=== PATIENT | male | born 1970 | race Caucasian/White ===

== ENCOUNTER 2022-06-02 13:38 | Emergency (ER) | payer OTHER, SELFPAY ==
[2022-06-02 14:16] VITALS: BP 135/86; PULSE 77; RESP 19; TEMP 36.6; O2SAT 98; BMI 29.5
--- NOTE | 2022-06-02 14:16 | ED_ITS ---
HPI - Abdominal Pain General Chief Complaint: GI Bleed Stated Complaint: abd bleeding Related Data Allergies Allergy/AdvReac Type Severity Reaction Status Date / Time No Known Allergies Allergy Verified 06/02/22 14:21 [facility] Social History Social History Advance Directives: No Advance Directives Information Provided: No Physical Exam ED Vital Signs: BMI result Body Mass Index 29.5 Course Course Course Narrative: This is an RME: Additional HPI, ROS, PE not included below will be deferred to primary provider. Patient is a 51-year-old male who presents to the emergency department for evaluation. Reports 7 days of dark red old blood in the stools, denies blood when not having a bowel movement. Blood in the stools as when ongoing for quite some time a while at least 1 year, to but recently has been occurring with increased frequency and volume. Has known hemorrhoids. Also Reporting upper abdominal pain, feels it radiating into the chest, history of recurrent pancreatitis is reported as well. Reports a history of bowel obstruction requiring surgical repair/or section? States that he has an Upper endoscopy is scheduled in June 2022. Plan: Labs, EKG, viral testing, urinalysis, CT abdomen and pelvis Medical Decision Making Lab Data 06/02/22 14:46 06/02/22 14:45 Labs: Lab Results 06/02/22 06/02/22 06/02/22 Range/Units 14:42 14:42 14:45 WBC (4.8-10.8) X10*3/uL RBC (4.60-5.80) X10*6/uL Hgb (14.0-18.0) g/dl Hct (42.0-52.0) % MCV (80.0-98.0) fL MCH (27.0-33.0) pg MCHC (31.0-36.0) g/dl RDW (11.0-16.0) % Plt Count (160-400) X10*3/uL MPV (9.4-12.4) fL Immature Gran % (Auto) (0.0-0.4) % Neut % (Auto) (45-73) % Lymph % (Auto) (20-40) % [place]lee % (Auto) (2-11) % Eos % (Auto) (0-4) % Baso % (Auto) (0-2) % Lymph # (Auto) (1.2-4.9) X10*3/uL Green[place] # (Auto) (0.1-1.2) X10*3/uL Eos # (Auto) (0.0-0.4) X10*3/uL Baso # (Auto) (0.0-0.2) X10*3/uL Abs Immat Gran (auto) (0.00-0.03) X10*3/uL Absolute Neuts (auto) (2.0-8.3) x10*3/uL Absolute Nucleated RBC (0.0-0.012) X10*3/uL Nucleated RBC % (auto) (0.0-0.2) /100WBC Sodium 142 (135-145) mmol/L Potassium 4.0 (3.3-5.1) mmol/L Chloride 105 (96-108) mmol/L Carbon Dioxide 29 (22-29) mmol/L Anion Gap 12 (12-20) BUN 17 H (9-16) mg/dL Creatinine 1.07 (0.5-1.4) mg/dL Estim Creat Clear Calc 102.8 Estimated GFR > 60 Random Glucose 92 (60-115) mg/dL Lactic Acid (0.5-2.0) mmol/L Calcium 9.0 (8.4-10.2) mg/dL Total Bilirubin 0.6 (0.0-1.0) mg/dL AST 22 (5-37) U/L ALT 24 (0-40) U/L Alkaline Phosphatase 61 (39-117) U/L Troponin I High Sens (<3.5-35.0) ng/L Total Protein 6.5 (6.5-8.0) g/dL Albumin 4.3 (3.5-5.0) g/dL Lipase 21 (8-78) U/L COVID-19 (MIGUEL) Negative (Negative) COVID-19 Clin Com See Note Influenza Type A (MELANIA) Negative (Negative) Influenza Type B (MELANIA) Negative (Negative) Influenza A & B Note See Note 06/02/22 06/02/22 06/02/22 Range/Units 14:46 14:46 14:46 WBC 7.5 (4.8-10.8) X10*3/uL RBC 4.56 L (4.60-5.80) X10*6/uL Hgb 13.4 L (14.0-18.0) g/dl Hct 41.0 L (42.0-52.0) % MCV 89.9 (80.0-98.0) fL MCH 29.4 (27.0-33.0) pg MCHC 32.7 (31.0-36.0) g/dl RDW 13.2 (11.0-16.0) % Plt Count 272 (160-400) X10*3/uL MPV 9.4 (9.4-12.4) fL Immature Gran % (Auto) 0.4 (0.0-0.4) % Neut % (Auto) 49.1 (45-73) % Lymph % (Auto) 38.1 (20-40) % [place] % (Auto) 8.0 (2-11) % Eos % (Auto) 3.5 (0-4) % Baso % (Auto) 0.9 (0-2) % Lymph # (Auto) 2.9 (1.2-4.9) X10*3/uL [place] # (Auto) 0.6 (0.1-1.2) X10*3/uL Eos # (Auto) 0.3 (0.0-0.4) X10*3/uL Baso # (Auto) 0.1 (0.0-0.2) X10*3/uL Abs Immat Gran (auto) 0.03 (0.00-0.03) X10*3/uL Absolute Neuts (auto) 3.7 (2.0-8.3) x10*3/uL Absolute Nucleated RBC 0.000 (0.0-0.012) X10*3/uL Nucleated RBC % (auto) 0.0 (0.0-0.2) /100WBC Sodium (135-145) mmol/L Potassium (3.3-5.1) mmol/L Chloride (96-108) mmol/L Carbon Dioxide (22-29) mmol/L Anion Gap (12-20) BUN (9-16) mg/dL Creatinine (0.5-1.4) mg/dL Estim Creat Clear Calc Estimated GFR Random Glucose (60-115) mg/dL Lactic Acid 0.8 (0.5-2.0) mmol/L Calcium (8.4-10.2) mg/dL Total Bilirubin (0.0-1.0) mg/dL AST (5-37) U/L ALT (0-40) U/L Alkaline Phosphatase (39-117) U/L Troponin I High Sens 4.0 (<3.5-35.0) ng/L Total Protein (6.5-8.0) g/dL Albumin (3.5-5.0) g/dL Lipase (8-78) U/L COVID-19 ([facility]IGUEL) (Negative) COVID-19 Clin Com Influenza Type A (MELANIA) (Negative) Influenza Type B (MELANIA) (Negative) Influenza A & B Note Discharge Plan Discharge Clinical Impression: Melena Patient Disposition: Elopement Referrals: Physician,None [Primary Care Provider] - 1 Week Interventions: LWBS Worksheet Last Done: 06/02/22 19:50 Discharge Date/Time: 06/02/22 19:51
--- NOTE | 2022-06-02 14:22 | ECG_ITS ---
Test Reason : cp Blood Pressure : / mmHG Vent. Rate : 054 BPM Atrial Rate : 054 BPM P-R Int : 176 ms QRS Dur : 098 ms QT Int : 430 ms P-R-T Axes : 013 048 018 degrees QTc Int : 407 ms Sinus bradycardia Otherwise normal ECG No previous ECGs available Referred By: Tracey Roger Electronically Signed By:Samuel Baumann
[2022-06-02 14:59] LABS: MANUAL DIFF FLAG NO
[2022-06-02 15:05] LABS: Basophils Absolute Auto 0.1 X10*3/uL (0.0-0.2); Basophils Percent Auto 0.9 % (0-2); Eosinophils Absolute Auto 0.3 X10*3/uL (0.0-0.4); Eosinophils Percent Auto 3.5 % (0-4); Hemoglobin 13.4 g/dl (14.0-18.0); Imm Gran Abs Auto 0.03 X10*3/uL (0.00-0.03); Imm Gran Pct Auto 0.4 % (0.0-0.4); Lymphocytes Absolute Auto 2.9 X10*3/uL (1.2-4.9); Lymphocytes Percent Auto 38.1 % (20-40); Mean Corpuscular HGB Conc 32.7 g/dl (31.0-36.0); Mean Corpuscular Hemoglobin 29.4 pg (27.0-33.0); Mean Corpuscular Volume 89.9 fL (80.0-98.0); Mean Platelet Volume 9.4 fL (9.4-12.4); Monocytes Absolute Auto 0.6 X10*3/uL (0.1-1.2); Neutrophils Absolute Auto 3.7 x10*3/uL (2.0-8.3); Neutrophils Percent Auto 49.1 % (45-73); Platelet Count 272 X10*3/uL (160-400); Red Blood Count 4.56 X10*6/uL (4.60-5.80); Red Cell Distribution Width 13.2 % (11.0-16.0); White Blood Count 7.5 X10*3/uL (4.8-10.8)
[2022-06-02 15:23] LABS: Lactic Acid 0.8 mmol/L (0.5-2.0)
[2022-06-02 15:28] LABS: Alanine Aminotransferase 24 U/L (0-40); Albumin Level 4.3 g/dL (3.5-5.0); Alkaline Phosphatase 61 U/L (39-117); Anion Gap 12 (12-20); Aspartate Amino Transferase 22 U/L (5-37); Bilirubin Total 0.6 mg/dL (0.0-1.0); Blood Urea Nitrogen 17 mg/dL (9-16); Carbon Dioxide 29 mmol/L (22-29); Chloride 105 mmol/L (96-108); Creatinine Clr Calc Pharmacy 102.8; Estimated Glomerular Filt Rate > 60; Glucose Random 92 mg/dL (60-115); Lipase 21 U/L (8-78); Sodium 142 mmol/L (135-145); Total Protein 6.5 g/dL (6.5-8.0)
[2022-06-02 15:30] LABS: COVID-19 Test Negative (Negative); IDNOW Serial# 16C4AD1C; IDNOW Serial# BCCEAD1C; Influenza A Negative (Negative); Influenza B2 Negative (Negative)
[2022-06-02 18:17] VITALS: BP 150/88; PULSE 65; RESP 18; TEMP 36.6; O2SAT 98
== END 2022-06-02 19:51 | disposition left against medical advice (07) ==
PROVIDERS: Nurse Practitioner Family; Emergency Provider Emergency Medicine
DX: K92.1 Melena (principal); R10.10 Upper abdominal pain, unspecified; Z20.822 Contact with and (suspected) exposure to COVID-19
CPT/HCPCS: 80053; 83605; 83690; 84484; 85025; 87502; 87635; 93005; 99283

== ENCOUNTER 2022-06-07 12:47 | Observation (INO) | payer OTHER, SELFPAY ==
--- NOTE | ~2022-06-07 | CT_ITS ---
EXAMINATION: CT ABDOMEN AND PELVIS WITHOUT CONTRAST CLINICAL INFORMATION: Upper abdominal pain and nausea. History of small bowel obstruction. COMPARISON: None TECHNIQUE: Multidetector volumetric imaging was performed from the superior aspect of the liver through the pubic symphysis. Sagittal and coronal reformatted images were obtained on the technologist's workstation. This CT examination was performed using dose optimization techniques as appropriate, variously including the following: *Automated exposure control *Adjustment of mA and/or kV according to patient size (this includes techniques or standardized protocols for targeted exams where dose is matched to indication/reason for exam; i.e. extremities or head) *Use of iterative reconstruction technique DLP: 750 mGy-cm FINDINGS: LUNG BASES: The visualized lung bases are unremarkable. LIVER, GALLBLADDER, AND BILIARY TREE: The liver is upper normal measuring 18.5 cm in length. The liver is higher in attenuation than the spleen pancreas and kidneys. No focal liver lesion or evidence of cirrhosis. No biliary duct dilatation. There are 2 small low-attenuation lesion liver lesions measuring 5 mm in the lateral segment the left lobe axial image 17 and anterior segment of the right lobe axial image 24 series 3. These are difficult to characterize due to small size but may represent small cysts. The gallbladder is unremarkable with no evidence of radiopaque gallstones, gallbladder wall thickening, or obvious pericholecystic inflammatory changes. PANCREAS: Unremarkable. SPLEEN: Unremarkable. ADRENAL GLANDS: Unremarkable. KIDNEYS AND URETERS: Bilateral renal cysts. No imaging follow-up. Kidneys are otherwise unremarkable. BLADDER: Unremarkable. GASTROINTESTINAL TRACT: There is slightly distended fluid-filled loops of small bowel in the left upper quadrant. There is no caliber change to suggest obstruction. Mild diverticulosis of the colon. No evidence of diverticulitis. Small and large bowel is otherwise unremarkable. The appendix is normal. ABDOMINAL WALL: No significant hernia is appreciated. LYMPH NODES: Normal. VASCULAR: Unremarkable. PELVIC VISCERA: Unremarkable. OSSEOUS STRUCTURES: Unremarkable. CT/CT abdomen pelvis wo IV con IMPRESSION: Slightly dilated fluid-filled loops of small bowel in the left upper quadrant. No evidence of obstruction. Slightly enlarged high attenuation liver. Correlation for hepatocellular disease recommended. Bilateral renal cysts. Fleischner guidelines were followed.
[2022-06-07 13:31] VITALS: BP 145/88; PULSE 66; RESP 18; TEMP 36.9; O2SAT 97; BMI 29.5
--- NOTE | 2022-06-07 13:32 | ED_ITS ---
HPI - Abdominal Pain General Chief Complaint: GI Bleed <TRI Cesar - Last Filed: 06/07/22 13:37> Stated Complaint: GI bleed <TRI Cesar - Last Filed: 06/07/22 13:37> Time Seen by Provider: 06/07/22 19:53 <TRI Cesar - Last Filed: 06/07/22 13:37> Source: patient <Erika Ortega MD - Last Filed: 06/07/22 20:35> Mode of arrival: ambulatory <Erika Ortega MD - Last Filed: 06/07/22 20:35> Limitations: no limitations <Erika Ortega MD - Last Filed: 06/07/22 20:35> History of Present Illness HPI narrative: 51-year-old male came in for evaluation of lower GI bleed patient's symptoms started about a week ago with bright red blood per rectum that is now turning to black tarry stool melena. Patient was trying to come to the hospital because the long waiting time in the hospital patient did not want to be waiting and evaluated, no headache, no dizziness. Patient had a multiple colonoscopy and schedule to have upper endoscopy on 06/18, patient had a familiar polyps with multiple polypectomy in the past. No bowel movement for the past 6 hours no passing gas patient had a history of SBO in the past. <Erika Ortega MD - Last Filed: 06/07/22 20:35> Related Data Allergies/Adverse Reactions: Allergies Allergy/AdvReac Type Severity Reaction Status Date / Time No Known Allergies Allergy Verified 06/02/22 14:21 <TRI Cesar - Last Filed: 06/07/22 13:37> Review of Systems Review of Systems All other systems are reviewed and are negative Constitutional: Reports as per HPI and Reports no additional constitutional complaints Eyes: Reports as per HPI and Reports no additional eye complaints Reports system reviewed and no additional complaints, except as documented Cardiovascular: Reports as per HPI and Reports no additional cardiovascular complaints Respiratory: Reports as per HPI and Reports no additional respiratory complaints Gastrointestinal: Reports as per HPI and Reports no additional gastrointestinal complaints Genitourinary: Reports no additional female genitourinary complaints Musculoskeletal: Reports no additional musculoskeletal complaints Skin/Breast: Reports system reviewed and no additional complaints, except as docu Psychiatric: Reports no additional psychiatric complaints Endocrine: Reports no additional endocrine complaints Hematologic/Lymphatic: Reports no additional hematologic/lymphatic complaints Allergic/Immunologic: Reports no additional allergic/immunologic complaints Reports system reviewed and no additional complaints, except as documented and Reports Abnormal speech present <Erika Ortega MD - Last Filed: 06/07/22 20:35> [facility] Social History Social History: Social History Advance Directives: No Advance Directives Information Provided: No <TRI Cesar - Last Filed: 06/07/22 13:37> Physical Exam ED Vital Signs: Vital Signs - 24 hr 06/07/22 13:31 06/07/22 20:00 Temperature 98.4 F 98.5 F Pulse Rate 66 50 Respiratory Rate 18 16 Blood Pressure 145/88 H 132/78 Pulse Oximetry 97 97 Oxygen Delivery Method Room Air Room Air BMI result Body Mass Index 29.5 <TRI Cesar - Last Filed: 06/07/22 13:37> Vital Signs - 24 hr 06/07/22 13:31 06/07/22 20:00 Temperature 98.4 F 98.5 F Pulse Rate 66 50 Respiratory Rate 18 16 Blood Pressure 145/88 H 132/78 Pulse Oximetry 97 97 Oxygen Delivery Method Room Air Room Air BMI result Body Mass Index 29.5 Vital signs have been reviewed as appeared to be correct. Blood pressure normal. Heart rate normal. Respiration rate normal. Temperature normal. Oxygen saturation normal. <Erika Ortega MD - Last Filed: 06/07/22 20:35> Appearance: Alert. Oriented X3. No acute distress. Head: Normal external exam. Normocephalic. Atraumatic. No Rankin signs noted. No raccoon eyes noted Eyes: PERRLA. EOMI. Conjunctiva and sclera normal. Eyelids normal. ENT: TM's Normal. Pharynx normal. Uvula midline. Moist mucous membranes. No trismus noted. No drooling noted. No muffled voice noted. Neck: Normal inspection. Neck supple. FROM. No adenopathy. Thyroid Normal. No meningeal signs. No neck mass noted. CVS: Normal heart rate and rhythm. Heart sound normal. No murmurs noted. Pulses normal throughout. Respiratory: No respiratory distress. Painless inspiration. Breath sounds normal. No wheezes/rales/rhonchi noted. Chest nontender. No accessory muscle usage noted or decreased air movement noted. Abdomen: Soft and nontender. Bowel sounds normal in all 4 quadrants. No distention noted. No organomegaly noted. No visible injury noted. Rectal exam: Empty rectal vault with no stool. Back: No CVA tenderness. Full range of motion noted. Skin: Skin warm and dry. Normal skin color. Normal skin turgor. No rashes/lesions/lacerations noted. Extremities: No lower extremity edema. Extremities exhibit normal range of motion. Extremities nontender. Neuro: Oriented X 3. Cranial nerve exam: II-XII are grossly intact No motor deficit. No sensory deficit. Reflexes normal. <Erika Ortega MD - Last Filed: 06/07/22 20:35> Course Course Course Narrative: RME- 51 yo male with history of SBO requiring surgery 01/2021 and pancreatitis presents to the ER for upper abdominal pain & nausea for the last 1 week along with BRBPR w/ clots on/off for 1 year. Hx known hemorrhoids. Has a GI doctor has EGD 3/. No vomiting. Feels like he may have another obstruction. Was here 06/02 for similar and eloped. Will repeat labs and get CT scan for further evaluation. <TRI Cesar - Last Filed: 06/07/22 13:37> Reevaluation(s) Reevaluation #1: 51-year-old male with GI bleeding, stable vital signs stable H&H. Will admit him for observation and serial CBC. <Erika Ortega MD - Last Filed: 06/07/22 20:35> Time: 20:33 <Erika Ortega MD - Last Filed: 06/07/22 20:35> Medical Decision Making Differential Diagnosis Differential Diagnoses: The differential diagnosis associated with the presentation includes (GI bleed, diverticular disease, hemorrhoids, small bowel obstruction, intra- abdominal infection.) <Erika Ortega MD - Last Filed: 06/07/22 20:35> Admission/Observation Consideration of admission/observation: Escalation of care including admission/observation considered <Erika Ortega MD - Last Filed: 06/07/22 20:35> Consult Healthcare Provider Management of the patient was discussed with: Hospitalist <Erika Ortega MD - Last Filed: 06/07/22 20:35> Lab Data MDM Lab Attestation statement: I reviewed the patient's lab results. <Erika Ortega MD - Last Filed: 06/07/22 20:35> Result Diagrams: 06/07/22 14:11 06/07/22 14:11 <TRI Cesar - Last Filed: 06/07/22 13:37> Labs: Lab Results 06/07/22 06/07/22 06/07/22 Range/Units 14:11 14:11 14:11 WBC 7.2 (4.8-10.8) X10*3/uL RBC 4.86 (4.60-5.80) X10*6/uL Hgb 14.6 (14.0-18.0) g/dl Hct 43.7 (42.0-52.0) % MCV 89.9 (80.0-98.0) fL MCH 30.0 (27.0-33.0) pg MCHC 33.4 (31.0-36.0) g/dl RDW 13.2 (11.0-16.0) % Plt Count 276 (160-400) X10*3/uL MPV 9.3 L (9.4-12.4) fL Immature Gran % (Auto) 0.4 (0.0-0.4) % Neut % (Auto) 52.6 (45-73) % Lymph % (Auto) 33.8 (20-40) % [place] % (Auto) 8.5 (2-11) % Eos % (Auto) 3.7 (0-4) % Baso % (Auto) 1.0 (0-2) % Lymph # (Auto) 2.4 (1.2-4.9) X10*3/uL [place] # (Auto) 0.6 (0.1-1.2) X10*3/uL Eos # (Auto) 0.3 (0.0-0.4) X10*3/uL Baso # (Auto) 0.1 (0.0-0.2) X10*3/uL Abs Immat Gran (auto) 0.03 (0.00-0.03) X10*3/uL Absolute Neuts (auto) 3.8 (2.0-8.3) x10*3/uL Absolute Nucleated RBC 0.000 (0.0-0.012) X10*3/uL Nucleated RBC % (auto) 0.0 (0.0-0.2) /100WBC PT 11.3 (10.0-13.1) SEC INR 1.0 (0.9-1.1) APTT 28.9 (26.0-36.4) SEC Sodium 140 (135-145) mmol/L Potassium 4.4 (3.3-5.1) mmol/L Chloride 104 (96-108) mmol/L Carbon Dioxide 25 (22-29) mmol/L Anion Gap 15 (12-20) BUN 16 (9-16) mg/dL Creatinine 1.00 (0.5-1.4) mg/dL Estim Creat Clear Calc 110.0 Estimated GFR > 60 Random Glucose 88 (60-115) mg/dL Calcium 9.2 (8.4-10.2) mg/dL Magnesium 2.1 (1.6-2.6) mg/dL Total Bilirubin 0.4 (0.0-1.0) mg/dL Direct Bilirubin < 0.2 (0.0-0.5) mg/dL AST 18 (5-37) U/L ALT 18 (0-40) U/L Alkaline Phosphatase 59 (39-117) U/L Total Protein 6.9 (6.5-8.0) g/dL Albumin 4.3 (3.5-5.0) g/dL Lipase (8-78) U/L 06/07/22 Range/Units 14:11 WBC (4.8-10.8) X10*3/uL RBC (4.60-5.80) X10*6/uL Hgb (14.0-18.0) g/dl Hct (42.0-52.0) % MCV (80.0-98.0) fL MCH (27.0-33.0) pg MCHC (31.0-36.0) g/dl RDW (11.0-16.0) % Plt Count (160-400) X10*3/uL MPV (9.4-12.4) fL Immature Gran % (Auto) (0.0-0.4) % Neut % (Auto) (45-73) % Lymph % (Auto) (20-40) % [place] % (Auto) (2-11) % Eos % (Auto) (0-4) % Baso % (Auto) (0-2) % Lymph # (Auto) (1.2-4.9) X10*3/uL [place] # (Auto) (0.1-1.2) X10*3/uL Eos # (Auto) (0.0-0.4) X10*3/uL Baso # (Auto) (0.0-0.2) X10*3/uL Abs Immat Gran (auto) (0.00-0.03) X10*3/uL Absolute Neuts (auto) (2.0-8.3) x10*3/uL Absolute Nucleated RBC (0.0-0.012) X10*3/uL Nucleated RBC % (auto) (0.0-0.2) /100WBC PT (10.0-13.1) SEC INR (0.9-1.1) APTT (26.0-36.4) SEC Sodium (135-145) mmol/L Potassium (3.3-5.1) mmol/L Chloride (96-108) mmol/L Carbon Dioxide (22-29) mmol/L Anion Gap (12-20) BUN (9-16) mg/dL Creatinine (0.5-1.4) mg/dL Estim Creat Clear Calc Estimated GFR Random Glucose (60-115) mg/dL Calcium (8.4-10.2) mg/dL Magnesium (1.6-2.6) mg/dL Total Bilirubin (0.0-1.0) mg/dL Direct Bilirubin (0.0-0.5) mg/dL AST (5-37) U/L ALT (0-40) U/L Alkaline Phosphatase (39-117) U/L Total Protein (6.5-8.0) g/dL Albumin (3.5-5.0) g/dL Lipase 32 (8-78) U/L <TRI Cesar - Last Filed: 06/07/22 13:37> Lab Results 06/07/22 06/07/22 06/07/22 Range/Units 14:11 14:11 14:11 WBC 7.2 (4.8-10.8) X10*3/uL RBC 4.86 (4.60-5.80) X10*6/uL Hgb 14.6 (14.0-18.0) g/dl Hct 43.7 (42.0-52.0) % MCV 89.9 (80.0-98.0) fL MCH 30.0 (27.0-33.0) pg MCHC 33.4 (31.0-36.0) g/dl RDW 13.2 (11.0-16.0) % Plt Count 276 (160-400) X10*3/uL MPV 9.3 L (9.4-12.4) fL Immature Gran % (Auto) 0.4 (0.0-0.4) % Neut % (Auto) 52.6 (45-73) % Lymph % (Auto) 33.8 (20-40) % [place] % (Auto) 8.5 (2-11) % Eos % (Auto) 3.7 (0-4) % Baso % (Auto) 1.0 (0-2) % Lymph # (Auto) 2.4 (1.2-4.9) X10*3/uL [place] # (Auto) 0.6 (0.1-1.2) X10*3/uL Eos # (Auto) 0.3 (0.0-0.4) X10*3/uL Baso # (Auto) 0.1 (0.0-0.2) X10*3/uL Abs Immat Gran (auto) 0.03 (0.00-0.03) X10*3/uL Absolute Neuts (auto) 3.8 (2.0-8.3) x10*3/uL Absolute Nucleated RBC 0.000 (0.0-0.012) X10*3/uL Nucleated RBC % (auto) 0.0 (0.0-0.2) /100WBC PT 11.3 (10.0-13.1) SEC INR 1.0 (0.9-1.1) APTT 28.9 (26.0-36.4) SEC Sodium 140 (135-145) mmol/L Potassium 4.4 (3.3-5.1) mmol/L Chloride 104 (96-108) mmol/L Carbon Dioxide 25 (22-29) mmol/L Anion Gap 15 (12-20) BUN 16 (9-16) mg/dL Creatinine 1.00 (0.5-1.4) mg/dL Estim Creat Clear Calc 110.0 Estimated GFR > 60 Random Glucose 88 (60-115) mg/dL Calcium 9.2 (8.4-10.2) mg/dL Magnesium 2.1 (1.6-2.6) mg/dL Total Bilirubin 0.4 (0.0-1.0) mg/dL Direct Bilirubin < 0.2 (0.0-0.5) mg/dL AST 18 (5-37) U/L ALT 18 (0-40) U/L Alkaline Phosphatase 59 (39-117) U/L Total Protein 6.9 (6.5-8.0) g/dL Albumin 4.3 (3.5-5.0) g/dL Lipase (8-78) U/L 06/07/22 Range/Units 14:11 WBC (4.8-10.8) X10*3/uL RBC (4.60-5.80) X10*6/uL Hgb (14.0-18.0) g/dl Hct (42.0-52.0) % MCV (80.0-98.0) fL MCH (27.0-33.0) pg MCHC (31.0-36.0) g/dl RDW (11.0-16.0) % Plt Count (160-400) X10*3/uL MPV (9.4-12.4) fL Immature Gran % (Auto) (0.0-0.4) % Neut % (Auto) (45-73) % Lymph % (Auto) (20-40) % [place] % (Auto) (2-11) % Eos % (Auto) (0-4) % Baso % (Auto) (0-2) % Lymph # (Auto) (1.2-4.9) X10*3/uL [place] # (Auto) (0.1-1.2) X10*3/uL Eos # (Auto) (0.0-0.4) X10*3/uL Baso # (Auto) (0.0-0.2) X10*3/uL Abs Immat Gran (auto) (0.00-0.03) X10*3/uL Absolute Neuts (auto) (2.0-8.3) x10*3/uL Absolute Nucleated RBC (0.0-0.012) X10*3/uL Nucleated RBC % (auto) (0.0-0.2) /100WBC PT (10.0-13.1) SEC INR (0.9-1.1) APTT (26.0-36.4) SEC Sodium (135-145) mmol/L Potassium (3.3-5.1) mmol/L Chloride (96-108) mmol/L Carbon Dioxide (22-29) mmol/L Anion Gap (12-20) BUN (9-16) mg/dL Creatinine (0.5-1.4) mg/dL Estim Creat Clear Calc Estimated GFR Random Glucose (60-115) mg/dL Calcium (8.4-10.2) mg/dL Magnesium (1.6-2.6) mg/dL Total Bilirubin (0.0-1.0) mg/dL Direct Bilirubin (0.0-0.5) mg/dL AST (5-37) U/L ALT (0-40) U/L Alkaline Phosphatase (39-117) U/L Total Protein (6.5-8.0) g/dL Albumin (3.5-5.0) g/dL Lipase 32 (8-78) U/L <Erika Ortega MD - Last Filed: 06/07/22 20:35> Independent Interpretation I performed an independent interpretation of an: CT Scan (Abdomen and pelvis: No acute intra-abdominal pathology.) <Erika Ortega MD - Last Filed: 06/07/22 20:35> Radiology Impression Discussion of test interpretation with radiology: I have reviewed the radiologist's reading. <Erika Ortega MD - Last Filed: 06/07/22 20:35> Discharge Plan Discharge Clinical Impression: Acute GI bleeding <TRI Cesar - Last Filed: 06/07/22 13:37> Patient Disposition: Admitted As Inpatient <TRI Cesar - Last Filed: 06/07/22 13:37>
--- NOTE | 2022-06-07 14:13 | MHC.EDTECH ---
Labs collected and sent
[2022-06-07 14:19] LABS: MANUAL DIFF FLAG NO
[2022-06-07 14:22] LABS: Basophils Absolute Auto 0.1 X10*3/uL (0.0-0.2); Eosinophils Absolute Auto 0.3 X10*3/uL (0.0-0.4); Eosinophils Percent Auto 3.7 % (0-4); Hematocrit 43.7 % (42.0-52.0); Hemoglobin 14.6 g/dl (14.0-18.0); Imm Gran Abs Auto 0.03 X10*3/uL (0.00-0.03); Imm Gran Pct Auto 0.4 % (0.0-0.4); Lymphocytes Absolute Auto 2.4 X10*3/uL (1.2-4.9); Lymphocytes Percent Auto 33.8 % (20-40); Mean Corpuscular HGB Conc 33.4 g/dl (31.0-36.0); Mean Corpuscular Volume 89.9 fL (80.0-98.0); Mean Platelet Volume 9.3 fL (9.4-12.4); Monocytes Absolute Auto 0.6 X10*3/uL (0.1-1.2); Monocytes Percent Auto 8.5 % (2-11); Neutrophils Absolute Auto 3.8 x10*3/uL (2.0-8.3); Neutrophils Percent Auto 52.6 % (45-73); Platelet Count 276 X10*3/uL (160-400); Red Blood Count 4.86 X10*6/uL (4.60-5.80); Red Cell Distribution Width 13.2 % (11.0-16.0); White Blood Count 7.2 X10*3/uL (4.8-10.8)
[2022-06-07 14:29] LABS: Prothrombin Time 11.3 SEC (10.0-13.1)
[2022-06-07 14:32] LABS: Partial Thromboplastin Time 28.9 SEC (26.0-36.4)
[2022-06-07 14:35] LABS: Lipase 32 U/L (8-78)
[2022-06-07 14:37] LABS: Alanine Aminotransferase 18 U/L (0-40); Albumin Level 4.3 g/dL (3.5-5.0); Alkaline Phosphatase 59 U/L (39-117); Anion Gap 15 (12-20); Aspartate Amino Transferase 18 U/L (5-37); Bilirubin Direct < 0.2 mg/dL (0.0-0.5); Bilirubin Total 0.4 mg/dL (0.0-1.0); Blood Urea Nitrogen 16 mg/dL (9-16); Calcium 9.2 mg/dL (8.4-10.2); Carbon Dioxide 25 mmol/L (22-29); Chloride 104 mmol/L (96-108); Estimated Glomerular Filt Rate > 60; Glucose Random 88 mg/dL (60-115); Magnesium 2.1 mg/dL (1.6-2.6); Potassium 4.4 mmol/L (3.3-5.1); Sodium 140 mmol/L (135-145); Total Protein 6.9 g/dL (6.5-8.0)
[2022-06-07 20:00] VITALS: BP 132/78; PULSE 50; RESP 16; TEMP 36.9; O2SAT 97
--- NOTE | 2022-06-07 20:00 | MHC.EDTECH ---
this pct just assumed care of pt at 1999 ,rounding done ,vitals sign taken ,pt resting quietly in bed .
--- NOTE | 2022-06-07 20:21 | ED.GIBLEED ---
HPI - GI Bleed General Chief complaint: GI Bleed Stated complaint: GI bleed Time Seen by Provider: 06/07/22 19:53 Source: patient Mode of arrival: ambulatory Limitations: no limitations Related Data Allergies Allergy/AdvReac Type Severity Reaction Status Date / Time No Known Allergies Allergy Verified 06/02/22 14:21 [facility] Social History Social History Advance Directives: No Advance Directives Information Provided: No Physical Exam Vital Signs: Vital Signs: Last Vital Signs Temp 98.5 F 06/07/22 20:00 Pulse 50 06/07/22 20:00 Resp 16 06/07/22 20:00 BP 132/78 06/07/22 20:00 Pulse Ox 97 06/07/22 20:00 O2 Del Method 06/07/22 20:00 BMI result Body Mass Index 29.5 Medical Decision Making Lab Data 06/07/22 14:11 06/07/22 14:11 Labs: Lab Results 06/07/22 06/07/22 06/07/22 Range/Units 14:11 14:11 14:11 WBC 7.2 (4.8-10.8) X10*3/uL RBC 4.86 (4.60-5.80) X10*6/uL Hgb 14.6 (14.0-18.0) g/dl Hct 43.7 (42.0-52.0) % MCV 89.9 (80.0-98.0) fL MCH 30.0 (27.0-33.0) pg MCHC 33.4 (31.0-36.0) g/dl RDW 13.2 (11.0-16.0) % Plt Count 276 (160-400) X10*3/uL MPV 9.3 L (9.4-12.4) fL Immature Gran % (Auto) 0.4 (0.0-0.4) % Neut % (Auto) 52.6 (45-73) % Lymph % (Auto) 33.8 (20-40) % [place] % (Auto) 8.5 (2-11) % Eos % (Auto) 3.7 (0-4) % Baso % (Auto) 1.0 (0-2) % Lymph # (Auto) 2.4 (1.2-4.9) X10*3/uL [place] # (Auto) 0.6 (0.1-1.2) X10*3/uL Eos # (Auto) 0.3 (0.0-0.4) X10*3/uL Baso # (Auto) 0.1 (0.0-0.2) X10*3/uL Abs Immat Gran (auto) 0.03 (0.00-0.03) X10*3/uL Absolute Neuts (auto) 3.8 (2.0-8.3) x10*3/uL Absolute Nucleated RBC 0.000 (0.0-0.012) X10*3/uL Nucleated RBC % (auto) 0.0 (0.0-0.2) /100WBC PT 11.3 (10.0-13.1) SEC INR 1.0 (0.9-1.1) APTT 28.9 (26.0-36.4) SEC Sodium 140 (135-145) mmol/L Potassium 4.4 (3.3-5.1) mmol/L Chloride 104 (96-108) mmol/L Carbon Dioxide 25 (22-29) mmol/L Anion Gap 15 (12-20) BUN 16 (9-16) mg/dL Creatinine 1.00 (0.5-1.4) mg/dL Estim Creat Clear Calc 110.0 Estimated GFR > 60 Random Glucose 88 (60-115) mg/dL Calcium 9.2 (8.4-10.2) mg/dL Magnesium 2.1 (1.6-2.6) mg/dL Total Bilirubin 0.4 (0.0-1.0) mg/dL Direct Bilirubin < 0.2 (0.0-0.5) mg/dL AST 18 (5-37) U/L ALT 18 (0-40) U/L Alkaline Phosphatase 59 (39-117) U/L Total Protein 6.9 (6.5-8.0) g/dL Albumin 4.3 (3.5-5.0) g/dL Lipase (8-78) U/L 06/07/22 Range/Units 14:11 WBC (4.8-10.8) X10*3/uL RBC (4.60-5.80) X10*6/uL Hgb (14.0-18.0) g/dl Hct (42.0-52.0) % MCV (80.0-98.0) fL MCH (27.0-33.0) pg MCHC (31.0-36.0) g/dl RDW (11.0-16.0) % Plt Count (160-400) X10*3/uL MPV (9.4-12.4) fL Immature Gran % (Auto) (0.0-0.4) % Neut % (Auto) (45-73) % Lymph % (Auto) (20-40) % [place] % (Auto) (2-11) % Eos % (Auto) (0-4) % Baso % (Auto) (0-2) % Lymph # (Auto) (1.2-4.9) X10*3/uL [place] # (Auto) (0.1-1.2) X10*3/uL Eos # (Auto) (0.0-0.4) X10*3/uL Baso # (Auto) (0.0-0.2) X10*3/uL Abs Immat Gran (auto) (0.00-0.03) X10*3/uL Absolute Neuts (auto) (2.0-8.3) x10*3/uL Absolute Nucleated RBC (0.0-0.012) X10*3/uL Nucleated RBC % (auto) (0.0-0.2) /100WBC PT (10.0-13.1) SEC INR (0.9-1.1) APTT (26.0-36.4) SEC Sodium (135-145) mmol/L Potassium (3.3-5.1) mmol/L Chloride (96-108) mmol/L Carbon Dioxide (22-29) mmol/L Anion Gap (12-20) BUN (9-16) mg/dL Creatinine (0.5-1.4) mg/dL Estim Creat Clear Calc Estimated GFR Random Glucose (60-115) mg/dL Calcium (8.4-10.2) mg/dL Magnesium (1.6-2.6) mg/dL Total Bilirubin (0.0-1.0) mg/dL Direct Bilirubin (0.0-0.5) mg/dL AST (5-37) U/L ALT (0-40) U/L Alkaline Phosphatase (39-117) U/L Total Protein (6.5-8.0) g/dL Albumin (3.5-5.0) g/dL Lipase 32 (8-78) U/L Discharge Plan Discharge Clinical Impression: Acute GI bleeding Patient Disposition: Admitted As Inpatient
[2022-06-07 21:35] LABS: COVID-19 Test Negative (Negative); IDNOW Serial# 6674DD1D
[2022-06-07 21:57] VITALS: BP 123/73; PULSE 51; RESP 16; TEMP 36.6; O2SAT 98
--- NOTE | 2022-06-07 22:00 | PM.IMHP ---
History of Present Illness Date of Service: 06/07/22 Chief Complaint: GI bleed 51-year-old male with no significant past medical history presents to the hospital with complaints of GI bleed. Patient reports that he has been having on and off GI bleed for the past 1 year worsened in the past 1 week where he had bright blood per rectum with every bowel movement. He reports that he has been constipated, has been using MiraLax with minimal relief. Reports that he strains when he passes his stool. He reports that he has noticed blood mixed with stool as well as fills up the toilet bowl as well as when he wipes. He does report pain with straining. Patient reports dizziness with minimal exertion, shortness of breath, no chest pain, reports diffuse abdominal pain worse at the umbilical region, 5/10, constant, nonradiating, not associated with any alleviating or exacerbating factors. Denies using any NSAIDs. No aspirin. Reports no urinary symptoms and no lower extremity edema. No headache change in vision and no numbness weakness or tingling. On arrival to the ED patient hemodynamically stable with no significant abnormal vitals Labs reviewed, hemoglobin is 14.6, with no other abnormality Stool guaiac not resulted as pt had no stool in rectal vault patient being admitted for further evaluation Review of Systems Review of Systems: Yes all other systems are reviewed and are negative [facility] Medical History (Updated 06/07/22 @ 22:04 by Olesya Maldonado MD) SBO (small bowel obstruction) Surgical History (Updated 06/07/22 @ 22:05 by Olesya Maldonado MD) No pertinent past surgical history Social History (Updated 06/07/22 @ 22:05 by Olesya Maldonado MD) Alcohol intake: current Patient Tobacco Use Status: Never used Tobacco Substance Use Type: Marijuana Advance Directives: No Advance Directives Information Provided: No Meds Allergies Allergy/AdvReac Type Severity Reaction Status Date / Time No Known Allergies Allergy Verified 06/02/22 14:21 Physical Exam Vital Signs and Narrative: Vital Signs: Last Vital Signs Temp 98.5 F 06/07/22 20:00 Pulse 50 06/07/22 20:00 Resp 16 06/07/22 20:00 BP 132/78 06/07/22 20:00 Pulse Ox 97 06/07/22 20:00 O2 Del Method 06/07/22 20:00 BMI result Body Mass Index 29.5 Const: General: cooperative and no acute distress Orientation/consciousness: patient oriented x3 Eyes: General: appearance normal, both eyes and all related structures Resp: Effort & Inspection: normal respiratory effort Auscultation: clear to auscultation bilaterally Cardio: Rate: regular rate Rhythm: regular rhythm GI: Other: abdomen is diffusely tender, no rebound or guarding Palpation (GI): Soft to palpation Auscultation: normal bowel sounds Skin: General skin exam: no rashes or lesions noted Neuro: General: patient oriented x3 Cognition (Neuro): normal cognition Extrem: General: Yes normal to inspection and Yes no pedal edema Results Labs 06/07/22 14:11 06/07/22 14:11 Labs: Laboratory Results - last 24 hr 06/07/22 06/07/22 06/07/22 14:11 14:11 14:11 MCV 89.9 MCH 30.0 MCHC 33.4 RDW 13.2 Plt Count 276 MPV 9.3 L Immature Gran % (Auto) 0.4 Neut % (Auto) 52.6 Lymph % (Auto) 33.8 Bladen % (Auto) 8.5 Eos % (Auto) 3.7 Baso % (Auto) 1.0 Lymph # (Auto) 2.4 Bladen # (Auto) 0.6 Eos # (Auto) 0.3 Baso # (Auto) 0.1 Abs Immat Gran (auto) 0.03 Absolute Neuts (auto) 3.8 Absolute Nucleated RBC 0.000 Nucleated RBC % (auto) 0.0 PT 11.3 INR 1.0 APTT 28.9 Anion Gap 15 Estim Creat Clear Calc 110.0 Estimated GFR > 60 Random Glucose 88 Calcium 9.2 Magnesium 2.1 Total Bilirubin 0.4 Direct Bilirubin < 0.2 AST 18 ALT 18 Alkaline Phosphatase 59 Total Protein 6.9 Albumin 4.3 Lipase COVID-19 ([facility]UEL) COVID-19 Clin Com 06/07/22 06/07/22 14:11 21:15 MCV MCH MCHC RDW Plt Count MPV Immature Gran % (Auto) Neut % (Auto) Lymph % (Auto) Bladen % (Auto) Eos % (Auto) Baso % (Auto) Lymph # (Auto) Bladen # (Auto) Eos # (Auto) Baso # (Auto) Abs Immat Gran (auto) Absolute Neuts (auto) Absolute Nucleated RBC Nucleated RBC % (auto) PT INR APTT Anion Gap Estim Creat Clear Calc Estimated GFR Random Glucose Calcium Magnesium Total Bilirubin Direct Bilirubin AST ALT Alkaline Phosphatase Total Protein Albumin Lipase 32 COVID-19 (MIGUEL) Negative COVID-19 Clin Com See Note Imaging Radiologist's Impressions: Impressions Abdomen/Pelvis CT 06/07/22 14:08 IMPRESSION: Slightly dilated fluid-filled loops of small bowel in the left upper quadrant. No evidence of obstruction. Slightly enlarged high attenuation liver. Correlation for hepatocellular disease recommended. Bilateral renal cysts. Fleischner guidelines were followed. Assessment and Plan (1) Acute GI bleeding: Status: Acute Plan 51-year-old male with history of small-bowel obstruction in 2020 presents to the hospital with complaints of abdominal pain, and bright red blood per rectum # acute GI bleed - likely secondary to hemorrhoidal bleed versus diverticular - hemodynamically stable, no significant drop in hemoglobin - at this time will consult GI - No NSAIDs - follow H&H - NPO after midnight for possible intervention by GI DVT prophylaxis: Early ambulation Time Spent With Patient Time: Total time managing care of this patient today ____ minutes. Quality Stroke Does the patient have a stroke diagnosis?: No VTE Prior VTE?: No VTE Risk Level:: Medical - low VTE Device Contraindication: Treatment Not Indicated VTE Drug Contraindication: Treatment Not Indicated
[2022-06-07 23:53] VITALS: BP 111/71; PULSE 51; RESP 16; TEMP 36.7; O2SAT 95
--- NOTE | 2022-06-07 23:54 | MHC.EDTECH ---
0000 rounding done ,vitals sign taken ,pt is resting ,quietly ,call richey within reach .
--- NOTE | 2022-06-08 02:00 | MHC.EDTECH ---
0200 rounding done ,pt sleeping .
[2022-06-08 04:34] LABS: MANUAL DIFF FLAG NO
[2022-06-08 04:37] LABS: Basophils Absolute Auto 0.1 X10*3/uL (0.0-0.2); Basophils Percent Auto 0.8 % (0-2); Eosinophils Absolute Auto 0.4 X10*3/uL (0.0-0.4); Hematocrit 43.8 % (42.0-52.0); Hemoglobin 14.4 g/dl (14.0-18.0); Imm Gran Abs Auto 0.04 X10*3/uL (0.00-0.03); Imm Gran Pct Auto 0.5 % (0.0-0.4); Lymphocytes Absolute Auto 2.8 X10*3/uL (1.2-4.9); Lymphocytes Percent Auto 34.7 % (20-40); Mean Corpuscular HGB Conc 32.9 g/dl (31.0-36.0); Mean Corpuscular Hemoglobin 29.4 pg (27.0-33.0); Mean Corpuscular Volume 89.4 fL (80.0-98.0); Mean Platelet Volume 9.2 fL (9.4-12.4); Monocytes Absolute Auto 0.7 X10*3/uL (0.1-1.2); Monocytes Percent Auto 8.8 % (2-11); Neutrophils Percent Auto 50.2 % (45-73); Platelet Count 272 X10*3/uL (160-400); Red Cell Distribution Width 13.3 % (11.0-16.0)
[2022-06-08 04:52] LABS: Anion Gap 11 (12-20); Blood Urea Nitrogen 16 mg/dL (9-16); Calcium 9.1 mg/dL (8.4-10.2); Carbon Dioxide 27 mmol/L (22-29); Chloride 105 mmol/L (96-108); Creatinine Clr Calc Pharmacy 112.2; Estimated Glomerular Filt Rate > 60; Glucose Random 94 mg/dL (60-115); Potassium 4.3 mmol/L (3.3-5.1); Sodium 139 mmol/L (135-145)
[2022-06-08 05:15] VITALS: BP 112/72; PULSE 60; RESP 17; TEMP 36.9; O2SAT 96
[2022-06-08 07:44] VITALS: BP 137/82; PULSE 61; RESP 18; TEMP 36.2; O2SAT 97
--- NOTE | 2022-06-08 08:47 | P.PNIM_ITS ---
Subjective Subjective Date of Service: 06/08/22 Interval History: brbpr Physical Exam Vital Signs: Vital Signs: Last Vital Signs Temp 97.2 F 06/08/22 07:44 Pulse 61 06/08/22 07:44 Resp 18 06/08/22 07:44 BP 137/82 06/08/22 07:44 Pulse Ox 97 06/08/22 07:44 O2 Del Method 06/08/22 07:44 BMI result Body Mass Index 29.5 General: AO X 3, no acute distress Resp: CTA bilateral, no accessory muscles used CVS: S1,S2,RRR GI: soft, non tender, non distended Neuro: motor grossly intact, alert Psych: appropriate affect, appropriate insight Objective Data Active Medications Acetaminophen (Acetaminophen 325 Mg Tablet) 650 mg PO Q6H PRN PRN Reason: Pain, Mild (Pain Scale 1-3) Bisacodyl (Bisacodyl 5 Mg Tablet.Dr) 10 mg PO BEDTIME WA[facility]AS Docusate Sodium (Docusate Sodium 100 Mg Capsule) 100 mg PO DAILY PRN PRN Reason: Constipation Ondansetron HCl (Ondansetron Hcl 4 Mg/2 Ml Vial) 4 mg IVPUSH Q8H PRN PRN Reason: Nausea and Vomiting Polyethylene Glycol/Electrolytes (Peg 3350/Na Sulf,Bicarb,Cl/Kcl 4,000 Ml Soln.Recon) 240 ml PO Q10M [facility] Stop: 06/08/22 20:41 Sodium Chloride (0.9 % Sodium Chloride Flush 3 Ml Syringe) 3 ml IVFLUSH QSHIFT [facility] Last Admin: 06/08/22 00:35 Dose: Not Given Documented By: ROSE MARIE Non-Admin Reason: Previously Administered Labs 06/08/22 04:23 06/08/22 04:23 Labs: Laboratory Results - last 24 hr 06/07/22 06/07/22 06/07/22 14:11 14:11 14:11 MCV 89.9 MCH 30.0 MCHC 33.4 RDW 13.2 Plt Count 276 MPV 9.3 L Immature Gran % (Auto) 0.4 Neut % (Auto) 52.6 Lymph % (Auto) 33.8 Dickey % (Auto) 8.5 Eos % (Auto) 3.7 Baso % (Auto) 1.0 Lymph # (Auto) 2.4 Dickey # (Auto) 0.6 Eos # (Auto) 0.3 Baso # (Auto) 0.1 Abs Immat Gran (auto) 0.03 Absolute Neuts (auto) 3.8 Absolute Nucleated RBC 0.000 Nucleated RBC % (auto) 0.0 PT 11.3 INR 1.0 APTT 28.9 Anion Gap 15 Estim Creat Clear Calc 110.0 Estimated GFR > 60 Random Glucose 88 Calcium 9.2 Magnesium 2.1 Total Bilirubin 0.4 Direct Bilirubin < 0.2 AST 18 ALT 18 Alkaline Phosphatase 59 Total Protein 6.9 Albumin 4.3 Lipase COVID-19 ([facility]) COVID-19 Clin Com 06/07/22 06/07/22 06/08/22 14:11 21:15 04:23 MCV 89.4 MCH 29.4 MCHC 32.9 RDW 13.3 Plt Count 272 MPV 9.2 L Immature Gran % (Auto) 0.5 H Neut % (Auto) 50.2 Lymph % (Auto) 34.7 Dickey % (Auto) 8.8 Eos % (Auto) 5.0 H Baso % (Auto) 0.8 Lymph # (Auto) 2.8 Dickey # (Auto) 0.7 Eos # (Auto) 0.4 Baso # (Auto) 0.1 Abs Immat Gran (auto) 0.04 H Absolute Neuts (auto) 4.0 Absolute Nucleated RBC 0.000 Nucleated RBC % (auto) 0.0 PT INR APTT Anion Gap Estim Creat Clear Calc Estimated GFR Random Glucose Calcium Magnesium Total Bilirubin Direct Bilirubin AST ALT Alkaline Phosphatase Total Protein Albumin Lipase 32 COVID-19 ([facility]) Negative COVID-19 Clin Com See Note 06/08/22 04:23 MCV MCH MCHC RDW Plt Count MPV Immature Gran % (Auto) Neut % (Auto) Lymph % (Auto) Dickey % (Auto) Eos % (Auto) Baso % (Auto) Lymph # (Auto) Dickey # (Auto) Eos # (Auto) Baso # (Auto) Abs Immat Gran (auto) Absolute Neuts (auto) Absolute Nucleated RBC Nucleated RBC % (auto) PT INR APTT Anion Gap 11 L Estim Creat Clear Calc 112.2 Estimated GFR > 60 Random Glucose 94 Calcium 9.1 Magnesium Total Bilirubin Direct Bilirubin AST ALT Alkaline Phosphatase Total Protein Albumin Lipase COVID-19 ([facility]) COVID-19 Clin Com Assessment and Plan (1) Acute GI bleeding: Status: Acute Plan 51M no significant pmh presented with BRBPR BRBPR no significnat anemia differential includes IBD, diverticular disease, hemorrhoids monitor cbc gi follow up plan for colonoscopy 06/09/22 dvt prophylaxis - mechanical due to gi bleed full code reason for continued hospitalization: plan for inpatient colonoscopy Time Spent With Patient Time: Total time managing care of this patient today ____ minutes. Quality Stroke Does the patient have a stroke diagnosis?: No VTE Prior VTE?: No VTE Risk Level:: Medical - low VTE Device Contraindication: Treatment Not Indicated VTE Drug Contraindication: Treatment Not Indicated
--- NOTE | 2022-06-08 09:30 | MHC.CM.PN ---
MORALES 06/08/22, EMR REVIEWED, CM MET W/PT WHO REPORTS HE LIVES W/, IS FULLY INDEPENDENT W/ALL CARE, DENIES USE OF DME/HOME SERVICES, PT IS CURRENTLY WORKING. PT REPORTS BEING FULLY VACCINATED AGAINST COVID 19, EDUCATED ON AND DECLINES TO COMPLETE A HCP AND PT REPORTS HE SEES A PCP THROUGH THE [facility] HOWEVER HAD TO GO TO [place] TO SEE A PROVIDER HE HAD RECENTLY MOVED. D/C PLAN: HOME NO SERVICES W/ FOR TRANSPORT
--- NOTE | 2022-06-08 11:41 | P.CNGI_ITS ---
History of Present Illness Data of Consult Service Date: 06/08/22 Requesting physician: Olesya Maldonado Primary Care Provider: Unknown Physician HPI Reason for consult: GI bleeding 51-year-old male with hx of bowel obstruction and pancreatitis who I am seeing for assessment for GI bleeding Patient has noted worsening episodes of black stools with fresh blood clots on and off the last year or so. He also notes nausea with 3/10 sharp AYAN [employer]MB[employer] pain with no radiation and worse with foods. He denies vomiting. He does endorse constipation for the last 3 yrs with straining at stool and 30# weight loss which he says is deliberate. Denies using any NSAIDs.? No aspirin.? Reports no urinary symptoms and no lower extremity edema. He does describe surgery for a twisted bowel several years ago, but can;t give all the details. Labs: HGB: 14.6, with no other abnormality CT with enl;arged liver and dilated loops of small bowel Review of Systems Review of Systems: Constitutional : + Weight loss, No Fever, No Chills ENT/Mouth : No sore throat, No Rhinorrhea Eyes: No Swelling, No Redness Cardiovascular : No Chest Pain, + SOB, No Edema Respiratory : No Cough, No Sputum, No Wheezing Gastrointestinal : see HPI Genitourinary : NO Dysuria, No Urinary Frequency, No Hematuria, No Urgency Musculoskeletal : No joint pain, No Myalgias, No Joint Swelling Skin : No Skin Lesions, No rash Neuro : No Weakness, No Numbness, No Dizziness, No Headache Psych : No Anxiety/Panic, No Depression Heme/Lymph: No Bruising, No Lymphadenopathy Endocrine : No Polyuria, No Polydipsia All other systems reviewed and are negative. [facility], [facility] Past Medical History Medical History (Updated 06/08/22 @ 10:42 by Belem Jimenez RN) Pancreatitis SBO (small bowel obstruction) Surgical History Surgical History (Updated 06/07/22 @ 22:05 by Olesya Maldonado MD) No pertinent past surgical history Social History Social History (Updated 06/07/22 @ 22:05 by Olesya Maldonado MD) Household Members: Spouse Housing: House Alcohol intake: current Patient Tobacco Use Status: Never used Tobacco Substance Use Type: Marijuana service: Yes Current occupational status: unemployed Meds Allergies Allergy/AdvReac Type Severity Reaction Status Date / Time No Known Allergies Allergy Verified 06/02/22 14:21 Active Medications: Current Medications Acetaminophen (Acetaminophen 325 Mg Tablet) 650 mg PO Q6H PRN PRN Reason: Pain, Mild (Pain Scale 1-3) Bisacodyl (Bisacodyl 5 Mg Tablet.Dr) 10 mg PO BEDTIME [facility] Docusate Sodium (Docusate Sodium 100 Mg Capsule) 100 mg PO DAILY PRN PRN Reason: Constipation Ondansetron HCl (Ondansetron Hcl 4 Mg/2 Ml Vial) 4 mg IVPUSH Q8H PRN PRN Reason: Nausea and Vomiting Polyethylene Glycol/Electrolytes (Peg 3350/Na Sulf,Bicarb,Cl/Kcl 4,000 Ml Soln.Recon) 4,000 ml PO ONCE ONE Stop: 06/08/22 18:01 Sodium Chloride (0.9 % Sodium Chloride Flush 3 Ml Syringe) 3 ml IVFLUSH QSHIFT [facility] Last Admin: 06/08/22 00:35 Dose: Not Given Home Medications Medication Instructions Recorded Confirmed Last Taken Type No Known Home Meds 06/08/22 06/08/22 Unknown History Physical Exam Vital Signs: Vital Signs: Last Vital Signs Temp 97.2 F 06/08/22 07:44 Pulse 61 06/08/22 07:44 Resp 18 06/08/22 07:44 BP 137/82 06/08/22 07:44 Pulse Ox 97 06/08/22 07:44 O2 Del Method 06/08/22 07:44 BMI result Body Mass Index 29.5 EXAM: GENERAL: The patient is tender in epigastrium and ayan umbilical area VITAL SIGNS:see workflow HEENT: Nonicteric sclerae, PERRLA, EOMI. Oropharynx clear. Moist mucous membranes. Conjunctivae appear well perfused. No thyroid mass. CHEST: Chest wall is nontender. HEART: Regular rate and rhythm without murmurs. LUNGS: Clear to auscultation bilaterally. ABDOMEN: Soft, positive bowel sounds,, no organomegaly.no flank tenderness SKIN: No rash, no excessive bruising, petechiae, or purpura. NEUROLOGIC: Cranial nerves II-XII intact without motor/sensory deficit. psych -nml affect Results Labs 06/08/22 04:23 06/08/22 04:23 Labs: Short CBC 06/07/22 06/08/22 Range/Units 14:11 04:23 WBC 7.2 8.0 (4.8-10.8) X10*3/uL Hgb 14.6 14.4 (14.0-18.0) g/dl Hct 43.7 43.8 (42.0-52.0) % Plt Count 276 272 (160-400) X10*3/uL BMP 06/07/22 06/08/22 14:11 04:23 Sodium 140 139 Potassium 4.4 4.3 Chloride 104 105 Carbon Dioxide 25 27 BUN 16 16 Creatinine 1.00 0.98 Calcium 9.2 9.1 Liver Function 06/07/22 Range/Units 14:11 Total Bilirubin 0.4 (0.0-1.0) mg/dL Direct Bilirubin < 0.2 (0.0-0.5) mg/dL AST 18 (5-37) U/L ALT 18 (0-40) U/L Alkaline Phosphatase 59 (39-117) U/L Albumin 4.3 (3.5-5.0) g/dL Imaging CT scan - abdomen: Attestation: I personally reviewed and interpreted this imaging study as follows: (rectosigmoid stranding, small bowel dilation, fecal loading right col on, renal cyst, hyperattenuated liver) Assessment and Plan (1) Acute GI bleeding: Status: Acute Plan 1/ Periodic worsening episodes of rectal bleeding with black stools and fresh blood with weight loss and nausea, ddX: PUD< colitis, neoplasia, gastritis, IBD tushar with prior hx of SBO PLAN: 1/ Clears today 2/ col[place]te from 7-8 pm and ten plan for EGD and colonoscopy tomorrow Time Spent With Patient Time: Total time managing care of this patient today ____ minutes. Procedures Date of Service Date of Service: 06/08/22
[2022-06-08] MEDS: 0.9 % Sodium Chloride Flush 3 ML SYRINGE IVFLUSH ×3 (12:48→19:59)
[2022-06-08 15:49] VITALS: BP 127/67; PULSE 55; RESP 17; TEMP 36.4; O2SAT 96
[2022-06-08] MEDS: PEG 3350/Na Sulf,Bicarb,Cl/KCL 4,000 ML SOLN.RECON 4000 ML PO (17:36)
--- NOTE | 2022-06-08 18:13 | PC.NURSE ---
Pt is alert and oriented x4. Assumed pt care at 1530. Pt started on [place] at 1800. Pt will be NPO after MN.
[2022-06-08 19:45] VITALS: BP 119/68; PULSE 51; RESP 18; TEMP 36.6; O2SAT 92
[2022-06-08] MEDS: bisacodyL 5 MG TABLET.DR 10 MG PO (19:58)
[2022-06-08] MEDS: ondansetron HCL 4 MG/2 ML VIAL IVPUSH (22:07)
[2022-06-09] VITALS (7 sets, daily range): BP systolic 115–146; BP diastolic 64–92; PULSE 57–89; RESP 16–18; TEMP 36.1–36.7; O2SAT 95–99
[2022-06-09 06:50] LABS: Hematocrit 45.1 % (42.0-52.0); Hemoglobin 15.1 g/dl (14.0-18.0); Mean Corpuscular HGB Conc 33.5 g/dl (31.0-36.0); Mean Corpuscular Hemoglobin 29.8 pg (27.0-33.0); Mean Corpuscular Volume 89.1 fL (80.0-98.0); Mean Platelet Volume 9.7 fL (9.4-12.4); Platelet Count 293 X10*3/uL (160-400); Red Blood Count 5.06 X10*6/uL (4.60-5.80); Red Cell Distribution Width 13.2 % (11.0-16.0)
[2022-06-09 06:56] LABS: Anion Gap 14 (12-20); Blood Urea Nitrogen 16 mg/dL (9-16); Calcium 9.1 mg/dL (8.4-10.2); Carbon Dioxide 24 mmol/L (22-29); Chloride 106 mmol/L (96-108); Creatinine Clr Calc Pharmacy 105.7; Estimated Glomerular Filt Rate > 60; Glucose Fasting 87 mg/dL (60-99); Potassium 4.4 mmol/L (3.3-5.1); Sodium 140 mmol/L (135-145)
[2022-06-09] MEDS: 0.9 % Sodium Chloride Flush 3 ML SYRINGE IVFLUSH (07:52)
--- NOTE | 2022-06-09 09:02 | P.PNIM_ITS ---
Subjective Subjective Date of Service: 06/09/22 Interval History: brbpr no further bleeding Physical Exam Vital Signs: Vital Signs: Last Vital Signs Temp 97.8 F 06/09/22 07:49 Pulse 89 06/09/22 07:49 Resp 18 06/09/22 07:49 BP 146/77 H 06/09/22 07:49 Pulse Ox 98 06/09/22 07:49 O2 Del Method 06/09/22 07:49 BMI result Body Mass Index 29.5 General: AO X 3, no acute distress Resp: CTA bilateral, no accessory muscles used CVS: S1,S2,RRR GI: soft, non tender, non distended Neuro: motor grossly intact, alert Psych: appropriate affect, appropriate insight Objective Data Active Medications Acetaminophen (Acetaminophen 325 Mg Tablet) 650 mg PO Q6H PRN PRN Reason: Pain, Mild (Pain Scale 1-3) Bisacodyl (Bisacodyl 5 Mg Tablet.Dr) 10 mg PO BEDTIME [facility] Last Admin: 06/08/22 19:58 Dose: 10 mg Documented By: WOOD Docusate Sodium (Docusate Sodium 100 Mg Capsule) 100 mg PO DAILY PRN PRN Reason: Constipation Ondansetron HCl (Ondansetron Hcl 4 Mg/2 Ml Vial) 4 mg IVPUSH Q8H PRN PRN Reason: Nausea and Vomiting Last Admin: 06/08/22 22:07 Dose: 4 mg Documented By: WOOD Sodium Chloride (0.9 % Sodium Chloride Flush 3 Ml Syringe) 3 ml IVFLUSH [facility] Last Admin: 06/09/22 07:52 Dose: 3 ml Documented By: DENA Labs 06/09/22 05:50 06/09/22 05:50 Labs: Laboratory Results - last 24 hr 06/09/22 06/09/22 05:50 05:50 MCV 89.1 MCH 29.8 MCHC 33.5 RDW 13.2 Plt Count 293 MPV 9.7 Absolute Nucleated RBC 0.000 Nucleated RBC % (auto) 0.0 Anion Gap 14 Estim Creat Clear Calc 105.7 Estimated GFR > 60 Fasting Glucose 87 Calcium 9.1 Assessment and Plan (1) Acute GI bleeding: Status: Acute Plan 51M no significant pmh presented with BRBPR BRBPR no significnat anemia differential includes IBD, diverticular disease, hemorrhoids cbc stable plan for EGD/colonoscopy today 06/09/22 dvt prophylaxis - mechanical due to gi bleed full code reason for continued hospitalization: plan for inpatient colonoscopy Time Spent With Patient Time: Total time managing care of this patient today ____ minutes. Quality Stroke Does the patient have a stroke diagnosis?: No VTE Prior VTE?: No VTE Risk Level:: Medical - low VTE Device Contraindication: Treatment Not Indicated VTE Drug Contraindication: Treatment Not Indicated
[2022-06-09] MEDS: Acetaminophen 325 MG TABLET 650 MG PO (09:52)
--- NOTE | 2022-06-09 11:04 | HO.ANESPROP2 ---
HPI - Anesthesia Eval Consult details Narrative: 51 yo male patient for EGD, Colonoscopy PMFSH Active Problems Active Problems: All Active Problems (Updated 06/08/22 @ 10:42 by Belem Jimenez RN) Acute GI bleeding (Acute) Past Medical History Medical History Pancreatitis SBO (small bowel obstruction) Functional capacity: wheelchair bound Family History Family history of problems with anesthesia: No Surgical History Surgical History (Updated 06/09/22 @ 11:52 by Jennifer Castelan MD) H/O colonoscopy Small intestine obstruction History of Problems with Anesthesia: No Social History Social History Household Members: Spouse Housing: House Alcohol intake: current Alcohol intake frequency: does not drink Patient Tobacco Use Status: Never used Tobacco Substance Use Type: Marijuana service: Yes Current occupational status: unemployed Meds Allergies Allergy/AdvReac Type Severity Reaction Status Date / Time No Known Allergies Allergy Verified 06/02/22 14:21 Active Medications: Current Medications Acetaminophen (Acetaminophen 325 Mg Tablet) 650 mg PO Q6H PRN PRN Reason: Pain, Mild (Pain Scale 1-3) Last Admin: 06/09/22 09:52 Dose: 650 mg Bisacodyl (Bisacodyl 5 Mg Tablet.Dr) 10 mg PO BEDTIME WAQAS Last Admin: 06/08/22 19:58 Dose: 10 mg Docusate Sodium (Docusate Sodium 100 Mg Capsule) 100 mg PO DAILY PRN PRN Reason: Constipation Ondansetron HCl (Ondansetron Hcl 4 Mg/2 Ml Vial) 4 mg IVPUSH Q8H PRN PRN Reason: Nausea and Vomiting Last Admin: 06/08/22 22:07 Dose: 4 mg Sodium Chloride (0.9 % Sodium Chloride Flush 3 Ml Syringe) 3 ml IVFLUSH QSHIFT WAQAS Last Admin: 06/09/22 07:52 Dose: 3 ml Home Medications Medication Instructions Recorded Confirmed Last Taken Type No Known Home Meds 06/08/22 06/08/22 Unknown History Exam Exam Date and Time: June 09, 2022 1104 Height,Weight and Vital Signs: Height 6 ft 2 in Weight 104.326 kg Last Vital Signs Temp 98 F 06/09/22 10:37 Pulse 61 06/09/22 10:37 Resp 18 06/09/22 10:37 BP 144/92 H 06/09/22 10:37 Pulse Ox 98 06/09/22 10:37 O2 Del Method 06/09/22 10:37 Pertinent Lab Results Pertinent Lab Results: Laboratory Tests 06/07/22 06/07/22 06/07/22 14:11 14:11 14:11 WBC 7.2 RBC 4.86 Hgb 14.6 Hct 43.7 MCV 89.9 MCH 30.0 MCHC 33.4 RDW 13.2 Plt Count 276 MPV 9.3 L Immature Gran % (Auto) 0.4 Neut % (Auto) 52.6 Lymph % (Auto) 33.8 [place] % (Auto) 8.5 Eos % (Auto) 3.7 Baso % (Auto) 1.0 Lymph # (Auto) 2.4 [place] # (Auto) 0.6 Eos # (Auto) 0.3 Baso # (Auto) 0.1 Abs Immat Gran (auto) 0.03 Absolute Neuts (auto) 3.8 Absolute Nucleated RBC 0.000 Nucleated RBC % (auto) 0.0 PT 11.3 INR 1.0 APTT 28.9 Sodium 140 Potassium 4.4 Chloride 104 Carbon Dioxide 25 Anion Gap 15 BUN 16 Creatinine 1.00 Estim Creat Clear Calc 110.0 Estimated GFR > 60 Random Glucose 88 Fasting Glucose Calcium 9.2 Magnesium 2.1 Total Bilirubin 0.4 Direct Bilirubin < 0.2 AST 18 ALT 18 Alkaline Phosphatase 59 Total Protein 6.9 Albumin 4.3 Lipase COVID-19 ([facility]UEL) COVID-19 Clin Com 06/07/22 06/07/22 06/08/22 14:11 21:15 04:23 WBC 8.0 RBC 4.90 Hgb 14.4 Hct 43.8 MCV 89.4 MCH 29.4 MCHC 32.9 RDW 13.3 Plt Count 272 MPV 9.2 L Immature Gran % (Auto) 0.5 H Neut % (Auto) 50.2 Lymph % (Auto) 34.7 [place] % (Auto) 8.8 Eos % (Auto) 5.0 H Baso % (Auto) 0.8 Lymph # (Auto) 2.8 [place] # (Auto) 0.7 Eos # (Auto) 0.4 Baso # (Auto) 0.1 Abs Immat Gran (auto) 0.04 H Absolute Neuts (auto) 4.0 Absolute Nucleated RBC 0.000 Nucleated RBC % (auto) 0.0 PT INR APTT Sodium Potassium Chloride Carbon Dioxide Anion Gap BUN Creatinine Estim Creat Clear Calc Estimated GFR Random Glucose Fasting Glucose Calcium Magnesium Total Bilirubin Direct Bilirubin AST ALT Alkaline Phosphatase Total Protein Albumin Lipase 32 COVID-19 (MIGUEL) Negative COVID-19 Clin Com See Note 06/08/22 06/09/22 06/09/22 04:23 05:50 05:50 WBC 8.0 RBC 5.06 Hgb 15.1 Hct 45.1 MCV 89.1 MCH 29.8 MCHC 33.5 RDW 13.2 Plt Count 293 MPV 9.7 Immature Gran % (Auto) Neut % (Auto) Lymph % (Auto) [place] % (Auto) Eos % (Auto) Baso % (Auto) Lymph # (Auto) [place] # (Auto) Eos # (Auto) Baso # (Auto) Abs Immat Gran (auto) Absolute Neuts (auto) Absolute Nucleated RBC 0.000 Nucleated RBC % (auto) 0.0 PT INR APTT Sodium 139 140 Potassium 4.3 4.4 Chloride 105 106 Carbon Dioxide 27 24 Anion Gap 11 L 14 BUN 16 16 Creatinine 0.98 1.04 Estim Creat Clear Calc 112.2 105.7 Estimated GFR > 60 > 60 Random Glucose 94 Fasting Glucose 87 Calcium 9.1 9.1 Magnesium Total Bilirubin Direct Bilirubin AST ALT Alkaline Phosphatase Total Protein Albumin Lipase COVID-19 (MIGUEL) COVID-19 Clin Com Airway Mallampati Class: II TM Dist: >3cm Neck ROM: Full Loose/Missing/Broken Teeth: No (Denies broken, loose, missing teeth) Heart: RRR Lungs: CTAB Assessment and Plan Assessment Anesthesia Assessment: Anesthesia Plan Discussed and Chart Reviewed Final Anesthetic Review Family History of Problems with Anesthesia: No History of Problems with Anesthesia: No NPO: Yes ASA Class: II Final Preanesthetic Review: No Changes in Pt Med Stat, Meds/Allgs Chart Reviewed, Consent Obtained/Reviewed and Anes Risks/Benef Reviewed Patient Risk: Low Procedure Risk: Low Assessment/Block/Sedation in SS: Assess/Block/Sedation-SS Anesthetic Plan Anesthetic Plan: MAC: Disposition: Standard PACU
--- NOTE | 2022-06-09 11:16 | P.OP_ITS ---
Operative Note Operative Note Date of Service: 06/09/22 Narrative: Operative Information Procedure Description: EGD, Colonoscopy Indication: Gi bleeding Anesthesia: MAC FLEXIBLE TRANSORAL UPPER GASTROINTESTINAL ENDOSCOPY AND COLONOSCOPY PROCEDURE NOTE UPPER ENDOSCOPY Consent: Indications for the procedure and potential complications of bleeding, perforation, reaction to medications and missed diagnosis were discussed with the patient and informed consent was obtained. Instrument: Olympus GIF H 190 J mid size upper endoscope Monitoring: Vital signs and clinical assessment, continuous EKG monitoring, Pulse oximetry, Carbon Dioxide monitoring and blood pressure monitoring were done throughout the procedure. Procedure: The patient was placed in the left lateral decubitis position and pre-procedure medications were administered and a bite block was placed. The endoscope was inserted into the mouth and advanced under direct vision to the third part of duodenum. A careful inspection was made as the upper endoscope was withdrawn including a retroflexed examination of the proximal stomach; Findings and interventions are described below. Findings: Larynx:normal Esophagus: GE junction at 40 cm, diaphragm hiatus at 40 cm, erythema at GEJ, bx taken from GEJ, distal and proximal esophagus in separate jars Stomach: PAtchy erythema and congestion. Biopsies were obtained. Grade 2 flap valve on retroflexed examination of the cardia. Duodenum: Bulbar duodenitis bx taken Intervention: Biopsies as noted above COLONOSCOPY Instrument: Olympus variable stiffness pediatric scope 190L Colonoscopy Monitoring: Vital signs and clinical assessment, continuous EKG monitoring, Pulse oximetry, Carbon Dioxide monitoring and blood pressure monitoring were done throughout the procedure. Colon withdrawal time was 20 minutes. Procedure: The patient was placed in the left lateral decubitis position and pre-procedure medications were administered. After a digital rectal examination of the ano-rectum, the video colonoscope was inserted into the rectum and advanced through the colon to the cecum/TI. The colonoscope was slowly withdrawn in a retrograde panoramic fashion and the colon mucosa was carefully examined including a retroflexed view of the rectum. Findings and interventions are described below. Procedure Difficulty: easy Findings: Terminal Ileum-normal, bx taken Random colon bx taken Cecum:normal Ascending Colon: 10-12 mm sessile polyp removed with cold snare and rerieved Transverse Colon -normal Descending Colon:normal Sigmoid Colon: normal Rectum: Retroflexion with medium inflammed internal hemorrhoids, grade II Anorectum - internal hemorrhoids seen on anterior view Colon preparation: [place] Bowel Preparation Scale Right colon; 2 Transverse colon: 2 Left colon; 1-2 (0 = Unprepared colon segment with mucosa not seen due to solid stool that cannot be cleared. 1 = Portion of mucosa of the colon segment seen, but other areas of the colon segment not well seen due to staining, residual stool and/or opaque liquid. 2 = Minor amount of residual staining, small fragments of stool and/or opaque liquid, but mucosa of colon segment seen well. 3 = Entire mucosa of colon segment seen well with no residual staining, small fragments of stool or opaque liquid) Impression and Post Procedure Diagnosis: Endoscopy Findings: gastritis duodenitis esophagitis Colonoscopy Findings: polyp internal hemorrhoids Plan: Await Pathology results Repeat Colonoscopy in 5 years due to polyp and fiar prep or earlier if cl inically indicated High fiber diet leaflet avoid straining at stool, epsom salts and sitz bath, anusol supps or cream d/c on low dose PPI can go home today with o/p f/u Above findings were reviewed with the patient and relevant handouts were provided if indicated.
--- NOTE | 2022-06-09 11:16 | MHC.SHP ---
Pre-Procedural Eval Section A Date of Service: 06/09/22 The patient is an INPATIENT: Yes The History & Physical has been completed within 30 days and I have reviewed it.: Yes Section B Chief Complaint: GI bleed Allergies: Allergies Allergy/AdvReac Type Severity Reaction Status Date / Time No Known Allergies Allergy Verified 06/02/22 14:21 Plan Diagnosis/Plan: Unchanged I have reviewed the history and physical and performed a pertinent physical examination on my patient. No changes have occurred unless specified. Time Spent With Patient Time: Total time managing care of this patient today ____ minutes.
--- NOTE | 2022-06-09 13:24 | PM.DS ---
DS: Providers Provider Date of Service: 06/09/22 Date of admission: 06/07/22 21:54 Primary care physician: Unknown Physician Consults: 06/07/22 21:54 Consult to Gastroenterology Routine Consulting Provider: Zohreh Mcclain Reason for consultation: GI bleed Has provider been notified: No DS: Diagnosis Discharge Diagnosis (1) Acute GI bleeding: Status: Acute DS: Summary Hospital Course Hospital Course: from initial hpi: 51-year-old male with no significant past medical? history presents to the hospital with complaints of GI bleed.? Patient reports that he has been having on and off GI bleed for the past 1 year worsened in the past 1 week where he had bright blood per rectum with every bowel movement.? He reports that he has been constipated, has been using MiraLax with minimal relief.? Reports that he strains when he passes his stool.? He reports that he has noticed blood mixed with stool as well as fills up the toilet bowl as well as when he wipes.? He does report pain with straining.? Patient reports dizziness with minimal exertion, shortness of breath, no chest pain,? reports diffuse abdominal pain worse at the umbilical region, 5/10, constant, nonradiating, not associated with any alleviating or exacerbating factors.? Denies using any NSAIDs.? No aspirin.? Reports no urinary symptoms and no lower extremity edema.? No headache change in vision and no numbness weakness or tingling.? On arrival to the ED patient hemodynamically stable with no significant abnormal vitals Labs reviewed, hemoglobin? is 14.6, with no other abnormality Stool guaiac not resulted as pt had no stool in rectal vault ?patient being admitted for further evaluation hospital course: Patient was admitted for bright red blood per rectum without significant anemia. He underwent EGD and colonoscopy which showed esophagitis, gastritis, duodenitis, colonoscopy showed hemorrhoids, biopsies were taken and are pending and should be followed up outpatient. Patient will be started on Anusol and PPI, he should take Sitz baths and follow-up with GI Time Spent with Patient Time attestation: Total time managing care of this patient today ____ minutes. Discharge coordination time: Greater than 30 minutes Quality: Safe Use of Opioids Does Pt have an Active Cancer Diagnosis on the Problem List?: No Quality: Stroke Does the patient have a stroke diagnosis?: No Physical Exam Vital Signs: Vital Signs: Last Vital Signs Temp 97 F 06/09/22 12:50 Pulse 57 06/09/22 12:50 Resp 16 06/09/22 12:50 BP 129/76 06/09/22 12:50 Pulse Ox 97 06/09/22 12:50 O2 Del Method 06/09/22 12:50 BMI result Body Mass Index 29.5 General: AO X 3, no acute distress Resp: CTA bilateral, no accessory muscles used CVS: S1,S2,RRR GI: soft, non tender, non distended Neuro: motor grossly intact, alert Psych: appropriate affect, appropriate insight DS: Data Data Completed and Pending Pending studies at discharge: Pending at discharge 06/09/22 12:09 Surgical [PTH] Routine Labs on day of discharge: Laboratory Results - last 24 hr 06/09/22 06/09/22 05:50 05:50 WBC 8.0 RBC 5.06 Hgb 15.1 Hct 45.1 MCV 89.1 MCH 29.8 MCHC 33.5 RDW 13.2 Plt Count 293 MPV 9.7 Absolute Nucleated RBC 0.000 Nucleated RBC % (auto) 0.0 Sodium 140 Potassium 4.4 Chloride 106 Carbon Dioxide 24 Anion Gap 14 BUN 16 Creatinine 1.04 Estim Creat Clear Calc 105.7 Estimated GFR > 60 Fasting Glucose 87 Calcium 9.1 Discharge Plan Discharge Anticipated Discharge Date/Time: 06/09/22 13:22 Patient Disposition: Home, Self-Care Discharge Diagnosis: gi bleed Referrals: Physician,Unknown J [Primary Care Provider] - 1 Week Zohreh Mcclain MD [Physician] - 1 Week Discharge Medications: New hydrocortisone [Anusol-HC] 2.5 % cream with perineal applicator 1 appl topical BEDTIME PRN (Reason: hemorrhoids) Qty: 30 0RF omeprazole 20 mg capsule,delayed release(DR/EC) 20 mg PO DAILY Qty: 30 0RF Discharge Orders: Discharge Order (Routine); Ordered 06/09/22 Ordered By: Lul Silverio Diet: Advance to usual diet Activity on Discharge: As tolerated Stand Alone Forms: Patient Portal Discharge page Care Plan Goals: work up bleed Health Concerns: gi bleed Plan of Treatment: anusol, omeprazole, sitz baths, follow up gi Assessment: see above
--- NOTE | 2022-06-09 13:31 | MHC.CM.PN ---
pt medically cleared for d/c home no services, pt to arrange transport
== END 2022-06-09 14:50 | disposition home or self-care (01) ==
LOC: HO.ED 20:21 → HO.EDOVER 22:01 → HO.S3 06-08 06:17
PROVIDERS: Internal Medicine Gastroenterology; Physician Assistant; Admitting Provider Internal Medicine; Emergency Provider Emergency Medicine; Visit Provider Internal Medicine
PROC: (CPT 45385; principal; 2022-06-09 14:20)
DX: K62.5 Hemorrhage of anus and rectum (principal); K59.00 Constipation, unspecified; K29.70 Gastritis, unspecified, without bleeding; K29.80 Duodenitis without bleeding; K20.90 Esophagitis, unspecified without bleeding; K44.9 Diaphragmatic hernia without obstruction or gangrene; K63.5 Polyp of colon; K64.1 Second degree hemorrhoids; Z20.822 Contact with and (suspected) exposure to COVID-19; R06.02 Shortness of breath; F12.90 Cannabis use, unspecified, uncomplicated; Z87.19 Personal history of other diseases of the digestive system
CPT/HCPCS: 45385; 45380; 43239; 36415; 74176; 80048; 80076; 83690; 83735; 85025; 85027; 85610; 85730; 87635; 88305; 88342; 96374; 99221; 99285; J2405

== ENCOUNTER 2023-07-27 11:22 | Inpatient (IN) | payer OTHER, SELFPAY ==
--- NOTE | ~2023-07-27 | CT_ITS ---
STUDY PERFORMED: CTA ABDOMEN AND PELVIS WITHOUT AND WITH CONTRAST HISTORY: Bright red blood per rectum with abdominal pain DESCRIPTION: Routine abdomen and pelvis CTA protocol with contrast was performed. 100 mL of Omnipaque 350 was administered. Noncontrast arterial phase and delayed phase images were obtained 3D POSTPROCESSING: Multiple 3-D angiographic images were processed from the initial data set by the medical technologist hematology at the modality workstation under concurrent physician supervision. DOSE LOWERING TECHNIQUES: This CT examination was performed using dose optimization techniques as appropriate, variously including the following: - Automated exposure control - Adjustment of mA and/or kV according to patient size (this includes techniques or standardized protocols for targeted exams where dose is matched to indication/reason for exam; i.e. extremities or head) - Use of iterative reconstruction technique DLP: 1770 mGycm. COMPARISON: None FINDINGS: VASCULAR: Arterial phase images are markedly suboptimal due to poor timing of the contrast bolus. All images are in a predominantly venous phase. ABDOMINAL AORTA: Normal in caliber and widely patent. No significant atherosclerotic plaque. RIGHT LOWER EXTREMITY: Normal caliber and widely patent. LEFT LOWER EXTREMITY: Normal caliber and widely patent. CELIOMESENTERIC ARTERIES: Celiac artery, superior mesenteric artery and inferior mesenteric artery are patent. No gross evidence of acute hemorrhage on basically venous phase images RENAL ARTERIES: Patent. NONVASCULAR: Lung Bases: The visualized lung bases are unremarkable. Liver, Gallbladder and Biliary Tree: The liver is normal in size, shape, and attenuation. No biliary ductal dilatation is present. Subcentimeter hypodensities seen within the liver which are too small reliably characterize but likely represent simple cysts. The gallbladder is unremarkable with no evidence of radiopaque gallstones, gallbladder wall thickening, or obvious pericholecystic inflammatory changes. Pancreas: Unremarkable. Spleen: Unremarkable. Adrenal Glands: Unremarkable. Kidneys and Ureters: The kidneys are normal in size, shape, and attenuation. No hydronephrosis, hydroureter, or calculi seen. No perinephric stranding. There are multiple simple cysts is seen within the bilateral kidneys. No follow-up indicated. Bladder: Unremarkable. Gastrointestinal Tract: The small and large bowel are unremarkable. The appendix is unremarkable. Abdominal Wall: No significant hernia is appreciated. Lymph Nodes: Normal. Pelvic Viscera: Unremarkable. Osseous Structures: Unremarkable. CT/CT gi bleed abd pel wo/w IVcon IMPRESSION: No significant abnormality. Limited arterial evaluation as described above. No gross evidence of acute GI hemorrhage
--- NOTE | 2023-07-27 12:14 | ED_ITS ---
HPI - General Adult General Chief complaint: Abdominal Pain Stated complaint: Internal bleeding/abd pain [facility] Time Seen by Provider: 07/27/23 15:06 Source: patient Mode of arrival: ambulatory History of Present Illness HPI narrative: 53-year-old male with history of PTSD presents with 2-3 weeks of bright red blood per rectum at the time of every defecation with associated abdominal discomfort but denies any nausea, vomiting, fever chills and states he has been having ongoing bowel issues for a number of years. Patient reports positive family history for colon CA and denies any use of chronic anticoagulation. Patient has had 2 colonoscopies, the 1st colonoscopy he had 12 polyps removed and the 2nd colonoscopy identified diverticulosis but otherwise no other acute findings. Patient receives majority of his healthcare through [facility] Related Data Previous Rx's ?Medication ?Instructions ?Recorded hydrocortisone 2.5 % topical cream 1 appl topical BEDTIME PRN 06/09/22 with perineal applicator hemorrhoids #30 grams (Anusol-HC) omeprazole 20 mg capsule,delayed 20 mg PO DAILY #30 caps 06/09/22 release amoxicillin 500 mg capsule 1,000 mg (2 x 500 mg) PO BID 2 07/04/22 weeks #56 caps levofloxacin 500 mg tablet 500 mg PO DAILY #14 tabs 07/04/22 pantoprazole 20 mg tablet,delayed 20 mg PO BID 2 weeks #28 tabs 07/04/22 release Allergies Allergy/AdvReac Type Severity Reaction Status Date / Time No Known Allergies Allergy Verified 07/27/23 12:16 Review of Systems 2 Review of Systems: Pertinent positives and negatives as stated in HPI [facility] Past Medical History Source: nursing notes reviewed Medical History Pancreatitis SBO (small bowel obstruction) Surgical History H/O colonoscopy Small intestine obstruction Social History Social History Household Members: Spouse Housing: House Alcohol intake: current Alcohol intake frequency: does not drink Patient Tobacco Use Status: Never used Tobacco Substance Use Type: Marijuana Advance Directives: No service: Yes Current occupational status: unemployed Physical Exam ED Vital Signs: Vital Signs - 24 hr 07/27/23 12:15 Temperature 97.8 F Pulse Rate 65 Respiratory Rate 18 Blood Pressure 124/89 Pulse Oximetry 98 Oxygen Delivery Method Room Air BMI result Body Mass Index 30.8 VITAL SIGNS: Reviewed. GENERAL: Well developed, well nourished, in no acute distress. HEAD: Normocephalic/atraumatic EYES: PERRLA, EOMI EARS: Ext canals without abnormality NOSE: Nares patent bilateral OROPHARYNX: no oral lesions noted, posterior pharynx clear NECK: Supple, no adenopathy LUNGS: Normal breath sounds. No adventitious sounds or accessory muscle use. SpO2<98> CARDIOVASCULAR: Regular rate and rhythm without noted murmurs ABDOMEN: Soft, non-tender, non-distended with bowel sounds. ANORECTAL: Noninflamed external hemorrhoid, mucous red discharged on finger, no melena MUSCULOSKELETAL: No tenderness, deformities, or effusions noted on gross inspection. EXTREMITIES: No cyanosis, clubbing or edema. SKIN: Inspection of the skin reveals no rashes NEUROLOGIC: Alert and oriented x 4. Strength and sensation to light touch were grossly intact x 4. Course Course Course Narrative: RME:?53 yo male here for eval of bright red blood per rectum/ clots with every bowel movement and periumbilical abdominal pain x1 week. hx of SBO and pancreatitis. denies headache, dizziness, syncope. not on AC. very pale in triage. ill appearing. labs ordered +/- CT scan in main ED. Full HPI, ROS and PE to be performed by the primary ED provider. Medical Decision Making Medical Decision Making MDM Narrative: 53-year-old male with history and clinical presentation, DDX: Diverticular bleed, lower clinical suspicion for bleeding from internal hemorrhoids, possible ischemia though felt to be less likely as patient has no risk factors but does have a history of prior bowel obstruction. I reviewed all investigations and hematologic indices are negative for leukocytosis or left shift and there is no thrombocytopenia but there is a noted normocytic anemia that is a significant drop from prior hemoglobin level of 15 to 12. Coagulation studies are within normal limits. Chemistry indices are negative for CHASITY/electrolyte or liver enzyme derangements. Guaiac is positive and lipase is noted to be mildly elevated. Signed out to Dr Maria. - CT scan: SBO/internal hemorrhoid bleeding - likely admission Differential Diagnosis Differential Diagnoses: The differential diagnosis associated with the presentation includes Please see the discussion above Admission/Observation Consideration of admission/observation: Escalation of care including admission/observation considered Please see the discussion above Lab Data MDM Lab Attestation statement: I reviewed the patient's lab results. Please see the discussion above 07/27/23 12:50 07/27/23 12:50 Labs: Lab Results 07/27/23 07/27/23 Range/Units 12:50 15:54 WBC 7.2 (4.8-10.8) X10*3/uL RBC 4.30 L (4.60-5.80) X10*6/uL Hgb 12.6 L (14.0-18.0) g/dl Hct 37.8 L (42.0-52.0) % MCV 87.9 (80.0-98.0) fL MCH 29.3 (27.0-33.0) pg MCHC 33.3 (31.0-36.0) g/dl RDW 13.7 (11.0-16.0) % Plt Count 284 (160-400) X10*3/uL MPV 9.3 L (9.4-12.4) fL Immature Gran % (Auto) 0.4 (0.0-0.4) % Neut % (Auto) 49.7 (45-73) % Lymph % (Auto) 35.2 (20-40) % [place] % (Auto) 10.2 (2-11) % Eos % (Auto) 3.8 (0-4) % Baso % (Auto) 0.7 (0-2) % Lymph # (Auto) 2.5 (1.2-4.9) X10*3/uL [place] # (Auto) 0.7 (0.1-1.2) X10*3/uL Eos # (Auto) 0.3 (0.0-0.4) X10*3/uL Baso # (Auto) 0.1 (0.0-0.2) X10*3/uL Abs Immat Gran (auto) 0.03 (0.00-0.03) X10*3/uL Absolute Neuts (auto) 3.6 (2.0-8.3) x10*3/uL Absolute Nucleated RBC 0.000 (0.0-0.012) X10*3/uL Nucleated RBC % (auto) 0.0 (0.0-0.2) /100WBC PT 11.7 (11.1-13.3) SEC INR 1.0 (0.9-1.1) APTT 24.8 L (26.0-36.8) SEC Sodium 142 (135-145) mmol/L Potassium 4.2 (3.3-5.1) mmol/L Chloride 108 (96-108) mmol/L Carbon Dioxide 27 (22-29) mmol/L Anion Gap 11 L (12-20) BUN 22 H (9-16) mg/dL Creatinine 0.92 (0.5-1.4) mg/dL Estim Creat Clear Calc 119.1 Estimated GFR > 60 Random Glucose 91 (60-115) mg/dL Calcium 8.8 (8.4-10.2) mg/dL Magnesium 2.2 (1.6-2.6) mg/dL Total Bilirubin 0.4 (0.0-1.0) mg/dL AST 19 (5-37) U/L ALT 16 (0-40) U/L Alkaline Phosphatase 55 (39-117) U/L Total Protein 7.1 (6.5-8.0) g/dL Albumin 4.3 (3.5-5.0) g/dL Lipase 108 H (8-78) U/L Stool Occult Blood POSITIVE (NEGATIVE) Blood Type O Positive Antibody Screen NEGATIVE External Record Review External record reviewed: Outpatient record, Prior outpatient labs and Prior outpatient radiology Critical Care Time Critical Care Time Critical Care Time: Yes Total Critical Care Time: 45 Attestation: I personally attest to this time spent taking care of the patient. Discharge Plan Discharge Clinical Impression: GI bleed Patient Disposition: Still a Patient Prescriptions: No Action amoxicillin 500 mg capsule 1,000 mg PO BID 14 Days Qty: 56 0RF levofloxacin 500 mg tablet 500 mg PO DAILY Qty: 14 0RF pantoprazole 20 mg tablet,delayed release (DR/EC) 20 mg PO BID 14 Days Qty: 28 0RF hydrocortisone [Anusol-HC] 2.5 % cream with perineal applicator 1 appl topical BEDTIME PRN (Reason: hemorrhoids) Qty: 30 0RF omeprazole 20 mg capsule,delayed release(DR/EC) 20 mg PO DAILY Qty: 30 0RF Print Language: Martiniquais
[2023-07-27 12:15] VITALS: BP 124/89; PULSE 65; RESP 18; TEMP 36.6; O2SAT 98; BMI 30.8
[2023-07-27 12:56] LABS: MANUAL DIFF FLAG NO
[2023-07-27 12:57] LABS: Basophils Absolute Auto 0.1 X10*3/uL (0.0-0.2); Basophils Percent Auto 0.7 % (0-2); Eosinophils Absolute Auto 0.3 X10*3/uL (0.0-0.4); Eosinophils Percent Auto 3.8 % (0-4); Hematocrit 37.8 % (42.0-52.0); Hemoglobin 12.6 g/dl (14.0-18.0); Imm Gran Abs Auto 0.03 X10*3/uL (0.00-0.03); Imm Gran Pct Auto 0.4 % (0.0-0.4); Lymphocytes Absolute Auto 2.5 X10*3/uL (1.2-4.9); Lymphocytes Percent Auto 35.2 % (20-40); Mean Corpuscular HGB Conc 33.3 g/dl (31.0-36.0); Mean Corpuscular Hemoglobin 29.3 pg (27.0-33.0); Mean Corpuscular Volume 87.9 fL (80.0-98.0); Mean Platelet Volume 9.3 fL (9.4-12.4); Monocytes Absolute Auto 0.7 X10*3/uL (0.1-1.2); Monocytes Percent Auto 10.2 % (2-11); Neutrophils Absolute Auto 3.6 x10*3/uL (2.0-8.3); Neutrophils Percent Auto 49.7 % (45-73); Platelet Count 284 X10*3/uL (160-400); Red Cell Distribution Width 13.7 % (11.0-16.0); White Blood Count 7.2 X10*3/uL (4.8-10.8)
[2023-07-27 13:08] LABS: Prothrombin Time 11.7 SEC (11.1-13.3)
[2023-07-27 13:11] LABS: Partial Thromboplastin Time 24.8 SEC (26.0-36.8)
[2023-07-27 13:12] LABS: Alanine Aminotransferase 16 U/L (0-40); Albumin Level 4.3 g/dL (3.5-5.0); Alkaline Phosphatase 55 U/L (39-117); Anion Gap 11 (12-20); Aspartate Amino Transferase 19 U/L (5-37); Bilirubin Total 0.4 mg/dL (0.0-1.0); Blood Urea Nitrogen 22 mg/dL (9-16); Calcium 8.8 mg/dL (8.4-10.2); Carbon Dioxide 27 mmol/L (22-29); Chloride 108 mmol/L (96-108); Creatinine Clr Calc Pharmacy 119.1; Estimated Glomerular Filt Rate > 60; Glucose Random 91 mg/dL (60-115); Lipase 108 U/L (8-78); Magnesium 2.2 mg/dL (1.6-2.6); Potassium 4.2 mmol/L (3.3-5.1); Sodium 142 mmol/L (135-145); Total Protein 7.1 g/dL (6.5-8.0)
[2023-07-27 16:03] LABS: OBS Int Ctl Valid YES; OBS1 POSITIVE (NEGATIVE)
--- NOTE | 2023-07-27 17:00 | PC.NURSE ---
this rn assumed care of pt from waiting room @ [id number]. pt changed into hospital gown place don environmental monitoring technician iv placed in L Ac 20g pt noted to be very anxious during iv placement though tolerated well. disposition pedning
[2023-07-27] MEDS: iohexoL 350 MG/ML 100 ML INFUS..BTL IV (17:24)
[2023-07-27 17:43] VITALS: BP 135/81; PULSE 59; RESP 15; TEMP 36.7; O2SAT 98
--- NOTE | 2023-07-27 21:11 | PM.IMHP ---
History of Present Illness Date of Service: 07/27/23 Chief Complaint: Bright red blood per rectum This is a 53-year-old male with pertinent history of previous SBO, previous hospitalization for acute GI bleed who presents to the emergency department for evaluation of blood in stool. Patient states it started about 10 days prior to presentation. He is having about 3-4 episodes of bright red blood per rectum and blood mixed with stools. Has been having loose stools that started 2-3 days prior to presentation. He only took 1 dose of Aleve in the last 10 days for headache. Has generalized abdominal discomfort and mild discomfort upon defecation. Not on blood thinners. No fever, chills, chest discomfort, palpitations, shortness of breath, nausea, vomiting, changes in urinary habits. Previous colonoscopy done on 06/10 with polyp (tubular adenoma, negative for high-grade dysplasia and carcinoma) and internal hemorrhoids. Patient is not on any prescription medications In the emergency department, stool occult blood positive. Hemoglobin noted to be 12.4. Review of Systems Constitutional: Constitutional: Reports no additional constitutional complaints Cardiovascular: Cardiovascular: Reports no additional cardiovascular complaints Respiratory: Respiratory: Reports no additional respiratory complaints Gastrointestinal: Gastrointestinal: Reports hematochezia Genitourinary: Genitourinary: Reports no additional male genitourinary complaints [facility] Medical History Pancreatitis SBO (small bowel obstruction) Pertinent family history: No family history of early CAD Surgical History H/O colonoscopy Small intestine obstruction Social History Household Members: Spouse Housing: House Alcohol intake: current Alcohol intake frequency: does not drink Patient Tobacco Use Status: Never used Tobacco Smoked in Last 30 Days: No Use of substances other than those prescribed or required for medical reasons: No Substance Use Type: Marijuana Advance Directives: No service: Yes Current occupational status: unemployed Meds Allergies Allergy/AdvReac Type Severity Reaction Status Date / Time No Known Allergies Allergy Verified 07/27/23 12:16 Physical Exam Vital Signs and Narrative: Vital Signs: Last Vital Signs Temp 98.0 F 07/27/23 17:43 Pulse 15 L 07/27/23 17:43 Resp 59 H 07/27/23 17:43 BP 135/81 07/27/23 17:43 Pulse Ox 98 07/27/23 17:43 O2 Del Method Room Air 07/27/23 17:43 BMI result Body Mass Index 30.8 Middle-aged male lying in bed in no distress Neck supple, no JVD Regular rate and rhythm, S1-S2 heard Regular breath sounds bilaterally, no wheezing or crackles appreciated Abdomen soft nontender, no guarding, no rigidity Patient is awake, alert and oriented to self, place, time and person ; no focal motor deficit Psych: Normal mood No pedal edema Results Labs 07/27/23 12:50 07/27/23 12:50 Labs: Laboratory Results - last 24 hr 07/27/23 07/27/23 12:50 15:54 MCV 87.9 MCH 29.3 MCHC 33.3 RDW 13.7 Plt Count 284 MPV 9.3 L Immature Gran % (Auto) 0.4 Neut % (Auto) 49.7 Lymph % (Auto) 35.2 Owsley % (Auto) 10.2 Eos % (Auto) 3.8 Baso % (Auto) 0.7 Lymph # (Auto) 2.5 Owsley # (Auto) 0.7 Eos # (Auto) 0.3 Baso # (Auto) 0.1 Abs Immat Gran (auto) 0.03 Absolute Neuts (auto) 3.6 Absolute Nucleated RBC 0.000 Nucleated RBC % (auto) 0.0 PT 11.7 INR 1.0 APTT 24.8 L Anion Gap 11 L Estim Creat Clear Calc 119.1 Estimated GFR > 60 Random Glucose 91 Calcium 8.8 Magnesium 2.2 Total Bilirubin 0.4 AST 19 ALT 16 Alkaline Phosphatase 55 Total Protein 7.1 Albumin 4.3 Lipase 108 H Stool Occult Blood POSITIVE Blood Type O Positive Antibody Screen NEGATIVE Imaging Radiologist's Impressions: Impressions Abdomen/Pelvis CT 07/27/23 17:43 IMPRESSION: No significant abnormality. Limited arterial evaluation as described above. No gross evidence of acute GI hemorrhage Assessment and Plan (1) Acute GI bleeding: Status: Acute Plan This is a 53-year-old male with pertinent history of previous SBO, previous hospitalization for acute GI bleed who presents to the emergency department for evaluation of blood in stool. #. Acute GI bleed: Will admit patient with cardiac monitoring. Closely monitor H&H. Consulted Gastroenterology, appreciate assistance. NPO after midnight DVT prophylaxis: Mechanical Full code Admit as inpatient and will require two night minimum hospital stay for evaluation of acute GI bleed with close hemodynamic monitoring, monitoring of H&H (as above), which is not possible in a lesser acute setting. Specialist consult pending Quality Stroke Does the patient have a stroke diagnosis?: No VTE Prior VTE?: No VTE Risk Level:: Medical - moderate - high VTE Device Contraindication: N/A - Device Ordered VTE Drug Contraindication: Treatment Not Indicated
[2023-07-27] MEDS: 0.9 % Sodium Chloride 1,000 ML 999 ML IV (21:26)
[2023-07-27 21:27] LABS: Hematocrit 37.4 % (42.0-52.0); Hemoglobin 12.4 g/dl (14.0-18.0)
[2023-07-27 21:28] VITALS: BP 150/83; PULSE 59; RESP 20; TEMP 36.7; O2SAT 98
--- NOTE | 2023-07-27 21:38 | PHA.MEDREC ---
Pharmacy Consult ? Medication Reconciliation Pharmacy has completed the medication reconciliation.
[2023-07-28 02:46] VITALS: BMI 30.8
[2023-07-28 03:09] VITALS: BP 114/77; PULSE 56; RESP 18; TEMP 36.3; O2SAT 96
[2023-07-28 07:07] LABS: Hematocrit 37.3 % (42.0-52.0); Hemoglobin 12.3 g/dl (14.0-18.0); Mean Corpuscular Hemoglobin 28.7 pg (27.0-33.0); Mean Corpuscular Volume 86.9 fL (80.0-98.0); Mean Platelet Volume 9.6 fL (9.4-12.4); Platelet Count 268 X10*3/uL (160-400); Red Blood Count 4.29 X10*6/uL (4.60-5.80); Red Cell Distribution Width 13.7 % (11.0-16.0); White Blood Count 6.3 X10*3/uL (4.8-10.8)
[2023-07-28 07:28] LABS: Anion Gap 10 (12-20); Blood Urea Nitrogen 16 mg/dL (9-16); Calcium 8.8 mg/dL (8.4-10.2); Carbon Dioxide 27 mmol/L (22-29); Chloride 108 mmol/L (96-108); Creatinine Clr Calc Pharmacy 119.2; Estimated Glomerular Filt Rate > 60; Glucose Random 86 mg/dL (60-115); Potassium 4.1 mmol/L (3.3-5.1); Sodium 141 mmol/L (135-145)
[2023-07-28 07:53] VITALS: BP 125/79; PULSE 56; RESP 20; TEMP 36.1; O2SAT 96
--- NOTE | 2023-07-28 08:47 | MHC.CM.PN ---
CM met with Patient at bedside; he declined completing a HCP but CM provided him with the form, should he change his mind. 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 Home/self care is the goal and CM has initiated and will follow for dc planning. Patient goes to [facility] for his PCP.
[2023-07-28] MEDS: Pantoprazole Sodium 40 MG/10 ML VIAL IVPUSH ×2 (09:04→16:53)
[2023-07-28] MEDS: 0.9 % Sodium Chloride Flush 3 ML SYRINGE IVFLUSH ×2 (09:06→11:46)
[2023-07-28 11:13] LABS: Hematocrit 38.5 % (42.0-52.0)
[2023-07-28 11:35] VITALS: BP 127/74; PULSE 58; RESP 20; TEMP 36.4; O2SAT 100
[2023-07-28] MEDS: ondansetron HCL 4 MG/2 ML VIAL IVPUSH (11:44)
[2023-07-28] MEDS: Sucralfate 1 GM TABLET PO ×3 (11:45→21:19)
--- NOTE | 2023-07-28 11:48 | PM.GICN ---
History of Present Illness Data of Consult Service Date: 07/28/23 Requesting physician: Nighat Collier Primary Care Provider: Unknown Physician HPI Reason for consult: GI bleeding 53 YM with hx of SBO in the past, previous hospitalization for acute GI bleed seen at [facility] ED on 07/27/23 for evaluation of blood in stool. Patient states it started about 10 days prior to presentation. He is having about 3-4 episodes of bright red blood per rectum with some clots. He also had one episode of blood dripping from the rectum without having a BM. Has been having loose stools that started 2-3 days prior to presentation. He only took 1 dose of Aleve in the last 10 days for headache. Pt reports he has cut back on food intake and has not eaten a full diet for the past few days. He notes intermittent constipation. Pt had an Exploratory Lap at [facility] for a twisted bowel and has noted abdominal pain since his surgery. He reports he lost 40 lbs after the surgery and BMs became more regular - note BMs twice a day with feeling of incomplete evacuation Stool can vary between soft to hard with intermittent diarrhea Pt complains of bloating after intake of certain foods He complained of generalized abdominal discomfort and some soreness in the rectum upon defecation. Not on blood thinners. He denied fever, chills, chest discomfort, palpitations, shortness of breath, nausea, vomiting, changes in urinary habits. Patient is not on any prescription medications Patient denies smoking or ETOH abuse. He denies any cardiac or pulmonary problems, loud snoring with sleep apnea. Patient reports he has to lay on his back to sleep since he notes abdominal pain when he lies the right or the left side. 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 In the emergency department, stool occult blood positive. Hemoglobin noted to be 12.4 07/27/[address] SCAN SHOWED: No significant abnormality. Limited arterial evaluation as described above. No gross evidence of acute GI hemorrhage 06/09/22 EGD AND COLON PERFORMED BY DR CASTILLO: Endoscopy Findings: gastritis duodenitis esophagitis Colonoscopy Findings: polyp - tubular adenoma on bx internal hemorrhoids Plan: Await Pathology results Repeat Colonoscopy in 5 years due to polyp and fiar prep or earlier if clinically indicated High fiber diet leaflet avoid straining at stool, epsom salts and sitz bath, anusol supps or cream d/c on low dose PPI can go home today with o/p f/u Review of Systems Constitutional: Constitutional: Reports no additional constitutional complaints Cardiovascular: Cardiovascular: Reports no additional cardiovascular complaints Respiratory: Respiratory: Reports no additional respiratory complaints Gastrointestinal: Gastrointestinal: Reports hematochezia Genitourinary: Genitourinary: Reports no additional male genitourinary complaints PMFSH Past Medical History Medical History Pancreatitis SBO (small bowel obstruction) Surgical History Surgical History H/O colonoscopy Small intestine obstruction Social History Social History Household Members: Spouse Housing: Apartment Do you presently have visiting nurse or other home services: No Alcohol intake: current Alcohol intake frequency: does not drink Patient Tobacco Use Status: Never used Tobacco Substance Use Type: Marijuana service: Yes Current occupational status: unemployed Meds Allergies Allergy/AdvReac Type Severity Reaction Status Date / Time No Known Allergies Allergy Verified 07/29/23 13:27 Active Medications: Current Medications Acetaminophen (Acetaminophen Supp 650 Mg Supp.Rect) 650 mg OR Q6H PRN PRN Reason: Pain, Mild (Pain Scale 1-3) Acetaminophen (Acetaminophen 325 Mg Tablet) 650 mg PO Q6H PRN PRN Reason: Pain, Mild (Pain Scale 1-3) Melatonin (Melatonin 3 Mg Tablet) 6 mg PO BEDTIME PRN PRN Reason: Insomnia Ondansetron HCl (Ondansetron Hcl 4 Mg/2 Ml Vial) 4 mg IVPUSH Q8H PRN PRN Reason: Nausea and Vomiting Last Admin: 07/28/23 11:44 Dose: 4 mg Pantoprazole Sodium (Pantoprazole Sodium 40 Mg/10 Ml Vial) 40 mg IVPUSH BID@0630,1630 [facility] Last Admin: 07/28/23 09:04 Dose: 40 mg Sodium Chloride (0.9 % Sodium Chloride Flush 3 Ml Syringe) 3 ml IVFLUSH QSHIFT [facility] Last Admin: 07/28/23 11:46 Dose: 3 ml Sucralfate (Sucralfate 1 Gm Tablet) 1 gm PO QIDACHS [facility] Last Admin: 07/28/23 11:45 Dose: 1 gm Home Medications ?Medication ?Instructions ?Recorded ?Confirmed ?Last Taken ?Type No Known Home Meds 07/27/23 07/27/23 Unknown History Physical Exam Vital Signs: Vital Signs: Last Vital Signs Temp 97.5 F 07/28/23 11:35 Pulse 58 07/28/23 11:35 Resp 20 07/28/23 11:35 BP 127/74 07/28/23 11:35 Pulse Ox 100 07/28/23 11:35 O2 Del Method Room Air 07/28/23 11:35 BMI result Body Mass Index 30.8 Const: General: no acute distress Nutritional Appearance: obese Orientation/consciousness: patient oriented x3 Limitations: no limitations HEENT: Head: Yes normal to inspection Ears: hearing grossly normal bilaterally Eyes: Sclerae: sclerae normal Pupils: Equal, round and reactive pupils present Neck: Neck: Yes normal visual inspection Chest: Chest palpation & inspection: normal inspection of the chest Resp: Effort & Inspection: normal respiratory effort Auscultation: clear to auscultation bilaterally Cardio: Palpation: normal PMI Rate: regular rate Rhythm: regular rhythm Heart sounds: S1 normal heart sound present, S2 normal heart sound present and no murmurs GI: Palpation (GI): Soft to palpation, nontender and No hepatosplenomegaly present Auscultation: normal bowel sounds Rectal Exam - Male: Yes deferred Skin: General skin exam: no rashes or lesions noted Neuro: General: patient oriented x3, gait normal and moves all extremities Cranial nerves: Yes Equal, round and reactive pupils present Psych: Appearance: grossly normal Mental Status: mental status grossly normal Results Labs 07/30/23 05:15 07/30/23 05:15 Labs: Short CBC 07/27/23 07/27/23 07/28/23 Range/Units 12:50 21:22 06:53 WBC 7.2 6.3 (4.8-10.8) X10*3/uL Hgb 12.6 L 12.4 L 12.3 L (14.0-18.0) g/dl Hct 37.8 L 37.4 L 37.3 L (42.0-52.0) % Plt Count 284 268 (160-400) X10*3/uL 07/28/23 Range/Units 10:45 WBC (4.8-10.8) X10*3/uL Hgb 13.0 L (14.0-18.0) g/dl Hct 38.5 L (42.0-52.0) % Plt Count (160-400) X10*3/uL BMP 07/27/23 07/28/23 12:50 06:53 Sodium 142 141 Potassium 4.2 4.1 Chloride 108 108 Carbon Dioxide 27 27 BUN 22 H 16 Creatinine 0.92 0.92 Calcium 8.8 8.8 Liver Function 07/27/23 Range/Units 12:50 Total Bilirubin 0.4 (0.0-1.0) mg/dL AST 19 (5-37) U/L ALT 16 (0-40) U/L Alkaline Phosphatase 55 (39-117) U/L Albumin 4.3 (3.5-5.0) g/dL Assessment and Plan (1) GI bleed: Status: Acute Plan 53 YM with hx of SBO in the past, previous hospitalization for acute GI bleed admitted to [facility] ED on 07/27/23 for LGI bleeding. Pt had an Exploratory Lap at [facility] for a twisted bowel and has noted abdominal pain since his surgery. 05/2022 Colonoscopy showed internal hemorrhoids and 1 adenomatous polyp was removed. Prep was suboptimal in the left colon. Pt continues to have intermittent rectal bleeding since hospitalization without significant decrease in H & H. LGI bleeding is likely from hemorrhoids. Other possibilities include bleeding from large polyp (missed during last colonoscopy due to sub-optimal prep), diverticular bleed or AVMs. RECOMMENDATIONS: 1. Follow CBC daily 2. Golytely prep today for colonoscopy tomorrow. For endoscopy procedure and potential complications including bleeding, perforation, reaction to anesthetics were reviewed with the patient. Procedures Date of Service Date of Service: 08/01/23
--- NOTE | 2023-07-28 14:51 | P.PNIM_ITS ---
Subjective Subjective Date of Service: 07/28/23 Interval History: Gi bleed Review of Systems has very small amount bleeding episode this morning Denies any abdominal pain or nausea vomiting. Physical Exam 2 Vital Signs: Vital Signs: Last Vital Signs Temp 97.5 F 07/28/23 11:35 Pulse 58 07/28/23 11:35 Resp 20 07/28/23 11:35 BP 127/74 07/28/23 11:35 Pulse Ox 100 07/28/23 11:35 O2 Del Method Room Air 07/28/23 11:35 BMI result Body Mass Index 30.8 Appearance: Alert.? Oriented X3.? cvs: [id number], [id number] . res: clear to auscultation ,no rhonchii or wheezing abd: no rebound or guarding ,nt, bs present. ext pulses present , no cyanosis . neuro: axo3 , nonfocal. Objective Data Active Medications Acetaminophen (Acetaminophen Supp 650 Mg Supp.Rect) 650 mg NM Q6H PRN PRN Reason: Pain, Mild (Pain Scale 1-3) Acetaminophen (Acetaminophen 325 Mg Tablet) 650 mg PO Q6H PRN PRN Reason: Pain, Mild (Pain Scale 1-3) Bisacodyl (Bisacodyl 5 Mg Tablet.Dr) 10 mg PO ONCE ONE Stop: 07/29/23 13:01 Melatonin (Melatonin 3 Mg Tablet) 6 mg PO BEDTIME PRN PRN Reason: Insomnia Ondansetron HCl (Ondansetron Hcl 4 Mg/2 Ml Vial) 4 mg IVPUSH Q8H PRN PRN Reason: Nausea and Vomiting Last Admin: 07/28/23 11:44 Dose: 4 mg Documented By: CLEMENTINE Pantoprazole Sodium (Pantoprazole Sodium 40 Mg/10 Ml Vial) 40 mg IVPUSH BID@0630,1630 [facility] Last Admin: 07/28/23 09:04 Dose: 40 mg Documented By: RIOSCEL Sodium Chloride (0.9 % Sodium Chloride Flush 3 Ml Syringe) 3 ml IVFLUSH QSHICHI [facility] Last Admin: 07/28/23 11:46 Dose: 3 ml Documented By: CLEMENTINE Sucralfate (Sucralfate 1 Gm Tablet) 1 gm PO QIDACHS [facility] Last Admin: 07/28/23 11:45 Dose: 1 gm Documented By: CLEMENTINE Labs 07/28/23 10:45 07/28/23 06:53 Labs: Laboratory Results - last 24 hr 07/27/23 07/28/23 15:54 06:53 MCV 86.9 MCH 28.7 MCHC 33.0 RDW 13.7 Plt Count 268 MPV 9.6 Absolute Nucleated RBC 0.000 Nucleated RBC % (auto) 0.0 Anion Gap 10 L Estim Creat Clear Calc 119.2 Estimated GFR > 60 Random Glucose 86 Calcium 8.8 Stool Occult Blood POSITIVE Assessment and Plan (1) GI bleed: Status: Acute (2) Acute GI bleeding: Status: Acute Assessment and Plan: 53-year-old male with pertinent history of previous SBO, previous hospitalization for acute GI bleed who presents to the emergency department for evaluation of blood in stool. Acute GI bleed: h/h stable around 13/38 continue ppi Closely monitor H&H. Gi eval -need colonoscopy in am ,npo past midnight,ivf . DVT prophylaxis: Mechanical . Full code Admit as inpatient -48-72 hrs hospital stay for evaluation of acute GI bleed with close hemodynamic monitoring, monitoring of H&H (as above), which is not possible in a lesser acute setting. Specialist consult pending Quality Stroke Does the patient have a stroke diagnosis?: No VTE Prior VTE?: No VTE Risk Level:: Medical - moderate - high VTE Device Contraindication: N/A - Device Ordered VTE Drug Contraindication: Treatment Not Indicated
[2023-07-28 15:47] VITALS: BP 96/59; PULSE 57; RESP 20; TEMP 36.8; O2SAT 97
[2023-07-28] MEDS: PEG 3350/Na Sulf,Bicarb,Cl/KCL 4,000 ML SOLN.RECON 4000 ML PO (16:48)
[2023-07-28] MEDS: bisacodyL 5 MG TABLET.DR 10 MG PO (16:53)
[2023-07-28] MEDS: Acetaminophen 325 MG TABLET 650 MG PO (18:05)
[2023-07-28 20:00] VITALS: BP 134/91; PULSE 79; RESP 20; TEMP 36.5; O2SAT 98
[2023-07-28] MEDS: Melatonin 3 MG TABLET 6 MG PO (21:19)
[2023-07-28 23:48] VITALS: BP 104/57; PULSE 55; RESP 19; TEMP 36.3; O2SAT 94
[2023-07-29] VITALS (9 sets, daily range): BP systolic 100–141; BP diastolic 47–70; PULSE 48–73; RESP 16–20; TEMP 36.1–36.9; O2SAT 92–98
[2023-07-29] MEDS: Dextrose 5 % and 0.9 % NaCl 1,000 ML 80 ML IVCONT ×2 (00:26→12:54)
[2023-07-29] MEDS: Pantoprazole Sodium 40 MG/10 ML VIAL IVPUSH ×2 (05:59→17:12)
[2023-07-29] MEDS: Acetaminophen 325 MG TABLET 650 MG PO (06:04)
[2023-07-29 07:23] LABS: Hematocrit 36.5 % (42.0-52.0); Mean Corpuscular HGB Conc 32.9 g/dl (31.0-36.0); Mean Corpuscular Hemoglobin 28.8 pg (27.0-33.0); Mean Corpuscular Volume 87.5 fL (80.0-98.0); Mean Platelet Volume 9.8 fL (9.4-12.4); Platelet Count 283 X10*3/uL (160-400); Red Blood Count 4.17 X10*6/uL (4.60-5.80); Red Cell Distribution Width 13.7 % (11.0-16.0); White Blood Count 5.6 X10*3/uL (4.8-10.8)
--- NOTE | 2023-07-29 07:36 | PC.NURSE ---
md notified that pt hadn't finished bowel prep last night and 3 episodes of bright red blood noticed when pt voided.
--- NOTE | 2023-07-29 08:58 | P.PNIM_ITS ---
Subjective Subjective Date of Service: 07/29/23 Interval History: prep went well Physical Exam 2 Vital Signs: Vital Signs: Last Vital Signs Temp 97.0 F 07/29/23 07:41 Pulse 48 L 07/29/23 07:41 Resp 20 07/29/23 07:41 BP 100/60 07/29/23 07:41 Pulse Ox 92 07/29/23 07:41 O2 Del Method Room Air 07/29/23 07:41 BMI result Body Mass Index 30.8 Appearance: Alert.? Oriented X3.? cvs: [id number], [id number] . res: clear to auscultation ,no rhonchii or wheezing abd: no rebound or guarding ,nt, bs present. ext pulses present , no cyanosis . neuro: axo3 , nonfocal. Objective Data Active Medications Acetaminophen (Acetaminophen Supp 650 Mg Supp.Rect) 650 mg [place] Q6H PRN PRN Reason: Pain, Mild (Pain Scale 1-3) Acetaminophen (Acetaminophen 325 Mg Tablet) 650 mg PO Q6H PRN PRN Reason: Pain, Mild (Pain Scale 1-3) Last Admin: 07/29/23 06:04 Dose: 650 mg Documented By: TERI Dextrose/Sodium Chloride (D5ns) 1,000 mls @ 80 mls/hr IVCONT .[id number] [facility] Last Admin: 07/29/23 00:26 Dose: 80 mls/hr Documented By: TERI Melatonin (Melatonin 3 Mg Tablet) 6 mg PO BEDTIME PRN PRN Reason: Insomnia Last Admin: 07/28/23 21:19 Dose: 6 mg Documented By: TERI Ondansetron HCl (Ondansetron Hcl 4 Mg/2 Ml Vial) 4 mg IVPUSH Q8H PRN PRN Reason: Nausea and Vomiting Last Admin: 07/28/23 11:44 Dose: 4 mg Documented By: CLEMENTINE Pantoprazole Sodium (Pantoprazole Sodium 40 Mg/10 Ml Vial) 40 mg IVPUSH BID@0630,1630 [facility] Last Admin: 07/29/23 05:59 Dose: 40 mg Documented By: TERI Sodium Chloride (0.9 % Sodium Chloride Flush 3 Ml Syringe) 3 ml IVFLUSH QSHIFT [facility] Last Admin: 07/29/23 00:00 Dose: 3 ml Documented By: TERI Sucralfate (Sucralfate 1 Gm Tablet) 1 gm PO QIDACHS [facility] Last Admin: 07/29/23 08:50 Dose: Not Given Documented By: ELIZABETH Non-Admin Reason: NPO Labs 07/29/23 06:11 07/28/23 06:53 Labs: Laboratory Results - last 24 hr 07/29/23 06:11 MCV 87.5 MCH 28.8 MCHC 32.9 RDW 13.7 Plt Count 283 MPV 9.8 Absolute Nucleated RBC 0.000 Nucleated RBC % (auto) 0.0 Assessment and Plan (1) GI bleed: Status: Acute (2) Acute GI bleeding: Status: Acute Assessment and Plan: 53M PMHf previous SBO, previous hospitalization for acute GI bleed who presented to the emergency department for evaluation of blood in stool. Acute GI bleed - likely lower gi bleed h/h stable continue empiric ppi plan for colonoscopy today DVT prophylaxis: Mechanical due to bleed Full code reason for continued hospitalization: plan for colonoscopy Quality Stroke Does the patient have a stroke diagnosis?: No VTE Prior VTE?: No VTE Risk Level:: Medical - moderate - high VTE Device Contraindication: N/A - Device Ordered VTE Drug Contraindication: Treatment Not Indicated
--- NOTE | 2023-07-29 10:18 | MHC.CM.PN ---
Per ROUNDS discussion, plan is for a colonoscopy today and possible dc later today. CM will follow.
--- NOTE | 2023-07-29 14:07 | MHC.SHP ---
Pre-Procedural Eval Section A - 24 Hr Update-Section A only Date of Service: 07/29/23 The patient is an INPATIENT: Yes Changes since office visit: Yes New Medical Problems, Yes Changes in Medication and Yes Patient answered all questions; No Cold of Flu in the past 2 weeks The patient has been examined within 24 hours of the surgical procedure. The History & Physical has been completed within 30 days and I have reviewed it.: Yes Section B - Complete if H&P > 30 days Chief Complaint: bright red blood per rectum Allergies: Allergies Allergy/AdvReac Type Severity Reaction Status Date / Time No Known Allergies Allergy Verified 07/29/23 13:27 Plan Diagnosis/Plan: Unchanged I have reviewed the history and physical and performed a pertinent physical examination on my patient. No changes have occurred unless specified. Time Spent With Patient Time: Total time managing care of this patient today ____ minutes.
--- NOTE | 2023-07-29 14:08 | W.PM.OPN ---
Operative Note Operative Note Date of Service: 07/29/23 Narrative: COLONOSCOPY TILL CECUM WITH BIOPSIES Pre-op diagnosis: Lower GI bleeding. Post-op diagnosis:? Colon polyps, Diverticulosis, large internal hemorrhoids Endoscopist:? Severo Hubbard MD Anesthesia:?MAC Consent: Indications for the procedure and potential complications of bleeding, perforation, reaction to medications and missed diagnosis were discussed with the patient and informed consent was obtained. Instrument: Olympus CF H 190 L variable stiffness adult colonoscope Monitoring: Vital signs and clinical assessment, intermittent blood pressure monitoring, continuous EKG monitoring, Pulse oximetry and Carbon Dioxide monitoring were done throughout the procedure. Please see anesthesia flowsheet. Colon withdrawl time was 25 minutes. Procedure: The patient was placed in the left lateral decubitis position and pre-procedure medications were administered. After a digital rectal examination of the ano-rectum, the video colonoscope was inserted into the rectum and advanced through the colon to the cecum. The colonoscope was slowly withdrawn in a retrograde panoramic fashion and the colon mucosa was carefully examined including a retroflexed view of the rectum. Findings and interventions are described below. Procedure Difficulty: without difficulty Findings: Terminal Ileum: Not evaluated Cecum: Normal Ascending Colon: Normal Transverse Colon: A 3-4 mm sessile polyp in the mid transverse colon - removed with a cold biopsy Descending Colon: Normal Sigmoid Colon: Moderate diverticulosis Rectum: A 3-4 mm diminutive polyp in the rectum on retroflexed exam - removed with a cold biopsy Ano-rectum: Large non-bleeding internal hemorrhoids - likely source of bleeding Colon preparation: Good after copious irrigation. [place] Bowel Preparation Scale Right colon; 2 Transverse colon: 2 Left colon; 2 (0 = Unprepared colon segment with mucosa not seen due to solid stool that cannot be cleared. 1 = Portion of mucosa of the colon segment seen, but other areas of the colon segment not well seen due to staining, residual stool and/or opaque liquid. 2 = Minor amount of residual staining, small fragments of stool and/or opaque liquid, but mucosa of colon segment seen well. 3 = Entire mucosa of colon segment seen well with no residual staining, small fragments of stool or opaque liquid) Impression and Post Procedure Diagnosis: Colonoscopy Findings: Two small polyps were removed Moderate diverticulosis seen in the sigmoid colon Large non-bleeding hemorrhoids on retroflexed exam LGI bleeding likely due to hemorrhoids Plan: Hydrocortisone cream twice daily for hemorrhoids Pt can be referred to surgery for band ligation or hemorrhoidectomy if he continues to have rectal bleeding Repeat Colonoscopy in 5 years if polyps are adenomatous and due to a hx of adenomatous colon polyps. Above findings were reviewed with the patient. ADDENDUM: Hospital Course: Patient was admitted for acute lower GI bleed likely due to hemorrhoids. His hemoglobin remained stable. He was started on Anusol, recommended to use Metamucil, and Sitz baths. Seen by General surgery recommended short-term follow-up for definitive therapy outpatient. Patient continues to have some bleeding but no significant drop in hemoglobin or hypotension so will be discharged home to follow up closely with surgery
--- NOTE | 2023-07-29 14:25 | P.CONAN_ITS ---
HPI - Anesthesia Eval Consult details Narrative[facility] Active Problems Active Problems: All Active Problems GI bleed (Acute) Acute GI bleeding (Acute) Past Medical History Medical History Pancreatitis SBO (small bowel obstruction) Family History Family history of problems with anesthesia: No Surgical History Surgical History H/O colonoscopy Small intestine obstruction History of Problems with Anesthesia: No Social History Social History Household Members: Spouse Housing: Apartment Do you presently have visiting nurse or other home services: No Alcohol intake: current Alcohol intake frequency: does not drink Patient Tobacco Use Status: Never used Tobacco Substance Use Type: Marijuana service: Yes Current occupational status: unemployed Meds Allergies Allergy/AdvReac Type Severity Reaction Status Date / Time No Known Allergies Allergy Verified 07/29/23 13:27 Active Medications: Current Medications Acetaminophen (Acetaminophen Supp 650 Mg Supp.Rect) 650 mg [place] Q6H PRN PRN Reason: Pain, Mild (Pain Scale 1-3) Acetaminophen (Acetaminophen 325 Mg Tablet) 650 mg PO Q6H PRN PRN Reason: Pain, Mild (Pain Scale 1-3) Last Admin: 07/29/23 06:04 Dose: 650 mg Dextrose/Sodium Chloride (D5ns) 1,000 mls @ 80 mls/hr IVCONT .[id number] [facility] Last Admin: 07/29/23 12:54 Dose: 80 mls/hr Melatonin (Melatonin 3 Mg Tablet) 6 mg PO BEDTIME PRN PRN Reason: Insomnia Last Admin: 07/28/23 21:19 Dose: 6 mg Ondansetron HCl (Ondansetron Hcl 4 Mg/2 Ml Vial) 4 mg IVPUSH Q8H PRN PRN Reason: Nausea and Vomiting Last Admin: 07/28/23 11:44 Dose: 4 mg Pantoprazole Sodium (Pantoprazole Sodium 40 Mg/10 Ml Vial) 40 mg IVPUSH BID@0630,1630 [facility] Last Admin: 07/29/23 05:59 Dose: 40 mg Sodium Chloride (0.9 % Sodium Chloride Flush 3 Ml Syringe) 3 ml IVFLUSH QSHIFT [facility] Last Admin: 07/29/23 10:22 Dose: Not Given Sucralfate (Sucralfate 1 Gm Tablet) 1 gm PO QIDACHS [facility] Last Admin: 07/29/23 12:52 Dose: Not Given Home Medications ?Medication ?Instructions ?Recorded ?Confirmed ?Last Taken ?Type No Known Home Meds 07/27/23 07/27/23 Unknown History Exam Height,Weight and Vital Signs: Height 6 ft 2 in Weight 109 kg Last Vital Signs Temp 98.4 F 07/29/23 13:44 Pulse 63 07/29/23 13:44 Resp 18 07/29/23 13:44 BP 141/70 H 07/29/23 13:44 Pulse Ox 98 07/29/23 13:44 O2 Del Method Room Air 07/29/23 13:44 Pertinent Lab Results Pertinent Lab Results: Laboratory Tests 07/27/23 07/27/23 07/27/23 12:50 15:54 21:22 WBC 7.2 RBC 4.30 L Hgb 12.6 L 12.4 L Hct 37.8 L 37.4 L MCV 87.9 MCH 29.3 MCHC 33.3 RDW 13.7 Plt Count 284 MPV 9.3 L Immature Gran % (Auto) 0.4 Neut % (Auto) 49.7 Lymph % (Auto) 35.2 [place] % (Auto) 10.2 Eos % (Auto) 3.8 Baso % (Auto) 0.7 Lymph # (Auto) 2.5 [place] # (Auto) 0.7 Eos # (Auto) 0.3 Baso # (Auto) 0.1 Abs Immat Gran (auto) 0.03 Absolute Neuts (auto) 3.6 Absolute Nucleated RBC 0.000 Nucleated RBC % (auto) 0.0 PT 11.7 INR 1.0 APTT 24.8 L Sodium 142 Potassium 4.2 Chloride 108 Carbon Dioxide 27 Anion Gap 11 L BUN 22 H Creatinine 0.92 Estim Creat Clear Calc 119.1 Estimated GFR > 60 Random Glucose 91 Calcium 8.8 Magnesium 2.2 Total Bilirubin 0.4 AST 19 ALT 16 Alkaline Phosphatase 55 Total Protein 7.1 Albumin 4.3 Lipase 108 H Stool Occult Blood POSITIVE Blood Type O Positive Antibody Screen NEGATIVE 07/28/23 07/28/23 07/29/23 06:53 10:45 06:11 WBC 6.3 5.6 RBC 4.29 L 4.17 L Hgb 12.3 L 13.0 L 12.0 L Hct 37.3 L 38.5 L 36.5 L MCV 86.9 87.5 MCH 28.7 28.8 MCHC 33.0 32.9 RDW 13.7 13.7 Plt Count 268 283 MPV 9.6 9.8 Immature Gran % (Auto) Neut % (Auto) Lymph % (Auto) [place] % (Auto) Eos % (Auto) Baso % (Auto) Lymph # (Auto) [place] # (Auto) Eos # (Auto) Baso # (Auto) Abs Immat Gran (auto) Absolute Neuts (auto) Absolute Nucleated RBC 0.000 0.000 Nucleated RBC % (auto) 0.0 0.0 PT INR APTT Sodium 141 Potassium 4.1 Chloride 108 Carbon Dioxide 27 Anion Gap 10 L BUN 16 Creatinine 0.92 Estim Creat Clear Calc 119.2 Estimated GFR > 60 Random Glucose 86 Calcium 8.8 Magnesium Total Bilirubin AST ALT Alkaline Phosphatase Total Protein Albumin Lipase Stool Occult Blood Blood Type Antibody Screen Airway Mallampati Class: II TM Dist: >3cm Neck ROM: Full Heart: rrr Lungs: cta Assessment and Plan Assessment Anesthesia Assessment: Anesthesia Plan Discussed and Chart Reviewed Final Anesthetic Review Family History of Problems with Anesthesia: No History of Problems with Anesthesia: No NPO: Yes ASA Class: II Final Preanesthetic Review: No Changes in Pt Med Stat, Meds/Allgs Chart Reviewed, Consent Obtained/Reviewed and Anes Risks/Benef Reviewed Patient Risk: Intermediate Procedure Risk: Low Anesthetic Plan Anesthetic Plan: MAC: Disposition: Standard PACU
[2023-07-29] MEDS: Sucralfate 1 GM TABLET PO ×2 (17:11→20:57)
[2023-07-29] MEDS: 0.9 % Sodium Chloride Flush 3 ML SYRINGE IVFLUSH ×3 (17:12→20:58)
[2023-07-29] MEDS: Melatonin 3 MG TABLET 6 MG PO (20:57)
[2023-07-29] MEDS: traMADoL HCL 50 MG TABLET 25 MG PO (20:57)
[2023-07-29] MEDS: Hydrocortisone 2.5 % Rectal Cr 30 GM TUBE 1 APPL PR (21:58)
[2023-07-30] VITALS: BP 88/56; PULSE 54; RESP 16; TEMP 36.6; O2SAT 93
[2023-07-30 04:00] VITALS: BP 121/40; PULSE 53; RESP 16; TEMP 36.6; O2SAT 94
[2023-07-30] MEDS: Acetaminophen 325 MG TABLET 650 MG PO (05:30)
[2023-07-30] MEDS: Pantoprazole Sodium 40 MG/10 ML VIAL IVPUSH (05:35)
[2023-07-30 05:54] LABS: Hematocrit 34.1 % (42.0-52.0); Hemoglobin 11.2 g/dl (14.0-18.0); Mean Corpuscular HGB Conc 32.8 g/dl (31.0-36.0); Mean Corpuscular Hemoglobin 29.4 pg (27.0-33.0); Mean Corpuscular Volume 89.5 fL (80.0-98.0); Mean Platelet Volume 9.6 fL (9.4-12.4); Platelet Count 260 X10*3/uL (160-400); Red Blood Count 3.81 X10*6/uL (4.60-5.80); Red Cell Distribution Width 13.9 % (11.0-16.0)
[2023-07-30 06:09] LABS: Anion Gap 11 (12-20); Blood Urea Nitrogen 17 mg/dL (9-16); Calcium 8.3 mg/dL (8.4-10.2); Carbon Dioxide 25 mmol/L (22-29); Chloride 108 mmol/L (96-108); Creatinine Clr Calc Pharmacy 111.9; Estimated Glomerular Filt Rate > 60; Glucose Fasting 98 mg/dL (60-99); Potassium 3.6 mmol/L (3.3-5.1); Sodium 140 mmol/L (135-145)
[2023-07-30 07:49] VITALS: BP 106/55; PULSE 52; RESP 16; TEMP 36.9; O2SAT 93
[2023-07-30] MEDS: Sucralfate 1 GM TABLET PO ×2 (08:32→11:50)
[2023-07-30] MEDS: Hydrocortisone 2.5 % Rectal Cr 30 GM TUBE 1 APPL PR (08:33)
[2023-07-30] MEDS: 0.9 % Sodium Chloride Flush 3 ML SYRINGE IVFLUSH (08:33)
[2023-07-30] MEDS: traMADoL HCL 50 MG TABLET 25 MG PO (08:36)
--- NOTE | 2023-07-30 10:06 | HO.PM.IMPN ---
Subjective Subjective Date of Service: 07/30/23 Interval History: ongoing bleeding Physical Exam Vital Signs: Vital Signs: Last Vital Signs Temp 98.4 F 07/30/23 07:49 Pulse 52 07/30/23 07:49 Resp 16 07/30/23 07:49 BP 106/55 L 07/30/23 07:49 Pulse Ox 93 07/30/23 07:49 O2 Del Method Room Air 07/30/23 07:49 O2 Flow Rate 3 07/29/23 15:06 BMI result Body Mass Index 30.8 Appearance: Alert.? Oriented X3.? cvs: rrr, [id number] . res: clear to auscultation ,no rhonchii or wheezing abd: no rebound or guarding ,nt, bs present. ext pulses present , no cyanosis . neuro: axo3 , nonfocal. Objective Data Active Medications Acetaminophen (Acetaminophen Supp 650 Mg Supp.Rect) 650 mg IN Q6H PRN PRN Reason: Pain, Mild (Pain Scale 1-3) Acetaminophen (Acetaminophen 325 Mg Tablet) 650 mg PO Q6H PRN PRN Reason: Pain, Mild (Pain Scale 1-3) Last Admin: 07/30/23 05:30 Dose: 650 mg Documented By: TRUNG Hydrocortisone (Hydrocortisone 2.5 % Rectal Cr 30 Gm Tube) 1 appl IN BID [facility] Last Admin: 07/30/23 08:33 Dose: 1 appl Documented By: SHEBA Dextrose/Sodium Chloride (D5ns) 1,000 mls @ 80 mls/hr IVCONT .[id number] [facility] Last Infusion: 07/30/23 07:24 Dose: Infused Documented By: SHEBA Melatonin (Melatonin 3 Mg Tablet) 6 mg PO BEDTIME PRN PRN Reason: Insomnia Last Admin: 07/29/23 20:57 Dose: 6 mg Documented By: TRUNG Ondansetron HCl (Ondansetron Hcl 4 Mg/2 Ml Vial) 4 mg IVPUSH Q8H PRN PRN Reason: Nausea and Vomiting Last Admin: 07/28/23 11:44 Dose: 4 mg Documented By: CLEMENTINE Pantoprazole Sodium (Pantoprazole Sodium 40 Mg/10 Ml Vial) 40 mg IVPUSH BID@0630,1630 [facility] Last Admin: 07/30/23 05:35 Dose: 40 mg Documented By: TRUNG Sodium Chloride (0.9 % Sodium Chloride Flush 3 Ml Syringe) 3 ml IVFLUSH QSHIFT [facility] Last Admin: 07/30/23 08:33 Dose: 3 ml Documented By: SHEBA Sucralfate (Sucralfate 1 Gm Tablet) 1 gm PO QIDACHS [facility] Last Admin: 07/30/23 08:32 Dose: 1 gm Documented By: SHEBA Tramadol HCl (Tramadol Hcl 50 Mg Tablet) 25 mg PO Q6H PRN PRN Reason: Pain, Moderate(Pain Scale 4-6) Last Admin: 07/30/23 08:36 Dose: 25 mg Documented By: SHEBA Labs 07/30/23 05:15 07/30/23 05:15 Labs: Laboratory Results - last 24 hr 07/30/23 05:15 MCV 89.5 MCH 29.4 MCHC 32.8 RDW 13.9 Plt Count 260 MPV 9.6 Absolute Nucleated RBC 0.000 Nucleated RBC % (auto) 0.0 Anion Gap 11 L Estim Creat Clear Calc 111.9 Estimated GFR > 60 Fasting Glucose 98 Calcium 8.3 L Assessment and Plan (1) GI bleed: Status: Acute (2) Acute GI bleeding: Status: Acute Assessment and Plan: 53M PMHf previous SBO, previous hospitalization for acute GI bleed who presented to the emergency department for evaluation of blood in stool. Acute GI bleed - due to hemorrhoids h/h stable gen surgery eval anusol DVT prophylaxis: Mechanical due to bleed Full code reason for continued hospitalization: ongoing bleeding, surgery eval Quality Stroke Does the patient have a stroke diagnosis?: No VTE Prior VTE?: No VTE Risk Level:: Medical - moderate - high VTE Device Contraindication: N/A - Device Ordered VTE Drug Contraindication: Treatment Not Indicated
[2023-07-30 11:52] VITALS: BP 105/47; PULSE 51; RESP 16; TEMP 37.1; O2SAT 96
[2023-07-30 13:47] VITALS: O2SAT 96
--- NOTE | 2023-07-30 14:49 | HO.POSTANES ---
Post Anesthesia Evaluation Post Anesthesia Evaluation Date of Service: 07/30/23 Vital Signs: Vital Signs Temp Pulse Resp BP Pulse Ox O2 Del Method 07/30/23 13:47 96 Room Air 07/30/23 11:52 98.7 F 51 16 105/47 L 96 Room Air 07/30/23 07:49 98.4 F 52 16 106/55 L 93 Room Air 07/30/23 04:00 97.8 F 53 16 121/40 L 94 Room Air Anesthesia: TIVA Mental Status: Awake Pain Control: Satisfactory Nausea/Vomiting: None Hydration: Adequate Anesthesia-Related Issues: No Anes. Related Issues
--- NOTE | 2023-07-30 14:58 | P.DS_ITS ---
DS: Providers Provider Date of Service: 07/30/23 Date of admission: 07/27/23 21:10 Primary care physician: Unknown Physician Consults: 07/27/23 21:12 Consult to Gastroenterology Routine Consulting Provider: [facility] Reason for consultation: GI bleed 07/30/23 08:54 Consult to General Surgery Routine Consulting Provider: [facility] Reason for consultation: bleeding hemmrhoids DS: Diagnosis Discharge Diagnosis (1) GI bleed: Status: Acute (2) Acute GI bleeding: Status: Acute DS: Summary Hospital Course Hospital Course: from initial hpi: 53-year-old male with pertinent history of previous SBO, previous hospitalization for acute GI bleed who presents to the emergency department for evaluation of blood in stool. Patient states it started about 10 days prior to presentation. He is having about 3-4 episodes of bright red blood per rectum and blood mixed with stools. Has been having loose stools that started 2-3 days prior to presentation. He only took 1 dose of Aleve in the last 10 days for headache. Has generalized abdominal discomfort and mild discomfort upon defecation. Not on blood thinners. No fever, chills, chest discomfort, palpitations, shortness of breath, nausea, vomiting, changes in urinary habits. Previous colonoscopy done on 06/10 with polyp (tubular adenoma, negative for high-grade dysplasia and carcinoma) and internal hemorrhoids. Patient is not on any prescription medications In the emergency department, stool occult blood positive. Hemoglobin noted to be 12.4. hospital course: Patient was admitted for acute lower GI bleed likely due to hemorrhoids. His hemoglobin remained stable. He was started on Anusol, recommended to use Metamucil, as it is baths. Seen by General surgery recommended short-term follow-up for definitive therapy outpatient. Patient continues to have some bleeding but no significant drop in hemoglobin or hypotension so will be discharged home to follow up closely with surgery. Time Attestation Discharge Coordination Time (in mins): 35 Quality: Safe Use of Opioids Does Pt have an Active Cancer Diagnosis on the Problem List?: No Quality: Stroke Does the patient have a stroke diagnosis?: No Physical Exam Vital Signs: Vital Signs: Last Vital Signs Temp 98.7 F 07/30/23 11:52 Pulse 51 07/30/23 11:52 Resp 16 07/30/23 11:52 BP 105/47 L 07/30/23 11:52 Pulse Ox 96 07/30/23 13:47 O2 Del Method Room Air 07/30/23 13:47 O2 Flow Rate 3 07/29/23 15:06 BMI result Body Mass Index 30.8 Appearance: Alert.? Oriented X3.? cvs: rrr, [id number] . res: clear to auscultation ,no rhonchii or wheezing abd: no rebound or guarding ,nt, bs present. ext pulses present , no cyanosis . neuro: axo3 , nonfocal. DS: Data Data Completed and Pending Pending studies at discharge: Pending at discharge 07/29/23 14:31 Surgical [PTH] Routine Labs on day of discharge: Laboratory Results - last 24 hr 07/30/23 05:15 WBC 7.0 RBC 3.81 L Hgb 11.2 L Hct 34.1 L MCV 89.5 MCH 29.4 MCHC 32.8 RDW 13.9 Plt Count 260 MPV 9.6 Absolute Nucleated RBC 0.000 Nucleated RBC % (auto) 0.0 Sodium 140 Potassium 3.6 Chloride 108 Carbon Dioxide 25 Anion Gap 11 L BUN 17 H Creatinine 0.98 Estim Creat Clear Calc 111.9 Estimated GFR > 60 Fasting Glucose 98 Calcium 8.3 L Discharge Plan Discharge Anticipated Discharge Date/Time: 07/30/23 14:56 Patient Disposition: Home, Self-Care Discharge Diagnosis: hemorrhoids Referrals: Mumtaz Marroquin MD [Physician] - 1 Week Physician,Unknown J [Primary Care Provider] - 1 Week Discharge Medications: No Action No Known Home Meds Discharge Orders: Discharge Order (Routine); Ordered 07/30/23 Ordered By: Lul Silverio Diet: Advance to usual diet Activity on Discharge: As tolerated Stand Alone Forms: Patient Portal Discharge page Print Language: [place] Care Plan Goals: manage hemorrhoids Health Concerns: hemorrhoids Plan of Treatment: follow up with surgery Assessment: see above
--- NOTE | 2023-07-30 15:14 | MHC.CM.PN ---
Pt is medically cleared for D/C home self-care, pts to transport him home.
--- NOTE | 2023-07-30 15:21 | PM.CNGS ---
History of Present Illness Consult details Consult date: 07/30/23 Narrative: Patient presents with anorectal symptoms and lower GI bleed. He underwent colonoscopy which was only noteworthy for symptomatic internal and external hemorrhoids. Patient has a history of last year to 2 years of chronic constipation and he has noticed some bloody staining with bowel movements. GI workup is as noted above. Chart was reviewed and patient evaluated [facility] Past Medical History Medical History Pancreatitis SBO (small bowel obstruction) Surgical History Surgical History H/O colonoscopy Small intestine obstruction Social History Social History Household Members: Spouse Housing: Apartment Do you presently have visiting nurse or other home services: No Alcohol intake: current Alcohol intake frequency: does not drink Patient Tobacco Use Status: Never used Tobacco Substance Use Type: Marijuana service: Yes Current occupational status: unemployed Meds Allergies Allergy/AdvReac Type Severity Reaction Status Date / Time No Known Allergies Allergy Verified 07/29/23 13:27 Active Medications: Current Medications Acetaminophen (Acetaminophen Supp 650 Mg Supp.Rect) 650 mg [place] Q6H PRN PRN Reason: Pain, Mild (Pain Scale 1-3) Acetaminophen (Acetaminophen 325 Mg Tablet) 650 mg PO Q6H PRN PRN Reason: Pain, Mild (Pain Scale 1-3) Last Admin: 07/30/23 05:30 Dose: 650 mg Hydrocortisone (Hydrocortisone 2.5 % Rectal Cr 30 Gm Tube) 1 appl HI BID REPLACED BY [facility] Last Admin: 07/30/23 08:33 Dose: 1 appl Melatonin (Melatonin 3 Mg Tablet) 6 mg PO BEDTIME PRN PRN Reason: Insomnia Last Admin: 07/29/23 20:57 Dose: 6 mg Omeprazole (Omeprazole 40 Mg Capsule.Dr) 40 mg PO DAILY@0630 REPLACED BY [facility] Ondansetron HCl (Ondansetron Hcl 4 Mg/2 Ml Vial) 4 mg IVPUSH Q8H PRN PRN Reason: Nausea and Vomiting Last Admin: 07/28/23 11:44 Dose: 4 mg Sodium Chloride (0.9 % Sodium Chloride Flush 3 Ml Syringe) 3 ml IVFLUSH QSHIFT REPLACED BY [facility] Last Admin: 07/30/23 08:33 Dose: 3 ml Sucralfate (Sucralfate 1 Gm Tablet) 1 gm PO QIDACHS REPLACED BY [facility] Last Admin: 07/30/23 11:50 Dose: 1 gm Tramadol HCl (Tramadol Hcl 50 Mg Tablet) 25 mg PO Q6H PRN PRN Reason: Pain, Moderate(Pain Scale 4-6) Last Admin: 07/30/23 08:36 Dose: 25 mg Home Medications ?Medication ?Instructions ?Recorded ?Confirmed ?Last Taken ?Type No Known Home Meds 07/27/23 07/27/23 Unknown History Physical Exam Vital Signs: Vital Signs: Last Vital Signs Temp 98.7 F 07/30/23 11:52 Pulse 51 07/30/23 11:52 Resp 16 07/30/23 11:52 BP 105/47 L 07/30/23 11:52 Pulse Ox 96 07/30/23 13:47 O2 Del Method Room Air 07/30/23 13:47 O2 Flow Rate 3 07/29/23 15:06 BMI result Body Mass Index 30.8 GI: Other: Abdomen is soft, benign. Rectal exam was deferred secondary to patient's discomfort. Results Labs 07/30/23 05:15 07/30/23 05:15 Labs: Abnormal lab results 07/30/23 Range/Units 05:15 RBC 3.81 L (4.60-5.80) X10*6/uL Hgb 11.2 L (14.0-18.0) g/dl Hct 34.1 L (42.0-52.0) % Anion Gap 11 L (12-20) BUN 17 H (9-16) mg/dL Calcium 8.3 L (8.4-10.2) mg/dL Short CBC 07/30/23 Range/Units 05:15 WBC 7.0 (4.8-10.8) X10*3/uL Hgb 11.2 L (14.0-18.0) g/dl Hct 34.1 L (42.0-52.0) % Plt Count 260 (160-400) X10*3/uL BMP 07/30/23 05:15 Sodium 140 Potassium 3.6 Chloride 108 Carbon Dioxide 25 BUN 17 H Creatinine 0.98 Calcium 8.3 L All other labs normal. Assessment and Plan (1) Hemorrhoids: Status: Acute Plan Current plan is for patient to call the office early next week for follow-up regarding elective hemorrhoidectomy. All questions answered. Discharge instructions will have my name and office number Procedures Date of Service Date of Service: 07/30/23
[2023-07-30 15:30] VITALS: BP 101/56; PULSE 74; RESP 16; TEMP 36.6; O2SAT 97
== END 2023-07-30 16:53 | disposition home or self-care (01) | DRG 393 ==
LOC: HO.ED 21:07 → HO.EDOVER 21:19 → HO.IMC 07-28 00:22
PROVIDERS: Internal Medicine; Internal Medicine Gastroenterology; Physician Assistant Medical; Student in an Organized Health Care Education/Training Program; Admitting Provider Student in an Organized Health Care Education/Training Program; Emergency Provider Internal Medicine; Referring Provider Student in an Organized Health Care Education/Training Program; Visit Provider Internal Medicine
PROC: 0DJD8ZZ Inspection of Lower Intestinal Tract, Via Natural or Artificial Opening Endoscopic (ICD-10-PCS; CPT 45378; principal; 2023-07-29 14:30)
DX: K64.8 Other hemorrhoids (principal); K57.31 Diverticulosis of large intestine without perforation or abscess with bleeding; F43.10 Post-traumatic stress disorder, unspecified; Z80.0 Family history of malignant neoplasm of digestive organs; K63.5 Polyp of colon; K62.1 Rectal polyp
CPT/HCPCS: 36415; 74178; 80048; 80053; 82272; 83690; 83735; 85014; 85018; 85025; 85027; 85610; 85730; 86850; 86900; 86901; 88305; 99285; C9113; J2250; J2405; J2704; Q9967

== ENCOUNTER → 2023-07-27 21:10 | Outpatient (BNV) | payer OTHER, SELFPAY | PROVIDERS: Admitting Provider Student in an Organized Health Care Education/Training Program; Emergency Provider Internal Medicine; Visit Provider Internal Medicine Gastroenterology | DX: K92.2 Gastrointestinal hemorrhage, unspecified (principal); D12.3 Benign neoplasm of transverse colon; D12.8 Benign neoplasm of rectum; K57.30 Diverticulosis of large intestine without perforation or abscess without bleeding | CPT/HCPCS: 45380; 99222 ==

== ENCOUNTER → 2023-07-27 21:10 | Outpatient (BNV) | payer OTHER, SELFPAY | PROVIDERS: Admitting Provider Student in an Organized Health Care Education/Training Program; Emergency Provider Internal Medicine; Visit Provider Student in an Organized Health Care Education/Training Program | DX: K92.2 Gastrointestinal hemorrhage, unspecified (principal) | CPT/HCPCS: 99222; 99232; 99239 ==

== ENCOUNTER → 2023-07-27 21:10 | Outpatient (BNV) | payer OTHER, SELFPAY | PROVIDERS: Admitting Provider Student in an Organized Health Care Education/Training Program; Emergency Provider Internal Medicine; Visit Provider Surgery | DX: K64.9 Unspecified hemorrhoids (principal) | CPT/HCPCS: 99222 ==

== ENCOUNTER → 2023-08-08 14:10 | Outpatient (BNVA) | payer OTHER, SELFPAY | PROVIDERS: PCP Internal Medicine; Visit Provider Surgery | DX: K64.9 Unspecified hemorrhoids (principal); K60.2 Anal fissure, unspecified | CPT/HCPCS: 99212 ==

== ENCOUNTER 2023-08-08 14:11 | Outpatient (AMB) | payer OTHER, SELFPAY ==
--- NOTE | 2023-08-08 14:28 | MHC.OFFVIS ---
Vital Signs 08/08/23 14:34 Weight 237 lb BP 135/73 Blood Pressure Location Rt brachial Position Sitting Pulse 67 Intake Visit Reasons: Hemorrhoids Intake Note: [facility]. Patient c/o: pain and discomfort, constipation with diarrhea. Rx psyllium husk, probiotic on Tuesday caused vomiting. Colonoscopy: 07-29-2023~ Dr. Hubbard. 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 He had some bright red blood per rectum. He underwent recent colonoscopy which demonstrated no gross endoluminal pathology. He has had chronic constipation and hard stool for many years time. Patient has had 2 colonoscopies which demonstrated diverticular disease and internal hemorrhoids. Chart was reviewed and patient evaluated [facility] Medical History Pancreatitis SBO (small bowel obstruction) Surgical History H/O colonoscopy Small intestine obstruction Social History Household Members: Spouse Housing: Apartment Do you presently have visiting nurse or other home services: No Alcohol intake: current Alcohol intake frequency: does not drink Patient Tobacco Use Status: Never used Tobacco Substance Use Type: Marijuana service: Yes Current occupational status: unemployed Physical Exam Vital Signs: Last Vital Signs Pulse 67 08/08/23 14:34 BP 135/73 08/08/23 14:34 GI Other: Abdomen is soft, benign. Rectal exam demonstrated some internal hemorrhoids. There Was also posterior anal fissure. Assessment & Plan Assessment & Plan (1) Hemorrhoids: Code(s): K64.9 - Unspecified hemorrhoids Category: Surgical (2) Anal fissure: Code(s): K60.2 - Anal fissure, unspecified Category: Surgical Plan At the present time, patient has been instructed regarding anal fissure care including drinking lot of water/staying hydrated, roughage, bulking agents for example Metamucil, Citrucel, Senokot, Sitz baths, avoid prolonged sitting on a toilet, and avoiding constipation as much as possible. Should the patient have persistent pain/bleeding or has recurrence of his hemorrhoidal symptoms, he has been instructed to call the office. All questions answered. Patient otherwise follow-up p.r.n..
[2023-08-08 14:34] VITALS: BP 135/73; PULSE 67
== END 2023-08-08 14:53 | disposition home or self-care (01) ==
PROVIDERS: PCP Internal Medicine; Visit Provider Surgery
DX: K64.9 Unspecified hemorrhoids (principal); K60.2 Anal fissure, unspecified
CPT/HCPCS: 99213

== ENCOUNTER 2024-04-23 10:28 | Emergency (ER) | payer OTHER, SELFPAY ==
[2024-04-23 10:34] VITALS: BP 136/73; PULSE 74; RESP 20; TEMP 36.4; O2SAT 100; BMI 29.5
[2024-04-23 10:55] LABS: MANUAL DIFF FLAG NO
[2024-04-23 10:57] LABS: Basophils Absolute Auto 0.1 X10*3/uL (0.0-0.2); Eosinophils Absolute Auto 0.2 X10*3/uL (0.0-0.4); Eosinophils Percent Auto 2.8 % (0-4); Hematocrit 32.3 % (42.0-52.0); Hemoglobin 10.3 g/dl (14.0-18.0); Imm Gran Abs Auto 0.02 X10*3/uL (0.00-0.03); Imm Gran Pct Auto 0.3 % (0.0-0.4); Lymphocytes Absolute Auto 2.1 X10*3/uL (1.2-4.9); Lymphocytes Percent Auto 34.8 % (20-40); Mean Corpuscular HGB Conc 31.9 g/dl (31.0-36.0); Mean Corpuscular Hemoglobin 25.4 pg (27.0-33.0); Mean Corpuscular Volume 79.6 fL (80.0-98.0); Mean Platelet Volume 8.7 fL (9.4-12.4); Monocytes Absolute Auto 0.6 X10*3/uL (0.1-1.2); Monocytes Percent Auto 9.8 % (2-11); Neutrophils Absolute Auto 3.1 x10*3/uL (2.0-8.3); Neutrophils Percent Auto 51.3 % (45-73); Platelet Count 338 X10*3/uL (160-400); Red Blood Count 4.06 X10*6/uL (4.60-5.80); Red Cell Distribution Width 14.3 % (11.0-16.0)
[2024-04-23 11:18] LABS: Alanine Aminotransferase 16 U/L (0-40); Albumin Level 4.3 g/dL (3.5-5.0); Alkaline Phosphatase 49 U/L (39-117); Anion Gap 11 (12-20); Aspartate Amino Transferase 21 U/L (5-37); Bilirubin Total 0.3 mg/dL (0.0-1.0); Blood Urea Nitrogen 15 mg/dL (9-16); Calcium 8.7 mg/dL (8.4-10.2); Carbon Dioxide 25 mmol/L (22-29); Chloride 110 mmol/L (96-108); Creatinine Clr Calc Pharmacy 96.8; Estimated Glomerular Filt Rate > 60; Glucose Random 85 mg/dL (60-115); Sodium 142 mmol/L (135-145); Total Protein 7.2 g/dL (6.5-8.0)
--- OUTSIDE RECORDS SUMMARY | 2024-04-23 11:32 | XMS_ITS ---
Author Name [facility] Address [address] [place] [address] Care Team Providers Care Transmission Superintendent Name Role Phone CAMILLE GOTTI Primary Care Provider MAYO Byrd Primary Care Provider Unavailyo gandara Insurance Providers: All historical and current Section Date Range: From patient's date of to the date document was created. This section includes the names of all active insurance providers for the patient. Insurance Provider Type of Coverage Plan Name Start of Policy Coverage End of Policy Coverage Group Number Member ID Insurance Provider's Telephone Number Policy Chaparro's Name Patient's Relationship to Policy Chaparro [facility] MEDICAID TITLE 19 Apr 18, 2020 MEDICAI D [id number] [address] LU PATIENT Selected Encounter This section includes the information on record at OR for the Encounter. Date/Time Encounter Type Encounter Description Reason Pro vider Source Jul 29, 2023 08:59 AM Outpatient Encounter [facility] CONS[facility] I[facility] Encounter Template Text not used by [facility] Plan of Treatment: Future Appointments (+ 6 months) and Future Tests (+/- 45 days) The Plan of Treatment section includes future care activities for the patient from all [facility] treatmentfacilities. This section includes future appointments and future orders which are active, pending or scheduled. Future Appointments This section includes appointments that were scheduled to occur 6 months from the date of the Encounter, up to a maximum of 20 appointments. The data comes from all [place] treatment facilities. Appointment Date/Time Appointment Type Appointme nt Facility Name Aug 08, 2023 02:00 PM AMBULATORY - MEDICINE [facility] Jan 18, 2024 09:00 AM AMBULATORY - MEDICINE [facility] Social History: Smoking Status (Most current) and Tobacco Use (All prior to encounter date) This section includes the most current, and the historical, smoking and tobacco- related health factors from the [place] facility where the Encounter took place. Current Smoking Status This section includes the most current smoking, or tobacco-related health factor, from the [place] facility where the Encounter took place. Date/Time Current Smoking Status Comment Facil ity Jul 14, 2021 11:45 AM VA-TOBACCO FORMER USER [facility] Tobacco Use History This section includes a history of the smoking, or tobacco-related health factors, that were collected on or before the date of the Encounter. The data comes from the [place] facility where the Encounter took place. Date/Time Smoking Status/Tobacco Use Comment F acility Jul 14, 2021 11:45 AM OR-TOBACCO QUIT 15 YRS OR MORE [facility] Encounter Notes: All associated encounter notes This section contains the clinical notes associated to the Encounter. Date/Time Encounter Note(s) Provider Source Jul 29, 2023 08:59 AM NONVA NOTE: LOCAL TITLE: [facility] PRESENTING CARE COORD PLAN STANDARD TITLE: NONVA NOTE DATE OF NOTE: JUL 29, 2023@08:59 ENTRY DATE: JUL 29, 2023@08:59:16 AUTHOR: RUSS WELDON COSIGNER: URGENCY: STATUS: COMPLETED Emergency Notification Intake Date Presenting to the Facility: Jul Method of Contact: Notified from ECR worklist Notification ID: [id number] [facility] Referral #: [id number] [facility] Name: Hospital: [facility] Address: City: [place] State: [place] Zip Code: Phone : Community Facility Point of Contact: Name: Mariaa Phone: Chief complaint: INTERNAL BLEEDING, ABD PAIN Primary Diagnosis: GASTROINTESTINAL HEMORRHAGE Disposition Admitted Route of Admission: ER Date of Admission: Jul Admitting Diagnosis: GASTROINTESTINAL HEMORRHAGE Community Care Provider: Confirm Level of Care: /es/ RUSS LUNA Signed: 07/29/2023 09:00 Receipt Acknowledged By: 07/29/2023 15:21 /es/ CAMILLE GOTTI MD PHYSICIAN 07/29/2023 09:19 /es/ JEAN HEBERT, MSN, RN, CNL PRIMARY CARE TEAM NURSE 07/29/2023 09:20 /es/ Elif Jama RN Primary Care Staff Nurse 07/29/2023 11:12 /es/ FERNIE GUAMAN Registered Nurse Distribution Technician RUSS WELDON MINONG
--- OUTSIDE RECORDS SUMMARY | 2024-04-23 11:32 | XMS_ITS | Continuity of Care Document ---
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 It does not include entries that were removed or entered in error. 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 [facility] Anxiety Active Condition [facility] Ex-tobacco user Active Condition [facility] Hyperlipidemia ([facility] [id number]) Active Condition [facility] Internal bleeding hemorrhoids Active Condition [facility] Obesity ([facility] [id number]) Active Condition [facility] Pancreatitis Active Condition Jul 14, 2021 Entered By: SAMANTHA OROURKE Comment: Remote historyJul 14, 2021 Entered By: SAMANTHA OROURKE Comment: Elev rowdy, lip 07/14 - tx to ERNov 2021 Entered By: ZAHIRA ROMERO Comment: seen by [facility] 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 [facility] 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 Melena [facility] Diagnosis: ICD-10-CM K62.5 Hemorrhage of anus and rectum [facility] Diagnosis: ICD-10-CM Z71.9 Counseling, unspecified Active Diagnosis [facility] Diagnosis: ICD-10-CM K92.2 Gastrointestinal hemorrhage, unspecified Active Diagnosis [facility] Diagnosis: ICD-10-CM R10.9 Unspecified abdominal pain Active Diagnosis [facility] Medications Combined list of outpatient medications from Department of Defense and Veterans Affairs facilities.Medications provided include 1) outpatient medications from the last 15 months, and 2) patient-reported medications. Medication Details Route Status Patient Instructions Prescription Expires Prescription Number Last Dispense Date Ordering Provider Order Date Order Qty Source FLUOXETINE HCL 20MG CAP TAKE ONE CAPSULE BY MOUTH ONCE DAILY FOR MAJOR DEPRESSI VE DISORDER ORAL DISCONT INUED (EDIT) 01/19/2024 [id number] 4 EZE ARVIZU 2023 90 [facility] FLUOXETINE HCL 20MG CAP TAKE ONE CAPSULE BY MOUTH ONCE DAILY FOR DEPRESSI ON AND ANXIETY ORAL 04/09/2024 [id number] 4 EZE ARVIZU 2023 90 [facility] FLUOXETINE HCL 20MG CAP TAKE ONE CAPSULE BY MOUTH ONCE DAILY FOR DEPRESSI ON AND ANXIETY ORAL 05/29/2023 [id number] 3 EZE ARVIZU 2022 90 [facility] Immunizations Combined list of available immunizations from the Department of Defense and Veterans Affairs facilities. Immunization Series Date Given Administered By Site Reaction Lot Number CVX Code Drug Lithography Contact Worker Status Comments Source INFLUENZA, INJECTABLE, QUADRIVALENT, PRESERVATIVE FREE 2021 150 complet ed [facility] COVID-19 (PFIZER), MRNA, LNP-S, PF, 30 MCG/0.3 ML DOSE 2 2021 208 complet ed [facility] COVID-19 (PFIZER), MRNA, LNP-S, PF, 30 MCG/0.3 ML DOSE 1 2021 208 complet ed [facility] ZOSTER RECOMBINANT 1 2021 187 complet ed [place] INFLUENZA, INJECTABLE, QUADRIVALENT, PRESERVATIVE FREE 2020 150 complet ed [place] INFLUENZA, UNSPECIFIED FORMULATION 2020 88 complet ed [facility] TD (ADULT), 5 LF TETANUS TOXOID, PRESERVATIVE FREE, ADSORBED 2020 113 complet ed [place] TD(ADULT) UNSPECIFIED FORMULATION 2020 139 complet ed [facility] COVID-19 (PFIZER), MRNA, LNP-S, PF, 30 MCG/0.3 ML DOSE 2 2020 208 complet ed PFR; [id number]; 1 [place] COVID-19 (PFIZER), MRNA, LNP-S, PF, 30 MCG/0.3 ML DOSE 1 2020 208 complet ed PFR; [id number]; 1 [place] INFLUENZA, INJECTABLE, QUADRIVALENT 2018 158 complet ed Site: Left Deltoid [place] Results Combined list of recent chemistry, hematology and other laboratory results from Department of Defense and Veterans Affairs, ranging from 15 months to all on record, depending upon the facility. Order Name Results Value Reference Range Date Interpretation Specimen Comments Source CBC W/ AUTO DIFF LEUKOCYTES [#/VOLUME] IN BLOOD BY AUTOMATED COUNT 7.5 10*3/uL 4.5 - 11.0 11/17 Specimen Type: BLOOD No comment entered. Ordering Provider: FELTON BOWER Report Released Date/Time: Nov 17, 2022 08:01 PM Reporting Lab: [address] [address] Performing Lab: [address] [address] [facility] CBC W/ AUTO DIFF ERYTHROCYT ES [#/VOLUME] IN BLOOD BY AUTOMATED COUNT 4.26 10*6/uL 4.23 - 5.66 11/17 Specimen Type: BLOOD No comment entered. Ordering Provider: FELTON BOWER Report Released Date/Time: Nov 17, 2022 08:01 PM Reporting Lab: [address] [address] Performing Lab: [address] [address] [facility] CBC W/ AUTO DIFF HEMOGLOBIN [MASS/VOLU ME] IN ARTERIAL BLOOD 12.9 g/dL 12.8 - 17.0 08/02 /2023 Specimen Type: BLOOD No comment entered. Ordering Provider: FELTON BOWER Report Released Date/Time: Nov 17, 2022 08:01 PM Reporting Lab: [address] [address] Performing Lab: [address] [address] [facility] CBC W/ AUTO DIFF HEMATOCRIT [VOLUME FRACTION] OF BLOOD BY AUTOMATED COUNT 38.9 39.2 - 50.4 11/17 L Specimen Type: BLOOD No comment entered. Ordering Provider: FELTON BOWER Report Released Date/Time: Nov 17, 2022 08:01 PM Reporting Lab: [address] [address] Performing Lab: [address] [address] [facility] CBC W/ AUTO DIFF MCV [ENTITIC VOLUME] BY AUTOMATED COUNT 91 fL 82 - 99 11/17 Specimen Type: BLOOD No comment entered. Ordering Provider: FELTON BOWERTOP Report Released Date/Time: Nov 17, 2022 08:01 PM Reporting Lab: [address] [address] Performing Lab: [address] [address] [facility] CBC W/ AUTO DIFF MCH [ENTITIC MASS] BY AUTOMATED COUNT 30.3 pg 26.2 - 32.6 11/17 Specimen Type: BLOOD No comment entered. Ordering Provider: FELTON BOWERTOP Report Released Date/Time: Nov 17, 2022 08:01 PM Reporting Lab: [address] [address] Performing Lab: [address] [place] [address] [facility] CBC W/ AUTO DIFF MCHC [MASS/VOLU ME] BY AUTOMATED COUNT 33.2 g/dL 30.8 - 35.1 11/17 Specimen Type: BLOOD No comment entered. Ordering Provider: FELTON BOWER ISTOP Report Released Date/Time: Nov 17, 2022 08:01 PM Reporting Lab: [address] [address] Performing Lab: [address] [address] [facility] CBC W/ AUTO DIFF PLATELETS [#/VOLUME] IN BLOOD BY AUTOMATED COUNT 254 10*3/uL 140 - 360 11/17 Specimen Type: BLOOD No comment entered. Ordering Provider: FELTON BOWER Report Released Date/Time: Nov 17, 2022 08:01 PM Reporting Lab: [address] [address] Performing Lab: [address] [address] [facility] CBC W/ AUTO DIFF PLATELET MEAN VOLUME [ENTITIC VOLUME] IN BLOOD BY AUTOMATED COUNT 9.0 fL 9.2 - 12.4 11/17 L Specimen Type: BLOOD No comment entered. Ordering Provider: FELTON BOWER Report Released Date/Time: Nov 17, 2022 08:01 PM Reporting Lab: [address] [address] Performing Lab: [address] [address] [facility] CBC W/ AUTO DIFF ERYTHROCYT E DISTRIBUTI ON WIDTH [RATIO] BY AUTOMATED COUNT 13 12 - 16 11/17 Specimen Type: BLOOD No comment entered. Ordering Provider: FELTON BOWER Report Released Date/Time: Nov 17, 2022 08:01 PM Reporting Lab: [address] [address] Performing Lab: [address] [address] [facility] CBC W/ AUTO DIFF LYMPHOCYTE S/100 LEUKOCYTES IN BLOOD BY AUTOMATED COUNT 35.2 14.0 - 42.3 11/17 Specimen Type: BLOOD No comment entered. Ordering Provider: FELTON BOWER Report Released Date/Time: Nov 17, 2022 08:01 PM Reporting Lab: [address] [address] Performing Lab: [address] [address] [facility] CBC W/ AUTO DIFF NEUTROPHIL S/100 LEUKOCYTES IN BLOOD BY AUTOMATED COUNT 52.2 43.7 - 75.8 11/17 Specimen Type: BLOOD No comment entered. Ordering Provider: FELTON BOWER Report Released Date/Time: Nov 17, 2022 08:01 PM Reporting Lab: [facility] [address] [facility] [address] Performing Lab: [facility] [address] [facility] [address] [facility] CBC W/ AUTO DIFF MONOCYTES/ 100 LEUKOCYTES IN BLOOD BY AUTOMATED COUNT 8.3 5.1 - 13.7 11/17 Specimen Type: BLOOD No comment entered. Ordering Provider: FELTON BOWER Report Released Date/Time: Nov 17, 2022 08:01 PM Reporting Lab: [address] [address] Performing Lab: [address] [address] [facility] CBC W/ AUTO DIFF EOSINOPHIL S/100 LEUKOCYTES IN BLOOD BY AUTOMATED COUNT 3.2 0.4 - 6.8 11/17 Specimen Type: BLOOD No comment entered. Ordering Provider: FELTON BOWER Report Released Date/Time: Nov 17, 2022 08:01 PM Reporting Lab: [address] [address] Performing Lab: [address] [address] [facility] CBC W/ AUTO DIFF BASOPHILS/ 100 LEUKOCYTES IN BLOOD BY AUTOMATED COUNT 0.7 0.1 - 2.0 11/17 Specimen Type: BLOOD No comment entered. Ordering Provider: FELTON BOWER Report Released Date/Time: Nov 17, 2022 08:01 PM Reporting Lab: [address] [place] [address] Performing Lab: [address] [place] [address] [facility] CBC W/ AUTO DIFF LYMPHOCYTE S [#/VOLUME] IN BLOOD BY AUTOMATED COUNT 2.6 10*3/uL 1.0 - 3.2 11/17 Specimen Type: BLOOD No comment entered. Ordering Provider: FELTON BOWER Report Released Date/Time: Nov 17, 2022 08:01 PM Reporting Lab: [address] [address] Performing Lab: [address] [place] [address] [facility] CBC W/ AUTO DIFF NEUTROPHIL S [#/VOLUME] IN BLOOD BY AUTOMATED COUNT 3.9 10*3/uL 2.2 - 7.6 11/17 Specimen Type: BLOOD No comment entered. Ordering Provider: FELTON BOWER Report Released Date/Time: Nov 17, 2022 08:01 PM Reporting Lab: [address] [address] Performing Lab: [address] [address] [facility] CBC W/ AUTO DIFF IMMATURE GRANULOCYT ES/100 LEUKOCYTES IN BLOOD BY AUTOMATED COUNT 0.4 0.0 - 0.7 11/17 Specimen Type: BLOOD No comment entered. Ordering Provider: FELTON BOWER Report Released Date/Time: Nov 17, 2022 08:01 PM Reporting Lab: [address] [address] Performing Lab: [address] [address] [facility] CBC W/ AUTO DIFF NUCLEATED ERYTHROCYT ES/100 LEUKOCYTES [RATIO] IN BLOOD BY AUTOMATED COUNT 0.0 /100{WBC s} 0.0 - 0.0 11/17 Specimen Type: BLOOD No comment entered. Ordering Provider: FELTON BOWER Report Released Date/Time: Nov 17, 2022 08:01 PM Reporting Lab: [address] [address] Performing Lab: [address] [address] [facility] URINALYS IS,ROUTI NE/ADMIS PATITO COLOR OF URINE Light-Ye llow 11/17 Specimen Type: URINE No comment entered. Ordering Provider: JUAN HERNANDEZ Report Released Date/Time: Nov 17, 2022 01:25 PM Reporting Lab: [address] [address] Performing Lab: [address] [address] [facility] URINALYS IS,ROUTI NE/ADMIS PATITO SPECIFIC GRAVITY OF URINE 1.017 1.001 - 1.035 11/17 Specimen Type: URINE No comment entered. Ordering Provider: JUAN HERNANDEZ CRUZ R Report Released Date/Time: Nov 17, 2022 01:25 PM Reporting Lab: [place] [address] Performing Lab: [address] URINALYS IS,ROUTI NE/ADMIS PATITO UROBILINOG EN [UNITS/VOL UME] IN URINE NORMALmg /dL 11/17 Specimen Type: URINE No comment entered. Ordering Provider: JUAN HERNANDEZ TEMECULA R Report Released Date/Time: Nov 17, 2022 01:25 PM Reporting Lab: [place] [address] Performing Lab: [address] URINALYS IS,ROUTI NE/ADMIS PATITO BILIRUBIN. TOTAL [PRESENCE] IN URINE BY TEST STRIP NEGATIVE 11/17 Specimen Type: URINE No comment entered. Ordering Provider: JUAN HERNANDEZ TEMECULA R Report Released Date/Time: Nov 17, 2022 01:25 PM Reporting Lab: [place] [address] Performing Lab: [address] URINALYS IS,ROUTI NE/ADMIS PATITO KETONES [PRESENCE] IN URINE NEGATIVE 11/17 Specimen Type: URINE No comment entered. Ordering Provider: JUAN HERNANDEZ TEMECULA R Report Released Date/Time: Nov 17, 2022 01:25 PM Reporting Lab: [place] [address] Performing Lab: [address] URINALYS IS,ROUTI NE/ADMIS PATITO GLUCOSE [PRESENCE] IN URINE BY TEST STRIP NEGATIVE 11/17 Specimen Type: URINE No comment entered. Ordering Provider: JUAN HERNANDEZ TEMECULA R Report Released Date/Time: Nov 17, 2022 01:25 PM Reporting Lab: [place] [address] Performing Lab: [address] URINALYS IS,ROUTI NE/ADMIS PATITO PROTEIN [MASS/VOLU ME] IN URINE BY TEST STRIP NEGATIVE 11/17 Specimen Type: URINE No comment entered. Ordering Provider: JUAN HERNANDEZ CRUZ R Report Released Date/Time: Nov 17, 2022 01:25 PM Reporting Lab: [address] Performing Lab: [address] URINALYS IS,ROUTI NE/ADMIS PATITO PH OF BODY FLUID 7.0 [pH] 5.0 - 8.0 11/17 Specimen Type: URINE No comment entered. Ordering Provider: JUAN HERNANDEZ CRUZ R Report Released Date/Time: Nov 17, 2022 01:25 PM Reporting Lab: [address] Performing Lab: [address] URINALYS IS,ROUTI NE/ADMIS PATITO APPEARANCE OF URINE Clear 11/17 Specimen Type: URINE No comment entered. Ordering Provider: JUAN HERNANDEZ TEMECULA R Report Released Date/Time: Nov 17, 2022 01:25 PM Reporting Lab: [place] [address] Performing Lab: [address] URINALYS IS,ROUTI NE/ADMIS PATITO HEMOGLOBIN [PRESENCE] IN URINE BY TEST STRIP NEGATIVE 11/17 Specimen Type: URINE No comment entered. Ordering Provider: JUAN HERNANDEZ TEMECULA R Report Released Date/Time: Nov 17, 2022 01:25 PM Reporting Lab: [place] [address] Performing Lab: [address] URINALYS IS,ROUTI NE/ADMIS PATITO NITRITE [PRESENCE] IN URINE BY TEST STRIP NEGATIVE 11/17 Specimen Type: URINE No comment entered. Ordering Provider: JUAN HERNANDEZ CRUZ R Report Released Date/Time: Nov 17, 2022 01:25 PM Reporting Lab: [place] [address] Performing Lab: [address] URINALYS IS,ROUTI NE/ADMIS PATITO LEUKOCYTE ESTERASE [PRESENCE] IN URINE BY TEST STRIP NEGATIVE 11/17 Specimen Type: URINE No comment entered. Ordering Provider: JUAN HERNANDEZ CRUZ R Report Released Date/Time: Nov 17, 2022 01:25 PM Reporting Lab: [address] [address] Performing Lab: [place] [address] [place] [address] ALBUMIN ALBUMIN [MASS/VOLU ME] IN SERUM OR PLASMA 4.2 g/dL 3.5 - 5.0 11/17 Specimen Type: SERUM No comment entered. Ordering Provider: JUAN HERNANDEZ CRUZ R Report Released Date/Time: Nov 17, 2022 01:25 PM Reporting Lab: [address] [address] Performing Lab: [address] [phone] [place] [address] CALCIUM CALCIUM [MASS/VOLU ME] IN SERUM OR PLASMA 9.1 mg/dL 8.5 - 10.5 11/17 Specimen Type: SERUM No comment entered. Ordering Provider: JUAN HERNANDEZ TEMECULA R Report Released Date/Time: Nov 17, 2022 01:25 PM Reporting Lab: [address] [address] Performing Lab: [address] [phone] [place] [address] LIVER PROFILE ALBUMIN [MASS/VOLU ME] IN SERUM OR PLASMA 4.2 g/dL 3.5 - 5.0 11/17 Specimen Type: SERUM No comment entered. Ordering Provider: JUAN HERNANDEZ TEMECULA R Report Released Date/Time: Nov 17, 2022 01:25 PM Reporting Lab: [address] [address] Performing Lab: [address] [phone] [place] [address] LIVER PROFILE BILIRUBIN. TOTAL [MASS/VOLU ME] IN SERUM OR PLASMA 0.6 mg/dL 0.2 - 1.2 11/17 Specimen Type: SERUM No comment entered. Ordering Provider: JUAN HERNANDEZ CRUZ R Report Released Date/Time: Nov 17, 2022 01:25 PM Reporting Lab: [address] [address] Performing Lab: [address] [phone] [place] [address] LIVER PROFILE BILIRUBIN. DIRECT [MASS/VOLU ME] IN SERUM OR PLASMA 0.2 mg/dL 0.0 - 0.5 11/17 Specimen Type: SERUM No comment entered. Ordering Provider: JUAN HERNANDEZ TEMECULA R Report Released Date/Time: Nov 17, 2022 01:25 PM Reporting Lab: [address] [address] Performing Lab: [address] [phone] [place] [address] LIVER PROFILE ALKALINE PHOSPHATAS E [ENZYMATIC ACTIVITY/V OLUME] IN SERUM OR PLASMA 52 U/L 40 - 150 11/17 Specimen Type: SERUM No comment entered. Ordering Provider: JUAN HERNANDEZ TEMECULA R Report Released Date/Time: Nov 17, 2022 01:25 PM Reporting Lab: [address] [address] Performing Lab: [address] [address] [facility] LIVER PROFILE ALANINE AMINOTRANS FERASE [ENZYMATIC ACTIVITY/V OLUME] IN SERUM OR PLASMA 17 U/L 7 - 52 11/17 Specimen Type: SERUM No comment entered. Ordering Provider: JUAN HERNANDEZ TEMECULA R Report Released Date/Time: Nov 17, 2022 01:25 PM Reporting Lab: [address] [address] Performing Lab: [address] [address] [facility] LIVER PROFILE ASPARTATE AMINOTRANS FERASE [ENZYMATIC ACTIVITY/V OLUME] IN SERUM OR PLASMA 21 U/L 5 - 40 11/17 Specimen Type: SERUM No comment entered. Ordering Provider: JUAN HERNANDEZ TEMECULA R Report Released Date/Time: Nov 17, 2022 01:25 PM Reporting Lab: [address] [address] Performing Lab: [address] [address] [facility] CHEM 7 CREATININE [MASS/VOLU ME] IN SERUM OR PLASMA 0.94 mg/dL 0.5 - 1.5 11/17 Specimen Type: SERUM No comment entered. Ordering Provider: JUAN HERNANDEZ TEMECULA R Report Released Date/Time: Nov 17, 2022 01:25 PM Reporting Lab: [address] [address] Performing Lab: [address] [address] [facility] CHEM 7 UREA NITROGEN [MASS/VOLU ME] IN SERUM OR PLASMA 12 mg/dL 7 - 25 11/17 Specimen Type: SERUM No comment entered. Ordering Provider: JUAN HERNANDEZ TEMECULA R Report Released Date/Time: Nov 17, 2022 01:25 PM Reporting Lab: [address] [address] Performing Lab: [place] [phone] [employer] CHEM 7 GLUCOSE [MASS/VOLU ME] IN SERUM OR PLASMA 65 mg/dL 65 - 100 11/17 Specimen Type: SERUM No comment entered. Ordering Provider: JUAN HERNANDEZ TEMECULA R Report Released Date/Time: Nov 17, 2022 01:25 PM Reporting Lab: [address] [address] Performing Lab: [address] [address] [employer] CHEM 7 SODIUM [MOLES/VOL UME] IN SERUM OR PLASMA 140 mmol/L 135 - 145 11/17 Specimen Type: SERUM No comment entered. Ordering Provider: JUAN HERNANDEZ TEMECULA R Report Released Date/Time: Nov 17, 2022 01:25 PM Reporting Lab: [address] [address] Performing Lab: [address] [address] [employer] CHEM 7 POTASSIUM [MOLES/VOL UME] IN SERUM OR PLASMA 4.0 mmol/L 3.5 - 5.0 11/17 Specimen Type: SERUM No comment entered. Ordering Provider: JUAN HERNANDEZ TEMECULA R Report Released Date/Time: Nov 17, 2022 01:25 PM Reporting Lab: [address] [address] Performing Lab: [address] [address] [employer] CHEM 7 CHLORIDE [MOLES/VOL UME] IN SERUM OR PLASMA 105 mmol/L 100 - 110 11/17 Specimen Type: SERUM No comment entered. Ordering Provider: JUAN HERNANDEZ TEMECULA R Report Released Date/Time: Nov 17, 2022 01:25 PM Reporting Lab: [address] [address] Performing Lab: [address] [address] [employer] CHEM 7 CARBON DIOXIDE, TOTAL [MOLES/VOL UME] IN SERUM OR PLASMA 26 meq/L 20 - 30 11/17 Specimen Type: SERUM No comment entered. Ordering Provider: JUAN HERNANDEZ CRUZ R Report Released Date/Time: Nov 17, 2022 01:25 PM Reporting Lab: [address] [address] Performing Lab: [address] [address] [facility] CHEM 7 ANION GAP IN SERUM OR PLASMA 9 meq/L 6 - 16 11/17 Specimen Type: SERUM No comment entered. Ordering Provider: JUAN HERNANDEZ TEMECULA R Report Released Date/Time: Nov 17, 2022 01:25 PM Reporting Lab: [address] [address] Performing Lab: [address] [address] [facility] CHEM 7 GLOMERULAR FILTRATION RATE/1.73 SQ M.PREDICTE D [VOLUME RATE/AREA] IN SERUM, PLASMA OR BLOOD BY CREATININE -BASED FORMULA (CKD-EPI 2020) >90mL/mi n 60 11/17 Specimen Type: SERUM No comment entered. Ordering Provider: JUAN HERNANDEZ TEMECULA R Report Released Date/Time: Nov 17, 2022 01:25 PM Reporting Lab: [address] [address] Performing Lab: [address] [address] [facility] AMYLASE AMYLASE [ENZYMATIC ACTIVITY/V OLUME] IN SERUM OR PLASMA 118 U/L 25 - 125 11/17 Specimen Type: SERUM No comment entered. Ordering Provider: JUAN HERNANDEZ TEMECULA R Report Released Date/Time: Nov 17, 2022 01:25 PM Reporting Lab: [address] [address] Performing Lab: [address] [address] [facility] CBC W/ AUTO DIFF LEUKOCYTES [#/VOLUME] IN BLOOD BY AUTOMATED COUNT 6.9 10*3/uL 4.5 - 11.0 11/17 Specimen Type: BLOOD No comment entered. Ordering Provider: JUAN HERNANDEZ TEMECULA R Report Released Date/Time: Nov 17, 2022 01:25 PM Reporting Lab: [address] [address] Performing Lab: [address] [address] [facility] CBC W/ AUTO DIFF ERYTHROCYT ES [#/VOLUME] IN BLOOD BY AUTOMATED COUNT 4.83 10*6/uL 4.23 - 5.66 11/17 Specimen Type: BLOOD No comment entered. Ordering Provider: JUAN HERNANDEZ TEMECULA R Report Released Date/Time: Nov 17, 2022 01:25 PM Reporting Lab: [address] [address] Performing Lab: [address] [phone] [place] [address] CBC W/ AUTO DIFF HEMOGLOBIN [MASS/VOLU ME] IN ARTERIAL BLOOD 14.3 g/dL 12.8 - 17.0 11/17 Specimen Type: BLOOD No comment entered. Ordering Provider: JUAN HERNANDEZ TEMECULA R Report Released Date/Time: Nov 17, 2022 01:25 PM Reporting Lab: [address] [address] Performing Lab: [address] [phone] [place] [address] CBC W/ AUTO DIFF HEMATOCRIT [VOLUME FRACTION] OF BLOOD BY AUTOMATED COUNT 43.2 39.2 - 50.4 11/17 Specimen Type: BLOOD No comment entered. Ordering Provider: JUAN HERNANDEZ TEMECULA R Report Released Date/Time: Nov 17, 2022 01:25 PM Reporting Lab: [address] [address] Performing Lab: [address] [phone] [place] [address] CBC W/ AUTO DIFF MCV [ENTITIC VOLUME] BY AUTOMATED COUNT 89 fL 82 - 99 11/17 Specimen Type: BLOOD No comment entered. Ordering Provider: JUAN HERNANDEZ TEMECULA R Report Released Date/Time: Nov 17, 2022 01:25 PM Reporting Lab: [address] [address] Performing Lab: [address] [phone] [place] [address] CBC W/ AUTO DIFF MCH [ENTITIC MASS] BY AUTOMATED COUNT 29.6 pg 26.2 - 32.6 11/17 Specimen Type: BLOOD No comment entered. Ordering Provider: JUNA HERNANDEZ TEMECULA R Report Released Date/Time: Nov 17, 2022 01:25 PM Reporting Lab: [address] [address] Performing Lab: [address] [address] [facility] CBC W/ AUTO DIFF MCHC [MASS/VOLU ME] BY AUTOMATED COUNT 33.1 g/dL 30.8 - 35.1 11/17 Specimen Type: BLOOD No comment entered. Ordering Provider: JUAN HERNANDEZ TEMECULA R Report Released Date/Time: Nov 17, 2022 01:25 PM Reporting Lab: [address] [address] Performing Lab: [address] [phone] [place] [address] CBC W/ AUTO DIFF PLATELETS [#/VOLUME] IN BLOOD BY AUTOMATED COUNT 310 10*3/uL 140 - 360 11/17 Specimen Type: BLOOD No comment entered. Ordering Provider: JUAN HERNANDEZ TEMECULA R Report Released Date/Time: Nov 17, 2022 01:25 PM Reporting Lab: [address] [phone] Performing Lab: [phone] [place] [address] CBC W/ AUTO DIFF PLATELET MEAN VOLUME [ENTITIC VOLUME] IN BLOOD BY AUTOMATED COUNT 9.1 fL 9.2 - 12.4 11/17 L Specimen Type: BLOOD No comment entered. Ordering Provider: JUAN HERNANDEZ TEMECULA R Report Released Date/Time: Nov 17, 2022 01:25 PM Reporting Lab: [address] [id number] Performing Lab: [phone] [place] [address] CBC W/ AUTO DIFF ERYTHROCYT E DISTRIBUTI ON WIDTH [RATIO] BY AUTOMATED COUNT 13 12 - 16 11/17 Specimen Type: BLOOD No comment entered. Ordering Provider: JUAN HERNANDEZ TEMECULA R Report Released Date/Time: Nov 17, 2022 01:25 PM Reporting Lab: [address] [phone] Performing Lab: [phone] [place] [address] CBC W/ AUTO DIFF LYMPHOCYTE S/100 LEUKOCYTES IN BLOOD BY AUTOMATED COUNT 40.0 14.0 - 42.3 11/17 Specimen Type: BLOOD No comment entered. Ordering Provider: JUAN HERNANDEZ TEMECULA R Report Released Date/Time: Nov 17, 2022 01:25 PM Reporting Lab: [address] [address] Performing Lab: [address] [address] VI[facility] CBC W/ AUTO DIFF NEUTROPHIL S/100 LEUKOCYTES IN BLOOD BY AUTOMATED COUNT 45.7 43.7 - 75.8 11/17 Specimen Type: BLOOD No comment entered. Ordering Provider: JUAN HERNANDEZ TEMECULA R Report Released Date/Time: Nov 17, 2022 01:25 PM Reporting Lab: [address] [address] Performing Lab: [id number] [place] [address] CBC W/ AUTO DIFF MONOCYTES/ 100 LEUKOCYTES IN BLOOD BY AUTOMATED COUNT 9.8 5.1 - 13.7 11/17 Specimen Type: BLOOD No comment entered. Ordering Provider: JUAN HERNANDEZ TEMECULA R Report Released Date/Time: Nov 17, 2022 01:25 PM Reporting Lab: [address] [address] Performing Lab: [address] [phone] [place] [address] CBC W/ AUTO DIFF EOSINOPHIL S/100 LEUKOCYTES IN BLOOD BY AUTOMATED COUNT 3.4 0.4 - 6.8 11/17 Specimen Type: BLOOD No comment entered. Ordering Provider: JUAN HERNANDEZ TEMECULA R Report Released Date/Time: Nov 17, 2022 01:25 PM Reporting Lab: [address] [address] Performing Lab: [address] [phone] [place] [address] CBC W/ AUTO DIFF BASOPHILS/ 100 LEUKOCYTES IN BLOOD BY AUTOMATED COUNT 0.7 0.1 - 2.0 11/17 Specimen Type: BLOOD No comment entered. Ordering Provider: JUAN HERNANDEZ TEMECULA R Report Released Date/Time: Nov 17, 2022 01:25 PM Reporting Lab: [address] [address] Performing Lab: [address] [phone] [place] [address] CBC W/ AUTO DIFF LYMPHOCYTE S [#/VOLUME] IN BLOOD BY AUTOMATED COUNT 2.7 10*3/uL 1.0 - 3.2 11/17 Specimen Type: BLOOD No comment entered. Ordering Provider: JUAN HERNANDEZ TEMECULA R Report Released Date/Time: Nov 17, 2022 01:25 PM Reporting Lab: [address] [address] Performing Lab: [address] [address] [facility] CBC W/ AUTO DIFF NEUTROPHIL S [#/VOLUME] IN BLOOD BY AUTOMATED COUNT 3.1 10*3/uL 2.2 - 7.6 11/17 Specimen Type: BLOOD No comment entered. Ordering Provider: JUAN HERNANDEZ TEMECULA R Report Released Date/Time: Nov 17, 2022 01:25 PM Reporting Lab: [address] [address] Performing Lab: [address] CBC W/ AUTO DIFF IMMATURE GRANULOCYT ES/100 LEUKOCYTES IN BLOOD BY AUTOMATED COUNT 0.4 0.0 - 0.7 11/17 Specimen Type: BLOOD No comment entered. Ordering Provider: JUAN HERNANDEZ TEMECULA R Report Released Date/Time: Nov 17, 2022 01:25 PM Reporting Lab: [place] [address] Performing Lab: [address] CBC W/ AUTO DIFF NUCLEATED ERYTHROCYT ES/100 LEUKOCYTES [RATIO] IN BLOOD BY AUTOMATED COUNT 0.0 /100{WBC s} 0.0 - 0.0 11/17 Specimen Type: BLOOD No comment entered. Ordering Provider: JUAN HERNANDEZ TEMECULA R Report Released Date/Time: Nov 17, 2022 01:25 PM Reporting Lab: [place] [address] Performing Lab: [address] LIPASE LIPASE [ENZYMATIC ACTIVITY/V OLUME] IN SERUM OR PLASMA 23 U/L 8 - 70 11/17 Specimen Type: SERUM No comment entered. Ordering Provider: JUAN HERNANDEZ TEMECULA R Report Released Date/Time: Nov 17, 2022 01:25 PM Reporting Lab: [address] [address] Performing Lab: [address] TROPONIN I TROPONIN I.CARDIAC [MASS/VOLU ME] IN SERUM OR PLASMA <0.010ng /mL 0.000 - 0.300 11/17 Specimen Type: PLASMA No comment entered. Ordering Provider: JUAN HERNANDEZ TEMECULA R Report Released Date/Time: Nov 17, 2022 01:25 PM Reporting Lab: [address] [address] Performing Lab: [address] [address] [facility] Encounters Combined list of: 1) Encounters from Department of Veterans Affairs facilities going back up to thelast 18 months. 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 Location Location Details Encounter Type Encounter Number Reason For Visit Attending Provider ADM Date DC Date Status Disposition Source [facility] Outpatient Encounter [id number] 10/28 [facility] En[facility] [id number] 10/28 [facility] Encounter [id number] 11/03 [facility] Outpatient Encounter [id number] 11/17 [facility] OFFICE O/P EST MOD 30-39 MIN [id number] Diagnos is: ICD-10- CM R10.9 Unspeci fied abdomin al pain
Gavin HERNANDEZ 11/17 [facility] EMERGENCY DEPT VISIT [facility] [id number] Diagnos is: ICD-10- CM K92.2 Gastroi ntestin al hemorrh age, 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
GENNIKARUNA,LUIS FERNANDO RISTOPHER 11/17 [facility] Outpatient Encounter [id number] 11/18 [facility] Outpatient Encounter [id number] GRISELDA RIOS 11/18 [facility] Outpatient Encounter [id number] 11/19 [facility] Outpatient Encounter [id number] 11/19 [facility] HC PRO PHONE CALL 11-20 MIN [id number] Diagnos is: ICD-10- CM 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
DRAGANSNOW FARLEY S 11/23 [facility] Outpatient Encounter [id number] 11/30 [facility] Outpatient Encounter [id number] 11/30 [facility] COLONOSCOP Y AND BIOPSY [id number] Diagnos is: ICD-10- CM K62.5 Hemorrh age of anus and rectum< br/> NJEI,BASIL E 11/30 [facility] Outpatient Encounter [id number] 11/30 [facility] Outpatient Encounter [id number] Diagnos is: ICD-10- CM K62.5 Hemorrh age of anus and rectum< br/> NJEI,BASIL E 11/30 [facility] Outpatient Encounter [id number] Efraín LABOY AURABLaurie 12/03 [facility] Outpatient Encounter [id number] Diagnos is: ICD-10- CM K92.1 Melena< br/> MINITERLUIS FERNANDO RISTOPHER 12/22 [facility] [place] Outpatient Encounter [id number] 12/25 [facility] Outpatient Encounter [id number] Sammy NA 01/27 [facility] En[facility] [id number] 02/14 [facility] En[facility] [id number] 02/28 [facility] En[facility] [id number] 07/26 [facility] En[facility] [id number] 07/26 [facility] En[facility] [id number] 07/28 [facility] En[facility] [id number] 08/07 [facility] En[facility] [id number] 08/07 [facility] En[facility] [id number] 08/30 [facility] En[facility] [id number] 08/30 [facility] En[facility] [id number] 09/26 [facility] En[facility] [id number] 09/27 [facility] En[facility] [id number] 10/09 [facility] Encounter [id number] 10/20 [facility] En[facility] [id number] 12/20 [facility] Encounter [id number] 01/09 [facility] Encounter [id number] 01/17 [facility] Encounter [id number] 02/05 [facility] En[facility] [id number] 02/05 [facility] Encounter [id number] 04/23 [facility] Social History Combined list of available smoking, tobacco, and other social history from Department of Defense and Veterans Affairs facilities. Social History Type Response Date Comment [facility] e Tobacco smoking status [facility] VA-TOBACCO FORMER USER 07/14/2021 [facility] History of tobacco use VA-TOBACCO QUIT 15 YRS OR MORE 07/14/2021 [facility] History of tobacco use VA-TOBACCO NEVER USED 07/11/2020 [facility] History of tobacco use VA-TOBACCO QUIT 5 TO < 15 YRS 05/23/2019 [facility] History of tobacco use VA-TOBACCO FORMER USER 04/19/2018 [facility] History of tobacco use QUIT TOBACCO USE > 7 YEARS AGO 02/02/2016 Quit 1991. FRANSISCO
--- OUTSIDE RECORDS SUMMARY | 2024-04-23 11:32 | XMS_ITS ---
Author Name [facility] [place] Address [address] [place] [address] Care Team Providers Care Licensed Certified Orthotist Name Role Phone CAMILLE GOTTI Primary Care [...] Chaparro's Name Patient's Relationship to Policy Chaparro [facility] MEDICAID TITLE 19 Apr 18, 2020 MEDICAI D [id number] EVA LU PATIENT Selected Encounter This section includes the information on record at [place] for the Encounter. Date/Time Encounter Type Encounter Description Reason Pro vider Source Aug 08, 2023 12:00 PM Outpatient Encounter COMMUNITY CARE CONSULT IHE Encounter [...] 20 appointments. The data comes from all [place] treatment facilities. Appointment Date/Time Appointment Type Appointme nt Facility Name Jan 18, 2024 09:00 AM AMBULATORY - MEDICINE [facility] Social History: Smoking Status (Most current) and Tobacco Use (All prior to encounter date) This section includes the most current, and the historical, smoking and tobacco- related health factors from the [place] facility where the Encounter took place. Current Smoking Status This section includes the most current smoking, or tobacco-related health factor, from the [place] facility where the Encounter took place. Date/Time Current Smoking Status Comment Facil ity Jul 14, 2021 11:45 AM [place]-TOBACCO FORMER USER [facility] Tobacco Use History This section includes a history of the smoking, or tobacco-related health factors, that were collected on or before the date of the Encounter. The data comes from the [place] facility where the Encounter took place. Date/Time Smoking Status/Tobacco Use Comment F acility Jul 14, 2021 11:45 AM [place]-TOBACCO QUIT 15 YRS OR MORE [facility] Encounter Notes: All associated encounter notes This section contains the clinical notes associated to the Encounter. Date/Time Encounter Note(s) Provider Source Aug 08, 2023 12:00 PM NONVA CONSULT: LOCAL TITLE: COMMUNITY CARE-CONSULT RESULT NOTE STANDARD TITLE: NONVA CONSULT DATE OF NOTE: AUG 08, 2023@12:00 ENTRY DATE: AUG 12, 2023@09:45:16 AUTHOR: LIVIA BENDER EXP COSIGNER: URGENCY: STATUS: COMPLETED VistA Imaging - Scanned Document SCANNED DOCUMENT SIGNATURE NOT REQUIRED Electronically Filed: 08/12/2023 by: LIVIA BENDER VICE PRESIDENT COMPLIANCE LIVIA BENDER [facility]
--- OUTSIDE RECORDS SUMMARY | 2024-04-23 11:32 | XMS_ITS | Encounter Summary ---
Author Name [facility] [place] [place] [facility] [place] Address [address] [place] [address] Care Team Providers Care Milling Machine Set Up Operator Name Role Phone CAMILLE GOTTI Primary Care [...] Chaparro's Name Patient's Relationship to Policy Chaparro [facility] MEDICAID TITLE 19 Apr 18, 2020 MEDICAI D [id number] EVA LU PATIENT Selected Encounter This section includes the information on record at [place] for the Encounter. Date/Time Encounter Type Encounter Description Reason Pro vider Source August 31, 2023 12:00 AM Outpatient Encounter EVENT (HISTORICAL) IHE Encounter Template Text not used by [...] 20 appointments. The data comes from all [place] treatment facilities. Appointment Date/Time Appointment Type Appointme nt Facility Name Jan 18, 2024 09:00 AM AMBULATORY - MEDICINE [facility] Social History: Smoking Status (Most current) and Tobacco Use (All prior to encounter date) This section includes the most current, and the historical, smoking and tobacco- related health factors from the [place] facility where the Encounter took place. Current Smoking Status This section includes the most current smoking, or tobacco-related health factor, from the [place] facility where the Encounter took place. Date/Time Current Smoking Status Comment Facil ity Jul 14, 2021 11:45 AM [place]-TOBACCO FORMER USER [facility] Tobacco Use History This section includes a history of the smoking, or tobacco-related health factors, that were collected on or before the date of the Encounter. The data comes from the [place] facility where the Encounter took place. Date/Time Smoking Status/Tobacco Use Comment F acility Jul 14, 2021 11:45 AM [place]-TOBACCO QUIT 15 YRS OR MORE [facility]
--- OUTSIDE RECORDS SUMMARY | 2024-04-23 11:32 | XMS_ITS | Encounter Summary ---
Author Name [facility] [place] Address [address] [place] [address] Care Team Providers Care Director Of Scout Work Name Role Phone CAMILLE GOTTI Primary Care [...] Chaparro's Name Patient's Relationship to Policy Chaparro [facility] MEDICAID TITLE 19 Apr 18, 2020 MEDICAI D [id number] EVA LU PATIENT Selected Encounter This section includes the information on record at [place] for the Encounter. Date/Time Encounter Type Encounter Description Reason Pro vider Source Dec 21, 2023 09:02 AM Outpatient Encounter PRIMARY CARE/MEDICINE IHE Encounter Template Text not used by [...] 20 appointments. The data comes from all [place] treatment facilities. Appointment Date/Time Appointment Type Appointme nt Facility Name Jan 18, 2024 09:00 AM AMBULATORY - MEDICINE [facility] Social History: Smoking Status (Most current) and Tobacco Use (All prior to encounter date) This section includes the most current, and the historical, smoking and tobacco- related health factors from the [place] facility where the Encounter took place. Current Smoking Status This section includes the most current smoking, or tobacco-related health factor, from the [place] facility where the Encounter took place. Date/Time Current Smoking Status Comment Facil ity Jul 14, 2021 11:45 AM [place]-TOBACCO FORMER USER [facility] Tobacco Use History This section includes a history of the smoking, or tobacco-related health factors, that were collected on or before the date of the Encounter. The data comes from the [place] facility where the Encounter took place. Date/Time Smoking Status/Tobacco Use Comment F acility Jul 14, 2021 11:45 AM [place]-TOBACCO QUIT 15 YRS OR MORE [facility] Encounter Notes: All associated encounter notes This section contains the clinical notes associated to the Encounter. Date/Time Encounter Note(s) Provider Source Dec 21, 2023 09:02 AM PRIMARY CARE TELEP SUSY ENCOUNTER NOTE: LOCAL TITLE: TELEPHONE NOTE/PRIMARY CARE STANDARD TITLE: PRIMARY CARE TELEPHONE ENCOUNTER NOTE DATE OF NOTE: DEC 21, 2023@09:02 ENTRY DATE: DEC 21, 2023@09:02:52 AUTHOR: JODY HARRINGTON EXP COSIGNER: URGENCY: STATUS: COMPLETED MSA lm to call back to verify 12/25 PCP cxp appt through audio care. /saida/ JODY HARRINGTON Advanced Morale Officer Signed: 12/21/2023 09:07 JODY HARRINGTON [facility]
--- OUTSIDE RECORDS SUMMARY | 2024-04-23 11:32 | XMS_ITS | Encounter Summary ---
Author Name [facility] [place] Address [address] [place] [address] Care Team Providers Care Chemical Lab Supervisor Name Role Phone CAMILLE GOTTI Primary Care [...] Chaparro's Name Patient's Relationship to Policy Chaparro [facility] MEDICAID TITLE 19 Apr 18, 2020 MEDICAI D [id number] EVA LU PATIENT Selected Encounter This section includes the information on record at [place] for the Encounter. Date/Time Encounter Type Encounter Description Reason Pro vider Source Jan 18, 2024 09:00 AM Outpatient Encounter PRIMARY CARE/MEDICINE IHE Encounter Template Text not used by [facility] Social History: Smoking Status (Most current) and Tobacco Use (All prior to encounter date) This section includes the most current, and the historical, smoking and tobacco- related health factors from the [place] facility where the Encounter took place. Current Smoking Status This section includes the most current smoking, or tobacco-related health factor, from the [place] facility where the Encounter took place. Date/Time Current Smoking Status Comment Andrew ity Jul 14, 2021 11:45 AM [place]-TOBACCO FORMER USER [facility] Tobacco Use History This section includes a history of the smoking, or tobacco-related health factors, that were collected on or before the date of the Encounter. The data comes from the [place] facility where the Encounter took place. Date/Time Smoking Status/Tobacco Use Comment F acility Jul 14, 2021 11:45 AM [place]-TOBACCO QUIT 15 YRS OR MORE [facility] Encounter Notes: All associated encounter notes This section contains the clinical notes associated to the Encounter. Date/Time Encounter Note(s) Provider Source Jan 18, 2024 09:33 AM CLERICAL NOTE: LOCAL TITLE: APPOINTMENT NO SHOW STANDARD TITLE: CLERICAL NOTE DATE OF NOTE: JAN 18, 2024@09:33 ENTRY DATE: JAN 18, 2024@09:34:03 AUTHOR: JODY HARRINGTON EXP COSIGNER: URGENCY: STATUS: COMPLETED Patient Name: EVA CHAVEZ Patient SSN: [id number] Date and time of Appointment No show : 01/18/24 09:00 PATIENT PHONE - PHONE NUMBER [CELLULAR] - Patient's medical record was reviewed. Follow-up actions were determined and initiated: Please check/complete as applies: [ ]Telephoned Directly [ ]Re-scheduled for next available appt [X]Sent a N0-show letter ( must call for appointment) [ ]Other (Emergent/Overbook, etc.): Additional Comments: Future Clinic Visits No data available /saida/ JODY HARRINGTON Advanced Procedural Nurse Signed: 01/18/2024 09:34 JODY HARRINGTON [facility]
--- OUTSIDE RECORDS SUMMARY | 2024-04-23 11:32 | XMS_ITS | Encounter Summary ---
Author Name [facility] [place] Organization [place] Address [address] [place] [address] Care Team Providers Care Research Anthropologist Name Role Phone CAMILLE GOTTI Primary Care [...] Chaparro's Name Patient's Relationship to Policy Chaparro [facility] MEDICAID TITLE 19 Apr 18, 2020 MEDICAI D [id number] EVA LU PATIENT Selected Encounter This section includes the information on record at [place] for the Encounter. Date/Time Encounter Type Encounter Description Reason Pro vider Source Jul 27, 2023 10:08 AM Outpatient Encounter TELEPHONE TRIAGE IHE Encounter Template Text not used by [...] 20 appointments. The data comes from all [place] treatment facilities. Appointment Date/Time Appointment Type Appointme nt Facility Name Aug 08, 2023 02:00 PM AMBULATORY - MEDICINE [facility] Jan 18, 2024 09:00 AM AMBULATORY - MEDICINE [facility] Social History: Smoking Status (Most current) and Tobacco Use (All prior to encounter date) This section includes the most current, and the historical, smoking and tobacco- related health factors from the [place] facility where the Encounter took place. Current Smoking Status This section includes the most current smoking, or tobacco-related health factor, from the [place] facility where the Encounter took place. Date/Time Current Smoking Status Comment Facil ity Jul 14, 2021 11:45 AM [place]-TOBACCO FORMER USER [facility] Tobacco Use History This section includes a history of the smoking, or tobacco-related health factors, that were collected on or before the date of the Encounter. The data comes from the [place] facility where the Encounter took place. Date/Time Smoking Status/Tobacco Use Comment F acility Jul 14, 2021 11:45 AM [place]-TOBACCO QUIT 15 YRS OR MORE [facility] Encounter Notes: All associated encounter notes This section contains the clinical notes associated to the Encounter. Date/Time Encounter Note(s) Provider Source Jul 27, 2023 10:08 AM RN PROGRESS NOTE: LOCAL TITLE: CCC: CLINICAL TRIAGE STANDARD TITLE: RN PROGRESS NOTE DATE OF NOTE: JUL 27, 2023@10:08:58 ENTRY DATE: JUL 27, 2023@10:08:58 AUTHOR: KEN POWERS COSIGNER: URGENCY: STATUS: COMPLETED Patient Demographics Patient Name: EVA HINKLE Patient Primary Address: [address] [place] [id number] Patient Primary Phone: [phone] Patient : 1970 Patient Age: 53 Caller/Recipient Relation to Patient: Self Emergency Contact: FARHAD TANG Triage Summary Conducted triage/discussed symptoms Pain Score: 5 (Moderate to Severe Pain) Utilized the Triage Tool: Yes Chief Complaint: Rectal Bleeding System WHEN: Now Nurse's Recommendation / WHEN: Now System WHERE: Emergency department Nurse's Recommendation / WHERE: ED Other Patient Disposition Patient/Caregiver agrees to plan of care: Yes Nursing Plan and Disposition Referred patient to higher level of care Instructed to go to Emergency Room (ER) Advised of Financial Disclaimer: Patient advised that recommendation for care provided during the call does not constitute an approval or authorization for payment by the PA or its staff. Patient advised to report a community ED visit to the community healthcare system Office of Community Care at within 72 hours. Other course(s) of action Generated msg to PACT/Provider Provided guidance for worsening symptoms: *Caller/Patient* advised to call facilities [place] Clinical Contact Center or seek immediate medical attention for new or worsening symptoms Nurse Summary Nurse Summary: Rectal bleeding for more than 1 week, worsening Nausea, no appetite, has not eaten solid food in 4 days Pain in right buttocks radiating down right leg Tingling in left upper abdomen, hx pancreatitis Moderate periumbilical pain ''The last time this happened they told me they might have diverticulitis.'' Tx CC: [facility] now Patient agrees to local ED as he is not near a [place] facility VA financial disclaimer provided Clinical Contact Center Codes Clinic/Location: V1 [facility]WM PHONE ART RN TXCC Triage Complete Triage Date: 07/27/2023 9:01 AM Triage Note: Phone Triage Tue, 27 Jul 2023 13:59:39 +0000 [facility] Demographics 53 y/o Male Results CC: Rectal Bleeding Software suggested: Now Software suggested follow-up location: Emergency department Values and Measures Duration of CC: 1 Weeks Positive Responses HPI: abdominal pain, moderate to severe HPI: hematochezia, more blood than stool HPI: hematochezia, within past 2 days HPI: melena VS: BP not taken VS: pulse not taken Negative Responses Denies: HPI: abdominal pain, severe Denies: HPI: anal injury Denies: HPI: chest pain, onset after onset the bleeding Denies: HPI: maroon stool Denies: HPI: syncope Denies: HPI: vomiting Denies: MEDS: Coumadin, heparin, low molecular weight heparin, or other potent anticoagulant Denies: PMH: Crohn's disease Denies: PMH: ulcerative colitis /saida/ KEN BUTLER CCC, RN Signed: 07/27/2023 10:09 Receipt Acknowledged By: 07/27/2023 11:18 /es/ JEAN HEBERT, MSN, RN, CNL PRIMARY CARE TEAM NURSE 07/27/2023 10:11 /es/ Elif Jama, instructional consultant Staff Nurse KEN POWERS [facility]
--- OUTSIDE RECORDS SUMMARY | 2024-04-23 11:32 | XMS_ITS ---
Author Name [facility] [place] [facility] [place] Address [address] [place] [address] Care Team Providers Care Information Technology Administrator Name Role Phone CAMILLE GOTTI Primary Care Provider MAYO Byrd Primary Care Provider Chavo gandara Insurance Providers: All historical and current [...] Chaparro's Name Patient's Relationship to Policy Chaparro [facility] MEDICAID TITLE 19 Apr 18, 2020 MEDICAI D [id number] EVA LU PATIENT Selected Encounter This section includes the information on record at [place] for the Encounter. Date/Time Encounter Type Encounter Description Reason Pro vider Source Sep 27, 2023 12:50 PM Outpatient Encounter ADMIN PAT ACTIVTIES (KAVITHANONCT) IHE Encounter Template Text not used by [place] Plan of Treatment: Future Appointments (+ 6 [...] 20 appointments. The data comes from all [place] treatment facilities. Appointment Date/Time Appointment Type Appointme nt Facility Name Jan 18, 2024 09:00 AM AMBULATORY - MEDICINE [facility] Social History: Smoking Status (Most current) and Tobacco Use (All prior to encounter date) This section includes the most current, and the historical, smoking and tobacco- related health factors from the [place] facility where the Encounter took place. Current Smoking Status This section includes the most current smoking, or tobacco-related health factor, from the [place] facility where the Encounter took place. Date/Time Current Smoking Status Comment Facil ity Jul 14, 2021 11:45 AM VA-TOBACCO FORMER USER [facility] Tobacco Use History This section includes a history of the smoking, or tobacco-related health factors, that were collected on or before the date of the Encounter. The data comes from the [place] facility where the Encounter took place. Date/Time Smoking Status/Tobacco Use Comment F acility Jul 14, 2021 11:45 AM [place]-TOBACCO QUIT 15 YRS OR MORE [facility] Encounter Notes: All associated encounter notes This section contains the clinical notes associated to the Encounter. Date/Time Encounter Note(s) Provider Source Sep 27, 2023 01:20 PM ADDENDUM: LOCAL TITLE: Addendum STANDARD TITLE: ADDENDUM DATE OF NOTE: SEP 27, 2023@13:20:01 ENTRY DATE: SEP 27, 2023@13:20:02 AUTHOR: ELIF BENJAMIN EXP COSIGNER: URGENCY: STATUS: COMPLETED This Vet was previsouly seen by PACT 8 on 03/09/2022. He has not seen Primary Care since then and last NS appt with [facility] for f/u on 06/04/22. Added MSA to offer appt to offer appt to Corey /saida/ Elif Benjamin RN Primary Care Staff Nurse Signed: 09/27/2023 13:22 Receipt Acknowledged By: 09/27/2023 14:37 /saida/ JODY HARRINGTON Advanced Set Up And Charger --- Original Document --- 09/27/23 CCC: SCHEDULING ADMINISTRATION: Patient Demographics Patient Name: EVA HINKLE Patient Primary Phone: [phone] Patient Primary Address: [address] [place] [address] Patient : 1970 Patient Age: 53 Caller/Recipient Relation to Patient: Self Administrative Administrative Note Reason: Other Administrative Note Comments: Patient requesting a discharge f.u with pcp, states he was seen at the hospital about a month ago for GI issues, and would like for his pcp to order blood work, patient denied symptoms at this time; please contact and assist. /saida/ GEN NO Signed: 09/27/2023 12:50 Receipt Acknowledged By: * AWAITING SIGNATURE * JEAN HEBERT 09/27/2023 13:23 /saida/ Elif Benjamin, gunnery/ordnance officer Staff Nurse 09/27/2023 ADDENDUM STATUS: COMPLETED MSA lm to call for appt. /saida/ JODY HARRINGTON Advanced Set Up And Charger Signed: 09/27/2023 14:37 ELIF BENJAMIN CNTRL [facility] Sep 27, 2023 12:50 PM ADMINISTRATIVE NOT E: LOCAL TITLE: CCC: SCHEDULING ADMINISTRATION STANDARD TITLE: ADMINISTRATIVE NOTE DATE OF NOTE: SEP 27, 2023@12:50:20 ENTRY DATE: SEP 27, 2023@12:50:21 AUTHOR: GEN NO EXP COSIGNER: URGENCY: STATUS: COMPLETED CCC: SCHEDULING ADMINISTRATION Has ADDENDA Patient Demographics Patient Name: EVA HINKLE Patient Primary Phone: [phone] Patient Primary Address: [address] [place] [address] Patient : 1970 Patient Age: 53 Caller/Recipient Relation to Patient: Self Administrative Administrative Note Reason: Other Administrative Note Comments: Patient requesting a discharge f.u with pcp, states he was seen at the hospital about a month ago for GI issues, and would like for his pcp to order blood work, patient denied symptoms at this time; please contact and assist. /saida/ GEN NO Signed: 09/27/2023 12:50 Receipt Acknowledged By: 09/27/2023 14:47 /saida/ JEAN HEBERT, MSN, RN, CNL PRIMARY CARE TEAM NURSE 09/27/2023 13:23 /saida/ Elif Benjamin RN Primary Care Staff Nurse 09/27/2023 ADDENDUM STATUS: COMPLETED This Vet was previsouly seen by [facility] 8 on 03/09/2022. He has not seen Primary Care since then and last NS appt with [facility] 8 for f/u on 06/04/22. Added MSA to offer appt to offer appt to Vet /saida/ Elif Benjamin RN Primary Care Staff Nurse Signed: 09/27/2023 13:22 Receipt Acknowledged By: 09/27/2023 14:37 /saida/ JODY HARRINGTON Advanced Set Up And Charger 09/27/2023 ADDENDUM STATUS: COMPLETED DANYELL lm to call for appt. /saida/ JODY HARRINGTON Advanced Set Up And Charger Signed: 09/27/2023 14:37 GEN NO CNTRL [facility]
--- OUTSIDE RECORDS SUMMARY | 2024-04-23 11:32 | XMS_ITS | Encounter Summary ---
Author Name [facility] [place] [facility] [place] Organization [facility] [place] Address [address] [place] [address] Care Team Providers Care Yarn Spooler Name Role Phone CAMILLE GOTTI Primary Care [...] Chaparro's Name Patient's Relationship to Policy Chaparro [facility] MEDICAID TITLE 19 Apr 18, 2020 MEDICAI D [id number] EVA LU PATIENT Selected Encounter This section includes the information on record at [place] for the Encounter. Date/Time Encounter Type Encounter Description Reason Pro vider Source August 31, 2023 07:41 AM Outpatient Encounter TELEPHONE PRIMARY CARE IHE Encounter Template Text not used by [place] Plan of Treatment: Future Appointments (+ 6 [...] 20 appointments. The data comes from all [place] treatment facilities. Appointment Date/Time Appointment Type Appointme nt Facility Name Jan 18, 2024 09:00 AM AMBULATORY - MEDICINE [facility] Social History: Smoking Status (Most current) and Tobacco Use (All prior to encounter date) This section includes the most current, and the historical, smoking and tobacco- related health factors from the [place] facility where the Encounter took place. Current Smoking Status This section includes the most current smoking, or tobacco-related health factor, from the [place] facility where the Encounter took place. Date/Time Current Smoking Status Comment Facil ity Jul 14, 2021 11:45 AM [place]-TOBACCO FORMER USER [facility] Tobacco Use History This section includes a history of the smoking, or tobacco-related health factors, that were collected on or before the date of the Encounter. The data comes from the [place] facility where the Encounter took place. Date/Time Smoking Status/Tobacco Use Comment F acility Jul 14, 2021 11:45 AM [place]-TOBACCO QUIT 15 YRS OR MORE [facility] Encounter Notes: All associated encounter notes This section contains the clinical notes associated to the Encounter. Date/Time Encounter Note(s) Provider Source August 31, 2023 07:41 AM PREVENTIVE MEDICIN E NURSING NOTE: LOCAL TITLE: CLINICAL REMINDERS/NURSING STANDARD TITLE: PREVENTIVE MEDICINE NURSING NOTE DATE OF NOTE: AUGUST 31, 2023@07:41 ENTRY DATE: AUGUST 31, 2023@07:41:54 AUTHOR: BRANDI YIP EXP COSIGNER: URGENCY: STATUS: COMPLETED Colonoscopy GAP Reminder: Recommendations are needed in the clinical reminder system following the patient's most recent colorectal cancer screening/surveillance test (Colonoscopy, Sigmoidoscopy or CT Colonography) Prior/outside colonoscopy results: [place] 11/30/22 at [facility], repeat 5yrs. In [facility]. Date: November 30, 2022 Colonoscopy reminder set 4 years from AUGUST 31, 2023. /saida/ Brandi Yip MSN RN CNL Primary Care RN Signed: 08/31/2023 07:43 BRANDI YIP [facility]
--- OUTSIDE RECORDS SUMMARY | 2024-04-23 11:32 | XMS_ITS ---
Author Name [facility] [facility] [place] [facility] [place] Address [address] [place] [address] Care Team Providers Care Car Head Liner Installer Name Role Phone CAMILLE GOTTI Primary Care [...] Chaparro's Name Patient's Relationship to Policy Chaparro [facility] MEDICAID TITLE 19 Apr 18, 2020 MEDICAI D [id number] EVA LU PATIENT Selected Encounter This section includes the information on record at [place] for the Encounter. Date/Time Encounter Type Encounter Description Reason Pro vider Source Jan 10, 2024 02:27 PM Outpatient Encounter ADMIN PAT ACTIVTIES (KAVITHANONCT) IHE Encounter Template Text not used by [place] Plan of Treatment: Future Appointments (+ 6 [...] 18, 2024 09:00 AM AMBULATORY - MEDICINE [facility] Social History: Smoking Status [...] 14, 2021 11:45 AM VA-TOBACCO FORMER USER [facility] Tobacco Use History This section includes a history of the smoking, or tobacco-related health factors, that were collected on or before the date of the Encounter. The data comes from the [place] facility where the Encounter took place. Date/Time Smoking Status/Tobacco Use Comment F acility Jul 14, 2021 11:45 AM [place]-TOBACCO QUIT 15 YRS OR MORE [facility] Encounter Notes: All associated encounter notes This section contains the clinical notes associated to the Encounter. Date/Time Encounter Note(s) Provider Source Jan 10, 2024 02:27 PM PHARMACY NOTE: LOCAL TITLE: PHARMACY CUSTOMER CARE MEDICATION RENEWAL STANDARD TITLE: PHARMACY NOTE DATE OF NOTE: JAN 10, 2024@14:27 ENTRY DATE: JAN 10, 2024@14:27:11 AUTHOR: JOVITA SUGGS COSIGNER: URGENCY: STATUS: COMPLETED Date: Dec Division: [place] Pt referred by Pharmacy Call Center for medication renewal: Non-controlled/maintenan ce medication Medications requested: [id number] FLUOXETINE HCL 20MG CAP has 1 day of medication remaining, please alert outpatient pharmacy when order is placed so it can be expedited Defer to primary care provider To be mailed. Please review and renew if appropriate. *This note was generated by [facility] Customer Care. If you have any questions or need assistance, do not contact this author. Please refer all questions to your local, on-site pharmacy departments. /saida/ Jovita Suggs CPhT Degree Clerk, MS/Pharmacy Customer Care Signed: 01/10/2024 14:27 Receipt Acknowledged By: 01/10/2024 14:32 /saida/ CAMILLE GOTTI MD PHYSICIAN 01/10/2024 14:43 /saida/ EJAN HEBERT, MSN, RN, CNL PRIMARY CARE TEAM NURSE JOVITA SUGGS [facility]
--- OUTSIDE RECORDS SUMMARY | 2024-04-23 11:32 | XMS_ITS | Encounter Summary ---
Author Name [facility] [place] [facility] [place] Organization [place] Address [address] [place] [address] Care Team Providers Care Engineering Test Specialist Name Role Phone CAMILLE GOTTI Primary Care [...] Patient's Relationship to Policy Chaparro [facility] MEDICAID TITLE 19 Apr 18, 2020 MEDICAI D [id number] EVA LU PATIENT Selected Encounter This section includes the information on record at [place] for the Encounter. Date/Time Encounter Type Encounter Description Reason Pro vider Source Oct 10, 2023 12:28 PM Outpatient Encounter ADMIN PAT ACTIVTIES (KAVITHANONCT) IHE Encounter Template Text not used by [place] Plan of Treatment: Future Appointments (+ 6 [...] 20 appointments. The data comes from all [place] treatment facilities. Appointment Date/Time Appointment Type Appointme nt Facility Name Jan 18, 2024 09:00 AM AMBULATORY - MEDICINE [facility] Social History: Smoking Status (Most current) and Tobacco Use (All prior to encounter date) This section includes the most current, and the historical, smoking and tobacco- related health factors from the [place] facility where the Encounter took place. Current Smoking Status This section includes the most current smoking, or tobacco-related health factor, from the [place] facility where the Encounter took place. Date/Time Current Smoking Status Comment Facil ity Jul 14, 2021 11:45 AM VA-TOBACCO FORMER USER [facility] Tobacco Use History This section includes a history of the smoking, or tobacco-related health factors, that were collected on or before the date of the Encounter. The data comes from the [place] facility where the Encounter took place. Date/Time Smoking Status/Tobacco Use Comment F acility Jul 14, 2021 11:45 AM [place]-TOBACCO QUIT 15 YRS OR MORE [facility] Encounter Notes: All associated encounter notes This section contains the clinical notes associated to the Encounter. Date/Time Encounter Note(s) Provider Source Oct 12, 2023 08:21 AM ADDENDUM: LOCAL TITLE: Addendum STANDARD TITLE: ADDENDUM DATE OF NOTE: OCT 12, 2023@08:21:41 ENTRY DATE: OCT 12, 2023@08:21:42 AUTHOR: JEAN HEBERT EXP COSIGNER: URGENCY: STATUS: COMPLETED doesn't have an appointment with until 12/26/23. Please offer [place] an appointment today with at 11:30 /saida/ JEAN HEBERT, MSN, RN, CNL PRIMARY CARE TEAM NURSE Signed: 10/12/2023 08:25 Receipt Acknowledged By: 10/12/2023 08:31 /saida/ JODY HARRINGTON Advanced Credit Assessment Analyst ====== --- Original Document --- 10/10/23 CCC: SCHEDULING ADMINISTRATION: PT CALLED IN WOULD LIKE MEDICATION LISTED REFILLED. THE PT WAS VERY ANXIOUS STATES HE IS STILL HAVING GI ISSUES BUT DECLINED CC TRI RN. THE PT IS ASKING FOR A CALL STATES HE IS STILL BLEEDING FROM HIS RECTOM WHEN HE EATS. I LET THE PT KNOW IF HE DECLINES CC TRI RN IT COULD BE 3 DAYS FROM PRIMARY CARE TO FOLLOW UP, PT SAID THATS FINE. FLUOXETINE HCL CAP,ORAL 20MG TAKE 1 CAPSULE BY MOUTH ONCE DAILY for depression and anxiety Quantity: 90 Refills: 0 /es/ LLOI GOULD Signed: 10/10/2023 12:32 Receipt Acknowledged By: * AWAITING SIGNATURE * JEAN HEBERT 10/12/2023 08:29 /saida/ YG CUBA REGISTERED NURSE for [facility] 10/12/2023 ADDENDUM STATUS: COMPLETED MSA lm to call back for appt. /es/ JODY HARRINGTON Advanced Credit Assessment Analyst Signed: 10/12/2023 08:31 JEAN HEBERT [place] [facility]TRL [facility] Oct 10, 2023 12:28 PM ADMINISTRATIVE NOTE: LOCAL TITLE: CCC: SCHEDULING ADMINISTRATION STANDARD TITLE: ADMINISTRATIVE NOTE DATE OF NOTE: OCT 10, 2023@12:28 ENTRY DATE: OCT 10, 2023@12:28:38 AUTHOR: LOLI GOULD EXP COSIGNER: URGENCY: STATUS: COMPLETED CCC: SCHEDULING ADMINISTRATION Has ADDENDA PT CALLED IN WOULD LIKE MEDICATION LISTED REFILLED. THE PT WAS VERY ANXIOUS STATES HE IS STILL HAVING GI ISSUES BUT DECLINED CC TRI RN. THE PT IS ASKING FOR A CALL STATES HE IS STILL BLEEDING FROM HIS RECTOM WHEN HE EATS. I LET THE PT KNOW IF HE DECLINES CC TRI RN IT COULD BE 3 DAYS FROM PRIMARY CARE TO FOLLOW UP, PT SAID THATS FINE. FLUOXETINE HCL CAP,ORAL 20MG TAKE 1 CAPSULE BY MOUTH ONCE DAILY for depression and anxiety Quantity: 90 Refills: 0 /es/ LOIL GOULD Signed: 10/10/2023 12:32 Receipt Acknowledged By: 10/12/2023 08:50 /es/ JEAN HEBERT, MSN, RN, CNL PRIMARY CARE TEAM NURSE 10/12/2023 08:29 /es/ YG CUBA REGISTERED NURSE for [facility] 10/12/2023 ADDENDUM STATUS: COMPLETED [place] doesn't have an appointment with until 12/26/23. Please offer an appointment today with at 11:30 /es/ JEAN HEBERT, MSN, RN, CNL PRIMARY CARE TEAM NURSE Signed: 10/12/2023 08:25 Receipt Acknowledged By: 10/12/2023 08:31 /es/ JODY HARRINGTON Advanced Credit Assessment Analyst 10/12/2023 ADDENDUM STATUS: COMPLETED MSA lm to call back for appt. /saida/ JODY HARRINGTON Advanced Credit Assessment Analyst Signed: 10/12/2023 08:31 LOLI GOULD [facility]
--- OUTSIDE RECORDS SUMMARY | 2024-04-23 11:32 | XMS_ITS ---
Author Name [facility] [place] Address [address] [place] [address] Care Team Providers Care Inclusion Manager Name Role Phone CAMILLE GOTTI Primary Care [...] Chaparro's Name Patient's Relationship to Policy Chaparro [facility] MEDICAID TITLE 19 Apr 18, 2020 MEDICAI D [id number] EVA LU PATIENT Selected Encounter This section includes the information on record at [place] for the Encounter. Date/Time Encounter Type Encounter Description Reason Pro vider Source Sep 28, 2023 11:22 AM Outpatient Encounter ADMIN PAT ACTIVTIES (KAVITHANONCT) IHE Encounter Template Text not used by [place] Plan of Treatment: Future Appointments (+ 6 [...] 20 appointments. The data comes from all [place] treatment facilities. Appointment Date/Time Appointment Type Appointme nt Facility Name Jan 18, 2024 09:00 AM AMBULATORY - MEDICINE [facility] Social History: Smoking Status (Most current) and Tobacco Use (All prior to encounter date) This section includes the most current, and the historical, smoking and tobacco- related health factors from the [place] facility where the Encounter took place. Current Smoking Status This section includes the most current smoking, or tobacco-related health factor, from the [place] facility where the Encounter took place. Date/Time Current Smoking Status Comment Facil ity Jul 14, 2021 11:45 AM VA-TOBACCO FORMER USER [facility] Tobacco Use History This section includes a history of the smoking, or tobacco-related health factors, that were collected on or before the date of the Encounter. The data comes from the [place] facility where the Encounter took place. Date/Time Smoking Status/Tobacco Use Comment F acility Jul 14, 2021 11:45 AM [place]-TOBACCO QUIT 15 YRS OR MORE [facility] Encounter Notes: All associated encounter notes This section contains the clinical notes associated to the Encounter. Date/Time Encounter Note(s) Provider Source Sep 28, 2023 11:48 AM ADDENDUM: LOCAL TITLE: Addendum STANDARD TITLE: ADDENDUM DATE OF NOTE: SEP 28, 2023@11:48:32 ENTRY DATE: SEP 28, 2023@11:48:32 AUTHOR: JODY HARRINGTON EXP COSIGNER: URGENCY: STATUS: COMPLETED Appt scheduled for 12/25. Call center offered 10/09 at 11:30 which is a same day access slot that should not be offered unless 24-48 hours prior. [facility] desk clerks supervisor please address. /saida/ JODY HARRINGTON Advanced Professional Athlete Signed: 09/28/2023 11:49 Receipt Acknowledged By: 09/28/2023 16:06 /saida/ BRAEDEN RUIZ W[employer]OURCES BUSINESS SEGMENT LEADER AMSA --- Original Document --- 09/28/23 CCC: SCHEDULING ADMINISTRATION: Patient Demographics Patient Name: EVA HINKLE Patient Primary Phone: [phone] Patient Primary [address]: [address] [place] [address] Patient : 1970 Patient Age: 53 Caller/Recipient Relation to Patient: Self Administrative Administrative Note Comments: [place] needs to book prim care appt, blurb writer created order, just can not book. Was looking at 10/10/23 at 11:30 please call [phone] /marcelle CARTER Signed: 09/28/2023 11:22 Receipt Acknowledged By: 09/28/2023 11:50 /marcelle HARRINGTON Advanced Professional Athlete 09/28/2023 13:45 /saida/ Elif Jama RN Primary Care Staff Nurse JODY HARRINGTON IN CNT [facility] Sep 28, 2023 11:22 AM ADMINISTRATIVE NOT E: LOCAL TITLE: CCC: SCHEDULING ADMINISTRATION STANDARD TITLE: ADMINISTRATIVE NOTE DATE OF NOTE: SEP 28, 2023@11:22:40 ENTRY DATE: SEP 28, 2023@11:22:41 AUTHOR: YG CARTER EXP COSIGNER: URGENCY: STATUS: COMPLETED CCC: SCHEDULING ADMINISTRATION Has ADDENDA Patient Demographics Patient Name: EVA HINKLE Patient Primary Phone: [phone] Patient Primary [address]: [address] [place] [address] Patient : 1970 Patient Age: 53 Caller/Recipient Relation to Patient: Self Administrative Administrative Note Comments: needs to book prim care appt, blurb writer created order, just can not book. Was looking at 10/10/23 at 11:30 please call [phone] /marcelle CARTER Signed: 09/28/2023 11:22 Receipt Acknowledged By: 09/28/2023 11:50 /marcelle HARRINGTON Advanced Professional Athlete 09/28/2023 13:45 /es/ Elif Pich, brim pouncer Staff Nurse 09/28/2023 ADDENDUM STATUS: COMPLETED Appt scheduled for 12/25. Call center offered 10/09 at 11:30 which is a same day access slot that should not be offered unless 24-48 hours prior. [facility] desk clerks supervisor please address. /saida/ JODY HARRINGTON Advanced Professional Athlete Signed: 09/28/2023 11:49 Receipt Acknowledged By: * AWAITING SIGNATURE * BRAEDEN RUIZ MELISSA D IN [facility]L [facility]
--- OUTSIDE RECORDS SUMMARY | 2024-04-23 11:32 | XMS_ITS ---
Author Name [facility] [place] Organization [place] Address [address] [place] [address] Care Team Providers Care Electrical Appliance Mechanic Name Role Phone CAMILLE GOTTI Primary Care [...] Chaparro's Name Patient's Relationship to Policy Chaparro [facility] MEDICAID TITLE 19 Apr 18, 2020 MEDICAI D [id number] EVA LU PATIENT Selected Encounter This section includes the information on record at [place] for the Encounter. Date/Time Encounter Type Encounter Description Reason Pro vider Source Oct 21, 2023 10:13 AM Outpatient Encounter ADMIN PAT ACTIVTIES (KAVITHANONCT) IHE Encounter Template Text not used by [place] Plan of Treatment: Future Appointments (+ 6 [...] 20 appointments. The data comes from all [place] treatment facilities. Appointment Date/Time Appointment Type Appointme nt Facility Name Jan 18, 2024 09:00 AM AMBULATORY - MEDICINE [facility] Social History: Smoking Status (Most current) and Tobacco Use (All prior to encounter date) This section includes the most current, and the historical, smoking and tobacco- related health factors from the [place] facility where the Encounter took place. Current Smoking Status This section includes the most current smoking, or tobacco-related health factor, from the [place] facility where the Encounter took place. Date/Time Current Smoking Status Comment Facil ity Jul 14, 2021 11:45 AM VA-TOBACCO FORMER USER [facility] Tobacco Use History This section includes a history of the smoking, or tobacco-related health factors, that were collected on or before the date of the Encounter. The data comes from the [place] facility where the Encounter took place. Date/Time Smoking Status/Tobacco Use Comment F acility Jul 14, 2021 11:45 AM [place]-TOBACCO QUIT 15 YRS OR MORE [facility] Encounter Notes: All associated encounter notes This section contains the clinical notes associated to the Encounter. Date/Time Encounter Note(s) Provider Source Oct 21, 2023 10:13 AM ADMINISTRATIVE NOTE: LOCAL TITLE: CCC: SCHEDULING ADMINISTRATION STANDARD TITLE: ADMINISTRATIVE NOTE DATE OF NOTE: OCT 21, 2023@10:13:16 ENTRY DATE: OCT 21, 2023@10:13:16 AUTHOR: LARRY COY COSIGNER: URGENCY: STATUS: COMPLETED Patient Demographics Patient Name: EVA HINKLE Patient Primary Phone: [phone] Patient Primary [address]: [address] [place] [id number] Patient : 1970 Patient Age: 53 Caller/Recipient Relation to Patient: Self Administrative Administrative Note Reason: Other Administrative Note Comments: Vet called for his FLUOXETINE HCL CAP,ORAL 20MG TAKE 1 CAPSULE BY MOUTH ONCE DAILY Quantity: 90 Refills: 0for depression and anxiety vet states that his says that the vet has been snippy and this will even the vet out, to be refilled please mail out please reach out to the vet /es/ LARRY COY Signed: 10/21/2023 10:13 Receipt Acknowledged By: 10/21/2023 13:45 /es/ CAMILLE GOTTI MD PHYSICIAN 10/24/2023 08:01 /saida/ JEAN HEBERT, MSN, RN, CNL PRIMARY CARE TEAM NURSE LARRY COY [facility]
--- OUTSIDE RECORDS SUMMARY | 2024-04-23 11:32 | XMS_ITS ---
Author Name [facility] [place] [facility] [place] Organization [facility] [place] Address [address] [place] [address] Care Team Providers Care Wood Boat Builder Supervisor Name Role Phone CAMILLE GOTTI Primary [...] TITLE 19 Apr 18, 2020 MEDICAI D [id number] EVA LU PATIENT Selected Encounter This section includes the information on record at [place] for the Encounter. Date/Time Encounter Type Encounter Description Reason Pro vider Source Aug 08, 2023 11:05 AM Outpatient Encounter ADMIN PAT ACTIVTIES (KAVITHANONCT) [...] 18, 2024 09:00 AM AMBULATORY - MEDICINE [facility] Social History: Smoking Status (Most current) and [...] 14, 2021 11:45 AM VA-TOBACCO FORMER USER [facility] Tobacco Use History This section includes a history of the smoking, or tobacco-related health factors, that were collected on or before the date of the Encounter. The data comes from the [place] facility where the Encounter took place. Date/Time Smoking Status/Tobacco Use Comment F acility Jul 14, 2021 11:45 AM [place]-TOBACCO QUIT 15 YRS OR MORE [facility] Encounter Notes: All associated encounter notes This section contains the clinical notes associated to the Encounter. Date/Time Encounter Note(s) Provider Source Aug 16, 2023 11:21 AM ADDENDUM: LOCAL TITLE: Addendum STANDARD TITLE: ADDENDUM DATE OF NOTE: AUG 16, 2023@11:21:03 ENTRY DATE: AUG 16, 2023@11:21:04 AUTHOR: BRAEDEN RUIZ EXP COSIGNER: URGENCY: STATUS: COMPLETED Please call to set up PCP f/u appointment. /saida/ BRAEDEN RUIZ SERVICE RIG OPERATOR JEREMY Signed: 08/16/2023 11:21 Receipt Acknowledged By: 08/16/2023 11:53 /saida/ QUENTIN [facility] ADVANCED PROGRAM EVALUATION CONSULTANT === --- Original Document --- 08/08/23 CCC: SCHEDULING ADMINISTRATION: Patient Demographics Patient Name: EVA HINKLE Patient Primary Phone: [phone] Patient Primary Address: [address] [place] [address] Patient : 1970 Patient Age: 53 Call Back Number: [phone] Caller/Recipient Relation to Patient: Self Administrative Administrative Note Reason: Paperwork Request Administrative Note Comments: is having a procedure done today at 2PM at the [facility], he is requesting authorization to be sent before appt. Provider is Dr Marroquin and the phone number is [phone], no fax number was given. Best call back number for Vet is [phone] /saida/ CEDRIC DOTSON 1 [facility]MSA Signed: 08/08/2023 11:05 Receipt Acknowledged By: 08/08/2023 13:27 /es/ JEAN HEBERT, CORTNEY, RN, CNL PRIMARY CARE TEAM NURSE 08/08/2023 11:53 /es/ Elif Jama RN Primary Care Staff Nurse 08/08/2023 ADDENDUM STATUS: COMPLETED See telephone note /saida/ Elif Jama RN Primary Care Staff Nurse Signed: 08/08/2023 11:54 08/08/2023 ADDENDUM STATUS: COMPLETED TC to Vet at listed number to gather more information. johnt states he was at [place] 07/26 till 07/29 and was Gi Bleed. He was also DX with Internal Hemmorids. Johnt states that he has an appt today with a GI Surgeron Dr. Marroquin at [facility] and this is a consult appointment. He will then have a procdure done so that the internal hemmorids can be removed. Corey is requesting a consult to Dr. Marroquin at [facility]- General Surgery/GI Surgeon. Appt is today at 2pm. Johnt apologizes for not being in contact with PACT to make aware of this consult need sooner. Document Advisor let Vet know that PCP will palce consult and short story writer will then f/u with CC to ensure that it is processed so that Vet can attend appointment today. /es/ Elif Pich, director bioinformatics Staff Nurse Signed: 08/08/2023 12:00 Receipt Acknowledged By: 08/08/2023 12:59 /saida/ CAMILLE GOTTI MD PHYSICIAN 08/08/2023 ADDENDUM STATUS: COMPLETED Per Vet he requests to be set up with a PCP appt. It is best to reach out at the end of the week or begining of next week. /marcelle Jama RN Primary Care Staff Nurse Signed: 08/08/2023 12:01 Receipt Acknowledged By: 08/16/2023 11:20 /marcelle RUIZ SERVICE RIG OPERATOR JEREMY 08/08/2023 ADDENDUM STATUS: COMPLETED CC aware of consult- has been contacted by [facility]. Consult will be processed and sent to them today. Vet is all set for appt today and TC to make him aware of this. /marcelle Jama RN Primary Care Staff Nurse Signed: 08/08/2023 12:23 08/16/2023 ADDENDUM STATUS: UNSIGNED You may not VIEW this UNSIGNED Addendum. BRAEDEN RUIZ [facility] [place] [facility] Aug 08, 2023 12:01 PM ADDENDUM: LOCAL TITLE: Addendum STANDARD TITLE: ADDENDUM DATE OF NOTE: AUG 08, 2023@12:01:31 ENTRY DATE: AUG 08, 2023@12:01:31 AUTHOR: ELIF JAMA EXP COSIGNER: URGENCY: STATUS: COMPLETED Per Vet he requests to be set up with a PCP appt. It is best to reach out at the end of the week or begining of next week. /marcelle Jama RN Primary Care Staff Nurse Signed: 08/08/2023 12:01 Receipt Acknowledged By: 08/16/2023 11:20 /marcelle RUIZ SERVICE RIG OPERATOR JEREMY === --- Original Document --- 08/08/23 CCC: SCHEDULING ADMINISTRATION: Patient Demographics Patient Name: EVA HINKLE Patient Primary Phone: [phone] Patient Primary Address: [address] [place] [address] Patient : 1970 Patient Age: 53 Call Back Number: [phone] Caller/Recipient Relation to Patient: Self Administrative Administrative Note Reason: Paperwork Request Administrative Note Comments: Merriman is having a procedure done today at 2PM at the [facility], he is requesting authorization to be sent before appt. Provider is Dr Marroquin and the phone number is [phone], no fax number was given. Best call back number for Vet is [phone] /saida/ CEDRIC DOTSON 1 [facility] Signed: 08/08/2023 11:05 Receipt Acknowledged By: 08/08/2023 13:27 /saida/ JEAN HEBERT, CORTNEY, RN, CNL PRIMARY CARE TEAM NURSE 08/08/2023 11:53 /saida/ Elif Jama RN Primary Care Staff Nurse 08/08/2023 ADDENDUM STATUS: COMPLETED See telephone note /marcelle Jama RN Primary Care Staff Nurse Signed: 08/08/2023 11:54 08/08/2023 ADDENDUM STATUS: COMPLETED TC to Vet at listed number to gather more information. johnt states he was at [place] 07/26 till 07/29 and was Gi Bleed. He was also DX with Internal Hemmorids. Vet states that he has an appt today with a GI Surgeron Dr. Marroquin at [facility] and this is a consult appointment. He will then have a procdure done so that the internal hemmorids can be removed. Johnt is requesting a consult to Dr. Marroquin at [facility]- General Surgery/GI Surgeon. Appt is today at 2pm. Johnt apologizes for not being in contact with PACT to make aware of this consult need sooner. Document Advisor let Vet know that PCP will palce consult and short story writer will then f/u with CC to ensure that it is processed so that Vet can attend appointment today. /marcelle Jama RN Primary Care Staff Nurse Signed: 08/08/2023 12:00 Receipt Acknowledged By: 08/08/2023 12:59 /marcelle GOTTI MD PHYSICIAN 08/08/2023 ADDENDUM STATUS: COMPLETED CC aware of consult- has been contacted by [facility]. Consult will be processed and sent to them today. Vet is all set for appt today and TC to make him aware of this. /marcelle Jama RN Primary Care Staff Nurse Signed: 08/08/2023 12:23 ELIF JAMA IN [facility] [place] [facility] Aug 08, 2023 11:59 AM ADDENDUM: LOCAL TITLE: Addendum STANDARD TITLE: ADDENDUM DATE OF NOTE: AUG 08, 2023@11:59:25 ENTRY DATE: AUG 08, 2023@11:59:27 AUTHOR: ELIF JAMA EXP COSIGNER: URGENCY: STATUS: COMPLETED TC to Vet at listed number to gather more information. vet states he was at [place] 07/26 till 07/29 and was Gi Bleed. He was also DX with Internal Hemmorids. Vet states that he has an appt today with a GI Surgeron Dr. Marroquin at [facility] and this is a consult appointment. He will then have a procdure done so that the internal hemmorids can be removed. Vet is requesting a consult to Dr. Marroquin at [facility] Surgery/GI Surgeon. Appt is today at 2pm. Vet apologizes for not being in contact with PACT to make aware of this consult need sooner. Document Advisor let Vet know that PCP will palce consult and short story writer will then f/u with CC to ensure that it is processed so that Vet can attend appointment today. /marcelle Jama RN Primary Care Staff Nurse Signed: 08/08/2023 12:00 Receipt Acknowledged By: 08/08/2023 12:59 /marcelle GOTTI MD PHYSICIAN === --- Original Document --- 08/08/23 CCC: SCHEDULING ADMINISTRATION: Patient Demographics Patient Name: EVA HINKLE Patient Primary Phone: [phone] Patient Primary Address: [address] [place] [address] Patient : 1970 Patient Age: 53 Call Back Number: [phone] Caller/Recipient Relation to Patient: Self Administrative Administrative Note Reason: Paperwork Request Administrative Note Comments: Merriman is having a procedure done today at 2PM at the [facility], he is requesting authorization to be sent before appt. Provider is Dr Marroquin and the phone number is [phone], no fax number was given. Best call back number for Vet is [phone] /saida/ CEDRIC DOTSON 1 [facility] Signed: 08/08/2023 11:05 Receipt Acknowledged By: * AWAITING SIGNATURE * JEAN HEBERT 08/08/2023 11:53 /marcelle Jama RN Primary Care Staff Nurse 08/08/2023 ADDENDUM STATUS: COMPLETED See telephone note /marcelle Jama RN Primary Care Staff Nurse Signed: 08/08/2023 11:54 08/08/2023 ADDENDUM STATUS: COMPLETED Per Vet he requests to be set up with a PCP appt. It is best to reach out at the end of the week or begining of next week. /marcelle Jama RN Primary Care Staff Nurse Signed: 08/08/2023 12:01 Receipt Acknowledged By: * AWAITING SIGNATURE * BRAEDEN RUIZ 08/08/2023 ADDENDUM STATUS: COMPLETED CC aware of consult- has been contacted by [facility]. Consult will be processed and sent to them today. Vet is all set for appt today and TC to make him aware of this. /marcelle Jama RN Primary Care Staff Nurse Signed: 08/08/2023 12:23 ELIF JAMA [facility] [place] [facility] Aug 08, 2023 11:05 AM ADMINISTRATIVE NOTE: LOCAL TITLE: [facility]: SCHEDULING ADMINISTRATION STANDARD TITLE: ADMINISTRATIVE NOTE DATE OF NOTE: AUG 08, 2023@11:05:13 ENTRY DATE: AUG 08, 2023@11:05:13 AUTHOR: CEDRIC BRYSON COSIGNER: URGENCY: STATUS: COMPLETED CCC: SCHEDULING ADMINISTRATION Has ADDENDA Patient Demographics Patient Name: EVA HINKLE Patient Primary Phone: [phone] Patient Primary Address: [address] [place] [address] Patient : 1970 Patient Age: 53 Call Back Number: [phone] Caller/Recipient Relation to Patient: Self Administrative Administrative Note Reason: Paperwork Request Administrative Note Comments: Merriman is having a procedure done today at 2PM at the [facility], he is requesting authorization to be sent before appt. Provider is Dr Marroquin and the phone number is [phone], no fax number was given. Best call back number for Vet is [phone] /saida/ CEDRIC DOTSON 1 [facility] Signed: 08/08/2023 11:05 Receipt Acknowledged By: 08/08/2023 13:27 /es/ CORTNEY CORONADO, RN, CNL PRIMARY CARE TEAM NURSE 08/08/2023 11:53 /es/ Elif Jama RN Primary Care Staff Nurse 08/08/2023 ADDENDUM STATUS: COMPLETED See telephone note /saida/ Elif Jama RN Primary Care Staff Nurse Signed: 08/08/2023 11:54 08/08/2023 ADDENDUM STATUS: COMPLETED TC to Vet at listed number to gather more information. vet states he was at [place] 07/26 till 07/29 and was Gi Bleed. He was also DX with Internal Hemmorids. Vet states that he has an appt today with a GI Surgeron Dr. Marroquin at [facility] and this is a consult appointment. He will then have a procdure done so that the internal hemmorids can be removed. Vet is requesting a consult to Dr. Marroquin at [facility]- General Surgery/GI Surgeon. Appt is today at 2pm. Vet apologizes for not being in contact with PACT to make aware of this consult need sooner. Document Advisor let Vet know that PCP will palce consult and short story writer will then f/u with CC to ensure that it is processed so that Vet can attend appointment today. /marcelle Jama RN Primary Care Staff Nurse Signed: 08/08/2023 12:00 Receipt Acknowledged By: 08/08/2023 12:59 /saida/ CAMILLE GOTTI MD PHYSICIAN 08/08/2023 ADDENDUM STATUS: COMPLETED Per Vet he requests to be set up with a PCP appt. It is best to reach out at the end of the week or begining of next week. /marcelle Jama RN Primary Care Staff Nurse Signed: 08/08/2023 12:01 Receipt Acknowledged By: 08/16/2023 11:20 /marcelle RUIZ SERVICE RIG OPERATOR JEREMY 08/08/2023 ADDENDUM STATUS: COMPLETED CC aware of consult- has been contacted by [facility]. Consult will be processed and sent to them today. Vet is all set for appt today and TC to make him aware of this. /marcelle Jama RN Primary Care Staff Nurse Signed: 08/08/2023 12:23 08/16/2023 ADDENDUM STATUS: COMPLETED Please call to set up PCP f/u appointment. /marcelle RUIZ SERVICE RIG OPERATOR JEREMY Signed: 08/16/2023 11:21 Receipt Acknowledged By: 08/16/2023 11:53 /marcelle MAC ADVANCED PROGRAM EVALUATION CONSULTANT 08/16/2023 ADDENDUM STATUS: COMPLETED Document Advisor left detailed message to call back and schedule PCP f/u apt. Unsuccessful, left phone number. /marcelle MAC ADVANCED PROGRAM EVALUATION CONSULTANT Signed: 08/16/2023 11:55 CEDRIC BRYSON CNTRL [facility]
--- OUTSIDE RECORDS SUMMARY | 2024-04-23 11:32 | XMS_ITS | Encounter Summary ---
Author Name [facility] [place] [facility] [place] Organization [facility] [place] Address [address] [place] [id number] Care Team Providers Care Geospatial Imagery Intelligence Analyst Name Role Phone CAMILLE GOTTI Primary Care Provider MAYO Byrd Primary Care Provider Unavailabl e Insurance Providers: All historical and current Section [...] TITLE 19 Apr 18, 2020 MEDICAI D [id number] EVA LU PATIENT Selected Encounter This section includes the information on record at [place] for the Encounter. Date/Time Encounter Type Encounter Description Reason Pro vider Source IHE Encounter Template Text not used by VA
--- OUTSIDE RECORDS SUMMARY | 2024-04-23 11:32 | XMS_ITS | Encounter Summary ---
Author Name [facility] of [facility] [place] Organization [facility] [place] [place] Address [address] [place] [address] Care Team Providers Care Measurement Superintendent Name Role Phone CAMILLE GOTTI Primary [...] TITLE 19 Apr 18, 2020 MEDICAI D [id number] EVA LU PATIENT Selected Encounter This section includes the information on record at [place] for the Encounter. Date/Time Encounter Type Encounter Description Reason Pro vider Source Jul 27, 2023 12:00 AM Outpatient Encounter EVENT (HISTORICAL) [...] 20 appointments. The data comes from all [place] treatment facilities. Appointment Date/Time Appointment Type Appointme nt Facility Name Aug 08, 2023 02:00 PM AMBULATORY - MEDICINE [facility] Jan 18, 2024 09:00 AM AMBULATORY - MEDICINE [facility] Social History: Smoking Status (Most current) and Tobacco Use (All prior to encounter date) This section includes the most current, and the historical, smoking and tobacco- related health factors from the [place] facility where the Encounter took place. Current Smoking Status This section includes the most current smoking, or tobacco-related health factor, from the [place] facility where the Encounter took place. Date/Time Current Smoking Status Comment Facil ity Jul 14, 2021 11:45 AM VA-TOBACCO FORMER USER [facility] Tobacco Use History This section includes a history of the smoking, or tobacco-related health factors, that were collected on or before the date of the Encounter. The data comes from the [place] facility where the Encounter took place. Date/Time Smoking Status/Tobacco Use Comment F acility Jul 14, 2021 11:45 AM [place]-TOBACCO QUIT 15 YRS OR MORE [facility] Encounter Notes: All associated encounter notes This section contains the clinical notes associated to the Encounter. Date/Time Encounter Note(s) Provider Source Jul 27, 2023 12:00 AM NONVA NOTE: LOCAL TITLE: NON-VA HOSPITALIZATIONS/ER STANDARD TITLE: NONVA NOTE DATE OF NOTE: JUL 27, 2023 ENTRY DATE: AUG 12, 2023@11:18:12 AUTHOR: KATERYNA SHAFER EXP COSIGNER: URGENCY: STATUS: COMPLETED VistA Imaging - Scanned Document SCANNED DOCUMENT SIGNATURE NOT REQUIRED Electronically Filed: 08/12/2023 by: KATERYNA SHAFER MOTION PICTURE PROJECTIONIST APPRENTICE KATERYNA SHAFER [facility]
--- OUTSIDE RECORDS SUMMARY | 2024-04-23 11:32 | XMS_ITS | Encounter Summary ---
Author Name [facility] [place] [facility] [place] Organization [facility] [place] Address [address] [place] [address] Care Team Providers Care Flight Engineer Name Role Phone CAMILLE GOTTI Primary Care [...] TITLE 19 Apr 18, 2020 MEDICAI D [id number] EVA LU PATIENT Selected Encounter This section includes the information on record at [place] for the Encounter. Date/Time Encounter Type Encounter Description Reason Pro vider Source Feb 06, 2024 11:27 AM Outpatient Encounter TELEPHONE TRIAGE IHE Encounter Template Text not used by VA Social History: Smoking Status (Most current) and Tobacco Use (All prior to encounter date) This section includes the most current, and the historical, smoking and tobacco- related health factors from the [place] facility where the Encounter took place. Current Smoking Status This section includes the most current smoking, or tobacco-related health factor, from the [place] facility where the Encounter took place. Date/Time Current Smoking Status Comment [place] Jul 14, 2021 11:45 AM VA-TOBACCO FORMER USER [facility] Tobacco Use History This section includes a history of the smoking, or tobacco-related health factors, that were collected on or before the date of the Encounter. The data comes from the [place] facility where the Encounter took place. Date/Time Smoking Status/Tobacco Use Comment F jennifer Jul 14, 2021 11:45 AM VA-TOBACCO QUIT 15 YRS OR MORE [facility] Encounter Notes: All associated encounter notes This section contains the clinical notes associated to the Encounter. Date/Time Encounter Note(s) Provider Source Feb 06, 2024 11:27 AM RN PROGRESS NOTE: [facility] TITLE: CCC: CLINICAL TRIAGE STANDARD TITLE: RN PROGRESS NOTE DATE OF NOTE: FEB 06, 2024@11:27:07 ENTRY DATE: FEB 06, 2024@11:27:08 AUTHOR: QIAN BUSTAMANTE EXP COSIGNER: URGENCY: STATUS: COMPLETED CCC: CLINICAL TRIAGE Has ADDENDA Patient Demographics Patient Name: EVA HINKLE Patient Primary Address: [address] [place] [address] Patient Primary Phone: [phone] Patient : 1970 Patient Age: 53 Current Location: home Call Back Number: in chart Caller/Recipient Relation to Patient: Self Emergency Contact: FARHAD TANG Triage Summary Conducted triage/discussed symptoms Pain Score: 4 Utilized the Triage Tool: Yes Chief Complaint: Lesion On The Skin System WHEN: Within 24 Hours Nurse's Recommendation / WHEN: Within 24 Hours System WHERE: Clinic Nurse's Recommendation / WHERE: Clinic/[facility] Patient Disposition Patient/Caregiver agrees to plan of care: Yes Patient WHERE: Appointment Other - Patient Where Disposition: PCP Patient WHEN: Within 24 hours Nursing Plan and Disposition Referred Patient for In-Person Appt Transferred patient to Sched & Admin-Apt Other course(s) of action Generated msg to PACT/Provider Provided guidance for worsening symptoms: *Caller/Patient* advised to call facilities [place] Clinical Contact Center or seek immediate medical attention for new or worsening symptoms Nurse Summary Nurse Summary: The called complaining that he believes he has shingles with lesions on the center posterior of his head that has spread now down to his back that is painful, itchy with surrounding redness, headaches and has pustules that are crusted x 1.5 months. 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 Advised to be assessed within 24 hours and they agreed with plan. Warm transferred for scheduling with PCP and if no availability agreed to a CCC COOK RELIEF Vvc appointment and provided a third option of In network urgent care listed below to contact for scheduling. [facility] [employer] [address] [address] Main number: [phone] Clinical Contact Center Codes Clinic/Location: [facility] PHONE CCC RN Decision Support System Output: Triage Complete Triage Date: 02/06/2024, 11:14 AM Triage Note: Decision Support Tool Used: [facility] Phone Triage Tue, 06 Feb 2024 15:12:51 +0000 [facility] Demographics 53 y/o Male Results CC: Lesion On The Skin Software suggested: Within 24 Hours Software suggested follow-up location: Clinic, consider [facility] care Values and Measures Duration of CC: 6 Weeks Positive Responses HPI: skin erythema, around skin lump or bump HPI: skin tenderness, around the skin lump or papule VS: temperature not taken Negative Responses Denies: HPI: skin lump, painful, swollen Denies: HPI: vomiting Denies: MEDS: chemotherapy Denies: PMH: diabetes Denies: PMH: HIV positive Denies: PSH: organ transplant IMPORTANT: This note was created by [facility] Clinical Contact [facility] staff. Please do not alert the staff member by adding them as a signer for future communications. Alerts are not monitored by this user. /saida/ Qian Bustamante BUSINESS TAXES SPECIALIST VISN 1 CCC CARE TRANSITION MGR Signed: 02/06/2024 11:27 Receipt Acknowledged By: 02/06/2024 12:03 /es/ JEAN HEBERT, MSN, RN, CNL PRIMARY CARE TEAM NURSE 02/06/2024 11:57 /marcelle Jama RN Primary Care Staff Nurse 02/06/2024 ADDENDUM STATUS: COMPLETED Vet is going to go to local for eval- per second triage notification /marcelle Jama RN Primary Care Staff Nurse Signed: 02/06/2024 11:57 QIAN BUSTAMANTE CNTRL [facility]N [facility]
--- OUTSIDE RECORDS SUMMARY | 2024-04-23 11:33 | XMS_ITS | Encounter Summary ---
Author Name [facility] [place] [facility] [place] Address [address] [place] [id number] Care Team Providers Care Physical Meteorologist Name Role Phone CAMILLE GOTTI Primary Care [...] Chaparro's Name Patient's Relationship to Policy Chaparro [facility] MEDICAID TITLE 19 Apr 18, 2020 MEDICAI D [id number] EVA LU PATIENT Selected Encounter This section includes the information on record at [place] for the Encounter. Date/Time Encounter Type Encounter Description Reason Pro vider Source Feb 06, 2024 11:39 AM Outpatient Encounter ADMIN PAT ACTIVTIES (MASNONCT) IHE Encounter Template Text not used by [place] Social History: Smoking Status (Most current) and [...] 14, 2021 11:45 AM VA-TOBACCO FORMER USER [facility] Tobacco Use History This section includes a history of the smoking, or tobacco-related health factors, that were collected on or before the date of the Encounter. The data comes from the [place] facility where the Encounter took place. Date/Time Smoking Status/Tobacco Use Comment Jatinder rodriguez Jul 14, 2021 11:45 AM VA-TOBACCO QUIT 15 YRS OR MORE [facility] Encounter Notes: All associated encounter notes This section contains the clinical notes associated to the Encounter. Date/Time Encounter Note(s) Provider Source Feb 06, 2024 11:39 AM ADMINISTRATIVE NOTE: LOCAL TITLE: CCC: SCHEDULING ADMINISTRATION STANDARD TITLE: ADMINISTRATIVE NOTE DATE OF NOTE: FEB 06, 2024@11:39:34 ENTRY DATE: FEB 06, 2024@11:39:34 AUTHOR: EBER MARMOLEJO EXP COSIGNER: URGENCY: STATUS: COMPLETED Patient Demographics Patient Name: EVA HINKLE Patient Primary Phone: [phone] Patient Primary [address]: [address] [place] [address] Patient : 1970 Patient Age: 53 Call Back Number: Caller/Recipient Relation to Patient: Self Administrative Administrative Note Reason: Other Administrative Note Comments: Per CCCRN Triage recommendation [place] is to be scheduled with PCP/CCC PROVIDER within 24hrs No available appointment for within recommended timeframe, SEE 02/06/2024 TRIAGE NOTE understands and will follow CCCRN's recommendation for Urgent Care PLEASE CALL TO FOLLOW UP IMPORTANT: This note was created by [facility] Clinical Contact Center staff. Please do not alert the staff member by adding them as a signer for future communications. Alerts are not monitored by this user. /saida/ ARLETH MARMOLEJO Signed: 02/06/2024 11:39 Receipt Acknowledged By: 02/06/2024 12:03 /saida/ JEAN HEBERT, MSN, RN, CNL PRIMARY CARE TEAM NURSE 02/06/2024 11:57 /saida/ Elif Jama RN Primary Care Staff Nurse [facility]JO [facility]
--- OUTSIDE RECORDS SUMMARY | 2024-04-23 11:33 | XMS_ITS | Encounter Summary ---
Author Name [facility] [place] Address [address] [place] [address] Care Team Providers Care Basin Cleaner Name Role Phone CAMILLE GOTTI Primary Care [...] Chaparro's Name Patient's Relationship to Policy Chaparro [facility] MEDICAID TITLE 19 Apr 18, 2020 MEDICAI D [id number] EVA LU PATIENT Selected Encounter This section includes the information on record at [place] for the Encounter. Date/Time Encounter Type Encounter Description Reason Pro vider Source Apr 23, 2024 08:38 AM Outpatient Encounter TELEPHONE TRIAGE IHE Encounter [...] 14, 2021 11:45 AM VA-TOBACCO FORMER USER [facility] Tobacco Use History This section includes a history of the smoking, or tobacco-related health factors, that were collected on or before the date of the Encounter. The data comes from the [place] facility where the Encounter took place. Date/Time Smoking Status/Tobacco Use Comment F jennifer Jul 14, 2021 11:45 AM VA-TOBACCO QUIT 15 YRS OR MORE [facility] Encounter Notes: All associated encounter notes This section contains the clinical notes associated to the Encounter. Date/Time Encounter Note(s) Provider Source Apr 23, 2024 08:38 AM RN PROGRESS NOTE: [facility] TITLE: CCC: CLINICAL TRIAGE STANDARD TITLE: RN PROGRESS NOTE DATE OF NOTE: APR 23, 2024@08:38:18 ENTRY DATE: APR 23, 2024@08:38:19 AUTHOR: ROBERT OBREGON COSIGNER: URGENCY: STATUS: COMPLETED CCC: CLINICAL TRIAGE Has ADDENDA Patient Demographics Patient Name: EVA HINKLE Patient Primary [address]: [address] [place] [address] Patient Primary Phone: [phone] Patient : 1970 Patient Age: 53 Current Location: [facility] Call Back Number: [phone] Caller/Recipient Relation to Patient: Self Caller Name: EVA HINKLE Emergency Contact: FARHAD TANG Triage Summary Pain Score: 8 (Severe Pain) Chief Complaint: Rectal Pain System WHEN: Now Nurse's Recommendation / WHEN: Now System WHERE: Emergency department Nurse's Recommendation / WHERE: ED Other WHEN/WHERE modifier reason: Distance from Hospital Nursing Plan and Disposition Referred patient to higher level of care Instructed to go to Emergency Room (ER) Advised of Financial Disclaimer: Patient advised that recommendation for care provided during the call does not constitute an approval or authorization for payment by the [place] or its staff. Patient advised to report a community ED visit to the [facility] Office of Community Care at within 72 hours. Other course(s) of action Generated msg to PACT/Provider Provided guidance for worsening symptoms: *Caller/Patient* advised to call facilities [place] Clinical Contact Center or seek immediate medical attention for new or worsening symptoms Nurse Summary Nurse Summary: . calls reporting severe rectal pain x 2 weeks and blister-like rash on R shoulder and scalp x 6 months. Advised ER NOW. ER notification # provided. verbalizes understanding and agrees to go to [facility]. Advised of [facility] Triage 24.7. . . Clinical Contact Center Codes Clinic/Location: V1 CWM PHONE [facility] RN Decision Support System Output: Triage Complete Triage Date: 04/23/2024, 08:33 AM Triage Note: Decision Support Tool Used: D[facility] Phone Triage 23 Apr 2024 13:30:31 +0000 [facility] Demographics 53 y/o Male Results CC: Rectal Pain Software suggested: Now Software suggested follow-up location: Emergency department Values and Measures Duration of CC: 2 Weeks Positive Responses HPI: anal pain, severe HPI: anal swelling HPI: perianal tenderness VS: temperature not taken IMPORTANT: This note was created by [facility] Clinical Contact Center staff. Please do not alert the staff member by adding them as a signer for future communications. Alerts are not monitored by this user. /saida/ ROBERT DOTSON 1 [facility] mobility architect Signed: 04/23/2024 08:38 Receipt Acknowledged By: 04/23/2024 09:38 /saida/ YG CUBA REGISTERED NURSE * AWAITING SIGNATURE * EH BENJAMIN 04/23/2024 ADDENDUM STATUS: COMPLETED agrees to go to ED /saida/ YG CUBA REGISTERED NURSE Signed: 04/23/2024 09:38 ROBERT OBREGON [place] [facility]
--- NOTE | 2024-04-23 16:04 | ED.GENADULT ---
HPI - General Adult General Chief complaint: Abdominal Pain Stated complaint: GI issues Time Seen by Provider: 04/23/24 16:04 Source: patient Mode of arrival: ambulatory Limitations: no limitations History of Present Illness ED Provider: Sindhu Jarvis PA-C HPI narrative: Patient is a 53 year old assigned male at with a history of hemorrhoids and an anal fissure presenting to the emergency department today with persistent constipation and pain with bowel movements. Patient states that he continues to struggle with constipation and hemorrhoids and over the last 2 weeks it has been worsening. Patient states he feels as though he is pooping razor blades . Patient denies any dizziness, lightheadedness, abdominal pain, nausea, vomiting, fever, chills, blurry vision, double vision, loss of vision, chest pain, difficulty breathing, shortness of breath, back pain, night sweats, pain with urination, increased urinary frequency, increased urinary urgency, syncope or a near syncopal episode, recent trauma or falls, bowel incontinence, bladder incontinence, or any other complaints at this time. Onset (ago): week(s) (2) Relieving factors: none Exacerbating factors: none Associated symptoms: denies other symptoms Treatments prior to arrival: none Related Data Previous Rx's ?Medication ?Instructions ?Recorded docusate sodium 100 mg capsule 100 mg PO BID #14 caps 04/23/24 (Colace) hydrocortisone acetate 25 mg 25 mg MO DAILY #12 ea 04/23/24 rectal suppository (Anucort-HC) psyllium husk 0.4 gram capsule 0.4 g PO DAILY #7 caps 04/23/24 (Metamucil) Allergies Allergy/AdvReac Type Severity Reaction Status Date / Time No Known Allergies Allergy Verified 04/23/24 10:36 Review of Systems Constitutional: Constitutional: Reports no additional constitutional complaints, Denies chills, Denies fever(s) and Denies night sweats Eyes: Eyes: Reports no additional eye complaints, Denies blurry vision, Denies change in vision, Denies diplopia, Denies eye discharge, Denies loss of vision and Denies eye pain ENT: Denies dizziness Cardiovascular: Cardiovascular: Reports no additional cardiovascular complaints, Denies chest pain, Denies lightheadedness, Denies Loss of Consciousness and Denies dyspnea Respiratory: Respiratory: Reports no additional respiratory complaints and Denies dyspnea Gastrointestinal: Gastrointestinal: Reports no additional gastrointestinal complaints, Denies abdominal pain, Denies melena, Denies hematochezia, Reports change in bowel habits, Reports change in stool character and Reports constipation Comments: anal pain with bowel movements Genitourinary: Genitourinary: Reports no additional male genitourinary complaints, Denies hematuria, Denies oliguria, Denies difficulty urinating, Denies dysuria, Denies urinary frequency, Denies urinary hesitancy, Denies urinary incontinence and Denies urinary urgency Musculoskeletal: Musculoskeletal: Reports no additional musculoskeletal complaints, Denies numbness and Denies tingling Neurologic: Denies dizziness, Denies loss of vision, Denies numbness and Denies tingling Psychiatric: Psychiatric: Reports no additional psychiatric complaints Endocrine: Endocrine: Reports no additional endocrine complaints Hematologic/Lymphatic: Hematologic/Lymphatic: Reports no additional hematologic/lymphatic complaints Allergic/Immunologic: Allergic/Immunologic: Reports no additional allergic/immunologic complaints PMFSH Past Medical History Attestation statement: The following information was validated with the patient. Source: old records reviewed and nursing notes reviewed Medical History Anal pain Pancreatitis SBO (small bowel obstruction) Surgical History H/O colonoscopy Small intestine obstruction Social History Social History Household Members: Spouse Housing: Apartment Do you presently have visiting nurse or other home services: No Alcohol intake: current Alcohol intake frequency: does not drink Patient Tobacco Use Status: Never used Tobacco Substance Use Type: Marijuana Advance Directives: No Advance Directives Information Provided: No service: Yes Current occupational status: unemployed Physical Exam ED Vital Signs: Vital Signs - 24 hr 04/23/24 10:34 04/23/24 17:26 04/23/24 17:27 Temperature 97.5 F 97.8 F 97.8 F Pulse Rate 74 51 51 Respiratory Rate 20 18 18 Blood Pressure 136/73 112/69 112/69 Pulse Oximetry 100 98 98 Oxygen Delivery Method Room Air Room Air Room Air BMI result Body Mass Index 29.5 Const General: cooperative, no acute distress, alert and awake Nutritional Appearance: well nourished Orientation/consciousness: patient oriented x3 Limitations: no limitations HENMT Head: Yes normal to inspection and Yes atraumatic Ears: hearing grossly normal bilaterally and external ears normal General nose exam: Normal external nose present, no nasal discharge noted and no epistaxis Face and sinus: Yes normal facial exam, No abrasion and No laceration Mouth: Normal oral and palatal mucosa present, no drooling and no muffled voice Eyes General: appearance normal, both eyes and all related structures Periorbital: periorbital findings normal Eyelids: Yes eyelids normal Conjunctivae: conjunctivae normal Pupils: Equal, round and reactive pupils present EOM: EOMs intact bilaterally Neck Neck: Yes normal visual inspection, Yes full ROM and Yes no lymphadenopathy Chest Chest palpation & inspection: normal inspection of the chest Resp Effort & Inspection: normal respiratory effort and able to speak in complete sentences GI Inspection: Yes normal to inspection Rectal Exam - Male: Yes other (multiple, large, internal and external hemorrhoids) Neuro General: patient oriented x3 and moves all extremities Cranial nerves: Yes Equal, round and reactive pupils present Cognition (Neuro): normal cognition Extrem General: Yes normal to inspection, Yes full ROM and Yes capillary refill normal Psych Appearance: grossly normal Mental Status: mental status grossly normal Affect: normal affect Attitude: cooperative Thought process: Normal thought process present Thought content: Normal thought content present Insight: Good insight present (Psych) Medical Decision Making Medical Decision Making MDM Narrative: Patient is a 53 year old assigned male at with a history of hemorrhoids and an anal fissure presenting to the emergency department today with persistent constipation and pain with bowel movements. Patient's physical exam showed a significant amount of large internal and external hemorrhoids. Patient was unable to tolerate a complete rectal examination secondary to pain. Patient's blood work was unremarkable. I consulted with Dr. Tang, the general surgeon health information director, who examined the patient and recommended anacourt, colace, and metamucil with outpatient follow up this week in his office. I explained my physical exam findings as well as all test results to the patient. I answered all questions asked by the patient. I stressed the importance of the patient taking his medication as directed (either prescribed or as the over the counter packaging recommends). I stressed the importance of the patient following up with his primary care provider and the general surgeon. I stressed the importance of the patient returning to the emergency department immediately if his symptoms were to worsen or if he were to develop any dizziness, shortness of breath, difficulty breathing, chest pain, blurry vision, loss of vision, nausea, vomiting, abdominal pain, fever, chills, back pain, or any other complaints. Patient verbalized agreement and understanding with this treatment plan and discharge. Differential Diagnosis Differential Diagnoses: The differential diagnosis associated with the presentation includes Hemorrhoids Thrombosed hemorrhoid Anal fissure Admission/Observation Consideration of admission/observation: Escalation of care including admission/observation considered Patient would have been admitted to the hospital had his work up had any findings where hospital admission was appropriate and his clinical presentation warranted hospital admission. Consult Healthcare Provider Management of the patient was discussed with: Instrument Shop Supervisor (spoke with Dr. Tang as noted in the MDM Rationale portion of this note.) Lab Data [facility] Lab Attestation statement: I reviewed the patient's lab results. My interpretation of these results are in the MDM Rationale portion of this note. 04/23/24 10:52 04/23/24 10:52 Labs: Lab Results 04/23/24 Range/Units 10:52 WBC 6.0 (4.8-10.8) X10*3/uL RBC 4.06 L (4.60-5.80) X10*6/uL Hgb 10.3 L (14.0-18.0) g/dl Hct 32.3 L (42.0-52.0) % MCV 79.6 L (80.0-98.0) fL MCH 25.4 L (27.0-33.0) pg MCHC 31.9 (31.0-36.0) g/dl RDW 14.3 (11.0-16.0) % Plt Count 338 D (160-400) X10*3/uL MPV 8.7 L (9.4-12.4) fL Immature Gran % (Auto) 0.3 (0.0-0.4) % Neut % (Auto) 51.3 (45-73) % Lymph % (Auto) 34.8 (20-40) % White % (Auto) 9.8 (2-11) % Eos % (Auto) 2.8 (0-4) % Baso % (Auto) 1.0 (0-2) % Lymph # (Auto) 2.1 (1.2-4.9) X10*3/uL White # (Auto) 0.6 (0.1-1.2) X10*3/uL Eos # (Auto) 0.2 (0.0-0.4) X10*3/uL Baso # (Auto) 0.1 (0.0-0.2) X10*3/uL Abs Immat Gran (auto) 0.02 (0.00-0.03) X10*3/uL Absolute Neuts (auto) 3.1 (2.0-8.3) x10*3/uL Absolute Nucleated RBC 0.000 (0.0-0.012) X10*3/uL Nucleated RBC % (auto) 0.0 (0.0-0.2) /100WBC Sodium 142 (135-145) mmol/L Potassium 4.0 (3.3-5.1) mmol/L Chloride 110 H (96-108) mmol/L Carbon Dioxide 25 (22-29) mmol/L Anion Gap 11 L (12-20) BUN 15 (9-16) mg/dL Creatinine 1.11 (0.5-1.4) mg/dL Estim Creat Clear Calc 96.8 Estimated GFR > 60 Random Glucose 85 (60-115) mg/dL Calcium 8.7 (8.4-10.2) mg/dL Total Bilirubin 0.3 (0.0-1.0) mg/dL AST 21 (5-37) U/L ALT 16 (0-40) U/L Alkaline Phosphatase 49 (39-117) U/L Total Protein 7.2 (6.5-8.0) g/dL Albumin 4.3 (3.5-5.0) g/dL Critical Care Time Critical Care Time Critical Care Time: Yes Total Critical Care Time: 33 Attestation: I spent 33 minutes of Critical Care Time with this patient. This does not include time spent on separately reported billable procedures. Discharge Plan Discharge Clinical Impression: Hemorrhoids Patient Disposition: Home, Self-Care Instructions: Hemorrhoids (DC) Additional Instructions: Follow up with your primary care provider and a general surgeon. Return to the emergency department immediately if your symptoms worsen or if you develop any dizziness, shortness of breath, difficulty breathing, chest pain, blurry vision, loss of vision, nausea, vomiting, abdominal pain, fever, chills, back pain, or any other complaints. Prescriptions: New hydrocortisone acetate [Anucort-HC] 25 mg suppository 25 mg MO DAILY Qty: 12 0RF docusate sodium [Colace] 100 mg capsule 100 mg PO BID Qty: 14 0RF psyllium husk [Metamucil] 0.4 gram capsule 0.4 g PO DAILY Qty: 7 0RF Referrals: [facility] [place] General Surgeons [Provider Group] (Call to establish and follow up with the general surgeon (you saw Dr. Tang in the ER today).) Pillo Payton MD [Primary Care Provider] - Stand Alone Forms: Work/School Release Interventions: ED Discharge Assessment Last Done: 04/23/24 17:27 Discharge Date/Time: 04/23/24 17:27 Print Language: Vietnamese
--- NOTE | 2024-04-23 17:13 | P.CONGS_ITS ---
History of Present Illness Consult details Consult date: 04/23/24 Narrative: 53-year-old male here in the ER because of pain in the anus. He says that he has had this for about 2 weeks now. He describes the pain as ?severe?. He he has had difficulty with bowel movements in view of this. 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 He had undergone colonoscopy last July, here for rectal bleeding and was noted to have diverticulosis and hemorrhoids. He does admit to having problems with passage of blood per rectum for many years already. He has had multiple colonoscopies He says that he has not seen a surgeon recently as he has been busy at work. He sees small amounts of blood with bowel movements. Review of Systems 2 Constitutional: Constitutional: Denies chills and Denies fever(s) Cardiovascular: Cardiovascular: Denies chest pain, Denies dyspnea and Denies dyspnea on exertion Respiratory: Respiratory: Denies cough, Denies dyspnea and Denies dyspnea on exertion Gastrointestinal: Gastrointestinal: Reports hematochezia, Denies change in bowel habits and Reports constipation Genitourinary: Genitourinary: Denies hematuria and Denies difficulty urinating Musculoskeletal: Musculoskeletal: Denies back pain and Denies limited range of motion Neurologic: Denies focal weakness and Denies convulsions Psychiatric: Psychiatric: Denies depression and Denies mood swings PMFSH Past Medical History Medical History Anal pain Pancreatitis SBO (small bowel obstruction) Surgical History Surgical History H/O colonoscopy Small intestine obstruction Social History Social History Household Members: Spouse Housing: Apartment Do you presently have visiting nurse or other home services: No Alcohol intake: current Alcohol intake frequency: does not drink Patient Tobacco Use Status: Never used Tobacco Substance Use Type: Marijuana service: Yes Current occupational status: unemployed Meds Allergies Allergy/AdvReac Type Severity Reaction Status Date / Time No Known Allergies Allergy Verified 04/25/24 11:30 Physical Exam 2 Vital Signs: Vital Signs: Last Vital Signs Temp 97.5 F 04/23/24 10:34 Pulse 74 04/23/24 10:34 Resp 20 04/23/24 10:34 BP 136/73 04/23/24 10:34 Pulse Ox 100 04/23/24 10:34 O2 Del Method Room Air 04/23/24 10:34 BMI result Body Mass Index 29.5 Const: Other: Appears uncomfortable General: no acute distress Resp: Effort & Inspection: normal respiratory effort Cardio: Rate: regular rate GI: Other: Rectal exam shows edematous internal and external hemorrhoids on both the left and right side, with diffuse tenderness, no pus, no areas of gangrene; unable to do a digital exam in view of pain Palpation (GI): Soft to palpation Results Labs 04/23/24 10:52 04/23/24 10:52 Labs: Abnormal lab results 04/23/24 Range/Units 10:52 RBC 4.06 L (4.60-5.80) X10*6/uL Hgb 10.3 L (14.0-18.0) g/dl Hct 32.3 L (42.0-52.0) % MCV 79.6 L (80.0-98.0) fL MCH 25.4 L (27.0-33.0) pg MPV 8.7 L (9.4-12.4) fL Chloride 110 H (96-108) mmol/L Anion Gap 11 L (12-20) Short CBC 04/23/24 Range/Units 10:52 WBC 6.0 (4.8-10.8) X10*3/uL Hgb 10.3 L (14.0-18.0) g/dl Hct 32.3 L (42.0-52.0) % Plt Count 338 D (160-400) X10*3/uL BMP 04/23/24 10:52 Sodium 142 Potassium 4.0 Chloride 110 H Carbon Dioxide 25 BUN 15 Creatinine 1.11 Calcium 8.7 Liver Function 04/23/24 Range/Units 10:52 Total Bilirubin 0.3 (0.0-1.0) mg/dL AST 21 (5-37) U/L ALT 16 (0-40) U/L Alkaline Phosphatase 49 (39-117) U/L Albumin 4.3 (3.5-5.0) g/dL All other labs normal. Assessment and Plan (1) Anal pain: Status: Acute He has significant pain in the anus for the past 2 weeks. He has diffuse edema of hemorrhoids on both the left and right side. I am able to do a good examination because of the tenderness but he does have a history of an anal fissure as well At this time, I advised him to do hot Sitz baths. He should be on stool softeners with Colace b.i.d. as well as steroid suppositories to help with the edema. I will see him again in the office sometime this week to see how is doing as he may need to be scheduled for an exam under anesthesia and sphincterotomy. He is comfortable with the plan. I have discussed the above with the ED staff. Procedures Date of Service Date of Service: 04/28/24
--- OUTSIDE RECORDS SUMMARY | 2024-04-23 17:24 | XMS_ITS | Continuity of Care Document ---
Author Name [facility] Organization [facility] Care Team Providers Care It Systems Analyst Consultant Name Role Phone [facility] Unavailable Unavailable Problems Combined list of problems [...] GOTTI Comment: former heavy etoh user per [employer] note-Feb 2022 [facility] Anxiety Active Condition [facility] Ex-tobacco user Active Condition [facility] Hyperlipidemia ([facility] [id number]) Active Condition [facility] Internal bleeding hemorrhoids Active Condition [facility] Obesity (SCT 564953060) Active Condition [facility] Pancreatitis Active Condition Jul 14, 2021 Entered By: SAMANTHA OROURKE Comment: Remote historyJul 14, 2021 Entered By: SAMANTHA OROURKE Comment: Elev rowdy, lip 07/14 - tx to ERNov 2021 Entered By: ZAHIRA ROMERO Comment: seen by [facility] 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 [facility] 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 Melena [facility] Diagnosis: ICD-10-CM K62.5 Hemorrhage of anus and rectum Active Diagnosis [facility] Diagnosis: ICD-10-CM Z71.9 Counseling, unspecified Active Diagnosis [facility] Diagnosis: ICD-10-CM K92.2 Gastrointestinal hemorrhage, unspecified Active Diagnosis [facility] Diagnosis: ICD-10-CM R10.9 Unspecified abdominal pain Active Diagnosis [facility] Medications Combined list of outpatient medications [...] VE DISORDER ORAL DISCONT INUED (EDIT) 01/19/2024 [id number] EZE ARVIZU 2023 90 [facility] FLUOXETINE HCL 20MG CAP TAKE ONE CAPSULE BY MOUTH ONCE DAILY FOR DEPRESSI ON AND ANXIETY ORAL 04/09/2024 [id number] 4 EZE ARVIZU 2023 90 [facility] FLUOXETINE HCL 20MG CAP TAKE ONE CAPSULE BY MOUTH ONCE DAILY FOR DEPRESSI ON AND ANXIETY ORAL 05/29/2023 [id number] 3 EZE ARVIZU 2022 90 [facility] Immunizations Combined list of available immunizations from the Department of Defense and Veterans Affairs facilities. Immunization Series Date Given Administered By Site Reaction Lot Number CVX Code Drug Home Health Administrator Status Comments Source INFLUENZA, INJECTABLE, QUADRIVALENT, PRESERVATIVE [...] TD(ADULT) UNSPECIFIED FORMULATION 2020 139 complet ed [facility] COVID-19 (PFIZER), MRNA, LNP-S, PF, 30 MCG/0.3 ML DOSE 2 2020 208 complet ed PFR; [id number]; 1 [place] COVID-19 (PFIZER), MRNA, LNP-S, PF, 30 MCG/0.3 ML DOSE 1 2020 208 complet ed PFR; [id number]; 1 [place] INFLUENZA, INJECTABLE, QUADRIVALENT 2018 [...] Nov 17, 2022 08:01 PM Reporting Lab: [address] [address] Performing Lab: [address] [address] [facility] CBC W/ AUTO DIFF ERYTHROCYT ES [#/VOLUME] IN BLOOD BY AUTOMATED COUNT 4.26 10*6/uL 4.23 - 5.66 11/17 Specimen Type: BLOOD No comment entered. Ordering Provider: FELTON BOWER Report Released Date/Time: Nov 17, 2022 08:01 PM Reporting Lab: [address] [address] Performing Lab: [address] [address] [facility] CBC W/ AUTO DIFF HEMOGLOBIN [MASS/VOLU ME] IN ARTERIAL BLOOD 12.9 g/dL 12.8 - 17.0 08/02 /2023 Specimen Type: BLOOD No comment entered. Ordering Provider: FELTON BOWER Report Released Date/Time: Nov 17, 2022 08:01 PM Reporting Lab: [address] [address] Performing Lab: [address] [address] [facility] CBC W/ AUTO DIFF HEMATOCRIT [VOLUME FRACTION] OF BLOOD BY AUTOMATED COUNT 38.9 39.2 - 50.4 11/17 L Specimen Type: BLOOD No comment entered. Ordering Provider: FELTON BOWER Report Released Date/Time: Nov 17, 2022 08:01 PM Reporting Lab: [address] [address] Performing Lab: [address] [address] [facility] CBC W/ AUTO DIFF MCV [ENTITIC VOLUME] BY AUTOMATED COUNT 91 fL 82 - 99 11/17 Specimen Type: BLOOD No comment entered. Ordering Provider: FELTON BOWERTOP Report Released Date/Time: Nov 17, 2022 08:01 PM Reporting Lab: [address] [address] Performing Lab: [address] [address] [facility] CBC W/ AUTO DIFF MCH [ENTITIC MASS] BY AUTOMATED COUNT 30.3 pg 26.2 - 32.6 11/17 Specimen Type: BLOOD No comment entered. Ordering Provider: FELTON BOWERTOP Report Released Date/Time: Nov 17, 2022 08:01 PM Reporting Lab: [address] [address] Performing Lab: [address] [place] [address] [facility] CBC W/ AUTO DIFF MCHC [MASS/VOLU ME] BY AUTOMATED COUNT 33.2 g/dL 30.8 - 35.1 11/17 Specimen Type: BLOOD No comment entered. Ordering Provider: FELTON BOWER ISTOP Report Released Date/Time: Nov 17, 2022 08:01 PM Reporting Lab: [address] [address] Performing Lab: [address] [address] [facility] CBC W/ AUTO DIFF PLATELETS [#/VOLUME] IN BLOOD BY AUTOMATED COUNT 254 10*3/uL 140 - 360 11/17 Specimen Type: BLOOD No comment entered. Ordering Provider: FELTON BOWER Report Released Date/Time: Nov 17, 2022 08:01 PM Reporting Lab: [address] [address] Performing Lab: [address] [address] [facility] CBC W/ AUTO DIFF PLATELET MEAN VOLUME [ENTITIC VOLUME] IN BLOOD BY AUTOMATED COUNT 9.0 fL 9.2 - 12.4 11/17 L Specimen Type: BLOOD No comment entered. Ordering Provider: FELTON BOWER Report Released Date/Time: Nov 17, 2022 08:01 PM Reporting Lab: [address] [address] Performing Lab: [address] [address] [facility] CBC W/ AUTO DIFF ERYTHROCYT E DISTRIBUTI ON WIDTH [RATIO] BY AUTOMATED COUNT 13 12 - 16 11/17 Specimen Type: BLOOD No comment entered. Ordering Provider: FELTON BOWER Report Released Date/Time: Nov 17, 2022 08:01 PM Reporting Lab: [address] [address] Performing Lab: [address] [address] [facility] CBC W/ AUTO DIFF LYMPHOCYTE S/100 LEUKOCYTES IN BLOOD BY AUTOMATED COUNT 35.2 14.0 - 42.3 11/17 Specimen Type: BLOOD No comment entered. Ordering Provider: FELTON BOWER Report Released Date/Time: Nov 17, 2022 08:01 PM Reporting Lab: [address] [address] Performing Lab: [address] [address] [facility] CBC W/ AUTO DIFF NEUTROPHIL S/100 LEUKOCYTES IN BLOOD BY AUTOMATED COUNT 52.2 43.7 - 75.8 11/17 Specimen Type: BLOOD No comment entered. Ordering Provider: FELTON BOWER Report Released Date/Time: Nov 17, 2022 08:01 PM Reporting Lab: [facility] [address] [facility] [address] Performing Lab: [facility] [address] [facility] [address] [facility] CBC W/ AUTO DIFF MONOCYTES/ 100 LEUKOCYTES IN BLOOD BY AUTOMATED COUNT 8.3 5.1 - 13.7 11/17 Specimen Type: BLOOD No comment entered. Ordering Provider: FELTON BOWER Report Released Date/Time: Nov 17, 2022 08:01 PM Reporting Lab: [address] [address] Performing Lab: [address] [address] [facility] CBC W/ AUTO DIFF EOSINOPHIL S/100 LEUKOCYTES IN BLOOD BY AUTOMATED COUNT 3.2 0.4 - 6.8 11/17 Specimen Type: BLOOD No comment entered. Ordering Provider: FELTON BOWER Report Released Date/Time: Nov 17, 2022 08:01 PM Reporting Lab: [address] [address] Performing Lab: [address] [address] [facility] CBC W/ AUTO DIFF BASOPHILS/ 100 LEUKOCYTES IN BLOOD BY AUTOMATED COUNT 0.7 0.1 - 2.0 11/17 Specimen Type: BLOOD No comment entered. Ordering Provider: FELTON BOWER Report Released Date/Time: Nov 17, 2022 08:01 PM Reporting Lab: [address] [place] [address] Performing Lab: [address] [place] [address] [facility] CBC W/ AUTO DIFF LYMPHOCYTE S [#/VOLUME] IN BLOOD BY AUTOMATED COUNT 2.6 10*3/uL 1.0 - 3.2 11/17 Specimen Type: BLOOD No comment entered. Ordering Provider: FELTON BOWER Report Released Date/Time: Nov 17, 2022 08:01 PM Reporting Lab: [address] [address] Performing Lab: [address] [place] [address] [facility] CBC W/ AUTO DIFF NEUTROPHIL S [#/VOLUME] IN BLOOD BY AUTOMATED COUNT 3.9 10*3/uL 2.2 - 7.6 11/17 Specimen Type: BLOOD No comment entered. Ordering Provider: FELTON BOWER Report Released Date/Time: Nov 17, 2022 08:01 PM Reporting Lab: [address] [address] Performing Lab: [address] [address] [facility] CBC W/ AUTO DIFF IMMATURE GRANULOCYT ES/100 LEUKOCYTES IN BLOOD BY AUTOMATED COUNT 0.4 0.0 - 0.7 11/17 Specimen Type: BLOOD No comment entered. Ordering Provider: FELTON BOWER Report Released Date/Time: Nov 17, 2022 08:01 PM Reporting Lab: [address] [address] Performing Lab: [address] [address] [facility] CBC W/ AUTO DIFF NUCLEATED ERYTHROCYT ES/100 LEUKOCYTES [RATIO] IN BLOOD BY AUTOMATED COUNT 0.0 /100{WBC s} 0.0 - 0.0 11/17 Specimen Type: BLOOD No comment entered. Ordering Provider: FELTON BOWER Report Released Date/Time: Nov 17, 2022 08:01 PM Reporting Lab: [address] [address] Performing Lab: [address] [address] [facility] URINALYS IS,ROUTI NE/ADMIS PATITO COLOR OF URINE Light-Ye llow 11/17 Specimen Type: URINE No comment entered. Ordering Provider: JUAN HERNANDEZ Report Released Date/Time: Nov 17, 2022 01:25 PM Reporting Lab: [address] [address] Performing Lab: [address] [address] [facility] URINALYS IS,ROUTI NE/ADMIS PATITO SPECIFIC GRAVITY OF URINE 1.017 1.001 - 1.035 11/17 Specimen Type: URINE No comment entered. Ordering Provider: JUAN HERNANDEZ CRUZ R Report Released Date/Time: Nov 17, 2022 01:25 PM Reporting Lab: [place] [address] Performing Lab: [address] URINALYS IS,ROUTI NE/ADMIS PATITO UROBILINOG EN [UNITS/VOL UME] IN URINE NORMALmg /dL 11/17 Specimen Type: URINE No comment entered. Ordering Provider: JUAN HERNANDEZ [place] R Report Released Date/Time: Nov 17, 2022 01:25 PM Reporting Lab: [place] [address] Performing Lab: [address] URINALYS IS,ROUTI NE/ADMIS PATITO BILIRUBIN. TOTAL [PRESENCE] IN URINE BY TEST STRIP NEGATIVE 11/17 Specimen Type: URINE No comment entered. Ordering Provider: JUAN HERNANDEZ [place] R Report Released Date/Time: Nov 17, 2022 01:25 PM Reporting Lab: [place] [address] Performing Lab: [address] URINALYS IS,ROUTI NE/ADMIS PATITO KETONES [PRESENCE] IN URINE NEGATIVE 11/17 Specimen Type: URINE No comment entered. Ordering Provider: JUAN HERNANDEZ [place] R Report Released Date/Time: Nov 17, 2022 01:25 PM Reporting Lab: [place] [address] Performing Lab: [address] URINALYS IS,ROUTI NE/ADMIS PATITO GLUCOSE [PRESENCE] IN URINE BY TEST STRIP NEGATIVE 11/17 Specimen Type: URINE No comment entered. Ordering Provider: JUAN HERNANDEZ [place] R Report Released Date/Time: Nov 17, 2022 01:25 PM Reporting Lab: [place] [address] Performing Lab: [address] URINALYS IS,ROUTI NE/ADMIS PATITO PROTEIN [MASS/VOLU ME] IN URINE BY TEST STRIP NEGATIVE 11/17 Specimen Type: URINE No comment entered. Ordering Provider: JUAN HERNANDEZ CRUZ R Report Released Date/Time: Nov 17, 2022 01:25 PM Reporting Lab: [address] Performing Lab: [address] URINALYS IS,ROUTI NE/ADMIS PATITO PH OF BODY FLUID 7.0 [pH] 5.0 - 8.0 11/17 Specimen Type: URINE No comment entered. Ordering Provider: JUAN HERNANDEZ CRUZ R Report Released Date/Time: Nov 17, 2022 01:25 PM Reporting Lab: [address] Performing Lab: [address] URINALYS IS,ROUTI NE/ADMIS PATITO APPEARANCE OF URINE Clear 11/17 Specimen Type: URINE No comment entered. Ordering Provider: JUAN HERNANDEZ [place] R Report Released Date/Time: Nov 17, 2022 01:25 PM Reporting Lab: [place] [address] Performing Lab: [address] URINALYS IS,ROUTI NE/ADMIS PATITO HEMOGLOBIN [PRESENCE] IN URINE BY TEST STRIP NEGATIVE 11/17 Specimen Type: URINE No comment entered. Ordering Provider: JUAN HERNANDEZ [place] R Report Released Date/Time: Nov 17, 2022 01:25 PM Reporting Lab: [place] [address] Performing Lab: [address] URINALYS IS,ROUTI NE/ADMIS PATITO NITRITE [PRESENCE] IN URINE BY TEST STRIP NEGATIVE 11/17 Specimen Type: URINE No comment entered. Ordering Provider: JUAN HERNANDEZ CRUZ R Report Released Date/Time: Nov 17, 2022 01:25 PM Reporting Lab: [place] [address] Performing Lab: [address] URINALYS IS,ROUTI NE/ADMIS PATITO LEUKOCYTE ESTERASE [PRESENCE] IN URINE BY TEST STRIP NEGATIVE 11/17 Specimen Type: URINE No comment entered. Ordering Provider: JUAN HERNANDEZ CRUZ R Report Released Date/Time: Nov 17, 2022 01:25 PM Reporting Lab: [address] [address] Performing Lab: [place] [phone] [place] [address] ALBUMIN ALBUMIN [MASS/VOLU ME] IN SERUM OR PLASMA 4.2 g/dL 3.5 - 5.0 11/17 Specimen Type: SERUM No comment entered. Ordering Provider: JUAN HERNANDEZ [place] R Report Released Date/Time: Nov 17, 2022 01:25 PM Reporting Lab: [address] [address] Performing Lab: [address] [phone] [place] [address] AMYLASE AMYLASE [ENZYMATIC ACTIVITY/V OLUME] IN SERUM OR PLASMA 118 U/L 25 - 125 11/17 Specimen Type: SERUM No comment entered. Ordering Provider: JUAN HERNANDEZ [place] R Report Released Date/Time: Nov 17, 2022 01:25 PM Reporting Lab: [address] [address] Performing Lab: [address] [phone] [place] [address] CALCIUM CALCIUM [MASS/VOLU ME] IN SERUM OR PLASMA 9.1 mg/dL 8.5 - 10.5 11/17 Specimen Type: SERUM No comment entered. Ordering Provider: JUAN HERNANDEZ [place] R Report Released Date/Time: Nov 17, 2022 01:25 PM Reporting Lab: [address] [address] Performing Lab: [address] [address] [place] [address] CBC W/ AUTO DIFF LEUKOCYTES [#/VOLUME] IN BLOOD BY AUTOMATED COUNT 6.9 10*3/uL 4.5 - 11.0 11/17 Specimen Type: BLOOD No comment entered. Ordering Provider: JUAN HERNANDEZ [place] R Report Released Date/Time: Nov 17, 2022 01:25 PM Reporting Lab: [address] [address] Performing Lab: [address] [address] [place] [address] CBC W/ AUTO DIFF ERYTHROCYT ES [#/VOLUME] IN BLOOD BY AUTOMATED COUNT 4.83 10*6/uL 4.23 - 5.66 11/17 Specimen Type: BLOOD No comment entered. Ordering Provider: JUAN HERNANDEZ [place] R Report Released Date/Time: Nov 17, 2022 01:25 PM Reporting Lab: [address] [address] Performing Lab: [address] [address] [place] [address] CBC W/ AUTO DIFF HEMOGLOBIN [MASS/VOLU ME] IN ARTERIAL BLOOD 14.3 g/dL 12.8 - 17.0 11/17 Specimen Type: BLOOD No comment entered. Ordering Provider: JUAN HERNANDEZ CRUZ R Report Released Date/Time: Nov 17, 2022 01:25 PM Reporting Lab: [address] [address] Performing Lab: [address] [address] [place] [address] CBC W/ AUTO DIFF HEMATOCRIT [VOLUME FRACTION] OF BLOOD BY AUTOMATED COUNT 43.2 39.2 - 50.4 11/17 Specimen Type: BLOOD No comment entered. Ordering Provider: JUAN HERNANDEZ [place] Report Released Date/Time: Nov 17, 2022 01:25 PM Reporting Lab: [address] [address] Performing Lab: [address] [phone] [place] [address] CBC W/ AUTO DIFF MCV [ENTITIC VOLUME] BY AUTOMATED COUNT 89 fL 82 - 99 11/17 Specimen Type: BLOOD No comment entered. Ordering Provider: JUAN HERNANDEZ [place] R Report Released Date/Time: Nov 17, 2022 01:25 PM Reporting Lab: [address] [address] Performing Lab: [address] [phone] [place] [address] CBC W/ AUTO DIFF MCH [ENTITIC MASS] BY AUTOMATED COUNT 29.6 pg 26.2 - 32.6 11/17 Specimen Type: BLOOD No comment entered. Ordering Provider: JUAN HERNANDEZ [place] R Report Released Date/Time: Nov 17, 2022 01:25 PM Reporting Lab: [address] [address] Performing Lab: [address] [address] [facility] CBC W/ AUTO DIFF MCHC [MASS/VOLU ME] BY AUTOMATED COUNT 33.1 g/dL 30.8 - 35.1 11/17 Specimen Type: BLOOD No comment entered. Ordering Provider: JUAN HERNANDEZ [place] R Report Released Date/Time: Nov 17, 2022 01:25 PM Reporting Lab: [address] [address] Performing Lab: [address] [phone] [place] [address] CBC W/ AUTO DIFF PLATELETS [#/VOLUME] IN BLOOD BY AUTOMATED COUNT 310 10*3/uL 140 - 360 11/17 Specimen Type: BLOOD No comment entered. Ordering Provider: JUAN HERNANDEZ [place] R Report Released Date/Time: Nov 17, 2022 01:25 PM Reporting Lab: [address] [address] Performing Lab: [address] [phone] [place] [address] CBC W/ AUTO DIFF PLATELET MEAN VOLUME [ENTITIC VOLUME] IN BLOOD BY AUTOMATED COUNT 9.1 fL 9.2 - 12.4 11/17 L Specimen Type: BLOOD No comment entered. Ordering Provider: JUAN HERNANDEZ [place] R Report Released Date/Time: Nov 17, 2022 01:25 PM Reporting Lab: [address] [address] Performing Lab: [address] [phone] [place] [address] CBC W/ AUTO DIFF ERYTHROCYT E DISTRIBUTI ON WIDTH [RATIO] BY AUTOMATED COUNT 13 12 - 16 11/17 Specimen Type: BLOOD No comment entered. Ordering Provider: JUAN HERNANDEZ [place] R Report Released Date/Time: Nov 17, 2022 01:25 PM Reporting Lab: [address] [address] Performing Lab: [address] [phone] [place] [address] CBC W/ AUTO DIFF LYMPHOCYTE S/100 LEUKOCYTES IN BLOOD BY AUTOMATED COUNT 40.0 14.0 - 42.3 11/17 Specimen Type: BLOOD No comment entered. Ordering Provider: JUAN HERNANDEZ [place] R Report Released Date/Time: Nov 17, 2022 01:25 PM Reporting Lab: [address] [address] Performing Lab: [address] [address] [facility] CBC W/ AUTO DIFF NEUTROPHIL S/100 LEUKOCYTES IN BLOOD BY AUTOMATED COUNT 45.7 43.7 - 75.8 11/17 Specimen Type: BLOOD No comment entered. Ordering Provider: JUAN HERNANDEZ [place] R Report Released Date/Time: Nov 17, 2022 01:25 PM Reporting Lab: [address] [address] Performing Lab: [place] [phone] [place] [address] CBC W/ AUTO DIFF MONOCYTES/ 100 LEUKOCYTES IN BLOOD BY AUTOMATED COUNT 9.8 5.1 - 13.7 11/17 Specimen Type: BLOOD No comment entered. Ordering Provider: JUAN HERNANDEZ [place] R Report Released Date/Time: Nov 17, 2022 01:25 PM Reporting Lab: [address] [address] Performing Lab: [address] [phone] [place] [address] CBC W/ AUTO DIFF EOSINOPHIL S/100 LEUKOCYTES IN BLOOD BY AUTOMATED COUNT 3.4 0.4 - 6.8 11/17 Specimen Type: BLOOD No comment entered. Ordering Provider: JUAN HERNANDEZ [place] Report Released Date/Time: Nov 17, 2022 01:25 PM Reporting Lab: [address] [address] Performing Lab: [address] [phone] [place] [address] CBC W/ AUTO DIFF BASOPHILS/ 100 LEUKOCYTES IN BLOOD BY AUTOMATED COUNT 0.7 0.1 - 2.0 11/17 Specimen Type: BLOOD No comment entered. Ordering Provider: JUAN HERNANDEZ [place] R Report Released Date/Time: Nov 17, 2022 01:25 PM Reporting Lab: [address] [address] Performing Lab: [address] [address] [place] [address] CBC W/ AUTO DIFF LYMPHOCYTE S [#/VOLUME] IN BLOOD BY AUTOMATED COUNT 2.7 10*3/uL 1.0 - 3.2 11/17 Specimen Type: BLOOD No comment entered. Ordering Provider: JUAN HERNANDEZ [place] R Report Released Date/Time: Nov 17, 2022 01:25 PM Reporting Lab: [address] [address] Performing Lab: [address] [address] [facility] CBC W/ AUTO DIFF NEUTROPHIL S [#/VOLUME] IN BLOOD BY AUTOMATED COUNT 3.1 10*3/uL 2.2 - 7.6 11/17 Specimen Type: BLOOD No comment entered. Ordering Provider: JUAN HERNANDEZ [place] R Report Released Date/Time: Nov 17, 2022 01:25 PM Reporting Lab: [address] [address] Performing Lab: [address] [address] [place] [address] CBC W/ AUTO DIFF IMMATURE GRANULOCYT ES/100 LEUKOCYTES IN BLOOD BY AUTOMATED COUNT 0.4 0.0 - 0.7 11/17 Specimen Type: BLOOD No comment entered. Ordering Provider: JUAN HERNANDEZ [place] R Report Released Date/Time: Nov 17, 2022 01:25 PM Reporting Lab: [address] [address] Performing Lab: [address] [address] [facility] CBC W/ AUTO DIFF NUCLEATED ERYTHROCYT ES/100 LEUKOCYTES [RATIO] IN BLOOD BY AUTOMATED COUNT 0.0 /100{WBC s} 0.0 - 0.0 11/17 Specimen Type: BLOOD No comment entered. Ordering Provider: JUAN HERNANDEZ [place] R Report Released Date/Time: Nov 17, 2022 01:25 PM Reporting Lab: [address] [address] Performing Lab: [address] [address] [facility] CHEM 7 CREATININE [MASS/VOLU ME] IN SERUM OR PLASMA 0.94 mg/dL 0.5 - 1.5 11/17 Specimen Type: SERUM No comment entered. Ordering Provider: JUAN HERNANDEZ [place] R Report Released Date/Time: Nov 17, 2022 01:25 PM Reporting Lab: [address] [address] Performing Lab: [address] [address] [facility] CHEM 7 UREA NITROGEN [MASS/VOLU ME] IN SERUM OR PLASMA 12 mg/dL 7 - 25 11/17 Specimen Type: SERUM No comment entered. Ordering Provider: JUAN HERNANDEZ [place] R Report Released Date/Time: Nov 17, 2022 01:25 PM Reporting Lab: [address] [address] Performing Lab: [address] [address] [facility] CHEM 7 GLUCOSE [MASS/VOLU ME] IN SERUM OR PLASMA 65 mg/dL 65 - 100 11/17 Specimen Type: SERUM No comment entered. Ordering Provider: JUAN HERNANDEZ CRUZ R Report Released Date/Time: Nov 17, 2022 01:25 PM Reporting Lab: [address] [address] Performing Lab: [address] [address] [facility] CHEM 7 SODIUM [MOLES/VOL UME] IN SERUM OR PLASMA 140 mmol/L 135 - 145 11/17 Specimen Type: SERUM No comment entered. Ordering Provider: JUAN HERNANDEZ [place] R Report Released Date/Time: Nov 17, 2022 01:25 PM Reporting Lab: [address] [address] Performing Lab: [address] [address] [facility] CHEM 7 POTASSIUM [MOLES/VOL UME] IN SERUM OR PLASMA 4.0 mmol/L 3.5 - 5.0 11/17 Specimen Type: SERUM No comment entered. Ordering Provider: JUAN HERNANDEZ CRUZ R Report Released Date/Time: Nov 17, 2022 01:25 PM Reporting Lab: [address] [address] Performing Lab: [address] [address] [facility] CHEM 7 CHLORIDE [MOLES/VOL UME] IN SERUM OR PLASMA 105 mmol/L 100 - 110 11/17 Specimen Type: SERUM No comment entered. Ordering Provider: JUAN HERNANDEZ CRUZ R Report Released Date/Time: Nov 17, 2022 01:25 PM Reporting Lab: [address] [address] Performing Lab: [address] [address] [facility] CHEM 7 CARBON DIOXIDE, TOTAL [MOLES/VOL UME] IN SERUM OR PLASMA 26 meq/L 20 - 30 11/17 Specimen Type: SERUM No comment entered. Ordering Provider: JUAN HERNANDEZ CRUZ R Report Released Date/Time: Nov 17, 2022 01:25 PM Reporting Lab: [address] [address] Performing Lab: [address] [address] [facility] CHEM 7 ANION GAP IN SERUM OR PLASMA 9 meq/L 6 - 16 11/17 Specimen Type: SERUM No comment entered. Ordering Provider: JUAN HERNANDEZ CAROLINA R Report Released Date/Time: Nov 17, 2022 01:25 PM Reporting Lab: [address] [address] Performing Lab: [address] [address] [facility] 7 GLOMERULAR FILTRATION RATE/1.73 SQ M.PREDICTE D [VOLUME RATE/AREA] IN SERUM, PLASMA OR BLOOD BY CREATININE -BASED FORMULA (CKD-EPI 2020) >90mL/mi n 60 11/17 Specimen Type: SERUM No comment entered. Ordering Provider: JUAN HERNANDEZ [place] R Report Released Date/Time: Nov 17, 2022 01:25 PM Reporting Lab: [address] [address] Performing Lab: [id number] [place] [address] LIPASE LIPASE [ENZYMATIC ACTIVITY/V OLUME] IN SERUM OR PLASMA 23 U/L 8 - 70 11/17 Specimen Type: SERUM No comment entered. Ordering Provider: JUAN HERNANDEZ [place] R Report Released Date/Time: Nov 17, 2022 01:25 PM Reporting Lab: [address] [address] Performing Lab: [address] [address] BRONX LIVER PROFILE ALBUMIN [MASS/VOLU ME] IN SERUM OR PLASMA 4.2 g/dL 3.5 - 5.0 11/17 Specimen Type: SERUM No comment entered. Ordering Provider: JUAN HERNANDEZ [place] R Report Released Date/Time: Nov 17, 2022 01:25 PM Reporting Lab: [address] [address] Performing Lab: [address] [address] BRONX LIVER PROFILE BILIRUBIN. TOTAL [MASS/VOLU ME] IN SERUM OR PLASMA 0.6 mg/dL 0.2 - 1.2 11/17 Specimen Type: SERUM No comment entered. Ordering Provider: JUAN HERNANDEZ [place] R Report Released Date/Time: Nov 17, 2022 01:25 PM Reporting Lab: [address] [id number] Performing Lab: [address] [id number] [place] [address] LIVER PROFILE BILIRUBIN. DIRECT [MASS/VOLU ME] IN SERUM OR PLASMA 0.2 mg/dL 0.0 - 0.5 11/17 Specimen Type: SERUM No comment entered. Ordering Provider: JUAN HERNANDEZ CRUZ R Report Released Date/Time: Nov 17, 2022 01:25 PM Reporting Lab: [address] [address] Performing Lab: [place] [id number] LIVER PROFILE ALKALINE PHOSPHATAS E [ENZYMATIC ACTIVITY/V OLUME] IN SERUM OR PLASMA 52 U/L 40 - 150 11/17 Specimen Type: SERUM No comment entered. Ordering Provider: JUAN HERNANDEZ CRUZ R Report Released Date/Time: Nov 17, 2022 01:25 PM Reporting Lab: [place] [id number] Performing Lab: [place] [id number] [place] [address] LIVER PROFILE ALANINE AMINOTRANS FERASE [ENZYMATIC ACTIVITY/V OLUME] IN SERUM OR PLASMA 17 U/L 7 - 52 11/17 Specimen Type: SERUM No comment entered. Ordering Provider: JUAN HERNANDEZ CRUZ R Report Released Date/Time: Nov 17, 2022 01:25 PM Reporting Lab: [address] [address] Performing Lab: [place] [id number] [place] [address] LIVER PROFILE ASPARTATE AMINOTRANS FERASE [ENZYMATIC ACTIVITY/V OLUME] IN SERUM OR PLASMA 21 U/L 5 - 40 11/17 Specimen Type: SERUM No comment entered. Ordering Provider: JUAN HERNANDEZ CRUZ R Report Released Date/Time: Nov 17, 2022 01:25 PM Reporting Lab: [address] [address] Performing Lab: [place] [id number] [place] [address] TROPONIN I TROPONIN I.CARDIAC [MASS/VOLU ME] IN SERUM OR PLASMA <0.010ng /mL 0.000 - 0.300 11/17 Specimen Type: PLASMA No comment entered. Ordering Provider: JUAN HERNANDEZ CRUZ R Report Released Date/Time: Nov 17, 2022 01:25 PM Reporting Lab: [address] [address] Performing Lab: [address] [address] [facility] Encounters Combined list of: 1) Encounters from Department of Veterans Affairs facilities going back up to thelast 18 months. 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 Location Location Details Encounter Type Encounter Number Reason For Visit Attending Provider ADM Date DC Date Status Disposition Source [facility] Outpatient Encounter [id number] 10/28 [facility] En[facility] [id number] 10/28 [facility] En[facility] [id number] 11/03 [place] [facility] [place] Outpatient Encounter [id number] 11/17 [facility] OFFICE O/P EST MOD 30-39 MIN [id number] Diagnos is: ICD-10- CM R10.9 Unspeci fied abdomin al pain
Gavin HERNANDEZ 11/17 [facility] ON DAY [facility] EMERGENCY DEPT VISIT [facility] [id number] Diagnos is: ICD-10- CM K92.2 Gastroi ntestin al hemorrh age, 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
GENNIKARUNA,LUIS FERNANDO RISTOPHER 11/17 [facility] Outpatient Encounter [id number] 11/18 [facility] Outpatient Encounter [id number] GRISELDA RIOS 11/18 [facility] Outpatient Encounter [id number] 11/19 [facility] Outpatient Encounter [id number] 11/19 [place] [facility] [place] [facility] 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
DRAGANSNOW FARLEY S 11/23 [facility] Outpatient Encounter [id number] 11/30 [facility] Outpatient Encounter [id number] 11/30 [place] [facility] [place] [facility] [facility] COLONOSCOP Y AND BIOPSY [id number] Diagnos is: ICD-10- CM K62.5 Hemorrh age of anus and rectum< br/> NJEI,BASIL E 11/30 [facility] Outpatient Encounter [id number] 11/30 [facility] Outpatient Encounter [id number] Diagnos is: ICD-10- CM K62.5 Hemorrh age of anus and rectum< br/> NJEI,BASIL E 11/30 [facility] Outpatient Encounter [id number] Efraín LABOY AURABLaurie 12/03 [facility] Outpatient Encounter [id number] Diagnos is: ICD-10- CM K92.1 Melena< br/> MINITERLUIS FERNANDO RISTOPHER 12/22 [facility] [place] Outpatient Encounter [id number] 12/25 [facility] [place] [place] Outpatient Encounter [id number] Sammy AN 01/27 [facility] En[facility] [id number] 02/14 [facility] En[facility] [id number] 02/28 [facility] En[facility] [id number] 07/26 [facility] En[facility] [id number] 07/26 [facility] En[facility] [id number] 07/28 [facility] En[facility] [id number] 08/07 [facility] En[facility] [id number] 08/07 [facility] En[facility] [id number] 08/30 [facility] En[facility] [id number] 08/30 [facility] En[facility] [id number] 09/26 [facility] En[facility] [id number] 09/27 [facility] [id number] 10/09 [facility] En[facility] [id number] 10/20 [facility] En[facility] [id number] 12/20 [facility] En[facility] [id number] 01/09 [facility] En[facility] [id number] 01/17 [facility] En[facility] [id number] 02/05 [facility] En[facility] [id number] 02/05 [facility] En[facility] [id number] 04/23 [facility] Social History Combined list of available smoking, tobacco, and other social history from Department of Defense and Veterans Affairs facilities. Social History Type Response Date Comment [facility] e Tobacco smoking status [facility] VA-TOBACCO FORMER USER 07/14/2021 [facility] History of tobacco use VA-TOBACCO QUIT 15 YRS OR MORE 07/14/2021 [facility] History of tobacco use VA-TOBACCO NEVER USED 07/11/2020 [facility] History of tobacco use VA-TOBACCO QUIT 5 TO < 15 YRS 05/23/2019 [facility] History of tobacco use VA-TOBACCO FORMER USER 04/19/2018 [facility] History of tobacco use QUIT TOBACCO USE > 7 YEARS AGO 02/02/2016 Quit 1991. FRANSISCO
[2024-04-23 17:26] VITALS: BP 112/69; PULSE 51; RESP 18; TEMP 36.6; O2SAT 98
[2024-04-23 17:27] VITALS: BP 112/69; PULSE 51; RESP 18; TEMP 36.6; O2SAT 98
== END 2024-04-23 17:27 | disposition home or self-care (01) ==
PROVIDERS: Emergency Provider Emergency Medicine; PCP Internal Medicine
DX: K64.4 Residual hemorrhoidal skin tags (principal); K64.8 Other hemorrhoids; K59.00 Constipation, unspecified
CPT/HCPCS: 36415; 80053; 85025; 99282; 99283

== ENCOUNTER → 2024-04-23 15:41 | Outpatient (BNV) | payer OTHER, SELFPAY | PROVIDERS: Emergency Provider Emergency Medicine; PCP Internal Medicine; Visit Provider Surgery | DX: K62.89 Other specified diseases of anus and rectum (principal) | CPT/HCPCS: 99283 ==

== ENCOUNTER 2024-04-25 11:15 | Outpatient (AMB) | payer OTHER, SELFPAY ==
[2024-04-25 11:19] VITALS: BMI 29.5
--- NOTE | 2024-04-25 11:19 | MHC.OFFVIS ---
Vital Signs 04/25/24 11:19 Height 6 ft 2 in Weight 230 lb BMI 29.5 Intake Visit Reasons: hemorrhoids Intake Note: This patient presents for hemorrhoids assessment. Pt c/o; reports pain, reports had occasional rectal bleeding but has not notice any in the last couple of weeks. 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 I had seen him in the ER 3 days ago for painful and swollen hemorrhoids. He says that he has had this for over 2 weeks now. He describes the pain as ?severe?. He he has had difficulty with bowel movements in view of this. He feels that there are knives in his anus when he has a bowel movement. 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 He had undergone colonoscopy last July, here for rectal bleeding and was noted to have diverticulosis and hemorrhoids. He does admit to having problems with passage of blood per rectum for many years already. He has had multiple colonoscopies He says that he has not seen a surgeon recently as he has been busy at work. He sees small amounts of blood with bowel movements. [facility] Medical History Anal pain Pancreatitis SBO (small bowel obstruction) Surgical History H/O colonoscopy Small intestine obstruction Social History Household Members: Spouse Housing: Apartment Do you presently have visiting nurse or other home services: No Alcohol intake: current Alcohol intake frequency: does not drink Patient Tobacco Use Status: Never used Tobacco Substance Use Type: Marijuana service: Yes Current occupational status: unemployed Physical Exam Vital Signs: BMI result Body Mass Index 29.5 Const General: comfortable and no acute distress Orientation/consciousness: patient oriented x3 Neck Neck: Yes no lymphadenopathy Resp Auscultation: clear to auscultation bilaterally Cardio Rhythm: regular rhythm GI Other: Rectal exam shows edematous hemorrhoids on both the left and right side with some prolapse of the internal component, tender to touch so I did not she had with anoscopy nor digital exam Palpation (GI): Soft to palpation, nontender and no guarding Neuro General: patient oriented x3 Assessment & Plan Assessment & Plan (1) Anal pain: Code(s): K62.89 - Other specified diseases of anus and rectum Category: Medical Plan: Examination shows markedly swollen hemorrhoids on both the left and right side. He also describes her pain with bowel movements and says that this is like he has sharp knives in his anus. This is suggestive of an anal fissure. 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 I therefore explained to him the option of proceeding with exam under anesthesia and likely hemorrhoidectomy and sphincterotomy. I explained the technique of this procedure. I reviewed the risks including but not limited to bleeding, infections, sphincter dysfunction, postop pain, inherent risks of anesthesia, as well as the benefits and alternatives He says he is wants to go for surgery does have these prolonged symptoms. Coding Level of Care Code Est Pt Level 3 (44734) Diagnoses Anal pain K62.89
--- OUTSIDE RECORDS SUMMARY | 2024-04-25 11:36 | XMS_ITS | Encounter Summary ---
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 Date/Time Encounter Type Encounter [...] 20 appointments. The data comes from all [facility] treatment facilities. Appointment Date/Time Appointment Type Appointme nt Facility Name Aug 08, 2023 02:00 PM AMBULATORY - MEDICINE [facility] Jan 18, 2024 09:00 AM AMBULATORY - MEDICINE [facility] Social History: Smoking Status (Most current) and Tobacco Use (All prior to encounter date) This section includes the most current, and the historical, smoking and tobacco- related health factors from the [facility] facility where the Encounter took place. Current Smoking Status This section includes the most current smoking, or tobacco-related health factor, from the [facility] facility where the Encounter took place. Date/Time Current Smoking Status Comment Facil ity Jul 14, 2021 11:45 AM VA-TOBACCO FORMER USER [facility] Tobacco Use History This section includes a history of the smoking, or tobacco-related health factors, that were collected on or before the date of the Encounter. The data comes from the [facility] facility where the Encounter took place. Date/Time Smoking Status/Tobacco Use Comment F acility Jul 14, 2021 11:45 AM AR-TOBACCO QUIT 15 YRS OR MORE [facility] Encounter Notes: All associated encounter notes [...] Patient Name: EVA HINKLE Patient Primary Address: [address] [place] [id number] Patient Primary Phone: [phone] Patient : 1970 Patient Age: 53 Caller/Recipient [...] approval or authorization for payment by the [facility] or its staff. Patient advised to report a community ED visit to the [facility] Office of Community Care at within 72 hours. 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
--- OUTSIDE RECORDS SUMMARY | 2024-04-25 11:36 | XMS_ITS | Continuity of Care Document ---
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 [facility] An[facility]tobacco [facility] Hyperlipidemia ([facility] [id number]) Active Condition [facility] Internal bleeding hemorrhoids Active Condition [facility] Obesity ([facility] [id number]) Active Condition [facility] Pancreatitis Active Condition Jul 14, 2021 Entered By: SAMANTHA OROURKE Comment: Remote historyJul 14, 2021 Entered By: SAMANTHA OROURKE Comment: Elev rowdy, lip 07/14 - tx to ERNov 2021 Entered By: ZAHIRA ROMERO Comment: seen by [facility] 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 [facility] 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 Melena [facility] Diagnosis: ICD-10-CM K62.5 Hemorrhage of anus and rectum [facility] Diagnosis: ICD-10-CM Z71.9 Counseling, unspecified Active Diagnosis [facility] Diagnosis: ICD-10-CM K92.2 Gastrointestinal hemorrhage, unspecified Active Diagnosis [facility] Diagnosis: ICD-10-CM R10.9 Unspecified abdominal pain Active Diagnosis [place] Medications Combined list of outpatient medications from Department of Defense and Veterans Affairs facilities.Medications provided include 1) outpatient medications from the last 15 months, and 2) patient-reported medications. Medication Details Route Status Patient Instructions Prescription Expires Prescription Number Last Dispense Date Ordering Provider Order Date Order Qty Source DOCUSATE NA 100MG CAP TAKE ONE CAPSULE BY MOUTH TWICE DAILY NEEDED FOR CONSTIPA TION TO SOFTEN STOOL ORAL ACTIVE 04/25/2025 [id number] 5 EZE ARVIZU [facility]24 [facility] FLUOXETINE HCL 20MG CAP TAKE ONE CAPSULE BY MOUTH ONCE DAILY FOR MAJOR DEPRESSI VE DISORDER ORAL DISCONT INUED (EDIT) 01/19/2024 [id number] 4 EZE ARVIZU 2023 90 [facility] [place] [facility] FLUOXETINE HCL 20MG CAP TAKE ONE CAPSULE BY MOUTH ONCE DAILY FOR DEPRESSI ON AND ANXIETY ORAL 04/09/2024 [id number] 4 EZE ARVIZU 2023 90 [facility] [place] [facility] FLUOXETINE HCL 20MG CAP TAKE ONE CAPSULE BY MOUTH ONCE DAILY FOR DEPRESSI ON AND ANXIETY ORAL 05/29/2023 [id number] EZE ARVIZU 2022 90 [facility] HYDROCORTIS ONE 2.5% CREAM,RTL W/APPLICATO R INSERT SMALL AMOUNT RECTAL AREA TWICE DAILY NEEDED FOR SKIN INFLAMMA TION RECTAL ACTIVE 04/25/2025 [id number] 5 EZE ARVIZU 2024 [facility] Immunizations Combined list of available immunizations from the Department of Defense and Veterans Affairs facilities. Immunization Series Date Given Administered By Site Reaction Lot Number CVX Code Drug Greige Mender Status Comments Source INFLUENZA, INJECTABLE, QUADRIVALENT, PRESERVATIVE FREE 2021 150 complet ed [facility] [place] COVID-19 (PFIZER), MRNA, [...] TD(ADULT) UNSPECIFIED FORMULATION 2020 139 complet ed [facility] [place] [facility] COVID-19 (PFIZER), MRNA, LNP-S, PF, 30 MCG/0.3 ML DOSE 2 2020 208 complet ed PFR; [id number]; 1 [place] COVID-19 (PFIZER), MRNA, LNP-S, PF, 30 MCG/0.3 ML DOSE 1 2020 208 complet ed PFR; [id number]; 1 [place] INFLUENZA, INJECTABLE, QUADRIVALENT 2018 [...] Nov 17, 2022 08:01 PM Reporting Lab: [address] [address] Performing Lab: [address] [address] [facility] CBC W/ AUTO DIFF ERYTHROCYT ES [#/VOLUME] IN BLOOD BY AUTOMATED COUNT 4.26 10*6/uL 4.23 - 5.66 11/17 Specimen Type: BLOOD No comment entered. Ordering Provider: FELTON BOWER Report Released Date/Time: Nov 17, 2022 08:01 PM Reporting Lab: [address] [address] Performing Lab: [address] [address] [facility] CBC W/ AUTO DIFF HEMOGLOBIN [MASS/VOLU ME] IN ARTERIAL BLOOD 12.9 g/dL 12.8 - 17.0 11/17 Specimen Type: BLOOD No comment entered. Ordering Provider: FELTON BOWER Report Released Date/Time: Nov 17, 2022 08:01 PM Reporting Lab: [address] [address] Performing Lab: [address] [address] [facility] CBC W/ AUTO DIFF HEMATOCRIT [VOLUME FRACTION] OF BLOOD BY AUTOMATED COUNT 38.9 39.2 - 50.4 11/17 L Specimen Type: BLOOD No comment entered. Ordering Provider: FELTON BOWER Report Released Date/Time: Nov 17, 2022 08:01 PM Reporting Lab: [address] [address] Performing Lab: [address] [address] [facility] CBC W/ AUTO DIFF MCV [ENTITIC VOLUME] BY AUTOMATED COUNT 91 fL 82 - 99 11/17 Specimen Type: BLOOD No comment entered. Ordering Provider: FELTON BOWER Report Released Date/Time: Nov 17, 2022 08:01 PM Reporting Lab: [address] [address] Performing Lab: [address] [address] [facility] CBC W/ AUTO DIFF MCH [ENTITIC MASS] BY AUTOMATED COUNT 30.3 pg 26.2 - 32.6 11/17 Specimen Type: BLOOD No comment entered. Ordering Provider: FELTON BOWER Report Released Date/Time: Nov 17, 2022 08:01 PM Reporting Lab: [facility] [address] [facility] [address] Performing Lab: [facility] [address] [address] [facility] CBC W/ AUTO DIFF MCHC [MASS/VOLU ME] BY AUTOMATED COUNT 33.2 g/dL 30.8 - 35.1 11/17 Specimen Type: BLOOD No comment entered. Ordering Provider: FELTON BOWER Report Released Date/Time: Nov 17, 2022 08:01 PM Reporting Lab: [address] [address] Performing Lab: [address] [address] [facility] CBC W/ AUTO DIFF PLATELETS [#/VOLUME] IN BLOOD BY AUTOMATED COUNT 254 10*3/uL 140 - 360 11/17 Specimen Type: BLOOD No comment entered. Ordering Provider: FELTON BOWER Report Released Date/Time: Nov 17, 2022 08:01 PM Reporting Lab: [address] [address] Performing Lab: [address] [address] [facility] CBC W/ AUTO DIFF PLATELET MEAN VOLUME [ENTITIC VOLUME] IN BLOOD BY AUTOMATED COUNT 9.0 fL 9.2 - 12.4 11/17 L Specimen Type: BLOOD No comment entered. Ordering Provider: FELTON BOWER Report Released Date/Time: Nov 17, 2022 08:01 PM Reporting Lab: [address] [place] [address] Performing Lab: [address] [place] [address] [facility] CBC W/ AUTO DIFF ERYTHROCYT E DISTRIBUTI ON WIDTH [RATIO] BY AUTOMATED COUNT 13 12 - 16 11/17 Specimen Type: BLOOD No comment entered. Ordering Provider: FELTON BOWERTOP Report Released Date/Time: Nov 17, 2022 08:01 PM Reporting Lab: [address] [address] Performing Lab: [address] [place] [address] [facility] CBC W/ AUTO DIFF LYMPHOCYTE S/100 LEUKOCYTES IN BLOOD BY AUTOMATED COUNT 35.2 14.0 - 42.3 11/17 Specimen Type: BLOOD No comment entered. Ordering Provider: FELTON BOWER Report Released Date/Time: Nov 17, 2022 08:01 PM Reporting Lab: [address] [address] Performing Lab: [address] [address] [facility] CBC W/ AUTO DIFF NEUTROPHIL S/100 LEUKOCYTES IN BLOOD BY AUTOMATED COUNT 52.2 43.7 - 75.8 11/17 Specimen Type: BLOOD No comment entered. Ordering Provider: FELTON BOWER Report Released Date/Time: Nov 17, 2022 08:01 PM Reporting Lab: [address] [address] Performing Lab: [address] [address] [facility] CBC W/ AUTO DIFF MONOCYTES/ 100 LEUKOCYTES IN BLOOD BY AUTOMATED COUNT 8.3 5.1 - 13.7 11/17 Specimen Type: BLOOD No comment entered. Ordering Provider: FELTON BOWER Report Released Date/Time: Nov 17, 2022 08:01 PM Reporting Lab: [address] [address] Performing Lab: [address] [address] [facility] CBC W/ AUTO DIFF EOSINOPHIL S/100 LEUKOCYTES IN BLOOD BY AUTOMATED COUNT 3.2 0.4 - 6.8 11/17 Specimen Type: BLOOD No comment entered. Ordering Provider: FELTON BOWER Report Released Date/Time: Nov 17, 2022 08:01 PM Reporting Lab: [address] [address] Performing Lab: [address] [place] [address] [facility] CBC W/ AUTO DIFF BASOPHILS/ 100 LEUKOCYTES IN BLOOD BY AUTOMATED COUNT 0.7 0.1 - 2.0 11/17 Specimen Type: BLOOD No comment entered. Ordering Provider: FELTON BOWER Report Released Date/Time: Nov 17, 2022 08:01 PM Reporting Lab: [address] [address] Performing Lab: [address] [address] [facility] CBC W/ AUTO DIFF LYMPHOCYTE S [#/VOLUME] IN BLOOD BY AUTOMATED COUNT 2.6 10*3/uL 1.0 - 3.2 11/17 Specimen Type: BLOOD No comment entered. Ordering Provider: FELTON BOWER Report Released Date/Time: Nov 17, 2022 08:01 PM Reporting Lab: [address] [address] Performing Lab: [address] [address] [facility] CBC W/ AUTO DIFF NEUTROPHIL S [#/VOLUME] IN BLOOD BY AUTOMATED COUNT 3.9 10*3/uL 2.2 - 7.6 11/17 Specimen Type: BLOOD No comment entered. Ordering Provider: FELTON BOWER Report Released Date/Time: Nov 17, 2022 08:01 PM Reporting Lab: [address] [address] Performing Lab: [address] [address] [facility] CBC W/ AUTO DIFF IMMATURE GRANULOCYT ES/100 LEUKOCYTES IN BLOOD BY AUTOMATED COUNT 0.4 0.0 - 0.7 11/17 Specimen Type: BLOOD No comment entered. Ordering Provider: FELTON BOWER Report Released Date/Time: Nov 17, 2022 08:01 PM Reporting Lab: [address] [address] Performing Lab: [address] [address] [facility] CBC W/ AUTO DIFF NUCLEATED ERYTHROCYT ES/100 LEUKOCYTES [RATIO] IN BLOOD BY AUTOMATED COUNT 0.0 /100{WBC s} 0.0 - 0.0 11/17 Specimen Type: BLOOD No comment entered. Ordering Provider: FELTON BOWER Report Released Date/Time: Nov 17, 2022 08:01 PM Reporting Lab: [address] [address] Performing Lab: [address] [address] [facility] URINALYS IS,ROUTI NE/ADMIS PATITO COLOR OF URINE Light-Ye llow 11/17 Specimen Type: URINE No comment entered. Ordering Provider: JUAN HERNANDEZ CRUZ R Report Released Date/Time: Nov 17, 2022 01:25 PM Reporting Lab: [place] [phone] Performing Lab: [address] URINALYS IS,ROUTI NE/ADMIS PATITO SPECIFIC GRAVITY OF URINE 1.017 1.001 - 1.035 11/17 Specimen Type: URINE No comment entered. Ordering Provider: JUAN HERNANDEZ CANYON DAM R Report Released Date/Time: Nov 17, 2022 01:25 PM Reporting Lab: [place] [address] Performing Lab: [address] URINALYS IS,ROUTI NE/ADMIS PATITO UROBILINOG EN [UNITS/VOL UME] IN URINE NORMALmg /dL 11/17 Specimen Type: URINE No comment entered. Ordering Provider: JUAN HERNANDEZ CANYON DAM R Report Released Date/Time: Nov 17, 2022 01:25 PM Reporting Lab: [place] [phone] Performing Lab: [address] URINALYS IS,ROUTI NE/ADMIS PATITO BILIRUBIN. TOTAL [PRESENCE] IN URINE BY TEST STRIP NEGATIVE 11/17 Specimen Type: URINE No comment entered. Ordering Provider: JUAN HERNANDEZ CRUZ R Report Released Date/Time: Nov 17, 2022 01:25 PM Reporting Lab: [place] [phone] Performing Lab: [place] [address] [place] [address] URINALYS IS,ROUTI NE/ADMIS PATITO KETONES [PRESENCE] IN URINE NEGATIVE 11/17 Specimen Type: URINE No comment entered. Ordering Provider: JUAN HERNANDEZ CRUZ R Report Released Date/Time: Nov 17, 2022 01:25 PM Reporting Lab: [place] [phone] Performing Lab: [address] URINALYS IS,ROUTI NE/ADMIS PATITO GLUCOSE [PRESENCE] IN URINE BY TEST STRIP NEGATIVE 11/17 Specimen Type: URINE No comment entered. Ordering Provider: JUAN HERNANDEZ CRUZ R Report Released Date/Time: Nov 17, 2022 01:25 PM Reporting Lab: [place] [address] Performing Lab: [address] URINALYS IS,ROUTI NE/ADMIS PATITO PROTEIN [MASS/VOLU ME] IN URINE BY TEST STRIP NEGATIVE 11/17 Specimen Type: URINE No comment entered. Ordering Provider: JUAN HERNANDEZ CRUZ R Report Released Date/Time: Nov 17, 2022 01:25 PM Reporting Lab: [place] [address] Performing Lab: [address] URINALYS IS,ROUTI NE/ADMIS PATITO PH OF BODY FLUID 7.0 [pH] 5.0 - 8.0 11/17 Specimen Type: URINE No comment entered. Ordering Provider: JUAN HERNANDEZ CRUZ R Report Released Date/Time: Nov 17, 2022 01:25 PM Reporting Lab: [place] [address] Performing Lab: [address] URINALYS IS,ROUTI NE/ADMIS PATITO APPEARANCE OF URINE Clear 11/17 Specimen Type: URINE No comment entered. Ordering Provider: JUAN HERNANDEZ CRUZ R Report Released Date/Time: Nov 17, 2022 01:25 PM Reporting Lab: [place] [phone] Performing Lab: [address] URINALYS IS,ROUTI NE/ADMIS PATITO HEMOGLOBIN [PRESENCE] IN URINE BY TEST STRIP NEGATIVE 11/17 Specimen Type: URINE No comment entered. Ordering Provider: JUAN HERNANDEZ CRUZ R Report Released Date/Time: Nov 17, 2022 01:25 PM Reporting Lab: [place] [phone] Performing Lab: [place] [address] [place] URINALYS IS,ROUTI NE/ADMIS PATITO NITRITE [PRESENCE] IN URINE BY TEST STRIP NEGATIVE 11/17 Specimen Type: URINE No comment entered. Ordering Provider: JUAN HERNANDEZ CRUZ R Report Released Date/Time: Nov 17, 2022 01:25 PM Reporting Lab: [address] [address] Performing Lab: [address] [phone] [place] [address] URINALYS IS,ROUTI NE/ADMIS PATITO LEUKOCYTE ESTERASE [PRESENCE] IN URINE BY TEST STRIP NEGATIVE 11/17 Specimen Type: URINE No comment entered. Ordering Provider: JUAN HERNANDEZ CRUZ R Report Released Date/Time: Nov 17, 2022 01:25 PM Reporting Lab: [address] [address] Performing Lab: [address] [phone] [place] [address] ALBUMIN ALBUMIN [MASS/VOLU ME] IN SERUM OR PLASMA 4.2 g/dL 3.5 - 5.0 11/17 Specimen Type: SERUM No comment entered. Ordering Provider: JUAN HERNANDEZ CRUZ R Report Released Date/Time: Nov 17, 2022 01:25 PM Reporting Lab: [address] [address] Performing Lab: [address] [phone] [place] [address] CALCIUM CALCIUM [MASS/VOLU ME] IN SERUM OR PLASMA 9.1 mg/dL 8.5 - 10.5 11/17 Specimen Type: SERUM No comment entered. Ordering Provider: JUAN HERNANDEZ CRUZ R Report Released Date/Time: Nov 17, 2022 01:25 PM Reporting Lab: [address] [address] Performing Lab: [address] [phone] [place] [address] LIVER PROFILE ALBUMIN [MASS/VOLU ME] IN SERUM OR PLASMA 4.2 g/dL 3.5 - 5.0 11/17 Specimen Type: SERUM No comment entered. Ordering Provider: JUAN HERNANDEZ CRUZ R Report Released Date/Time: Nov 17, 2022 01:25 PM Reporting Lab: [address] [address] Performing Lab: [address] [phone] [place] [address] LIVER PROFILE BILIRUBIN. TOTAL [MASS/VOLU ME] IN SERUM OR PLASMA 0.6 mg/dL 0.2 - 1.2 11/17 Specimen Type: SERUM No comment entered. Ordering Provider: JUAN HERNANDEZ CRUZ R Report Released Date/Time: Nov 17, 2022 01:25 PM Reporting Lab: [address] [address] Performing Lab: [address] LIVER PROFILE BILIRUBIN. DIRECT [MASS/VOLU ME] IN SERUM OR PLASMA 0.2 mg/dL 0.0 - 0.5 11/17 Specimen Type: SERUM No comment entered. Ordering Provider: JUAN HERNANDEZ CANYON DAM R Report Released Date/Time: Nov 17, 2022 01:25 PM Reporting Lab: [place] [phone] Performing Lab: [place] [phone] [place] [address] LIVER PROFILE ALKALINE PHOSPHATAS E [ENZYMATIC ACTIVITY/V OLUME] IN SERUM OR PLASMA 52 U/L 40 - 150 11/17 Specimen Type: SERUM No comment entered. Ordering Provider: JUAN HERNANDEZ CANYON DAM R Report Released Date/Time: Nov 17, 2022 01:25 PM Reporting Lab: [address] [address] Performing Lab: [place] [address] [place] [address] LIVER PROFILE ALANINE AMINOTRANS FERASE [ENZYMATIC ACTIVITY/V OLUME] IN SERUM OR PLASMA 17 U/L 7 - 52 11/17 Specimen Type: SERUM No comment entered. Ordering Provider: JUAN HERNANDEZ CRUZ R Report Released Date/Time: Nov 17, 2022 01:25 PM Reporting Lab: [address] [address] Performing Lab: [address] [phone] [place] [address] LIVER PROFILE ASPARTATE AMINOTRANS FERASE [ENZYMATIC ACTIVITY/V OLUME] IN SERUM OR PLASMA 21 U/L 5 - 40 11/17 Specimen Type: SERUM No comment entered. Ordering Provider: JUAN HERNANDEZ CANYON DAM R Report Released Date/Time: Nov 17, 2022 01:25 PM Reporting Lab: [address] [address] Performing Lab: [address] [address] [facility] CHEM 7 CREATININE [MASS/VOLU ME] IN SERUM OR PLASMA 0.94 mg/dL 0.5 - 1.5 11/17 Specimen Type: SERUM No comment entered. Ordering Provider: JUAN HERNANDEZ CRUZ R Report Released Date/Time: Nov 17, 2022 01:25 PM Reporting Lab: [address] [address] Performing Lab: [address] [address] [facility] CHEM 7 UREA NITROGEN [MASS/VOLU ME] IN SERUM OR PLASMA 12 mg/dL 7 - 25 11/17 Specimen Type: SERUM No comment entered. Ordering Provider: JUAN HERNANDEZ R Report Released Date/Time: Nov 17, 2022 01:25 PM Reporting Lab: [address] [address] Performing Lab: [address] [address] [facility] CHEM 7 GLUCOSE [MASS/VOLU ME] IN SERUM OR PLASMA 65 mg/dL 65 - 100 11/17 Specimen Type: SERUM No comment entered. Ordering Provider: JUAN HERNANDEZ CRUZ R Report Released Date/Time: Nov 17, 2022 01:25 PM Reporting Lab: [address] [address] Performing Lab: [address] [address] [facility] CHEM 7 SODIUM [MOLES/VOL UME] IN SERUM OR PLASMA 140 mmol/L 135 - 145 11/17 Specimen Type: SERUM No comment entered. Ordering Provider: JUAN HERNANDEZ CRUZ R Report Released Date/Time: Nov 17, 2022 01:25 PM Reporting Lab: [address] [address] Performing Lab: [address] [address] [facility] CHEM 7 POTASSIUM [MOLES/VOL UME] IN SERUM OR PLASMA 4.0 mmol/L 3.5 - 5.0 11/17 Specimen Type: SERUM No comment entered. Ordering Provider: JUAN HERNANDEZ CRUZ R Report Released Date/Time: Nov 17, 2022 01:25 PM Reporting Lab: [address] [address] Performing Lab: [address] [address] [facility] CHEM 7 CHLORIDE [MOLES/VOL UME] IN SERUM OR PLASMA 105 mmol/L 100 - 110 11/17 Specimen Type: SERUM No comment entered. Ordering Provider: JUAN HERNANDEZ CRUZ R Report Released Date/Time: Nov 17, 2022 01:25 PM Reporting Lab: [address] [address] Performing Lab: [address] [address] [facility] CHEM 7 CARBON DIOXIDE, TOTAL [MOLES/VOL UME] IN SERUM OR PLASMA 26 meq/L 20 - 30 11/17 Specimen Type: SERUM No comment entered. Ordering Provider: JUAN HERNANDEZ CANYON DAM R Report Released Date/Time: Nov 17, 2022 01:25 PM Reporting Lab: [address] [address] Performing Lab: [address] [address] [facility] CHEM 7 ANION GAP IN SERUM OR PLASMA 9 meq/L 6 - 16 11/17 Specimen Type: SERUM No comment entered. Ordering Provider: JUAN HERNANDEZ CRUZ R Report Released Date/Time: Nov 17, 2022 01:25 PM Reporting Lab: [address] [address] Performing Lab: [address] [address] [facility] CHEM 7 GLOMERULAR FILTRATION RATE/1.73 SQ M.PREDICTE D [VOLUME RATE/AREA] IN SERUM, PLASMA OR BLOOD BY CREATININE -BASED FORMULA (CKD-EPI 2020) >90mL/mi n 60 11/17 Specimen Type: SERUM No comment entered. Ordering Provider: JUAN HERNANDEZ CRUZ R Report Released Date/Time: Nov 17, 2022 01:25 PM Reporting Lab: [address] [address] Performing Lab: [address] [address] [facility] CBC W/ AUTO DIFF LEUKOCYTES [#/VOLUME] IN BLOOD BY AUTOMATED COUNT 6.9 10*3/uL 4.5 - 11.0 11/17 Specimen Type: BLOOD No comment entered. Ordering Provider: JUAN HERNANDEZ CRUZ R Report Released Date/Time: Nov 17, 2022 01:25 PM Reporting Lab: [address] [address] Performing Lab: [address] [place] [address] CBC W/ AUTO DIFF ERYTHROCYT ES [#/VOLUME] IN BLOOD BY AUTOMATED COUNT 4.83 10*6/uL 4.23 - 5.66 11/17 Specimen Type: BLOOD No comment entered. Ordering Provider: JUAN HERNANDEZ CRUZ R Report Released Date/Time: Nov 17, 2022 01:25 PM Reporting Lab: [place] [address] Performing Lab: [address] CBC W/ AUTO DIFF HEMOGLOBIN [MASS/VOLU ME] IN ARTERIAL BLOOD 14.3 g/dL 12.8 - 17.0 11/17 Specimen Type: BLOOD No comment entered. Ordering Provider: JUAN HERNANDEZ CRUZ R Report Released Date/Time: Nov 17, 2022 01:25 PM Reporting Lab: [place] [address] Performing Lab: [address] CBC W/ AUTO DIFF HEMATOCRIT [VOLUME FRACTION] OF BLOOD BY AUTOMATED COUNT 43.2 39.2 - 50.4 11/17 Specimen Type: BLOOD No comment entered. Ordering Provider: JUAN HERNANDEZ CANYON DAM R Report Released Date/Time: Nov 17, 2022 01:25 PM Reporting Lab: [address] [address] Performing Lab: [place] [phone] [place] [address] CBC W/ AUTO DIFF MCV [ENTITIC VOLUME] BY AUTOMATED COUNT 89 fL 82 - 99 11/17 Specimen Type: BLOOD No comment entered. Ordering Provider: JUAN HERNANDEZ CRUZ R Report Released Date/Time: Nov 17, 2022 01:25 PM Reporting Lab: [address] [address] Performing Lab: [place] [address] [place] [address] CBC W/ AUTO DIFF MCH [ENTITIC MASS] BY AUTOMATED COUNT 29.6 pg 26.2 - 32.6 11/17 Specimen Type: BLOOD No comment entered. Ordering Provider: JUAN HERNANDEZ CRUZ R Report Released Date/Time: Nov 17, 2022 01:25 PM Reporting Lab: [address] [address] Performing Lab: [place] [phone] [place] [address] CBC W/ AUTO DIFF MCHC [MASS/VOLU ME] BY AUTOMATED COUNT 33.1 g/dL 30.8 - 35.1 11/17 Specimen Type: BLOOD No comment entered. Ordering Provider: JUAN HERNANDEZ CRUZ R Report Released Date/Time: Nov 17, 2022 01:25 PM Reporting Lab: [place] [address] Performing Lab: [address] CBC W/ AUTO DIFF PLATELETS [#/VOLUME] IN BLOOD BY AUTOMATED COUNT 310 10*3/uL 140 - 360 11/17 Specimen Type: BLOOD No comment entered. Ordering Provider: JUAN HERNANDEZ CRUZ R Report Released Date/Time: Nov 17, 2022 01:25 PM Reporting Lab: [place] [address] Performing Lab: [address] CBC W/ AUTO DIFF PLATELET MEAN VOLUME [ENTITIC VOLUME] IN BLOOD BY AUTOMATED COUNT 9.1 fL 9.2 - 12.4 11/17 L Specimen Type: BLOOD No comment entered. Ordering Provider: JUAN HERNANDEZ CANYON DAM R Report Released Date/Time: Nov 17, 2022 01:25 PM Reporting Lab: [address] [address] Performing Lab: [address] CBC W/ AUTO DIFF ERYTHROCYT E DISTRIBUTI ON WIDTH [RATIO] BY AUTOMATED COUNT 13 12 - 16 11/17 Specimen Type: BLOOD No comment entered. Ordering Provider: JUAN HERNANDEZ CRUZ R Report Released Date/Time: Nov 17, 2022 01:25 PM Reporting Lab: [address] [address] Performing Lab: [place] [id number] [place] [address] CBC W/ AUTO DIFF LYMPHOCYTE S/100 LEUKOCYTES IN BLOOD BY AUTOMATED COUNT 40.0 14.0 - 42.3 11/17 Specimen Type: BLOOD No comment entered. Ordering Provider: JUAN HERNANDEZ CRUZ R Report Released Date/Time: Nov 17, 2022 01:25 PM Reporting Lab: [address] [phone] Performing Lab: [phone] [place] [address] CBC W/ AUTO DIFF NEUTROPHIL S/100 LEUKOCYTES IN BLOOD BY AUTOMATED COUNT 45.7 43.7 - 75.8 11/17 Specimen Type: BLOOD No comment entered. Ordering Provider: JUAN HERNANDEZ CRUZ R Report Released Date/Time: Nov 17, 2022 01:25 PM Reporting Lab: [address] [phone] Performing Lab: [phone] [place] [address] CBC W/ AUTO DIFF MONOCYTES/ 100 LEUKOCYTES IN BLOOD BY AUTOMATED COUNT 9.8 5.1 - 13.7 11/17 Specimen Type: BLOOD No comment entered. Ordering Provider: JUAN HERNANDEZ CRUZ R Report Released Date/Time: Nov 17, 2022 01:25 PM Reporting Lab: [address] [phone] Performing Lab: [phone] [place] [address] CBC W/ AUTO DIFF EOSINOPHIL S/100 LEUKOCYTES IN BLOOD BY AUTOMATED COUNT 3.4 0.4 - 6.8 11/17 Specimen Type: BLOOD No comment entered. Ordering Provider: JUAN HERNANDEZ CRUZ R Report Released Date/Time: Nov 17, 2022 01:25 PM Reporting Lab: [address] [phone] Performing Lab: [address] [phone] [place] [address] CBC W/ AUTO DIFF BASOPHILS/ 100 LEUKOCYTES IN BLOOD BY AUTOMATED COUNT 0.7 0.1 - 2.0 11/17 Specimen Type: BLOOD No comment entered. Ordering Provider: JUAN HERNANDEZ CRUZ R Report Released Date/Time: Nov 17, 2022 01:25 PM Reporting Lab: [address] [address] Performing Lab: [id number] [place] [address] CBC W/ AUTO DIFF LYMPHOCYTE S [#/VOLUME] IN BLOOD BY AUTOMATED COUNT 2.7 10*3/uL 1.0 - 3.2 11/17 Specimen Type: BLOOD No comment entered. Ordering Provider: JUAN HERNANDEZ CRUZ R Report Released Date/Time: Nov 17, 2022 01:25 PM Reporting Lab: [address] [address] Performing Lab: [address] CBC W/ AUTO DIFF NEUTROPHIL S [#/VOLUME] IN BLOOD BY AUTOMATED COUNT 3.1 10*3/uL 2.2 - 7.6 11/17 Specimen Type: BLOOD No comment entered. Ordering Provider: JUAN HERNANDEZ CRUZ R Report Released Date/Time: Nov 17, 2022 01:25 PM Reporting Lab: [address] [address] Performing Lab: [id number] CBC W/ AUTO DIFF IMMATURE GRANULOCYT ES/100 LEUKOCYTES IN BLOOD BY AUTOMATED COUNT 0.4 0.0 - 0.7 11/17 Specimen Type: BLOOD No comment entered. Ordering Provider: JUAN HERNANDEZ CANYON DAM R Report Released Date/Time: Nov 17, 2022 01:25 PM Reporting Lab: [address] [address] Performing Lab: [place] [id number] CBC W/ AUTO DIFF NUCLEATED ERYTHROCYT ES/100 LEUKOCYTES [RATIO] IN BLOOD BY AUTOMATED COUNT 0.0 /100{WBC s} 0.0 - 0.0 11/17 Specimen Type: BLOOD No comment entered. Ordering Provider: JUAN HERNANDEZ CRUZ R Report Released Date/Time: Nov 17, 2022 01:25 PM Reporting Lab: [address] [address] Performing Lab: [id number] [place] [address] AMYLASE AMYLASE [ENZYMATIC ACTIVITY/V OLUME] IN SERUM OR PLASMA 118 U/L 25 - 125 11/17 Specimen Type: SERUM No comment entered. Ordering Provider: JUAN HERNANDEZ CRUZ R Report Released Date/Time: Nov 17, 2022 01:25 PM Reporting Lab: [address] [address] Performing Lab: [place] [phone] LIPASE LIPASE [ENZYMATIC ACTIVITY/V OLUME] IN SERUM OR PLASMA 23 U/L 8 - 70 11/17 Specimen Type: SERUM No comment entered. Ordering Provider: JUAN HERNANDEZ R Report Released Date/Time: Nov 17, 2022 01:25 PM Reporting Lab: [address] [address] Performing Lab: [address] [address] [place] TROPONIN I TROPONIN I.CARDIAC [MASS/VOLU ME] IN SERUM OR PLASMA <0.010ng /mL 0.000 - 0.300 11/17 Specimen Type: PLASMA No comment entered. Ordering Provider: JUAN HERNANDEZ R Report Released Date/Time: Nov 17, 2022 01:25 PM Reporting Lab: [address] [address] Performing Lab: [address] [address] [place] Encounters Combined list of: 1) Encounters from Department of Veterans Affairs facilities going back up to thelast 18 months. 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 Location Location Details Encounter Type Encounter Number Reason For Visit Attending Provider ADM Date DC Date Status Disposition Source [place] [facility] Outpatient Encounter [id number] 10/28 [place] [facility] [place] [facility] Outpatient Encounter [id number] 10/28 [place] [facility] [place] [facility] Outpatient Encounter [id number] 11/03 [place] [facility] [place] [facility] Outpatient Encounter [id number] 11/17 [facility] OFFICE O/P EST MOD 30-39 MIN [id number] Diagnos is: ICD-10- CM R10.9 Unspeci fied abdomin al pain
Gavin HERNANDEZ 11/17 [facility]ENCY [facility]PT VISIT [facility] [id number] Diagnos is: ICD-10- CM K92.2 Gastroi ntestin al hemorrh age, 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
SNOW ARCHIBALD S 11/23 [facility] Outpatient Encounter [id number] 11/30 [facility] Encounter [id number] 11/30 [facility] [place] COLONOSCOP Y AND BIOPSY [id number] Diagnos is: ICD-10- CM K62.5 Hemorrh age of anus and rectum< br/> NJEI,BASIL E 11/30 [facility] Outpatient Encounter [id number] 11/30 [facility] Outpatient Encounter [id number] Diagnos is: ICD-10- CM K62.5 Hemorrh age of anus and rectum< br/> NJEI,BASIL E 11/30 [facility] Outpatient Encounter [id number] Efraín LABOY 12/03 [facility] [id number] Diagnos is: ICD-10- CM K92.1 Melena< br/> LUIS FERNANDO MONTES RISTOPHER 12/22 [facility] Encounter [id number] 12/25 [facility] Encounter [id number] Sammy AN 01/27 [facility] Encounter [id number] 02/14 [facility] Encounter [id number] 02/28 [facility] Encounter [id number] 07/26 [facility] Encounter [id number] 07/26 [facility] Encounter [id number] 07/28 [facility] Encounter [id number] 08/07 [facility] Encounter [id number] 08/07 [facility] Encounter [id number] 08/30 [facility] Encounter [id number] 08/30 [facility] En[facility] [id number] 09/26 [facility] Encounter [id number] 09/27 [facility] Encounter [id number] 10/09 [facility] Encounter [id number] 10/20 [facility] Encounter [id number] [facility] En[facility] [id number] [facility] Encounter [id number] [facility] Encounter [id number] 02/05 [facility] Encounter [id number] 02/05 [facility] En[facility] [id number] [facility] Outpatient Encounter [id number] 04/24 [facility] Social History Combined list of available smoking, tobacco, and other social history from Department of Defense and Veterans Affairs facilities. Social History Type Response Date Comment [facility] e Tobacco smoking status [facility] VA-TOBACCO FORMER USER [facility] History of tobacco use [place]-TO[place]AC[place] QUIT 15 YRS OR MORE 07/14/2021 [facility] History of tobacco use [place]-TOBACCO NEVER USED 07/11/2020 [place] History of tobacco use [place]-TOBACCO QUIT 5 TO < 15 YRS 05/23/2019 [facility] History of tobacco use [place]-TOBACCO FORMER USER 04/19/2018 [place] History of tobacco use QUIT TOBACCO USE > 7 YEARS AGO 02/02/2016 Quit 1992. FRANSISCO
--- OUTSIDE RECORDS SUMMARY | 2024-04-25 11:36 | XMS_ITS ---
Author Name [facility] [place] Address [address] [place] [address] Care Team Providers Care Classified Ad Taker Name Role Phone CAMILLE GOTTI Primary Care [...] Chaparro's Name Patient's Relationship to Policy Chaparro [facility] MEDICAID TITLE 19 Apr 18, 2020 MEDICAI D [id number] EVA LU PATIENT Selected Encounter This section includes the information on record at [place] for the Encounter. Date/Time Encounter Type Encounter Description Reason Pro vider Source Aug 08, 2023 11:05 AM Outpatient Encounter ADMIN PAT ACTIVTIES (KAVITHANONCT) IHE Encounter Template Text not used by [place] Plan of Treatment: Future Appointments (+ 6 [...] 20 appointments. The data comes from all [place] treatment facilities. Appointment Date/Time Appointment Type Appointme nt Facility Name Jan 18, 2024 09:00 AM AMBULATORY - MEDICINE [facility] Social History: Smoking Status (Most [...] 14, 2021 11:45 AM VA-TOBACCO FORMER USER [facility] Tobacco Use History This section includes a history of the smoking, or tobacco-related health factors, that were collected on or before the date of the Encounter. The data comes from the [place] facility where the Encounter took place. Date/Time Smoking Status/Tobacco Use Comment F acility Jul 14, 2021 11:45 AM [place] 15 YRS OR MORE [facility] Encounter Notes: All associated encounter notes [...] up PCP f/u appointment. /saida/ BRAEDEN RUIZ REPORTING COORDINATOR JEREMY Signed: 08/16/2023 11:21 Receipt Acknowledged By: 08/16/2023 11:53 /saida/ QUENTIN MAC ADVANCED HEAVY LIFT RIGGER === --- Original Document --- 08/08/23 CCC: SCHEDULING ADMINISTRATION: Patient Demographics Patient Name: EVA HINKLE Patient Primary Phone: [phone] Patient Primary [address]: [address] [place] [address] Patient : 1970 Patient Age: 53 Call Back Number: [phone] Caller/Recipient Relation to Patient: Self Administrative Administrative Note Reason: Paperwork Request Administrative Note Comments: is having a procedure done today at 2PM at the [facility], he is requesting authorization to be sent before appt. Provider is Dr Marroquin and the phone number is [phone], no fax number was given. Best call back number for Vet is [phone] /saida/ CEDRIC DOTSON 1 [facility] Signed: 08/08/2023 11:05 Receipt Acknowledged By: [...] more information. johnt states he was at [facility] 07/26 till 07/29 and was Gi Bleed. He was also DX with Internal Hemmorids. Johnt states that he has an appt today with a GI Surgeron Dr. Marroquin at [facility] and this is a consult appointment. He will then have a procdure done so that the internal hemmorids can be removed. Corey is requesting a consult to Dr. Marroquin at [facility]- General Surgery/GI Surgeon. Appt is today at 2pm. Johnt apologizes for not being in contact with PACT to make aware of this consult need sooner. Ms Access Database Developer let Vet know that PCP will palce consult and screenplay writer will then f/u with CC to ensure that it is processed so that Vet can attend appointment today. /es/ Elif Pich, supply chain consultant Staff Nurse Signed: 08/08/2023 12:00 Receipt Acknowledged [...] Receipt Acknowledged By: 08/16/2023 11:20 /marcelle RUIZ REPORTING COORDINATOR JEREMY 08/08/2023 ADDENDUM STATUS: COMPLETED CC aware of consult- has been contacted by [facility]. Consult will be processed and sent to them today. Vet is all set for appt today and TC to make him aware of this. /marcelle Jama RN Primary Care Staff Nurse Signed: 08/08/2023 12:23 08/16/2023 ADDENDUM STATUS: UNSIGNED You may not VIEW this UNSIGNED Addendum. BRAEDEN RUIZ [facility] [place] [facility] Aug 08, 2023 12:01 PM ADDENDUM: LOCAL [...] Receipt Acknowledged By: 08/16/2023 11:20 /marcelle RUIZ REPORTING COORDINATOR JEREMY === --- Original Document --- 08/08/23 CCC: SCHEDULING ADMINISTRATION: Patient Demographics Patient Name: EVA HINKLE Patient Primary Phone: [phone] Patient Primary Address: [address] [place] [address] Patient : 1970 Patient Age: 53 Call Back Number: [phone] Caller/Recipient Relation to Patient: Self Administrative Administrative Note Reason: Paperwork Request Administrative Note Comments: Plush is having a procedure done today at 2PM at the [facility], he is requesting authorization to be sent before appt. Provider is Dr Marroquin and the phone number is [phone], no fax number was given. Best call back number for Vet is [phone] /saida/ CEDRIC DOTSON 1 [facility] Signed: 08/08/2023 11:05 Receipt Acknowledged By: [...] more information. johnt states he was at [facility] 07/26 till 07/29 and was Gi Bleed. He was also DX with Internal Hemmorids. Vet states that he has an appt today with a GI Surgeron Dr. Marroquin at [facility] and this is a consult appointment. He will then have a procdure done so that the internal hemmorids can be removed. Johnt is requesting a consult to Dr. Marroquin at [facility]- General Surgery/GI Surgeon. Appt is today at 2pm. Johnt apologizes for not being in contact with PACT to make aware of this consult need sooner. Ms Access Database Developer let Vet know that PCP will palce consult and screenplay writer will then f/u with CC to ensure that it is processed so that Vet can attend appointment today. /marcelle Jama RN Primary Care Staff Nurse Signed: 08/08/2023 12:00 Receipt Acknowledged By: 08/08/2023 12:59 /marcelle GOTTI MD PHYSICIAN 08/08/2023 ADDENDUM STATUS: COMPLETED CC aware of consult- has been contacted by [facility]. Consult will be processed and sent to them today. Vet is all set for appt today and TC to make him aware of this. /marcelle Jama RN Primary Care Staff Nurse Signed: 08/08/2023 12:23 ELIF JAMA [place] [facility] [place] [facility] Aug 08, 2023 11:59 AM ADDENDUM: LOCAL TITLE: Addendum STANDARD TITLE: ADDENDUM DATE OF NOTE: AUG 08, 2023@11:59:25 ENTRY DATE: AUG 08, 2023@11:59:27 AUTHOR: ELIF JAMA EXP COSIGNER: URGENCY: STATUS: COMPLETED TC to Vet at listed number to gather more information. vet states he was at [facility] 07/26 till 07/29 and was Gi Bleed. He was also DX with Internal Hemmorids. Vet states that he has an appt today with a GI Surgeron Dr. Marroquin at [facility] and this is a consult appointment. He will then have a procdure done so that the internal hemmorids can be removed. Vet is requesting a consult to Dr. Marroquin at [facility] Surgery/GI Surgeon. Appt is today at 2pm. Vet apologizes for not being in contact with PACT to make aware of this consult need sooner. Ms Access Database Developer let Vet know that PCP will palce consult and screenplay writer will then f/u with CC to ensure that it is processed so that Vet can attend appointment today. /marcelle Jama RN Primary Care Staff Nurse Signed: 08/08/2023 12:00 Receipt Acknowledged By: 08/08/2023 12:59 /marcelle GOTTI MD PHYSICIAN === --- Original Document --- 08/08/23 CCC: SCHEDULING ADMINISTRATION: Patient Demographics Patient Name: EVA HINKLE Patient Primary Phone: [phone] Patient Primary [address]: [address] [place] [address] Patient : 1970 Patient Age: 53 Call Back Number: [phone] Caller/Recipient Relation to Patient: Self Administrative Administrative Note Reason: Paperwork Request Administrative Note Comments: Plush is having a procedure done today at 2PM at the [facility], he is requesting authorization to be sent before appt. Provider is Dr Marroquin and the phone number is [phone], no fax number was given. Best call back number for Vet is [phone] /saida/ CEDRIC DOTSON 1 [facility] Signed: 08/08/2023 11:05 Receipt Acknowledged By: [...] aware of consult- has been contacted by [facility] General Surgery. Consult will be processed and sent to them today. Vet is all set for appt today and TC to make him aware of this. /marcelle Jama RN Primary Care Staff Nurse Signed: 08/08/2023 12:23 ELIF JAMA [facility] [place] [facility] Aug 08, 2023 11:05 AM ADMINISTRATIVE NOTE: LOCAL TITLE: [facility]: SCHEDULING ADMINISTRATION STANDARD TITLE: ADMINISTRATIVE NOTE DATE OF NOTE: AUG 08, 2023@11:05:13 ENTRY DATE: AUG 08, 2023@11:05:13 AUTHOR: CEDRIC BRYSON COSIGNER: URGENCY: STATUS: COMPLETED CCC: SCHEDULING ADMINISTRATION Has ADDENDA Patient Demographics Patient Name: EVA HINKLE Patient Primary Phone: [phone] Patient Primary Address: [address] [place] [address] Patient : 1970 Patient Age: 53 Call Back Number: [phone] Caller/Recipient Relation to Patient: Self Administrative Administrative Note Reason: Paperwork Request Administrative Note Comments: Plush is having a procedure done today at 2PM at the [facility], he is requesting authorization to be sent before appt. Provider is Dr Marroquin and the phone number is [phone], no fax number was given. Best call back number for Vet is [phone] /saida/ CEDRIC DOTSON 1 [facility] Signed: 08/08/2023 11:05 Receipt Acknowledged By: [...] more information. vet states he was at [facility] 07/26 till 07/29 and was Gi Bleed. He was also DX with Internal Hemmorids. Vet states that he has an appt today with a GI Surgeron Dr. Marroquin at [facility] and this is a consult appointment. He will then have a procdure done so that the internal hemmorids can be removed. Vet is requesting a consult to Dr. Marroquin at [facility]- General Surgery/GI Surgeon. Appt is today at 2pm. Vet apologizes for not being in contact with PACT to make aware of this consult need sooner. Ms Access Database Developer let Vet know that PCP will palce consult and screenplay writer will then f/u with CC to ensure that it is processed so that Vet can attend appointment today. /marcelle Jama RN Primary Care Staff Nurse Signed: 08/08/2023 12:00 Receipt Acknowledged By: 08/08/2023 12:59 /saiad/ CAMILLE GOTTI MD PHYSICIAN 08/08/2023 ADDENDUM STATUS: COMPLETED Per Vet he requests to be set up with a PCP appt. It is best to reach out at the end of the week or begining of next week. /marcelle Jama RN Primary Care Staff Nurse Signed: 08/08/2023 12:01 Receipt Acknowledged By: 08/16/2023 11:20 /marcelle RUIZ REPORTING COORDINATOR JEREMY 08/08/2023 ADDENDUM STATUS: COMPLETED CC aware of consult- has been contacted by [facility]. Consult will be processed and sent to them today. Vet is all set for appt today and TC to make him aware of this. /marcelle Jama RN Primary Care Staff Nurse Signed: 08/08/2023 12:23 08/16/2023 ADDENDUM STATUS: COMPLETED Please call to set up PCP f/u appointment. /marcelle RUIZ REPORTING COORDINATOR JEREMY Signed: 08/16/2023 11:21 Receipt Acknowledged By: 08/16/2023 11:53 /marcelle MAC ADVANCED HEAVY LIFT RIGGER 08/16/2023 ADDENDUM STATUS: COMPLETED Ms Access Database Developer left detailed message to call back and schedule PCP f/u apt. Unsuccessful, left phone number. /marcelle MAC ADVANCED HEAVY LIFT RIGGER Signed: 08/16/2023 11:55 CEDRIC BRYSON [facility]
--- OUTSIDE RECORDS SUMMARY | 2024-04-25 11:36 | XMS_ITS | Encounter Summary ---
Author Name [facility] [place] Address [address] [place] [address] Care Team Providers Care Counter Top Maker Name Role Phone CAMILLE GOTTI Primary Care [...] Chaparro's Name Patient's Relationship to Policy Chaparro [facility] MEDICAID TITLE 19 Apr 18, 2020 MEDICAI D [id number] EVA LU PATIENT Selected Encounter This section includes the information on record at [place] for the Encounter. Date/Time Encounter Type Encounter [...] 20 appointments. The data comes from all [place] treatment facilities. Appointment Date/Time Appointment Type Appointme nt Facility Name Jan 18, 2024 09:00 AM AMBULATORY - MEDICINE [facility] Social History: Smoking Status (Most current) and Tobacco Use (All prior to encounter date) This section includes the most current, and the historical, smoking and tobacco- related health factors from the [place] facility where the Encounter took place. Current Smoking Status This section includes the most current smoking, or tobacco-related health factor, from the [place] facility where the Encounter took place. Date/Time Current Smoking Status Comment Facil ity Jul 14, 2021 11:45 AM [place]-TOBACCO FORMER USER [facility] Tobacco Use History This section includes a history of the smoking, or tobacco-related health factors, that were collected on or before the date of the Encounter. The data comes from the [place] facility where the Encounter took place. Date/Time Smoking Status/Tobacco Use Comment F acility Jul 14, 2021 11:45 AM [place]-TOBACCO QUIT 15 YRS OR MORE [facility] Encounter Notes: All associated encounter notes [...] REQUIRED Electronically Filed: 08/12/2023 by: LIVIA BENDER PEANUT SHAKER LIVIA BENDER [facility]
--- OUTSIDE RECORDS SUMMARY | 2024-04-25 11:36 | XMS_ITS ---
Author Name [facility] [place] Address [address] [place] [address] Care Team Providers Care Heavy Truck Driver Name Role Phone CAMILLE GOTTI Primary Care [...] TITLE 19 Apr 18, 2020 MEDICAI D [id number] EVA LU PATIENT Selected Encounter This section includes the information on record at [place] for the Encounter. Date/Time Encounter Type Encounter [...] 20 appointments. The data comes from all [place] treatment facilities. Appointment Date/Time Appointment Type Appointme nt Facility Name Aug 08, 2023 02:00 PM AMBULATORY - MEDICINE [facility] Jan 18, 2024 09:00 AM AMBULATORY - MEDICINE [facility] Social History: Smoking Status (Most current) and Tobacco Use (All prior to encounter date) This section includes the most current, and the historical, smoking and tobacco- related health factors from the [place] facility where the Encounter took place. Current Smoking Status This section includes the most current smoking, or tobacco-related health factor, from the [place] facility where the Encounter took place. Date/Time Current Smoking Status Comment Facil ity Jul 14, 2021 11:45 AM [place]-TOBACCO FORMER USER [facility] Tobacco Use History This section includes a history of the smoking, or tobacco-related health factors, that were collected on or before the date of the Encounter. The data comes from the [place] facility where the Encounter took place. Date/Time Smoking Status/Tobacco Use Comment F acility Jul 14, 2021 11:45 AM [place]-TOBACCO QUIT 15 YRS OR MORE [facility] Encounter Notes: All associated encounter notes This section contains the clinical notes associated to the Encounter. Date/Time Encounter Note(s) Provider Source Jul 29, 2023 08:59 AM NONVA NOTE: LOCAL TITLE: [facility] PRESENTING CARE COORD PLAN STANDARD TITLE: NONVA NOTE DATE OF NOTE: JUL 29, 2023@08:59 ENTRY DATE: JUL 29, 2023@08:59:16 AUTHOR: RUSS WELDON COSIGNER: URGENCY: STATUS: COMPLETED Emergency Notification Intake Date Presenting to the Facility: Jul Method of Contact: Notified from ECR worklist Notification ID: [id number] [facility] Referral #: [id number] [facility] Name: Hospital: [facility] Address: City: [place] State: [place] Zip Code: Phone : Community Facility Point [...] 07/29/2023 11:12 /es/ FERNIE GUAMAN Registered Nurse Retail Specialist RUSS WELDON [place]
--- OUTSIDE RECORDS SUMMARY | 2024-04-25 11:36 | XMS_ITS | Encounter Summary ---
Author Name [facility] [place] Address [address] [place] [address] Care Team Providers Care Heel Top Lift Splitter Name Role Phone CAMILLE GOTTI Primary Care [...] Chaparro's Name Patient's Relationship to Policy Chaparro [facility] MEDICAID TITLE 19 Apr 18, 2020 MEDICAI D [id number] EVA LU PATIENT Selected Encounter This section includes the information on record at [place] for the Encounter. Date/Time Encounter Type Encounter Description Reason Pro vider Source IHE Encounter Template Text not used by [place]
--- OUTSIDE RECORDS SUMMARY | 2024-04-25 11:37 | XMS_ITS | Encounter Summary ---
Author Name [facility] [place] Address [address] [place] [address] Care Team Providers Care Radiotelephone Operator Name Role Phone CAMILLE GOTTI Primary [...] Chaparro's Name Patient's Relationship to Policy Chaparro [facility] MEDICAID TITLE 19 Apr 18, 2020 MEDICAI D [id number] EVA LU PATIENT Selected Encounter This section [...] 14, 2021 11:45 AM [place]-TOBACCO FORMER USER [facility] Tobacco Use History This section includes a history of the smoking, or tobacco-related health factors, that were collected on or before the date of the Encounter. The data comes from the [place] facility where the Encounter took place. Date/Time Smoking Status/Tobacco Use Comment F acility Jul 14, 2021 11:45 AM [place]-TOBACCO QUIT 15 YRS OR MORE [facility] Encounter Notes: All associated encounter notes This section contains the clinical notes associated to the Encounter. Date/Time Encounter Note(s) Provider Source Jan 18, 2024 09:33 AM CLERICAL NOTE: LOCAL TITLE: APPOINTMENT NO SHOW STANDARD TITLE: CLERICAL NOTE DATE OF NOTE: JAN 18, 2024@09:33 ENTRY DATE: JAN 18, 2024@09:34:03 AUTHOR: JODY HARRINGTON EXP COSIGNER: URGENCY: STATUS: COMPLETED Patient Name: EVA CHAVEZ Patient SSN: [id number] Date and time of Appointment No show [...] No data available /saida/ JODY HARRINGTON Advanced Filter Plant Supervisor Signed: 01/18/2024 09:34 JODY HARRINGTON [facility]
--- OUTSIDE RECORDS SUMMARY | 2024-04-25 11:37 | XMS_ITS | Encounter Summary ---
Author Name [facility] [place] Address [address] [place] [address] Care Team Providers Care Senior Clinical Research Scientist Name Role Phone CAMILLE GOTTI Primary Care [...] Chaparro's Name Patient's Relationship to Policy Chaparro [facility] MEDICAID TITLE 19 Apr 18, 2020 MEDICAI D [id number] EVA LU PATIENT Selected Encounter This section includes the information on record at [place] for the Encounter. Date/Time Encounter Type Encounter Description Reason Pro vider Source Jan 10, 2024 02:27 PM Outpatient Encounter ADMIN PAT ACTIVTIES (KAVITHANONCT) IHE Encounter Template Text not used by [place] Plan of Treatment: Future Appointments (+ 6 [...] 20 appointments. The data comes from all [place] treatment facilities. Appointment Date/Time Appointment Type Appointme nt Facility Name Jan 18, 2024 09:00 AM AMBULATORY - MEDICINE [facility] Social History: Smoking Status (Most current) and Tobacco Use (All prior to encounter date) This section includes the most current, and the historical, smoking and tobacco- related health factors from the [place] facility where the Encounter took place. Current Smoking Status This section includes the most current smoking, or tobacco-related health factor, from the [place] facility where the Encounter took place. Date/Time Current Smoking Status Comment Facil ity Jul 14, 2021 11:45 AM [place]-TOBACCO FORMER USER [facility] Tobacco Use History This section includes a history of the smoking, or tobacco-related health factors, that were collected on or before the date of the Encounter. The data comes from the [place] facility where the Encounter took place. Date/Time Smoking Status/Tobacco Use Comment F acility Jul 14, 2021 11:45 AM [place]-TOBACCO QUIT 15 YRS OR MORE [facility] Encounter Notes: All associated encounter notes This section contains the clinical notes associated to the Encounter. Date/Time Encounter Note(s) Provider Source Jan 10, 2024 02:27 PM PHARMACY NOTE: LOCAL TITLE: PHARMACY CUSTOMER CARE MEDICATION RENEWAL STANDARD TITLE: PHARMACY NOTE DATE OF NOTE: JAN 10, 2024@14:27 ENTRY DATE: JAN 10, 2024@14:27:11 AUTHOR: JOVITA SUGGS COSIGNER: URGENCY: STATUS: COMPLETED Date: Dec Division: [employer] Pt referred by Pharmacy Call Center for medication renewal: Non-controlled/maintenan ce medication Medications requested: [id number] FLUOXETINE HCL 20MG CAP has 1 day of medication remaining, please alert outpatient pharmacy when order is placed so it can be expedited Defer to primary care provider To be mailed. Please review and renew if appropriate. *This note was generated by [facility] Pharmacy Customer Care. If you have any questions or need assistance, do not contact this author. Please refer all questions to your local, on-site pharmacy departments. /saida/ Jovita Suggs CPhT [place], MS/Pharmacy Customer Care Signed: 01/10/2024 14:27 Receipt Acknowledged By: 01/10/2024 14:32 /saida/ CAMILLE GOTTI MD PHYSICIAN 01/10/2024 14:43 /saida/ JEAN HEBERT, MSN, RN, CNL PRIMARY CARE TEAM NURSE JOVITA SUGGS [facility]
--- OUTSIDE RECORDS SUMMARY | 2024-04-25 11:37 | XMS_ITS | Encounter Summary ---
Author Name [facility] [place] Address [address] [place] [address] Care Team Providers Care Home Agent Name Role Phone CAMILLE GOTTI Primary Care [...] Chaparro's Name Patient's Relationship to Policy Chaparro [facility] MEDICAID TITLE 19 Apr 18, 2020 MEDICAI D [id number] EVA LU PATIENT Selected Encounter This section [...] 18, 2024 09:00 AM AMBULATORY - MEDICINE [facility] Social History: Smoking Status (Most current) [...] 2021 11:45 AM VA-TOBACCO FORMER USER [facility] Tobacco Use History This section includes a history of the smoking, or tobacco-related health factors, that were collected on or before the date of the Encounter. The data comes from the [place] facility where the Encounter took place. Date/Time Smoking Status/Tobacco Use Comment F acility Jul 14, 2021 11:45 AM [place]-TOBACCO QUIT 15 YRS OR MORE [facility] Encounter Notes: All associated encounter notes This section contains the clinical notes associated to the Encounter. Date/Time Encounter Note(s) Provider Source Oct 12, 2023 08:21 AM ADDENDUM: LOCAL TITLE: Addendum STANDARD TITLE: ADDENDUM DATE OF NOTE: OCT 12, 2023@08:21:41 ENTRY DATE: OCT 12, 2023@08:21:42 AUTHOR: JEAN HEBERT EXP COSIGNER: URGENCY: STATUS: COMPLETED doesn't have an appointment with until 12/26/23. Please offer [place] an appointment today with at 11:30 /saida/ JEAN HEBERT, MSN, RN, CNL PRIMARY CARE TEAM NURSE Signed: 10/12/2023 08:25 Receipt Acknowledged By: 10/12/2023 08:31 /saida/ JODY HARRINGTON Advanced Wet Pour Supervisor ====== --- Original Document --- 10/10/23 CCC: [...] and anxiety Quantity: 90 Refills: 0 /es/ LOLI GOULD Signed: 10/10/2023 12:32 Receipt Acknowledged By: * AWAITING SIGNATURE * JEAN HEBERT 10/12/2023 08:29 /saida/ YG CUBA REGISTERED NURSE for [facility] 10/12/2023 ADDENDUM STATUS: COMPLETED MSA lm to call back for appt. /es/ JODY HARRINGTON Advanced Wet Pour Supervisor Signed: 10/12/2023 08:31 JEAN HEBERT [place] [facility] Oct 10, 2023 12:28 PM ADMINISTRATIVE NOTE: [...] and anxiety Quantity: 90 Refills: 0 /es/ LOLI GOULD Signed: 10/10/2023 12:32 Receipt Acknowledged By: 10/12/2023 08:50 /es/ JEAN HEBERT, MSN, RN, CNL PRIMARY CARE TEAM NURSE 10/12/2023 08:29 /es/ YG CUBA REGISTERED NURSE for [facility] 10/12/2023 ADDENDUM STATUS: COMPLETED [place] doesn't have an appointment with until 12/26/23. Please offer an appointment today with at 11:30 /es/ JEAN HEBERT, MSN, RN, CNL PRIMARY CARE TEAM NURSE Signed: 10/12/2023 08:25 Receipt Acknowledged By: 10/12/2023 08:31 /es/ JODY HARRINGTON Advanced Wet Pour Supervisor 10/12/2023 ADDENDUM STATUS: COMPLETED MSA lm to call back for appt. /saida/ JODY HARRNIGTON Advanced Wet Pour Supervisor Signed: 10/12/2023 08:31 LOLI GOULD [facility]
--- OUTSIDE RECORDS SUMMARY | 2024-04-25 11:37 | XMS_ITS | Encounter Summary ---
Author Name Department [place] Organization [place] Address [address] [place] [address] Care Team Providers Care Co Founder And President Name Role Phone CAMILLE GOTTI Primary Care [...] Chaparro's Name Patient's Relationship to Policy Chaparro [facility] MEDICAID TITLE 19 Apr 18, 2020 MEDICAI D [id number] EVA LU PATIENT Selected Encounter This section includes the information on record at [place] for the Encounter. Date/Time Encounter Type Encounter Description Reason Pro vider Source August 31, 2023 07:41 AM Outpatient Encounter TELEPHONE PRIMARY CARE IHE Encounter Template Text not used by [place] Plan of Treatment: Future Appointments (+ 6 [...] 20 appointments. The data comes from all [place] treatment facilities. Appointment Date/Time Appointment Type Appointme nt Facility Name Jan 18, 2024 09:00 AM AMBULATORY - MEDICINE [facility] Social History: Smoking Status (Most current) and Tobacco Use (All prior to encounter date) This section includes the most current, and the historical, smoking and tobacco- related health factors from the [place] facility where the Encounter took place. Current Smoking Status This section includes the most current smoking, or tobacco-related health factor, from the [place] facility where the Encounter took place. Date/Time Current Smoking Status Comment Facil ity Jul 14, 2021 11:45 AM [place]-TOBACCO FORMER USER [facility] Tobacco Use History This section includes a history of the smoking, or tobacco-related health factors, that were collected on or before the date of the Encounter. The data comes from the [place] facility where the Encounter took place. Date/Time Smoking Status/Tobacco Use Comment F acility Jul 14, 2021 11:45 AM [place]-TOBACCO QUIT 15 YRS OR MORE [facility] Encounter Notes: All associated encounter notes [...] Sigmoidoscopy or CT Colonography) Prior/outside colonoscopy results: [place] 11/30/22 at [facility], repeat 5yrs. In [place]. Date: November 30, 2022 Colonoscopy reminder set 4 years from AUGUST 31, 2023. /saida/ Brandi Yip MSN RN CNL Primary Care RN Signed: 08/31/2023 07:43 BRANDI YIP [facility]
--- OUTSIDE RECORDS SUMMARY | 2024-04-25 11:37 | XMS_ITS | Encounter Summary ---
Author Name [place] Organization [place] Address [address] [place] [address] Care Team Providers Care Spool Winder Name Role Phone CAMILLE GOTTI Primary Care [...] TITLE 19 Apr 18, 2020 MEDICAI D [id number] EVA LU PATIENT Selected Encounter This section [...] 20 appointments. The data comes from all [place] treatment facilities. Appointment Date/Time Appointment Type Appointme nt Facility Name Jan 18, 2024 09:00 AM AMBULATORY - MEDICINE [facility] Social History: Smoking Status (Most current) and Tobacco Use (All prior to encounter date) This section includes the most current, and the historical, smoking and tobacco- related health factors from the [place] facility where the Encounter took place. Current Smoking Status This section includes the most current smoking, or tobacco-related health factor, from the [place] facility where the Encounter took place. Date/Time Current Smoking Status Comment Facil ity Jul 14, 2021 11:45 AM VA-TOBACCO FORMER USER [facility] Tobacco Use History This section includes a history of the smoking, or tobacco-related health factors, that were collected on or before the date of the Encounter. The data comes from the [place] facility where the Encounter took place. Date/Time Smoking Status/Tobacco Use Comment F acility Jul 14, 2021 11:45 AM [place]-TOBACCO QUIT 15 YRS OR MORE [facility] Encounter Notes: All associated encounter notes [...] through audio care. /saida/ JODY HARRINGTON Advanced Solderer Assembly Repair Signed: 12/21/2023 09:07 JODY HARRINGTON [facility]
--- OUTSIDE RECORDS SUMMARY | 2024-04-25 11:37 | XMS_ITS | Encounter Summary ---
Author Name Department [place] Organization [place] Address [address] [place] [address] Care Team Providers Care Turning Machine Operator Name Role Phone CAMILLE GOTTI Primary [...] Chaparro's Name Patient's Relationship to Policy Chaparro [facility] MEDICAID TITLE 19 Apr 18, 2020 MEDICAI D [id number] EVA LU PATIENT Selected Encounter This section includes the information on record at [place] for the Encounter. Date/Time Encounter Type Encounter [...] 20 appointments. The data comes from all [place] treatment facilities. Appointment Date/Time Appointment Type Appointme nt Facility Name Jan 18, 2024 09:00 AM AMBULATORY - MEDICINE [facility] Social History: Smoking Status (Most current) and Tobacco Use (All prior to encounter date) This section includes the most current, and the historical, smoking and tobacco- related health factors from the [place] facility where the Encounter took place. Current Smoking Status This section includes the most current smoking, or tobacco-related health factor, from the [place] facility where the Encounter took place. Date/Time Current Smoking Status Comment Facil ity Jul 14, 2021 11:45 AM [place]-TOBACCO FORMER USER [facility] Tobacco Use History This section includes a history of the smoking, or tobacco-related health factors, that were collected on or before the date of the Encounter. The data comes from the [place] facility where the Encounter took place. Date/Time Smoking Status/Tobacco Use Comment F acility Jul 14, 2021 11:45 AM [place]-TOBACCO QUIT 15 YRS OR MORE [facility]
--- OUTSIDE RECORDS SUMMARY | 2024-04-25 11:37 | XMS_ITS ---
Author Name [facility] [place] Address [address] [place] [address] Care Team Providers Care Clinical Dietitian Name Role Phone CAMILLE GOTTI Primary Care [...] Chaparro's Name Patient's Relationship to Policy Chaparro [facility] MEDICAID TITLE 19 Apr 18, 2020 MEDICAI D [id number] EVA LU PATIENT Selected Encounter This section includes the information on record at [place] for the Encounter. Date/Time Encounter Type Encounter Description Reason Pro vider Source Sep 27, 2023 12:50 PM Outpatient Encounter ADMIN PAT ACTIVTIES (KAVITHANONCT) IHE Encounter Template Text not used by [place] Plan of Treatment: Future Appointments (+ 6 [...] 20 appointments. The data comes from all [place] treatment facilities. Appointment Date/Time Appointment Type Appointme nt Facility Name Jan 18, 2024 09:00 AM AMBULATORY - MEDICINE [facility] Social History: Smoking Status (Most current) and Tobacco Use (All prior to encounter date) This section includes the most current, and the historical, smoking and tobacco- related health factors from the [place] facility where the Encounter took place. Current Smoking Status This section includes the most current smoking, or tobacco-related health factor, from the [place] facility where the Encounter took place. Date/Time Current Smoking Status Comment Facil ity Jul 14, 2021 11:45 AM VA-TOBACCO FORMER USER [facility] Tobacco Use History This section includes a history of the smoking, or tobacco-related health factors, that were collected on or before the date of the Encounter. The data comes from the [place] facility where the Encounter took place. Date/Time Smoking Status/Tobacco Use Comment F acility Jul 14, 2021 11:45 AM [place]-TOBACCO QUIT 15 YRS OR MORE [facility] [...] By: 09/27/2023 14:37 /saida/ JODY HARRINGTON Advanced Stonecutter Hand --- Original Document --- 09/27/23 CCC: SCHEDULING ADMINISTRATION: Patient Demographics Patient Name: EVA HINKLE Patient Primary Phone: [phone] Patient Primary Address: [address] [place] [address] Patient : 1970 Patient Age: 53 Caller/Recipient [...] JEAN HEBERT 09/27/2023 13:23 /saida/ Elif Benjamin, explosives handler Staff Nurse 09/27/2023 ADDENDUM STATUS: COMPLETED MSA lm to call for appt. /saida/ JODY HARRINGTON Advanced Stonecutter Hand Signed: 09/27/2023 14:37 ELIF BENJAMIN CNTRL [facility] Sep 27, 2023 12:50 PM ADMINISTRATIVE NOT E: LOCAL TITLE: CCC: SCHEDULING ADMINISTRATION STANDARD TITLE: ADMINISTRATIVE NOTE DATE OF NOTE: SEP 27, 2023@12:50:20 ENTRY DATE: SEP 27, 2023@12:50:21 AUTHOR: GEN NO EXP COSIGNER: URGENCY: STATUS: COMPLETED CCC: SCHEDULING ADMINISTRATION Has ADDENDA Patient Demographics Patient Name: EVA HINKLE Patient Primary Phone: [phone] Patient Primary Address: [address] [place] [address] Patient : 1970 Patient Age: 53 Caller/Recipient [...] By: 09/27/2023 14:37 /saida/ JODY HARRINGTON Advanced Stonecutter Hand 09/27/2023 ADDENDUM STATUS: COMPLETED DANYELL lm to call for appt. /saida/ JODY HARRINGTON Advanced Stonecutter Hand Signed: 09/27/2023 14:37 GEN NO CNTRL [facility]N [facility]
--- OUTSIDE RECORDS SUMMARY | 2024-04-25 11:37 | XMS_ITS ---
Author Name [facility] [place] Organization [place] Address [address] [place] [address] Care Team Providers Care Straight Pin Making Machine Operator Name Role Phone CAMILLE GOTTI [...] TITLE 19 Apr 18, 2020 MEDICAI D [id number] EVA LU PATIENT Selected Encounter This section includes the information on record at [place] for the Encounter. Date/Time Encounter Type Encounter Description Reason Pro vider Source Oct 21, 2023 10:13 AM Outpatient Encounter ADMIN PAT ACTIVTIES (KAVITHANONCT) IHE Encounter Template Text not used by [place] Plan of Treatment: Future Appointments (+ 6 [...] 20 appointments. The data comes from all [place] treatment facilities. Appointment Date/Time Appointment Type Appointme nt Facility Name Jan 18, 2024 09:00 AM AMBULATORY - MEDICINE [facility] Social History: Smoking Status (Most current) and Tobacco Use (All prior to encounter date) This section includes the most current, and the historical, smoking and tobacco- related health factors from the [place] facility where the Encounter took place. Current Smoking Status This section includes the most current smoking, or tobacco-related health factor, from the [place] facility where the Encounter took place. Date/Time Current Smoking Status Comment Facil ity Jul 14, 2021 11:45 AM VA-TOBACCO FORMER USER [facility] Tobacco Use History This section includes a history of the smoking, or tobacco-related health factors, that were collected on or before the date of the Encounter. The data comes from the [place] facility where the Encounter took place. Date/Time Smoking Status/Tobacco Use Comment F acility Jul 14, 2021 11:45 AM [place]-TOBACCO QUIT 15 YRS OR MORE [facility] [...] Patient Name: EVA HINKLE Patient Primary Phone: [phone] Patient Primary Address: [address] [place] [address] Patient : 1970 Patient Age: 53 Caller/Recipient [...] CNL PRIMARY CARE TEAM NURSE LARRY COY [facility]
--- OUTSIDE RECORDS SUMMARY | 2024-04-25 11:37 | XMS_ITS ---
Author Name [facility] [place] Address [address] [place] [address] Care Team Providers Care Wide Piece Goods Inspector Name Role Phone CAMILLE GOTTI Primary Care [...] TITLE 19 Apr 18, 2020 MEDICAI D [id number] EVA LU PATIENT Selected Encounter This section [...] 18, 2024 09:00 AM AMBULATORY - MEDICINE [facility] Social History: Smoking Status (Most current) [...] 14, 2021 11:45 AM VA-TOBACCO FORMER USER [facility] Tobacco Use History This section includes a history of the smoking, or tobacco-related health factors, that were collected on or before the date of the Encounter. The data comes from the [place] facility where the Encounter took place. Date/Time Smoking Status/Tobacco Use Comment F acility Jul 14, 2021 11:45 AM [place]-TOBACCO QUIT 15 YRS OR MORE [facility] Encounter Notes: All associated encounter notes [...] not be offered unless 24-48 hours prior. [facility] supervisor industrial arts education please address. /saida/ JODY HARRINGTON Advanced Hide Cleaner Signed: 09/28/2023 11:49 Receipt Acknowledged By: 09/28/2023 16:06 /saida/ BRAEDEN RUIZ OIL FIELD PUMPER AMSA --- Original Document --- 09/28/23 CCC: SCHEDULING ADMINISTRATION: Patient Demographics Patient Name: EVA HINKLE Patient Primary Phone: [phone] Patient Primary Address: [address] [place] [address] Patient : 1970 Patient Age: 53 Caller/Recipient Relation to Patient: Self Administrative Administrative Note Comments: [address] needs to book prim care appt, engineering technical writer created order, just can not book. Was looking at 10/10/23 at 11:30 please call [phone] /marcelle CARTER Signed: 09/28/2023 11:22 Receipt Acknowledged By: 09/28/2023 11:50 /marcelle HARRINGTON Advanced Hide Cleaner 09/28/2023 13:45 /saida/ Elif Jama RN Primary Care Staff Nurse JODY HARRINGTON IN CNT [facility] Sep 28, 2023 11:22 AM ADMINISTRATIVE NOT E: LOCAL TITLE: CCC: SCHEDULING ADMINISTRATION STANDARD TITLE: ADMINISTRATIVE NOTE DATE OF NOTE: SEP 28, 2023@11:22:40 ENTRY DATE: SEP 28, 2023@11:22:41 AUTHOR: YG CARTER EXP COSIGNER: URGENCY: STATUS: COMPLETED CCC: SCHEDULING ADMINISTRATION Has ADDENDA Patient Demographics Patient Name: EVA HINKLE Patient Primary Phone: [phone] Patient Primary Address: [address] [place] [address] Patient : 1970 Patient Age: 53 Caller/Recipient Relation to Patient: Self Administrative Administrative Note Comments: needs to book prim care appt, engineering technical writer created order, just can not book. Was looking at 10/10/23 at 11:30 please call [phone] /marcelle CARTER Signed: 09/28/2023 11:22 Receipt Acknowledged By: 09/28/2023 11:50 /marcelle HARRINGTON Advanced Hide Cleaner 09/28/2023 13:45 /es/ Elif Pich, fermentation operator Staff Nurse 09/28/2023 ADDENDUM STATUS: COMPLETED Appt scheduled for 12/25. Call center offered 10/09 at 11:30 which is a same day access slot that should not be offered unless 24-48 hours prior. [facility] supervisor industrial arts education please address. /saida/ JODY HARRINGTON Advanced Hide Cleaner Signed: 09/28/2023 11:49 Receipt Acknowledged By: * AWAITING SIGNATURE * BRAEDEN RUIZ MELISSA D IN [facility]
--- OUTSIDE RECORDS SUMMARY | 2024-04-25 11:37 | XMS_ITS | Encounter Summary ---
Author Name [facility] [place] Organization [place] Address [address] [place] [address] Care Team Providers Care Sole Painter Name Role Phone CAMILLE GOTTI Primary Care [...] TITLE 19 Apr 18, 2020 MEDICAI D [id number] EVA LU PATIENT Selected Encounter This section [...] 08, 2023 02:00 PM AMBULATORY - MEDICINE [facility] Jan 18, 2024 09:00 AM AMBULATORY - [...] 14, 2021 11:45 AM VA-TOBACCO FORMER USER [facility] Tobacco Use History This section includes a history of the smoking, or tobacco-related health factors, that were collected on or before the date of the Encounter. The data comes from the [place] facility where the Encounter took place. Date/Time Smoking Status/Tobacco Use Comment F acility Jul 14, 2021 11:45 AM [place]-TO[place] QUIT 15 YRS OR MORE [facility] Encounter Notes: All associated encounter notes [...] REQUIRED Electronically Filed: 08/12/2023 by: KATERYNA SHAFER BACK TENDER CYLINDER KATERYNA SHAFER [facility]
--- OUTSIDE RECORDS SUMMARY | 2024-04-25 11:38 | XMS_ITS | Encounter Summary ---
Author Name [facility] [place] Organization [facility] [place] Address [address] [place] [address] Care Team Providers Care Gis Geographer Name Role Phone CAMILLE GOTTI Primary Care [...] TITLE 19 Apr 18, 2020 MEDICAI D [id number] EVA LU PATIENT Selected Encounter This section includes the information on record at [place] for the Encounter. Date/Time Encounter Type Encounter Description Reason Pro vider Source Apr 24, 2024 07:09 AM Outpatient Encounter TELEPHONE TRIAGE IHE Encounter [...] 14, 2021 11:45 AM VA-TOBACCO FORMER USER [facility] Tobacco Use History This section includes a history of the smoking, or tobacco-related health factors, that were collected on or before the date of the Encounter. The data comes from the [place] facility where the Encounter took place. Date/Time Smoking Status/Tobacco Use Comment F ackevin Jul 14, 2021 11:45 AM VA-TOBACCO QUIT 15 YRS OR MORE [facility] Encounter Notes: All associated encounter notes This section contains the clinical notes associated to the Encounter. Date/Time Encounter Note(s) Provider Source Apr 24, 2024 08:17 AM ADDENDUM: LOCAL TITLE: Addendum STANDARD TITLE: ADDENDUM DATE OF NOTE: APR 24, 2024@08:17:15 ENTRY DATE: APR 24, 2024@08:17:16 AUTHOR: SAMMY GOTTI EXP COSIGNER: URGENCY: STATUS: COMPLETED steroid cream for rectum and stool softener prescribed, Pact RNs-plz call vet and inquire if he wants to p/u meds at window- otherwise they will be mailed. taina ramos book appt for me to meet w/ vet in July or August. thanks /saida/ CAMILLE GOTTI MD PHYSICIAN Signed: 04/24/2024 08:20 Receipt Acknowledged By: 04/24/2024 08:25 /saida/ JODY HARRINGTON Advanced Travel Ot 04/24/2024 09:26 /es/ YG CUBA REGISTERED NURSE 04/24/2024 08:39 /es/ Elif Jama security operations analyst Staff Nurse === --- Original Document --- 04/24/24 CCC: CLINICAL TRIAGE: Patient Demographics Patient Name: EVA HINKLE Patient Primary Address: [address] [place] [address] Patient Primary Phone: [phone] Patient : 1970 Patient Age: 53 Caller/Recipient Relation to Patient: Self Caller Name: EVA HINKLE Emergency Contact: FARHADNOAH TANG Nursing Plan and Disposition Other course(s) of action Generated msg to PACT/Provider Clinical Contact Center Codes Clinic/Location: V1 CWM PHONE CCC RN Notes Notes & Information: Vet states he went to a local ER yesterday for rectal bleeding after speaking with [facility]1 [facility] RN. stated he is diagnosed with hemorrhoids and anal fissure . Per vet he was prescribed Colace and Hydrocortisone suppository however [facility] charges him 200 USD. Since he did not have the money was not able to get the prescription, he would like to ask and see if his PACT team can assist . Requesting a call back to confirm. IMPORTANT: This note was created by [facility] Clinical Contact Center staff. Please do not alert the staff member by adding them as a signer for future communications. Alerts are not monitored by this user. /saida/ BRITTNEY DOTSON [address] [facility] RN Signed: 04/24/2024 07:09 Receipt Acknowledged By: 04/24/2024 08:16 /saida/ CAMILLE GOTTI MD PHYSICIAN 04/24/2024 08:39 /saida/ Elif Jama RN Primary Care Staff Nurse 04/24/2024 ADDENDUM STATUS: COMPLETED MSA called to schedule appt. Veterans phone is not in service. Letter sent to call for appt. /saida/ JODY HARRINGTON Advanced Travel Ot Signed: 04/24/2024 08:23 04/24/2024 ADDENDUM STATUS: COMPLETED Phone not in service. Meds will be mailed. /saida/ Elif Jama RN Primary Care Staff Nurse Signed: 04/24/2024 08:40 SAMMY GOTTI [place] [facility] Apr 24, 2024 07:09 AM RN PROGRESS NOTE: LOCAL TITLE: [facility]: CLINICAL TRIAGE STANDARD TITLE: RN PROGRESS NOTE DATE OF NOTE: APR 24, 2024@07:09:16 ENTRY DATE: APR 24, 2024@07:09:17 AUTHOR: BRITTNEY AVELAR EXP COSIGNER: URGENCY: STATUS: COMPLETED [facility]: CLINICAL TRIAGE Has ADDENDA Patient Demographics Patient Name: EVA HINKLE Patient Primary Address: [address] [place] [address] Patient Primary Phone: [phone] Patient : 1970 Patient Age: 53 Caller/Recipient Relation to Patient: Self Caller Name: EVA HINKLE Emergency Contact: FARHAD TANG Nursing Plan and Disposition Other course(s) of action Generated msg to PACT/Provider Clinical Contact Center Codes Clinic/Location: V1 C[facility] PHONE CCC RN Notes Notes & Information: Vet states he went to a local ER yesterday for rectal bleeding after speaking with [facility]1 [facility] RN. stated he is diagnosed with hemorrhoids and anal fissure . Per vet he was prescribed Colace and Hydrocortisone suppository however [facility] charges him 200 USD. Since he did not have the money was not able to get the prescription, he would like to ask and see if his PACT team can assist . Requesting a call back to confirm. IMPORTANT: This note was created by [facility] Clinical Contact Center staff. Please do not alert the staff member by adding them as a signer for future communications. Alerts are not monitored by this user. /saida/ BRITTNEY DOTSON [address] [facility] RN Signed: 04/24/2024 07:09 Receipt Acknowledged By: 04/24/2024 08:16 /saida/ CAMILLE GOTTI MD PHYSICIAN 04/24/2024 08:39 /saida/ Elif Jama security operations analyst Staff Nurse 04/24/2024 ADDENDUM STATUS: COMPLETED steroid cream for rectum and stool softener prescribed, Pact RNs-plandrade call vet and inquire if he wants to p/u meds at window- otherwise they will be mailed. taina ramos book appt for me to meet w/ vet in July or August. thanks /saida/ CAMILLE GOTTI MD PHYSICIAN Signed: 04/24/2024 08:20 Receipt Acknowledged By: 04/24/2024 08:25 /saida/ JODY HARRINGTON Advanced Travel Ot * AWAITING SIGNATURE * YG CUBA 04/24/2024 08:39 /saida/ Elif Jama RN Primary Care Staff Nurse 04/24/2024 ADDENDUM STATUS: COMPLETED MSA called to schedule appt. Veterans phone is not in service. Letter sent to call for appt. /marcelle HARRINGTON Advanced Travel Ot Signed: 04/24/2024 08:23 04/24/2024 ADDENDUM STATUS: COMPLETED Phone not in service. Meds will be mailed. /marcelle Jama RN Primary Care Staff Nurse Signed: 04/24/2024 08:40 BRITTNEY AVELAR [place] [facility]
--- OUTSIDE RECORDS SUMMARY | 2024-04-25 11:38 | XMS_ITS | Encounter Summary ---
Author Name [facility] [place] Organization [facility] [place] Address [address] [place] [address] Care Team Providers Care Vp Ad Sales West Name Role Phone CAMILLE GOTTI Primary Care [...] Chaparro's Name Patient's Relationship to Policy Chaparro [facility] MEDICAID TITLE 19 Apr 18, 2020 MEDICAI D [id number] EVA LU PATIENT Selected Encounter This section includes the information on record at [place] for the Encounter. Date/Time Encounter Type Encounter Description Reason Pro vider Source Feb 06, 2024 11:39 AM Outpatient Encounter ADMIN PAT ACTIVTIES (MASNONCT) IHE Encounter Template Text not used by [place] Social History: Smoking Status (Most current) and [...] 14, 2021 11:45 AM VA-TOBACCO FORMER USER [facility] Tobacco Use History This section includes a history of the smoking, or tobacco-related health factors, that were collected on or before the date of the Encounter. The data comes from the [place] facility where the Encounter took place. Date/Time Smoking Status/Tobacco Use Comment Jatinder rodriguez Jul 14, 2021 11:45 AM VA-TOBACCO QUIT 15 YRS OR MORE [facility] Encounter Notes: All associated encounter notes This [...] Patient Name: EVA HINKLE Patient Primary Phone: [phone] Patient Primary Address: [address] [place] [address] Patient : 1970 Patient Age: 53 Call Back Number: Caller/Recipient Relation to Patient: Self Administrative Administrative Note Reason: Other Administrative Note Comments: Per CCCRN Triage recommendation [place] is to be scheduled with PCP/CCC PROVIDER within 24hrs No available appointment for within recommended timeframe, SEE 02/06/2024 TRIAGE NOTE understands and will follow CCCRN's recommendation for Urgent Care PLEASE CALL TO FOLLOW UP IMPORTANT: This note was created by [place] [facility] Clinical [...] RN Primary Care Staff Nurse [facility]JO [facility]
--- OUTSIDE RECORDS SUMMARY | 2024-04-25 11:38 | XMS_ITS | Encounter Summary ---
Author Name Department [place] Organization [facility] [place] Address [address] [place] [address] Care Team Providers Care Associate Producer Name Role Phone CAMILLE GOTTI Primary Care [...] Chaparro's Name Patient's Relationship to Policy Chaparro [facility] MEDICAID TITLE 19 Apr 18, 2020 MEDICAI D [id number] EVA LU PATIENT Selected Encounter This section includes the information on record at [place] for the Encounter. Date/Time Encounter Type Encounter Description Reason Pro vider Source Apr 23, 2024 08:38 AM Outpatient Encounter TELEPHONE TRIAGE IHE Encounter Template Text not used by [facility] Social History: Smoking Status (Most current) and Tobacco Use (All prior to encounter date) This section includes the most current, and the historical, smoking and tobacco- related health factors from the [place] facility where the Encounter took place. Current Smoking Status This section includes the most current smoking, or tobacco-related health factor, from the [place] facility where the Encounter took place. Date/Time Current Smoking Status Comment Andrew rock Jul 14, 2021 11:45 AM VA-TOBACCO FORMER USER [facility] Tobacco Use History This section includes a history of the smoking, or tobacco-related health factors, that were collected on or before the date of the Encounter. The data comes from the [place] facility where the Encounter took place. Date/Time Smoking Status/Tobacco Use Comment F jennifer Jul 14, 2021 11:45 AM VA-TOBACCO QUIT 15 YRS OR MORE [facility] Encounter Notes: All associated encounter notes This section contains the clinical notes associated to the Encounter. Date/Time Encounter Note(s) Provider Source Apr 23, 2024 08:38 AM RN PROGRESS NOTE: [facility] TITLE: CCC: CLINICAL TRIAGE STANDARD TITLE: RN PROGRESS NOTE DATE OF NOTE: APR 23, 2024@08:38:18 ENTRY DATE: APR 23, 2024@08:38:19 AUTHOR: ROBERT OBREGON COSIGNER: URGENCY: STATUS: COMPLETED CCC: CLINICAL TRIAGE Has ADDENDA Patient Demographics Patient Name: EVA HINKLE Patient Primary Address: [address] [place] [address] Patient Primary Phone: [phone] Patient : 1970 Patient Age: 53 Current Location: [facility] Call Back Number: [phone] Caller/Recipient Relation to Patient: Self Caller Name: [...] approval or authorization for payment by the [place] or its staff. Patient advised to report a community ED visit to the [facility] Office of Community Care at within 72 hours. Other course(s) of action Generated msg to PACT/Provider Provided guidance for worsening symptoms: *Caller/Patient* advised to call facilities [place] Clinical Contact Center or seek immediate medical attention for new or worsening symptoms Nurse Summary Nurse Summary: . calls reporting severe rectal pain x 2 weeks and blister-like rash on R shoulder and scalp x 6 months. Advised ER NOW. ER notification # provided. verbalizes understanding and agrees to go to [place] [facility]. Advised of [facility] Triage 24.7. . . Clinical Contact Center Codes Clinic/Location: V1 CWM PHONE [facility] RN Decision Support System Output: Triage Complete Triage Date: 04/23/2024, 08:33 AM Triage Note: Decision Support Tool Used: [facility] Phone Triage 23 Apr 2024 13:30:31 +0000 [facility] Demographics 53 y/o Male Results CC: Rectal Pain Software suggested: Now Software suggested follow-up location: Emergency department Values and Measures Duration of CC: 2 Weeks Positive Responses HPI: anal pain, severe HPI: anal swelling HPI: perianal tenderness VS: temperature not taken IMPORTANT: This note was created by [facility] Clinical Contact Center staff. Please do not alert the staff member by adding them as a signer for future communications. Alerts are not monitored by this user. /saida/ ROBERT DOTSON 1 [facility] supervisor garage Signed: 04/23/2024 08:38 Receipt Acknowledged By: 04/23/2024 09:38 /saida/ YG CUBA REGISTERED NURSE 04/25/2024 08:38 /saida/ Elif Jama water chaser Staff Nurse 04/23/2024 ADDENDUM STATUS: COMPLETED agrees to go to ED /saida/ YG CUBA REGISTERED NURSE Signed: 04/23/2024 09:38 ROBERT OBREGON [place] [facility]
--- OUTSIDE RECORDS SUMMARY | 2024-04-25 11:38 | XMS_ITS | Encounter Summary ---
Author Name [facility] [place] Organization [facility] [place] Address [address] [place] [address] Care Team Providers Care Office Machine Service Supervisor Name Role Phone CAMILLE GOTTI Primary [...] Chaparro's Name Patient's Relationship to Policy Chaparro [facility] MEDICAID TITLE 19 Apr 18, 2020 MEDICAI D [id number] EVA LU PATIENT Selected Encounter This section includes the information on record at [place] for the Encounter. Date/Time Encounter Type Encounter Description Reason Pro vider Source Feb 06, 2024 11:27 AM Outpatient Encounter TELEPHONE TRIAGE IHE Encounter Template Text not used by [facility] Social History: Smoking Status (Most current) and Tobacco Use (All prior to encounter date) This section includes the most current, and the historical, smoking and tobacco- related health factors from the [place] facility where the Encounter took place. Current Smoking Status This section includes the most current smoking, or tobacco-related health factor, from the [place] facility where the Encounter took place. Date/Time Current Smoking Status Comment Andrew rock Jul 14, 2021 11:45 AM VA-TOBACCO FORMER USER [facility] Tobacco Use History This section includes a history of the smoking, or tobacco-related health factors, that were collected on or before the date of the Encounter. The data comes from the [place] facility where the Encounter took place. Date/Time Smoking Status/Tobacco Use Comment F jennifer Jul 14, 2021 11:45 AM VA-TOBACCO QUIT 15 YRS OR MORE [facility] Encounter Notes: All associated encounter notes This section contains the clinical notes associated to the Encounter. Date/Time Encounter Note(s) Provider Source Feb 06, 2024 11:27 AM RN PROGRESS NOTE: [facility] TITLE: CCC: CLINICAL TRIAGE STANDARD TITLE: RN PROGRESS NOTE DATE OF NOTE: FEB 06, 2024@11:27:07 ENTRY DATE: FEB 06, 2024@11:27:08 AUTHOR: QIAN BUSTAMANTE EXP COSIGNER: URGENCY: STATUS: COMPLETED CCC: CLINICAL TRIAGE Has ADDENDA Patient Demographics Patient Name: EVA HINKLE Patient Primary Address: [address] [place] [address] Patient Primary Phone: [phone] Patient : 1970 Patient Age: 53 Current Location: home Call Back Number: in chart Caller/Recipient Relation to Patient: Self Emergency Contact: FARHAD TANG Triage Summary Conducted triage/discussed symptoms Pain Score: 4 Utilized the Triage Tool: Yes Chief Complaint: Lesion On The Skin System WHEN: Within 24 Hours Nurse's Recommendation / WHEN: Within 24 Hours System WHERE: Clinic Nurse's Recommendation / WHERE: Clinic/[facility] Patient Disposition Patient/Caregiver agrees to plan of care: Yes Patient WHERE: Appointment Other - Patient Where Disposition: PCP Patient WHEN: Within 24 hours Nursing Plan and Disposition Referred Patient for In-Person Appt Transferred patient to Sched & Admin-Apt Other course(s) of action Generated msg to PACT/Provider Provided guidance for worsening symptoms: *Caller/Patient* advised to call facilities [place] Clinical Contact Center or seek immediate medical [...] 1.5 months. 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 Advised to be assessed within 24 hours and they agreed with plan. Warm transferred for scheduling with PCP and if no availability agreed to a CCC POTATO PANCAKE FRIER Vvc appointment and provided a third option of In network urgent care listed below to contact for scheduling. [facility] [address] [address] Main number: [phone] Clinical Contact Center Codes Clinic/Location: CWM PHONE CCC RN Decision Support System Output: Triage Complete Triage Date: 02/06/2024, 11:14 AM Triage Note: Decision Support Tool Used: [facility] Phone Triage Tue, 06 Feb 2024 15:12:51 +0000 [facility] Demographics 53 y/o Male Results CC: Lesion On The Skin Software suggested: Within 24 Hours Software suggested follow-up location: Clinic, consider [facility] care Values and Measures Duration of CC: 6 Weeks Positive Responses HPI: skin erythema, around skin lump or bump HPI: skin tenderness, around the skin lump or papule VS: temperature not taken Negative Responses Denies: HPI: skin lump, painful, swollen Denies: HPI: vomiting Denies: MEDS: chemotherapy Denies: PMH: diabetes Denies: PMH: HIV positive Denies: PSH: organ transplant IMPORTANT: This note was created by [place] [facility] Clinical Contact Center staff. Please do not alert the staff member by adding them as a signer for future communications. Alerts are not monitored by this user. /saida/ Qian Bustamante GUN STOCK CHECKER VISN 1 CCC SIGN LETTERER Signed: 02/06/2024 11:27 Receipt Acknowledged By: 02/06/2024 12:03 /es/ JEAN HEBERT, MSN, RN, CNL PRIMARY CARE TEAM NURSE 02/06/2024 11:57 /marcelle Jama RN Primary Care Staff Nurse 02/06/2024 ADDENDUM STATUS: COMPLETED Vet is going to go to local for eval- per second triage notification /marcelle Jama RN Primary Care Staff Nurse Signed: 02/06/2024 11:57 QIAN BUSTAMANTE CNTRL [facility]
== END 2024-04-25 11:47 | disposition home or self-care (01) ==
PROVIDERS: PCP Internal Medicine; Visit Provider Surgery
DX: K62.89 Other specified diseases of anus and rectum (principal)
CPT/HCPCS: 99213

== ENCOUNTER → 2024-04-25 11:15 | Outpatient (BNVA) | payer OTHER, SELFPAY | PROVIDERS: PCP Internal Medicine; Visit Provider Surgery | DX: K62.89 Other specified diseases of anus and rectum (principal) | CPT/HCPCS: 99212 ==

== ENCOUNTER 2024-05-25 06:45 | Day surgery (SDC) | payer OTHER, SELFPAY ==
--- OUTSIDE RECORDS SUMMARY | 2024-05-01 06:14 | XMS_ITS | Encounter Summary ---
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 Date/Time Encounter Type Encounter Description Reason Provider Source Apr 30, 2024 11:30 AM OFFICE O/P EST MOD 30 MIN PRIMARY CARE/MEDICINE ICD-10-CM R10.9 Unspecified abdominal pain Sammy GOTTI Encounter Template Text not used by [place] Assessments - Encounter Diagnoses This section includes the primary and secondary diagnoses documented for the Encounter. Date/Time Primary/Secondary Diagnosis Diagnosis Name Provider Source Apr 30, 2024 12:59 PM PRIMARY Unspecified abdominal pain Sammy GOTTI Dilcia [place] [facility] [place] [facility] Apr 30, 2024 12:59 PM SECONDARY Anxiety disorder, unspecified Sammy GOTTIDENVER Ha [place] [facility] [place] [facility] Apr 30, 2024 12:59 PM SECONDARY Constipation, unspecified Sammy GOTTI Dilcia [place] [facility] [place] [facility] Apr 30, 2024 12:59 PM SECONDARY Other hemorrhoids Sammy GOTTIDENVER Ha [place] [facility] [place] [facility] Apr 30, 2024 12:59 PM SECONDARY Rash and other nonspecific skin eruption Sammy GOTTIDENVER Ha [facility] Plan of Treatment: Future Appointments (+ 6 months) and Future Tests (+/- 45 days) The Plan of Treatment section includes future care activities for the patient from all [place] [facility]. This section includes future appointments and future orders which are active, pending or scheduled. Future Appointments This section includes appointments that were scheduled to occur 6 months from the date of the Encounter, up to a maximum of 20 appointments. The data comes from all [place] treatment facilities. Appointment Date/Time Appointment Type Appointme nt Facility Name Aug 15, 2024 10:30 AM AMBULATORY - MEDICINE [facility] Active, Pending, and Scheduled Orders This section includes a listing of several types of active, pending, and scheduled orders, including clinic medications orders, diagnostic test orders, procedure orders and consult orders; where the start date of the order is 45 days before the date of the Encounter or 45 days after the date of theEncounter. The data comes from all [place] treatment facilities. Test Date/Time Test Type Test Details Facility Name Apr 30, 2024 11:38 AM Consult Order COMMUNITY CARE-GEN SURGERY Cons Supervisor Fur Dressing's Choice [place] [facility] [place] [facility] Apr 30, 2024 11:59 AM Consult Order GASTROENTEROLOGY ONE Cons Supervisor [employer] [place] [facility] [place] [facility] Apr 30, 2024 12:04 PM Consult Order TELEDERMATOLOGY REQUEST/NHM OUTPT Cons Supervisor Fur Dressing's Choice [facility] Apr 30, 2024 12:21 PM Laboratory - Chemistry Order THYROID T4 FREE(FT4) (WROX) BLOOD (SST-SERUM) SP [facility] [place] [facility] Apr 30, 2024 12:21 PM Laboratory - Chemistry Order IGE BLOOD (SST-SERUM) SP [facility] Lab Results: +/- 30 days of the encounter This section includes the Chemistry and Hematology Lab Results on record with [place] for the patient. Radiology Reports and Pathology Reports are provided separately, in subsequent sections. Lab Results This section contains the Chemistry/Hematology Results that were resulted 30 days before or 30 daysafter the date of the Encounter. Date/Time Source Result Type Result - Unit Interpretation Reference Range Comment Apr 30, 2024 12:21 PM [facility] CALCIUM Specimen Type: SERUM No comment entered. Ordering Provider: Sammy GOTTI Report Released Date/Time: Apr 30, 2024 11:59 AM Reporting Lab: [facility] [address] [facility] [address] Performing Lab: [address] [address] CALCIUM 8.9 mg/dL 8.5-10.2 Apr 30, 2024 12:21 PM [facility] LIVER FUNCTION Specimen Type: SERUM No comment entered. Ordering Provider: Sammy GOTTI Report Released Date/Time: Apr 30, 2024 11:59 AM Reporting Lab: [facility] [address] [facility] [address] Performing Lab: [address] [address] PROTEIN,TOTAL 7.6 g/dL 6.0-8.3 ALBUMIN 4.3 g/dL 3.5-5.0 ALKALINE PHOSPHATASE 48 U/L 40-150 AST 17 U/L 5-34 ALT 13 U/L BILIRUBIN, TOTAL 0.2 mg/dL 0.2-1.2 Apr 30, 2024 12:21 PM [facility] HEMOGLOBIN A1C PANEL Specimen Type: BLOOD Comment: Values obtained from A1C measurements can vary. For atypical A1C assays, a reported value of 7.0 could actually be between 6.72 and 7.28 if measured by a reference method. A reported value of 9.0 could actually be between 8.73 and 9.27. Ref: http://www.ngs p.org/CAPdata. asp Ordering Provider: Sammy GOTTI Report Released Date/Time: Apr 30, 2024 11:59 AM Reporting Lab: [facility] [address] [address] Performing Lab: [facility] [address] HEMOGLOBIN A1C 5.6 4.0-5.6 Apr 30, 2024 12:21 PM [facility] TSH Specimen Type: SERUM No comment entered. Ordering Provider: Sammy GOTTI Report Released Date/Time: Apr 30, 2024 11:59 AM Reporting Lab: [facility] [address] Performing Lab: [facility] [address] TSH 1.60 u[IU]/mL 0.35-5.00 Apr 30, 2024 12:21 PM [facility] IRON & TIBC PANEL Specimen Type: SERUM No comment entered. Ordering Provider: Sammy GOTTI Report Released Date/Time: Apr 30, 2024 11:59 AM Reporting Lab: [facility] [address] [address] Performing Lab: [facility] [address] [address] TIBC 525 ug/dL H 204-475 IRON 20 ug/dL L 40-160 Transferrin Saturation 3.8 L 20.0-50.0 Transferrin (TRF) 398 mg/dL H 200-360 Apr 30, 2024 12:21 PM [facility] FERRITIN Specimen Type: SERUM No comment entered. Ordering Provider: Sammy GOTTI Report Released Date/Time: Apr 30, 2024 11:59 AM Reporting Lab: [address] [address] Performing Lab: [address] [address] FERRITIN 6 ng/mL L 20-300 Apr 30, 2024 12:21 PM [facility] BASIC METABOLIC PANEL (non-fasting) Specimen Type: SERUM No comment entered. Ordering Provider: Sammy GOTTI Report Released Date/Time: Apr 30, 2024 11:59 AM Reporting Lab: [address] [address] Performing Lab: [address] [address] UREA NITROGEN 18 mg/dL 7-25 GLUCOSE 83 mg/dL 65-100 SODIUM 139 mmol/L 135-145 POTASSIUM 4.0 mmol/L 3.5-5.0 CHLORIDE 105 mmol/L 100-110 CO2 25 meq/L 20-30 CREATININE, Serum 1.02 mg/dL 0.50-1.40 eGFR(CKD-EPI 2020) 86 mL/min >60 Apr 30, 2024 12:21 PM [facility] CBC AND DIFF (AUTO) Specimen Type: BLOOD No comment entered. Ordering Provider: Sammy GOTTI Report Released Date/Time: Apr 30, 2024 11:59 AM Reporting Lab: [address] [address] Performing Lab: [address] [address] WBC 7.85 10*3/uL 4.50-11.00 RBC 4.32 10*6/uL 4.23-5.66 HGB 10.7 g/dL L 12.8-17 HCT 33.8 L 39.2-50.4 MCV 78.2 fL L 82-99 MCHC 31.7 g/dL 30.8-35.1 PLT 456 10*3/uL H 140-360 RDW-CV 14.5 12.0-16.0 MONO, ABS 0.57 10*3/uL 0.30-1.10 MCH 24.8 pg L 26.2-32.6 NEUT % 60.9 43.7-75.8 LYMPH % 28.2 14.0-42.3 MONO % 7.3 5.1-13.7 EOS % 2.3 0.4-6.8 BASO % 0.9 0.1-2.0 NEUT, ABS 4.79 10*3/uL 2.20-7.60 LYMPH, ABS 2.21 10*3/uL 1.00-3.20 EOS, ABS 0.18 10*3/uL 0.03-0.44 BASO, ABS 0.07 10*3/uL 0.01-0.13 IMMATURE GRAN % 0.4 0.0-0.7 IMMATURE GRAN, ABS 0.03 10*3/uL 0.00-0.06 NRBC % 0.0 0.0-0.0 NRBC, ABS 0.00 10*3/uL 0.00-0.00 Apr 30, 2024 12:21 PM [place] [employer] [facility] [employer] [facility] LIPID PANEL, NON FASTING Specimen Type: SERUM No comment entered. Ordering Provider: Sammy GOTTI Report Released Date/Time: Apr 30, 2024 03:02 PM Reporting Lab: [facility] [address] Performing Lab: [address] [address] CHOLESTEROL 246 mg/dL H TRIGLYCERIDE 91 mg/dL 0-150 LDL calculated 178 mg/dL H 0-129 CHOL/HDL 4.9 HDL CHOLESTEROL 50 mg/dL 40-60 Vital Signs: All taken on the encounter date This section contains inpatient and outpatient Vital Signs collected on the date of the Encounter. Date/Time Temperature Pulse Blood Pressure Respiratory Rate SP02 Pain Height Weight Body Mass Index Source Apr 30, 2024 11:35 AM 98.3 66 116/78 15 97 0 224 30 [place] [facility] Social History: Smoking [...] Date/Time Current Smoking Status Comment Andrew ity Apr 30, 2024 11:30 AM VA-TOBACCO USE FOR DAMIÁN CIGARETTES [facility] Tobacco Use History This section includes a history of the smoking, or tobacco-related health factors, that were collected on or before the date of the Encounter. The data comes from the [place] facility where the Encounter took place. Date/Time Smoking Status/Tobacco Use Comment F acility Apr 30, 2024 11:30 AM VA-TOBACCO USE NOÉ E DAYS OTHER PRODUCT MARIJUANA [facility] Apr 30, 2024 11:30 AM VA-TOBACCO USE NOÉ E DAYS OTHER TYPE [facility] Jul 14, 2021 11:45 AM VA-TOBACCO FORMER USER [facility] Jul 14, 2021 11:45 AM VA-TOBACCO QUIT 15 YRS OR MORE [facility] Encounter Notes: All associated encounter notes This section contains the clinical notes associated to the Encounter. Date/Time Encounter Note(s) Provider Source Apr 30, 2024 02:55 PM LETTERS: LOCAL TITLE: PATIENT LETTER (T) STANDARD TITLE: LETTERS DATE OF NOTE: APR 30, 2024@14:55 ENTRY DATE: APR 30, 2024@14:56:03 AUTHOR: SAMMY GOTTI EXP COSIGNER: URGENCY: STATUS: COMPLETED [facility] Toll Free Number Primary Care Telephone Assistance can be reached at extension [phone] [facility] scheduling can be reached at extension [phone] [facility] scheduling can be reached at ext [phone] EVA HINKLE [address] [place] [address], [phone] Dear Joy Chavez, I wanted you to have a copy of the labwork done today. the ONLY abnormality is low iron and mild anemia. This anemia is, in all liklihood, due to the fact that you need more iron to build up your hemoglobin in Red blood cells. Iron can be mildly constipating so you will need to be very consistent with drinking alot of water, using fiber, metamucil and stool softener colace/docusate meds. please show labs to your GI provider who will help you plan future f/u if colonoscopy needed. Sincerely, Your Primary Care Team [facility] [address] [facility] [address] [place] [address] [place] [address] [phone] [facility] [address] [place] [address] [place] [address] [facility] [address] [facility] [place] [address] [place] [address] SAMMY GOTTI [place] [facility] [facility] Apr 30, 2024 11:38 AM PREVENTIVE MEDICINE NURSING NOTE: LOCAL TITLE: CLINICAL REMINDERS/NURSING STANDARD TITLE: PREVENTIVE MEDICINE NURSING NOTE DATE OF NOTE: APR 30, 2024@11:38 ENTRY DATE: APR 30, 2024@11:38:44 AUTHOR: ASAEL SINGH EXP COSIGNER: URGENCY: STATUS: COMPLETED Suicide Screen: C-SSRS Screening Johnson Suicide Severity Rating Scale (C-SSRS) screener 1. Over the past month, have you wished you were or wished you could go to sleep and not wake up? No 2. Over the past month, have you had any actual thoughts of killing yourself? No 3. Over the past month, have you been thinking about how you might do this? Response not required due to responses to other questions. 4. Over the past month, have you had these thoughts and had some intention of acting on them? Response not required due to responses to other questions. 5. Over the past month, have you started to work out or worked out the details of how to kill yourself? Response not required due to responses to other questions. 6. If yes, at any time in the past month did you intend to carry out this plan? Response not required due to responses to other questions. 7. In your lifetime, have you ever done anything, started to do anything, or prepared to do anything to end your life (for example, collected pills, obtained a gun, gave away valuables, went to the roof but didn't jump)? No 8. If YES, was this within the past 3 months? Response not required due to responses to other questions. Homelessness/Food Insecurity Screen: In the past 2 months, have you been living in stable housing that you own, rent, or stay in as part of a household? Yes - Living in stable housing. Are you worried or concerned that in the next 2 months you may NOT have stable housing that you own, rent, or stay in as part of a household? No - Not worried about housing near future [facility] reports the following: Within the past 12 months, you worried whether your food would run out before you got money to buy more. Never true Within the past 12 months, the food you bought just didn't last and you didn't have money to get more. Never true Depression Screening: Perform PHQ-2 A PHQ-2 screen was performed. The score was 0 which is a negative screen for depression. Over the past two weeks, how often have you been bothered by the following problems? 1. Little interest or pleasure in doing things Not at all 2. Feeling down, depressed, or hopeless Not at all Tobacco Use Screening: The patient is a former cigarette smoker. Quit smoking GREATER THAN OR EQUAL to 15 years. The patient uses other type(s) of tobacco some days. Other Tobacco Type(s) used: Other tobacco product: Product Type: MARIJUANA Alcohol Use Screen (AUDIT-C): Alcohol Screen: SCREEN FOR ALCOHOL (AUDIT-C) An alcohol screening test (AUDIT-C) was negative (score=0). 1. How often did you have a drink containing alcohol in the past year? Consider a drink to be a 12 ounce can or bottle of regular beer, 8 ounces of malt liquor, a 5 ounce glass of table wine, or a 1.5 ounce shot of liquor (like scotch, gin, or vodka). Never 2. How many drinks containing alcohol did you have on a typical day when you were drinking in the past year? Response not required due to responses to other questions. 3. How often did you have six or more drinks on one occasion in the past year? Response not required due to responses to other questions. /saida/ ASAEL SINGH LPN Signed: 04/30/2024 11:41 ASAEL SINGH [place] [facility] [place] [facility] Apr 30, 2024 08:08 AM PHYSICIAN NOTE: LOCAL TITLE: MD NOTE STANDARD TITLE: PHYSICIAN NOTE DATE OF NOTE: APR 30, 2024@08:08 ENTRY DATE: APR 30, 2024@08:08:26 AUTHOR: SAMMY GOTTI EXP COSIGNER: URGENCY: STATUS: COMPLETED HISTORY OF PRESENT ILLNESS: = EVA HINKLE, is a 53 yo DECLINED TO ANSWER MALE [facility] who presents at the [place] [facility]. hemorrhoids and other problems HPI. this vet presents for first PCP appt w/ this provider. he had been living in [place] and had GI providers thru [facility]. he had surgery done for bowel obstruction and continues to have chronic GI problems with both constipation and diarrhea, he occ sees blood in stool. He has hx of hemorrhoids and needs surgical procedure per [facility] soon. He c/o vague abd pain, no bloating and he has hx of 25 lb wt loss over past 3 yrs. he denies using etoh or drugs but admits to long hx of anxiety and in past year has had rash on back and arms and scratches at the sites of small outbreaks of small follicles. SH nonsmoker Active problems - Computerized Problem List is the source for the followin. Internal bleeding hemorrhoids 2. Hyperlipidemia ([facility] [id number]) 3. Obesity ([facility] [id number]) 4. Ex-tobacco user 5. Admits alcohol use 6. Bowel obstruction 7. Pancreatitis HISTORY: PERIOD OF SERVICE - [facility] FROM Apr TO Apr COMBAT SERVICE INDICATED: No SERVICE CONNECTED % - NONE FOUND VITAL SIGNS: Temperature 97.7 F [36.5 C] (03/05/2022 11:09) Blood Pressure 116/78 (03/05/2022 11:09) Pulse 65 (03/05/2022 11:09) Respiration 16 (03/05/2022 11:09) Pain 3 (02/08/2022 11:05) BMI BMI: 33.8 Weight 248.4 lb [112.67 kg] (03/05/2022 11:09) Pulse Oximetry 98% (03/05/2022 11:09) Review of Systems: CONSTITUTIONAL: No fever, no loss of appetite ENT: No sore throat, no cough CARDIOVASCULAR: No chest pain, no palpitations RESPIRATORY: No SOB, no wheezing GASTROINTESTINAL: No abd pain, no N/V/D, no change in stool EXAMINATION General: this is very anxious gentleman in no obvious distress. Mental Status: Alert and oriented x 3 Head: Normocephalic. Eyes: Anicteric sclerae. Conjunctivae noninjected. GI: Abdomen is soft and nontender. / no visible abd scars from prior surgeries due to lap procedure Neuro: Normal speech & gait Integument: Skin is warm and dry/ numerous follicular eruptions, small red lesions, less than 1 cm round, some unroofed w/ excoriations DATA REVIEW >> MEDICATIONS Reviewed Today (VA & Non VA) ALLERGIES: Patient has answered NKA Active Outpatient Medications (including Supplies): Issue Date Status Last Fill Active Outpatient Medications Refills Expiration === 1) DOCUSATE NA 100MG CAP Qty: 100 for 50 days ACTIVE Issue: 04/24/24 Sig: TAKE ONE CAPSULE BY MOUTH TWICE DAILY Refills: 1 Last : 04/24/24 NEEDED TO SOFTEN STOOL Expr : 04/25/25 Indication: FOR CONSTIPATION 2) HYDROCORTISONE 2.5% RTL CRM W/APPLICATOR ACTIVE Issue: 04/24/24 Qty: 30 for 15 days Sig: INSERT SMALL AMOUNT Refills: 2 Last : 04/24/24 RECTAL AREA TWICE DAILY NEEDED Expr : 04/25/25 Indication: FOR SKIN INFLAMMATION >> LABS REVIEWED TODAY: CHEM 7 TREND LAB CUMULATIVE SELECTED Collection DT Spec GLUCOSE BUN CREATIN Sodium K+/Pot CL CO2 03/05/2022 12:09 SERUM 88 14 0.92 140 4.1 106 23 02/08/2022 12:04 SERUM 92 18 1.05 137 3.7 101 25 07/14/2021 12:30 SERUM 102 H 15 1.03 139 4.1 103 28 LAB CUMULATIVE SELECTED 2 No selection items chosen for this component. CHEM 7 Results Collection DT Spec Sodium K+/Pot CL CO2 GLUCOSE BUN 03/05/2022 12:09 SERUM 140 4.1 106 23 88 14 02/08/2022 12:04 SERUM 137 3.7 101 25 92 18 07/14/2021 12:30 SERUM 139 4.1 103 28 102 H 15 === CBC TREND Collection DT Spec WBC RBC HGB HCT MCV MCH PLT 03/05/2022 12:09 BLOOD 7.67 4.49 13.4 39.8 88.6 29.8 310 02/08/2022 12:04 BLOOD 7.39 4.80 14.2 41.9 87.3 29.6 267 07/14/2021 12:30 BLOOD 7.27 4.72 14.1 42.8 90.7 29.9 294 === HEMOGLOBIN A1C TREND Collection DT Spec HGBA1c 03/05/2022 12:09 BLOOD 5.4 02/08/2022 12:04 BLOOD 5.4 === LIPID PANEL TREND Collection DT Spec CHOL HDL CHO/HDL LDL-c TRIG 03/05/2022 12:09 SERUM 263 H 45 5.8 197 H 105 07/14/2021 12:30 SERUM 255 H 46 5.5 190 H 96 === UREA NITROGEN - NONE FOUND CREATININE-EGFR - NONE FOUND === LIVER PANEL TREND Collection DT Spec AST ALT T BILI ALK MARILYNN T. PROT ALBUMIN 03/25/2022 13:04 SERUM 19 18 0.5 60 7.0 4.2 03/05/2022 12:09 SERUM 23 20 0.5 57 7.1 4.4 02/08/2022 12:04 SERUM 25 34 0.5 62 7.2 4.4 07/14/2021 12:30 SERUM 19 19 0.5 54 7.1 4.3 === PSA TREND No data available = Collection DT Spec TSH 03/25/2022 13:04 SERUM 0.80 == ANEMIA PANEL TREND Collection DT Spec HCT Ferrit IRON TIBC 03/05/2022 12:10 SERUM 81 110 371 03/05/2022 12:09 BLOOD 39.8 02/08/2022 12:04 BLOOD 41.9 07/14/2021 12:30 BLOOD 42.8 === PT INR TREND No data available === >> HEALTH MAINTENANCE PREVENTIVE MEDICINE GOALS Advance Directive Screen MH AD Aug 09 Suicide Screen Jul 14 BMI>30/>24.99 High Risk DUE NOW Homelessness/Food Insecurity Screen Jul 14 Depression Screening Jul 14 Lipid Screening DUE NOW Tobacco Use Screening Jul 14 Influenza Immunization DUE NOW Medication Reconciliation DUE NOW Alcohol Use Screen (AUDIT-C) Jul 14 COVID-19 Immunization DUE NOW Tdap Immunization DUE NOW Herpes Zoster (Shingles) Vaccine Jul 27 Sexual Orientation DUE NOW RHS Screen DUE NOW (Optional) Whole Health Documentation DUE NOW ASSESSMENT/PLAN: 1. hx of abd pain with constipation/hx of Bowel obstruction 2. hemorrhoids 3. anxiety 4. folliculitis type rash Plan 1. On the date of the encounter, I spent 30 minutes on some or all of the following: chart review, history, physical examination, treatment planning, education and counseling of the patient/family/zoo caretaker, placing orders, communicating with other health care providers, and documentation in the electronic health record. 2. vet will use metamucil and push fluids 3. return to [facility] for other options/ possible C scope 4. consult placed to [facility] for hemorrhoid tx 5. consider mental health referral for anxiety 6. f/u w/ PCP in 3 mos and PRN 7. tele Derm consult for eval of skin disorder LAB ORDERS FOR NEXT APPT. spent in patient care and education No barriers; Patient understands and agrees to current treatment plan. If pt has any questions, concerns, or changes in current health status he/she will call or come in to the [facility]. Medication Reconciliation: Outpatient: Has the patient been taking medications as documented in the EMLR? YES: The patient has been taking medications as documented in the EMLR. Essential Medication List for Review used to complete this medication reconciliation. INCLUDED IN THIS LIST: Alphabetical list of active outpatient prescriptions dispensed from this [place] (local) and dispensed from another [place] or DoD facility (remote) as well as inpatient orders (local, pending and active), local clinic medications, locally documented non-VA medications, and local prescriptions that have or been discontinued in the past 90 days. - All changes in medications, including all non-VA/Herbal/OTC medications were entered into CPRS. - If there were any medications the patient should no longer take, they were discontinued. - The patient/caregiver was instructed to update this list, discard old lists, and take this list to the next appointment, whether with a VA or non-VA provider. /saida/ CAMILLE GOTTI MD PHYSICIAN Signed: 04/30/2024 13:00 SAMMY GOTTI [place] [facility] [employer]
--- OUTSIDE RECORDS SUMMARY | 2024-05-01 06:14 | XMS_ITS | Encounter Summary ---
Author Name [facility] [place] Organization [facility] [place] Address [address] [place] [address] Care Team Providers Care Supply Chain Program Manager Name Role Phone CAMILLE GOTTI Primary [...] Chaparro's Name Patient's Relationship to Policy Chaparro [facility] MEDICAID TITLE 19 Apr 18, 2020 MEDICAI D [id number] EVA LU PATIENT Selected Encounter This section includes the information on record at [place] for the Encounter. Date/Time Encounter Type Encounter Description Reason Pro vider Source Apr 25, 2024 12:57 PM Outpatient Encounter ADMIN PAT ACTIVTIES (MASNONCT) I[facility] Encounter Template Text not used by [place] Plan of Treatment: Future Appointments (+ 6 [...] 20 appointments. The data comes from all [facility]. Appointment Date/Time Appointment Type Appointme nt Facility Name Apr 30, 2024 11:30 AM AMBULATORY - MEDICINE [facility] Aug 15, 2024 10:30 AM AMBULATORY MEDICINE [facility] Active, Pending, and Scheduled Orders This section includes a listing of several types of active, pending, and scheduled orders, including clinic medications orders, diagnostic test orders, procedure orders and consult orders; where the start date of the order is 45 days before the date of the Encounter or 45 days after the date of theEncounter. The data comes from all [facility]. Test Date/Time Test Type Test Details Facility Name Apr 30, 2024 11:38 AM Consult Order COMMUNITY CARE-GEN SURGERY Cons Financial Specialist's Choice [facility] Apr 30, 2024 11:59 AM Consult Order GASTROENTEROLOGY ONE Cons Financial Specialist's Choice [facility] Apr 30, 2024 12:04 PM Consult Order TELEDERMATOLOGY REQUEST/[facility] OUTPT [facility] Financial Specialist's Choice [facility] Apr 30, 2024 12:21 PM Laboratory - Chemistry Order THYROID T4 FREE(FT4) (WROX) BLOOD (SST-SERUM) [facility] Apr 30, 2024 12:21 PM Laboratory - Chemistry Order IGE BLOOD (SST-SERUM) [facility] Lab Results: +/- 30 days of the encounter This section includes the Chemistry and Hematology Lab Results on record with [place] for the patient. Radiology Reports and Pathology Reports are provided separately, in subsequent sections. Lab Results This section contains the Chemistry/Hematology Results that were resulted 30 days before or 30 daysafter the date of the Encounter. Date/Time Source Result Type Result - Unit Interpretation Reference Range Comment Apr 30, 2024 12:21 PM [facility] LIVER FUNCTION Specimen Type: SERUM No comment entered. Ordering Provider: Sammy GOTTI Report Released Date/Time: Apr 30, 2024 11:59 AM Reporting Lab: [facility] [address] [address] Performing Lab: [address] [address] PROTEIN,TOTAL 7.6 g/dL 6.0-8.3 ALBUMIN 4.3 g/dL 3.5-5.0 ALKALINE PHOSPHATASE 48 U/L 40-150 AST 17 U/L 5-34 ALT 13 U/L BILIRUBIN, TOTAL 0.2 mg/dL 0.2-1.2 Apr 30, 2024 12:21 PM [facility] CALCIUM Specimen Type: SERUM No comment entered. Ordering Provider: Sammy GOTTI Report Released Date/Time: Apr 30, 2024 11:59 AM Reporting Lab: [address] [address] Performing Lab: [address] [address] CALCIUM 8.9 mg/dL 8.5-10.2 Apr 30, 2024 12:21 PM [facility] HEMOGLOBIN A1C PANEL Specimen Type: BLOOD Comment: [...] Apr 30, 2024 11:59 AM Reporting Lab: [address] [address] Performing Lab: [address] [address] HEMOGLOBIN A1C 5.6 4.0-5.6 Apr 30, 2024 12:21 PM [facility] IRON & TIBC PANEL Specimen Type: SERUM No comment entered. Ordering Provider: Sammy GOTTI Report Released Date/Time: Apr 30, 2024 11:59 AM Reporting Lab: [facility] [address] [address] Performing Lab: [facility] [address] [address] TIBC 525 ug/dL H 204-475 IRON 20 ug/dL L 40-160 Transferrin Saturation 3.8 L 20.0-50.0 Transferrin (TRF) 398 mg/dL H 200-360 Apr 30, 2024 12:21 PM [facility] TSH Specimen Type: SERUM No comment entered. Ordering Provider: Sammy GOTTI Report Released Date/Time: Apr 30, 2024 11:59 AM Reporting Lab: [facility] [place] [address] [address] Performing Lab: [place] [facility] [place] [address] [address] TSH 1.60 u[IU]/mL 0.35-5.00 Apr 30, 2024 12:21 PM [facility] FERRITIN Specimen Type: SERUM No comment entered. Ordering Provider: Sammy GOTTI Report Released Date/Time: Apr 30, 2024 11:59 AM Reporting Lab: [facility] [address] [address] Performing Lab: [facility] [address] [address] FERRITIN 6 ng/mL L 20-300 Apr 30, 2024 12:21 PM [facility] BASIC METABOLIC PANEL (non-fasting) Specimen Type: SERUM No comment entered. Ordering Provider: Sammy GOTTI Report Released Date/Time: Apr 30, 2024 11:59 AM Reporting Lab: [facility] [address] [address] Performing Lab: [facility] [address] [address] UREA NITROGEN 18 mg/dL 7-25 GLUCOSE 83 mg/dL 65-100 SODIUM 139 mmol/L 135-145 POTASSIUM 4.0 mmol/L 3.5-5.0 CHLORIDE 105 mmol/L 100-110 CO2 25 meq/L 20-30 CREATININE, Serum 1.02 mg/dL 0.50-1.40 eGFR(CKD-EPI 2020) 86 mL/min >60 Apr 30, 2024 12:21 PM [facility] CBC AND DIFF (AUTO) Specimen Type: BLOOD No comment entered. Ordering Provider: Sammy GOTTI Report Released Date/Time: Apr 30, 2024 11:59 AM Reporting Lab: [facility] [address] [address] Performing Lab: [facility] [address] [address] WBC 7.85 10*3/uL 4.50-11.00 RBC 4.32 10*6/uL [...] 10*3/uL 0.00-0.00 Apr 30, 2024 12:21 PM [facility] LIPID PANEL, NON FASTING Specimen Type: SERUM No comment entered. Ordering Provider: Sammy GOTTI Report Released Date/Time: Apr 30, 2024 03:02 PM Reporting Lab: [facility] [address] [address] Performing Lab: [address] [address] CHOLESTEROL 246 mg/dL H TRIGLYCERIDE 91 mg/dL 0-150 LDL calculated 178 mg/dL H 0-129 CHOL/HDL 4.9 HDL CHOLESTEROL 50 mg/dL 40-60 Social History: Smoking Status (Most current) and [...] 2021 11:45 AM VA-TOBACCO FORMER USER [facility] Tobacco Use History This section includes a history of the smoking, or tobacco-related health factors, that were collected on or before the date of the Encounter. The data comes from the [place] facility where the Encounter took place. Date/Time Smoking Status/Tobacco Use Comment F acility Jul 14, 2021 11:45 AM VA-TOBACCO QUIT 15 YRS OR MORE [facility] Encounter Notes: All associated encounter notes This section contains the clinical notes associated to the Encounter. Date/Time Encounter Note(s) Provider Source Apr 25, 2024 02:52 PM ADDENDUM: LOCAL TITLE: Addendum STANDARD TITLE: ADDENDUM DATE OF NOTE: APR 25, 2024@14:52:49 ENTRY DATE: APR 25, 2024@14:52:49 AUTHOR: YG CUBA COSIGNER: URGENCY: STATUS: COMPLETED adding PCP for consideration- over due for PCP appointment veterans phone is not in service. Letter sent to call for appt. /saida/ YG CUBA REGISTERED NURSE Signed: 04/25/2024 14:55 Receipt Acknowledged By: 04/25/2024 15:10 /saida/ CAMILLE GOTTI MD PHYSICIAN === --- Original Document --- 04/25/24 CCC: SCHEDULING ADMINISTRATION: Patient Demographics Patient Name: EVA HINKLE Patient Primary Phone: [phone] Patient Primary [address] [address] [place] [id number] Patient : 1970 Patient Age: 53 Caller/Recipient Relation to Patient: Self Caller Name: EVA HINKLE Administrative Administrative Note Reason: Other Administrative Note Comments: Phyllis from [facility] office called needing another auth for , he will have surgery but has been . Fax to : [phone] IMPORTANT: This note was created by [facility] Contact [facility] staff. Please do not alert the staff member by adding them as a signer for future communications. Alerts are not monitored by this user. /marcelle CARTER VISN1 CCC AMSA Signed: 04/25/2024 12:57 Receipt Acknowledged By: 04/25/2024 14:55 /saida/ YG CUBA REGISTERED NURSE 04/25/2024 14:53 /es/ Elif Jama RN Primary Care Staff Nurse YG CUBA [place] [facility] Apr 25, 2024 12:57 PM ADMINISTRATIVE NOTE: LOCAL TITLE: CCC: SCHEDULING ADMINISTRATION STANDARD TITLE: ADMINISTRATIVE NOTE DATE OF NOTE: APR 25, 2024@12:57:51 ENTRY DATE: APR 25, 2024@12:57:51 AUTHOR: YG CARTER EXP COSIGNER: URGENCY: STATUS: COMPLETED CCC: SCHEDULING ADMINISTRATION Has ADDENDA Patient Demographics Patient Name: EVA HINKLE Patient Primary Phone: [phone] Patient Primary [address] [address] [place] [phone] Patient : 1970 Patient Age: 53 Caller/Recipient Relation to Patient: Self Caller Name: EVA HINKLE Administrative Administrative Note Reason: Other Administrative Note Comments: Phyllis from [facility] office called needing another auth for , he will have surgery but has been . Fax to : [phone] IMPORTANT: This note was created by [facility] Clinical Contact Center staff. Please do not alert the staff member by adding them as a signer for future communications. Alerts are not monitored by this user. /saida/ YG CARTER VISN1 [facility] AMSA Signed: 04/25/2024 12:57 Receipt Acknowledged By: 04/25/2024 14:55 /saida/ YG CUBA REGISTERED NURSE 04/25/2024 14:53 /saida/ Elif Jama RN Primary Care Staff Nurse 04/25/2024 ADDENDUM STATUS: COMPLETED adding PCP for consideration- over due for PCP appointment veterans phone is not in service. Letter sent to call for appt. /marcelle CBUA REGISTERED NURSE Signed: 04/25/2024 14:55 Receipt Acknowledged By: * AWAITING SIGNATURE * CAMILLE GOTTI MELISSA DAWN [place] [facility]
--- OUTSIDE RECORDS SUMMARY | 2024-05-01 06:14 | XMS_ITS | Encounter Summary ---
Author Name [facility] [place] [facility] [place] Address [address] [place] [address] Care Team Providers Care Supervisor Multifocal Lens Name Role Phone CMAILLE GOTTI Primary Care Provider MAYO Byrd Primary [...] Chaparro's Name Patient's Relationship to Policy Chaparro [facility] MEDICAID TITLE 19 Apr 18, 2020 MEDICAI D [id number] EVA LU PATIENT Selected Encounter This section includes the information on record at [place] for the Encounter. Date/Time Encounter Type Encounter Description Reason Pro vider Source Apr 26, 2024 11:27 AM Outpatient Encounter TELEPHONE TRIAGE [...] 20 appointments. The data comes from all [facility]3] facilities. Appointment Date/Time Appointment Type Appointme nt Facility Name Apr 30, 2024 11:30 AM AMBULATORY - MEDICINE [facility] Aug 15, 2024 10:30 AM AMBULATORY - MEDICINE [facility] Active, Pending, and Scheduled Orders This section includes a listing of several types of active, pending, and scheduled orders, including clinic medications orders, diagnostic test orders, procedure orders and consult orders; where the start date of the order is 45 days before the date of the Encounter or 45 days after the date of theEncounter. The data comes from all [facility]. Test Date/Time Test Type Test Details Facility Name Apr 30, 2024 11:38 AM Consult Order COMMUNITY CARE-GEN SURGERY Cons [facility] Apr 30, 2024 11:59 AM Consult Order GASTROENTEROLOGY ONE Cons [facility] Apr 30, 2024 12:04 PM Consult Order TELEDERMATOLOGY REQUEST/[facility] OUTPT [facility] Apr 30, 2024 12:21 PM Laboratory - Chemistry Order THYROID T4 FREE(FT4) (WROX) BLOOD (SST-SERUM) [facility] Apr 30, 2024 12:21 PM Laboratory - Chemistry Order IGE BLOOD (SST-SERUM) [facility] Lab Results: +/- 30 days of the encounter This section includes the Chemistry and Hematology Lab Results on record with [place] for the patient. Radiology Reports and Pathology Reports are provided separately, in subsequent sections. Lab Results This section contains the Chemistry/Hematology Results that were resulted 30 days before or 30 daysafter the date of the Encounter. Date/Time Source Result Type Result - Unit Interpretation Reference Range Comment Apr 30, 2024 12:21 PM [facility] CALCIUM Specimen Type: SERUM No comment entered. Ordering Provider: Sammy GOTTI Report Released Date/Time: Apr 30, 2024 11:59 AM Reporting Lab: [facility] [address] [facility] [address] Performing Lab: [facility] [address] [facility] [address] CALCIUM 8.9 mg/dL 8.5-10.2 Apr 30, 2024 12:21 PM [facility] LIVER FUNCTION Specimen Type: SERUM No comment entered. Ordering Provider: Sammy GOTTI Report Released Date/Time: Apr 30, 2024 11:59 AM Reporting Lab: [facility] [address] [facility] [address] Performing Lab: [facility] [address] [facility] [address] PROTEIN,TOTAL 7.6 g/dL 6.0-8.3 ALBUMIN 4.3 g/dL 3.5-5.0 ALKALINE PHOSPHATASE 48 U/L 40-150 AST 17 U/L 5-34 ALT 13 U/L BILIRUBIN, TOTAL 0.2 mg/dL 0.2-1.2 Apr 30, 2024 12:21 PM [facility] HEMOGLOBIN A1C PANEL Specimen Type: BLOOD [...] Apr 30, 2024 11:59 AM Reporting Lab: [facility] [address] [facility] [address] Performing Lab: [facility] [address] [facility] [address] HEMOGLOBIN A1C 5.6 4.0-5.6 Apr 30, 2024 12:21 PM [facility] TSH Specimen Type: SERUM No comment entered. Ordering Provider: Sammy GOTTI Report Released Date/Time: Apr 30, 2024 11:59 AM Reporting Lab: [facility] [place] [facility] [address] [facility] [address] Performing Lab: [facility] [place] [facility] [address] [facility] [address] TSH 1.60 u[IU]/mL 0.35-5.00 Apr 30, 2024 12:21 PM [facility] IRON & TIBC PANEL Specimen Type: SERUM No comment entered. Ordering Provider: Sammy GOTTI Report Released Date/Time: Apr 30, 2024 11:59 AM Reporting Lab: [facility] [place] [address] [address] Performing Lab: [facility] [place] [address] [address] TIBC 525 ug/dL H 204-475 IRON 20 ug/dL L 40-160 Transferrin Saturation 3.8 L 20.0-50.0 Transferrin (TRF) 398 mg/dL H 200-360 Apr 30, 2024 12:21 PM [email or web address] FERRITIN Specimen Type: SERUM No comment entered. Ordering Provider: Sammy GOTTI Report Released Date/Time: Apr 30, 2024 11:59 AM Reporting Lab: [facility] [place] [facility] [address] [facility] [address] Performing Lab: [place] [facility] [place] [address] [address] FERRITIN 6 ng/mL L 20-300 Apr 30, 2024 12:21 PM [facility] BASIC METABOLIC PANEL (non-fasting) Specimen Type: SERUM No comment entered. Ordering Provider: Sammy GOTTI Report Released Date/Time: Apr 30, 2024 11:59 AM Reporting Lab: [facility] [place] [facility] [address] [facility] [address] Performing Lab: [place] [facility] [place] [address] [address] UREA NITROGEN 18 mg/dL 7-25 GLUCOSE 83 mg/dL 65-100 SODIUM 139 mmol/L 135-145 POTASSIUM 4.0 mmol/L 3.5-5.0 CHLORIDE 105 mmol/L 100-110 CO2 25 meq/L 20-30 CREATININE, Serum 1.02 mg/dL 0.50-1.40 eGFR(CKD-EPI 2020) 86 mL/min >60 Apr 30, 2024 12:21 PM [facility] CBC AND DIFF (AUTO) Specimen Type: BLOOD No comment entered. Ordering Provider: Sammy GOTTI Report Released Date/Time: Apr 30, 2024 11:59 AM Reporting Lab: [facility] [address] [facility] [address] Performing Lab: [address] [address] WBC 7.85 10*3/uL 4.50-11.00 RBC 4.32 10*6/uL [...] 10*3/uL 0.00-0.00 Apr 30, 2024 12:21 PM [facility] LIPID PANEL, NON FASTING Specimen Type: SERUM No comment entered. Ordering Provider: Sammy GOTTI Report Released Date/Time: Apr 30, 2024 03:02 PM Reporting Lab: [facility] [address] [facility] [address] Performing Lab: [facility] [address] [facility] [address] CHOLESTEROL 246 mg/dL H TRIGLYCERIDE 91 mg/dL 0-150 LDL calculated 178 mg/dL H 0-129 CHOL/HDL 4.9 HDL CHOLESTEROL 50 mg/dL 40-60 Social History: Smoking Status (Most current) and Tobacco Use (All prior to encounter date) This section includes the most current, and the historical, smoking and tobacco- related health factors from the [place] facility where the Encounter took place. Current Smoking Status This section includes the most current smoking, or tobacco-related health factor, from the [place] facility where the Encounter took place. Date/Time Current Smoking Status Comment Facil ity Jul 14, 2021 11:45 AM VA-TOBACCO FORMER USER [facility] Tobacco Use History This section includes a history of the smoking, or tobacco-related health factors, that were collected on or before the date of the Encounter. The data comes from the [place] facility where the Encounter took place. Date/Time Smoking Status/Tobacco Use Comment F acility Jul 14, 2021 11:45 AM VA-TOBACCO QUIT 15 YRS OR MORE [facility] Encounter Notes: All associated encounter notes This section contains the clinical notes associated to the Encounter. Date/Time Encounter Note(s) Provider Source Apr 27, 2024 10:03 AM ADDENDUM: LOCAL TITLE: Addendum STANDARD TITLE: ADDENDUM DATE OF NOTE: APR 27, 2024@10:03:52 ENTRY DATE: APR 27, 2024@10:03:53 AUTHOR: YG CUBA EXP COSIGNER: URGENCY: STATUS: COMPLETED adding AMSA /es/ YG CUBA REGISTERED NURSE Signed: 04/27/2024 10:04 Receipt Acknowledged By: 04/27/2024 10:08 /saida/ JODY HARRINGTON [facility] === --- Original Document --- 04/26/24 CCC: CLINICAL TRIAGE: Patient Demographics Patient Name: EVA HINKLE Patient Primary Address: [address] [place] [address] Patient Primary Phone: [phone] Patient : 1970 Patient Age: 53 Call Back Number: [phone] Caller/Recipient Relation to Patient: Self Caller Name: EVA HINKLE Emergency Contact: FARHAD TANG Triage Summary Conducted triage/discussed symptoms Utilized the Triage Tool: Yes Chief Complaint: Rash (localized) System WHEN: Within 24 Hours Nurse's Recommendation / WHEN: Within 24 Hours System WHERE: Clinic Nurse's Recommendation / WHERE: Clinic/[facility] Patient Disposition Patient/Caregiver agrees to plan of care: Yes Patient WHERE: Appointment Patient WHEN: Within 24 hours Nursing Plan and Disposition Referred Patient for In-Person Appt Transferred patient to [facility] Transferred patient to facility [facility] Other course(s) of action Generated msg to PACT/Provider Provided guidance for worsening symptoms: *Caller/Patient* advised to call facilities [place] Clinical Contact Center or seek immediate medical attention for new or worsening symptoms Nurse Summary Nurse Summary: called stating, in the hospital on 04/23 for hemorrhoids . He can't sit. Prescribed suppositories and he needs surgery next week. He reports he has a rash over head, neck, back and shoulders. They sore and painful to the touch. He is questioning shingles but states the ER physician stated it was not shingles. *See [facility] details below for additional +/- signs & symptoms. RN RECOMMENDATION: F2F visit with PCP within 24 hours . The agrees with this plan. Warm transfer to [facility] scheduling queue to assist with setting up the appointment. IF NO APPOINTMENTS ARE AVAILABLE THE WOULD LIKE A CALL BACK TO SET UP AN APPOINTMENT TO BE SEEN. WILL FORWARD TO PACT FOR FOLLOW UP. Discussed contacting the [facility] triage for any new or worsening sx Clinical Contact Center Codes Clinic/Location: V1 CWM PHONE CCC RN Decision Support System Output: Triage Complete Triage Date: 04/26/2024, 11:24 AM Triage Note: Decision Support Tool Used: [facility] Phone Triage Lakisha, 26 Apr 2024 16:15:49 +0000 [facility] Demographics 53 y/o Male Results CC: Rash (localized) Software suggested: Within 24 Hours Software suggested follow-up location: Clinic, consider virtual care Values and Measures Duration of CC: 8 Months Positive Responses HPI: rash, erythematous, painful HPI: skin lump, painful VS: temperature not taken Negative Responses Denies: HPI: rash, confined to scalp Denies: HPI: vomiting Denies: MEDS: chemotherapy Denies: PMH: diabetes Denies: PMH: HIV positive Denies: PSH: organ transplant IMPORTANT: This note was created by [facility] Clinical Contact Center staff. Please do not alert the staff member by adding them as a signer for future communications. Alerts are not monitored by this user. /saida/ HENNY HAWKINS RN VISN1 [facility] RN Signed: 04/26/2024 11:27 Receipt Acknowledged By: * AWAITING SIGNATURE * YG CUBA 04/27/2024 10:04 /saida/ Elif Jama RN Primary Care Staff Nurse 04/27/2024 ADDENDUM STATUS: COMPLETED MSA returning call to vet, leaving msg to call back for appt. /saida/ JODY HARRINGTON [facility] Signed: 04/27/2024 10:08 YG CUBA [place] [facility] [place] [facility] Apr 26, 2024 11:27 AM RN PROGRESS NOTE: LOCAL TITLE: [facility]: CLINICAL TRIAGE STANDARD TITLE: RN PROGRESS NOTE DATE OF NOTE: APR 26, 2024@11:27:55 ENTRY DATE: APR 26, 2024@11:27:55 AUTHOR: HENNY GRAY EXP COSIGNER: URGENCY: STATUS: COMPLETED [facility]: CLINICAL TRIAGE Has ADDENDA Patient Demographics Patient Name: EVA HINKLE Patient Primary Address: [address] [place] [address] Patient Primary Phone: [phone] Patient : 1970 Patient Age: 53 Call Back Number: [phone] Caller/Recipient Relation to Patient: Self Caller Name: EVA HINKLE Emergency Contact: FARHAD TANG Triage Summary Conducted triage/discussed symptoms Utilized the Triage Tool: Yes Chief Complaint: Rash (localized) System WHEN: Within 24 Hours Nurse's Recommendation / WHEN: Within 24 Hours System WHERE: Clinic Nurse's Recommendation / WHERE: Clinic/[facility] Patient Disposition Patient/Caregiver agrees to plan of care: Yes Patient WHERE: Appointment Patient WHEN: Within 24 hours Nursing Plan and Disposition Referred Patient for In-Person Appt Transferred patient to [facility] Transferred patient to facility [facility] Other course(s) of action Generated msg to PACT/Provider Provided guidance for worsening symptoms: *Caller/Patient* advised to call facilities [place] Clinical Contact Center or seek immediate medical attention for new or worsening symptoms Nurse Summary Nurse Summary: called stating, in the hospital on 04/23 for hemorrhoids . He can't sit. Prescribed suppositories and he needs surgery next week. He reports he has a rash over head, neck, back and shoulders. They sore and painful to the touch. He is questioning shingles but states the ER physician stated it was not shingles. *See [facility] details below for additional +/- signs & symptoms. RN RECOMMENDATION: F2F visit with PCP within 24 hours . The [place] agrees with this plan. Warm transfer to [facility] scheduling queue to assist with setting up the appointment. IF NO APPOINTMENTS ARE AVAILABLE THE WOULD LIKE A CALL BACK TO SET UP AN APPOINTMENT TO BE SEEN. WILL FORWARD TO PACT FOR FOLLOW UP. Discussed contacting the [facility] triage for any new or worsening sx Clinical Contact Center Codes Clinic/Location: V1 CWM PHONE [facility] RN Decision Support System Output: Triage Complete Triage Date: 04/26/2024, 11:24 AM Triage Note: Decision Support Tool Used: [facility] Phone Triage Lakisha, 26 Apr 2024 16:15:49 +0000 [facility] Demographics 53 y/o Male Results CC: Rash (localized) Software suggested: Within 24 Hours Software suggested follow-up location: Clinic, consider virtual care Values and Measures Duration of CC: 8 Months Positive Responses HPI: rash, erythematous, painful HPI: skin lump, painful VS: temperature not taken Negative Responses Denies: HPI: rash, confined to scalp Denies: HPI: vomiting Denies: MEDS: chemotherapy Denies: PMH: diabetes Denies: PMH: HIV positive Denies: PSH: organ transplant IMPORTANT: This note was created by [facility] Clinical Contact Center staff. Please do not alert the staff member by adding them as a signer for future communications. Alerts are not monitored by this user. /saida/ HENNY GRAY BSN RN VISN1 [facility] RN Signed: 04/26/2024 11:27 Receipt Acknowledged By: 04/27/2024 13:11 /saida/ YG CUBA REGISTERED NURSE 04/27/2024 10:04 /saida/ Elif Jama RN Primary Care Staff Nurse 04/27/2024 ADDENDUM STATUS: COMPLETED adding AMSA /saida/ YG CUBA REGISTERED NURSE Signed: 04/27/2024 10:04 Receipt Acknowledged By: 04/27/2024 10:08 /saida/ JODY HARRINGTON [facility] 04/27/2024 ADDENDUM STATUS: COMPLETED MSA returning call to vet, leaving msg to call back for appt. /marcelle HARRINGTON [facility] Signed: 04/27/2024 10:08 HENNY GRAY [place] [facility]
--- OUTSIDE RECORDS SUMMARY | 2024-05-01 06:15 | XMS_ITS ---
Author Name [facility] [place] Organization [place] Address [address] [place] [address] Care Team Providers Care Top Frame Fitter Name Role Phone CAMILLE GOTTI Primary Care [...] TITLE 19 Apr 18, 2020 MEDICAI D [id number] EVA LU PATIENT Selected Encounter This section includes the information on record at [place] for the Encounter. Date/Time Encounter Type Encounter Description Reason Pro vider Source Apr 30, 2024 03:25 PM Outpatient Encounter TELEPHONE/MEDICINE IHE Encounter Template Text not used by [...] 20 appointments. The data comes from all [facility]. Appointment Date/Time Appointment Type Appointme nt Facility Name Aug 15, 2024 10:30 AM AMBULATORY - MEDICINE [facility] Active, Pending, and Scheduled Orders This section includes a listing of several types of active, pending, and scheduled orders, including clinic medications orders, diagnostic test orders, procedure orders and consult orders; where the start date of the order is 45 days before the date of the Encounter or 45 days after the date of theEncounter. The data comes from all [facility]. Test Date/Time Test Type Test Details Facility Name Apr 30, 2024 11:38 AM Consult Order COMMUNITY CARE-GEN SURGERY Cons Youth Accommodation Support Worker's Choice [facility] Apr 30, 2024 11:59 AM Consult Order GASTROENTEROLOGY ONE Cons Youth Accommodation Support Worker's Choice [facility] Apr 30, 2024 12:04 PM Consult Order TELEDERMATOLOGY REQUEST/NHM OUTPT Cons Youth Accommodation Support Worker's Choice [facility] Apr 30, 2024 12:21 PM Laboratory - Chemistry Order THYROID T4 FREE(FT4) (WROX) BLOOD (SST-SERUM) [facility] Apr 30, 2024 12:21 PM Laboratory - Chemistry Order IGE BLOOD (SST-SERUM) [facility] Lab Results: +/- 30 days of the encounter This section includes the Chemistry and Hematology Lab Results on record with [place] for the patient. Radiology Reports and Pathology Reports are provided separately, in subsequent sections. Lab Results This section contains the Chemistry/Hematology Results that were resulted 30 days before or 30 daysafter the date of the Encounter. Date/Time Source Result Type Result - Unit Interpretation Reference Range Comment Apr 30, 2024 12:21 PM [facility] LIVER FUNCTION Specimen Type: SERUM No comment entered. Ordering Provider: Sammy GOTTI Report Released Date/Time: Apr 30, 2024 11:59 AM Reporting Lab: [address] [place] [address] Performing Lab: [facility] [address] [facility] [address] PROTEIN,TOTAL 7.6 g/dL 6.0-8.3 ALBUMIN 4.3 g/dL 3.5-5.0 ALKALINE PHOSPHATASE 48 U/L 40-150 AST 17 U/L 5-34 ALT 13 U/L BILIRUBIN, TOTAL 0.2 mg/dL 0.2-1.2 Apr 30, 2024 12:21 PM [facility] CALCIUM Specimen Type: SERUM No comment entered. Ordering Provider: Sammy GOTTI Report Released Date/Time: Apr 30, 2024 11:59 AM Reporting Lab: [address] [address] Performing Lab: [address] [address] CALCIUM 8.9 mg/dL 8.5-10.2 Apr 30, 2024 12:21 PM [facility] HEMOGLOBIN A1C PANEL Specimen Type: BLOOD Comment: [...] Apr 30, 2024 11:59 AM Reporting Lab: [facility] [address] [facility] [address] Performing Lab: [address] [address] HEMOGLOBIN A1C 5.6 4.0-5.6 Apr 30, 2024 12:21 PM [facility] IRON & TIBC PANEL Specimen Type: SERUM No comment entered. Ordering Provider: Sammy GOTTI Report Released Date/Time: Apr 30, 2024 11:59 AM Reporting Lab: [facility] [address] [facility] [address] Performing Lab: [facility] [address] [facility] [address] TIBC 525 ug/dL H 204-475 IRON 20 ug/dL L 40-160 Transferrin Saturation 3.8 L 20.0-50.0 Transferrin (TRF) 398 mg/dL H 200-360 Apr 30, 2024 12:21 PM [facility] TSH Specimen Type: SERUM No comment entered. Ordering Provider: Sammy GOTTI Report Released Date/Time: Apr 30, 2024 11:59 AM Reporting Lab: [address] [address] Performing Lab: [address] [address] TSH 1.60 u[IU]/mL 0.35-5.00 Apr 30, 2024 12:21 PM [facility] FERRITIN Specimen Type: SERUM No comment entered. Ordering Provider: Sammy GOTTI Report Released Date/Time: Apr 30, 2024 11:59 AM Reporting Lab: [address] [address] Performing Lab: [address] [address] FERRITIN 6 ng/mL L 20-300 Apr 30, 2024 12:21 PM [facility] BASIC METABOLIC PANEL (non-fasting) Specimen Type: SERUM No comment entered. Ordering Provider: Sammy GOTTI Report Released Date/Time: Apr 30, 2024 11:59 AM Reporting Lab: [address] [address] Performing Lab: [facility] [address] [address] UREA NITROGEN 18 mg/dL 7-25 GLUCOSE 83 mg/dL 65-100 SODIUM 139 mmol/L 135-145 POTASSIUM 4.0 mmol/L 3.5-5.0 CHLORIDE 105 mmol/L 100-110 CO2 25 meq/L 20-30 CREATININE, Serum 1.02 mg/dL 0.50-1.40 eGFR(CKD-EPI 2020) 86 mL/min >60 Apr 30, 2024 12:21 PM [facility] CBC AND DIFF (AUTO) Specimen Type: BLOOD No comment entered. Ordering Provider: Sammy GOTTI Report Released Date/Time: Apr 30, 2024 11:59 AM Reporting Lab: [facility] [address] [facility] [address] Performing Lab: [facility] [address] [facility] [address] WBC 7.85 10*3/uL 4.50-11.00 RBC 4.32 10*6/uL [...] 10*3/uL 0.00-0.00 Apr 30, 2024 12:21 PM [facility] LIPID PANEL, NON FASTING Specimen Type: SERUM No comment entered. Ordering Provider: Sammy GOTTI Report Released Date/Time: Apr 30, 2024 03:02 PM Reporting Lab: [facility] [address] [facility] [address] Performing Lab: [facility] [address] [facility] [address] CHOLESTEROL 246 mg/dL H TRIGLYCERIDE 91 mg/dL [...] 66 116/78 15 97 0 224 30 [facility] Social History: Smoking Status (Most current) and Tobacco Use (All prior to encounter date) This section includes the most current, and the historical, smoking and tobacco- related health factors from the [place] facility where the Encounter took place. Current Smoking Status This section includes the most current smoking, or tobacco-related health factor, from the [place] facility where the Encounter took place. Date/Time Current Smoking Status Comment Facil ity Apr 30, 2024 11:30 AM VA-TOBACCO USE FOR DAMIÁN CIGARETTES [facility] Tobacco Use History This section includes a history of the smoking, or tobacco-related health factors, that were collected on or before the date of the Encounter. The data comes from the [place] facility where the Encounter took place. Date/Time Smoking Status/Tobacco Use Comment F acility Apr 30, 2024 11:30 AM VA-TOBACCO USE NOÉ E DAYS OTHER PRODUCT MARIJUANA [facility] Apr 30, 2024 11:30 AM VA-TOBACCO USE NOÉ E DAYS OTHER TYPE [facility] Jul 14, 2021 11:45 AM VA-TOBACCO FORMER USER [facility] Jul 14, 2021 11:45 AM VA-TOBACCO QUIT 15 YRS OR MORE [place] [facility] Encounter Notes: All associated encounter notes This section contains the clinical notes associated to the Encounter. Date/Time Encounter Note(s) Provider Source Apr 30, 2024 03:25 PM LETTERS: LOCAL TITLE: PATIENT LETTER (T) STANDARD TITLE: LETTERS DATE OF NOTE: APR 30, 2024@15:25 ENTRY DATE: APR 30, 2024@15:25:46 AUTHOR: EASTON COATS EXP COSIGNER: URGENCY: STATUS: COMPLETED [facility] Toll Free Number Primary Care Telephone Assistance can be reached at extension [phone] [facility] scheduling can be reached at extension [phone] [facility] scheduling can be reached at ext [phone] EVA HINKLE [address] [place] [address], [phone] Dear , We have been unsuccessful at reaching you to discuss your Gastroenterology care recommended by your primary care provider. If you would like assistance, please contact Easton Coats RCI RN Tue-Tue, [phone] at [phone], ext [phone] and she will be happy to help you. Please note that this consult will automatically in Forteen days if we do not hear from you. Thank you for trusting the [place] of [facility] with your health care needs. Sincerely, Your Primary Care Team [facility] [address] [address] [place] [address] [phone] [facility] [address],2[address] [place] [address] [place] [address] [phone] [facility] [address] [facility],1st Floor [address] [place] [address] [place] [address] EASTON COATS [facility] WSTRN [facility]
[2024-05-23 11:25] VITALS: BMI 29.5
[2024-05-25] VITALS (8 sets, daily range): BP systolic 116–149; BP diastolic 56–81; PULSE 53–62; RESP 16–22; TEMP 36.1–36.9; O2SAT 97–100; BMI 29.6
--- OUTSIDE RECORDS SUMMARY | 2024-05-25 06:47 | XMS_ITS ---
Author Name [facility] of [facility] [facility] [place] Organization [facility] [place] Address [address] [place] [address] Care Team Providers Care Clinical Leader Name Role Phone CAMILLE GOTTI Primary Care [...] TITLE 19 Apr 18, 2020 MEDICAI D [id number] EVA LU PATIENT Selected Encounter This section [...] 20 appointments. The data comes from all [place] treatment facilities. Appointment Date/Time Appointment Type Appointme nt Facility Name May 01, 2024 11:00 AM AMBULATORY - MEDICINE [place] C NTRL W[facility] May 04, 2024 08:45 AM [facility] May 16, 2024 08:00 AM AMBULATORY - MEDICINE [facility] NTRL WSTRN [facility] Aug 15, 2024 10:30 AM AMBULATORY - MEDICINE [facility] NTRL [facility] Active, Pending, and Scheduled Orders This section includes a listing of several types of active, pending, and scheduled orders, including clinic medications orders, diagnostic test orders, procedure orders and consult orders; where the start date of the order is 45 days before the date of the Encounter or 45 days after the date of theEncounter. [facility] Test Date/Time Test Type Test Details Facility Name Apr 30, 2024 11:38 AM Consult Order COMMUNITY CARE-GEN SURGERY Cons Income Tax Auditor's Choice [facility] Apr 30, 2024 11:59 AM Consult Order COMMUNITY [facility]-GI GENERAL Cons Income Tax Auditor's Choice [facility] Lab Results: +/- 30 days of the encounter This section includes the Chemistry and Hematology Lab Results on record with [place] for the patient. Radiology Reports and Pathology Reports are provided separately, in subsequent sections. Lab Results This section contains the Chemistry/Hematology Results that were resulted 30 days before or 30 daysafter the date of the Encounter. Date/Time Source Result Type Result - Unit Interpretation Reference Range Comment Apr 30, 2024 12:21 PM [facility] IGE Specimen Type: SERUM No comment entered. Ordering Provider: Sammy GOTTI Report Released Date/Time: Apr 30, 2024 12:04 PM Reporting Lab: [facility] [address] [facility] [address] Performing Lab: [facility] [address] [facility] [address] IGE 24 0-100 Apr 30, 2024 12:21 PM [facility] THYROID T4 FREE(FT4) (WROX) Specimen Type: SERUM No comment entered. Ordering Provider: Sammy GOTTI Report Released Date/Time: Apr 30, 2024 11:59 AM Reporting Lab: [facility] [address] [facility] [address] Performing Lab: [facility] [address] [facility] [address] THYROID T4 FREE(FT4) (WROX) 0.91 ng/dL 0.6-1.6 Apr 30, 2024 12:21 PM [facility] CALCIUM Specimen Type: SERUM No comment entered. Ordering Provider: Sammy GOTTI Report Released Date/Time: Apr 30, 2024 11:59 AM Reporting Lab: [facility]ERN [facility] [address] [facility] [address] Performing Lab: [facility] [address] [address] CALCIUM 8.9 mg/dL 8.5-10.2 Apr 30, 2024 12:21 PM [facility] LIVER FUNCTION Specimen Type: SERUM No comment entered. Ordering Provider: Sammy GOTTI Report Released Date/Time: Apr 30, 2024 11:59 AM Reporting Lab: [facility] [address] [address] Performing Lab: [facility] [address] [address] PROTEIN,TOTAL 7.6 g/dL 6.0-8.3 ALBUMIN 4.3 g/dL 3.5-5.0 ALKALINE PHOSPHATASE 48 U/L 40-150 AST 17 U/L 5-34 ALT 13 U/L BILIRUBIN, TOTAL 0.2 mg/dL 0.2-1.2 Apr 30, 2024 12:21 PM [facility] HEMOGLOBIN A1C PANEL Specimen Type: BLOOD [...] Apr 30, 2024 11:59 AM Reporting Lab: [facility]TRN [place] [facility] [address] [facility] [address] Performing Lab: [facility]TRN [place] [address] [address] HEMOGLOBIN A1C 5.6 4.0-5.6 Apr 30, 2024 12:21 PM [facility]ERN [facility] TSH Specimen Type: SERUM No comment entered. Ordering Provider: Sammy GOTTI Report Released Date/Time: Apr 30, 2024 11:59 AM Reporting Lab: [facility]RBR[facility]ITALTRN [place] [facility] [address] [facility] [address] Performing Lab: [facility]ITALTR[facility] [place] [address] [address] TSH 1.60 u[IU]/mL 0.35-5.00 Apr 30, 2024 12:21 PM [facility] IRON & TIBC PANEL Specimen Type: SERUM No comment entered. Ordering Provider: Sammy GOTTI Report Released Date/Time: Apr 30, 2024 11:59 AM Reporting Lab: [facility]ITALRL TRN [place] [facility] [address] [facility] [address] Performing Lab: [place]TRL [place] [address] [address] TIBC 525 ug/dL H 204-475 IRON 20 ug/dL L 40-160 Transferrin Saturation 3.8 L 20.0-50.0 Transferrin (TRF) 398 mg/dL H 200-360 Apr 30, 2024 12:21 PM [facility] FERRITIN Specimen Type: SERUM No comment entered. Ordering Provider: Sammy GOTTI Report Released Date/Time: Apr 30, 2024 11:59 AM Reporting Lab: [facility] [address] [facility] [address] Performing Lab: [facility] [address] [facility] [address] FERRITIN 6 ng/mL L 20-300 Apr 30, 2024 12:21 PM [facility] BASIC METABOLIC PANEL (non-fasting) Specimen Type: SERUM No comment entered. Ordering Provider: Sammy GOTTI Report Released Date/Time: Apr 30, 2024 11:59 AM Reporting Lab: [facility] [address] [facility] [address] Performing Lab: [address] [address] UREA NITROGEN 18 mg/dL 7-25 GLUCOSE 83 mg/dL 65-100 SODIUM 139 mmol/L 135-145 POTASSIUM 4.0 mmol/L 3.5-5.0 CHLORIDE 105 mmol/L 100-110 CO2 25 meq/L 20-30 CREATININE, Serum 1.02 mg/dL 0.50-1.40 eGFR(CKD-EPI 2020) 86 mL/min >60 Apr 30, 2024 12:21 PM [facility] CBC AND DIFF (AUTO) Specimen Type: BLOOD No comment entered. Ordering Provider: Sammy GOTTI Report Released Date/Time: Apr 30, 2024 11:59 AM Reporting Lab: [facility] [address] [facility] [address] Performing Lab: [address] [address] WBC 7.85 10*3/uL 4.50-11.00 RBC 4.32 10*6/uL [...] 10*3/uL 0.00-0.00 Apr 30, 2024 12:21 PM [facility] [employer] LIPID PANEL, NON FASTING Specimen Type: SERUM No comment entered. Ordering Provider: Sammy GOTTI Report Released Date/Time: Apr 30, 2024 03:02 PM Reporting Lab: [facility] [address] [facility] [address] Performing Lab: [address] [address] CHOLESTEROL 246 mg/dL H TRIGLYCERIDE 91 mg/dL [...] 66 116/78 15 97 0 224 30 [facility] Social History: Smoking Status (Most current) [...] Date/Time Current Smoking Status Comment [place] Apr 30, 2024 11:30 AM VA-TOBACCO USE FOR DAMIÁN CIGARETTES [facility] Tobacco Use History This section includes a history of the smoking, or tobacco-related health factors, that were collected on or before the date of the Encounter. The data comes from the [place] facility where the Encounter took place. Date/Time Smoking Status/Tobacco Use Comment F ackevin Apr 30, 2024 11:30 AM VA-TOBACCO USE NOÉ E DAYS OTHER PRODUCT MARIJUANA [facility] Apr 30, 2024 11:30 AM VA-TOBACCO USE NOÉ E DAYS OTHER TYPE [facility] Jul 14, 2021 11:45 AM VA-TOBACCO FORMER USER [facility] Jul 14, 2021 11:45 AM VA-TOBACCO QUIT [...] EASTON COATS EXP COSIGNER: URGENCY: STATUS: COMPLETED PATIENT LETTER (T) Has ADDENDA [facility] Toll Free Number Primary Care Telephone Assistance can be reached at extension [phone] [facility] scheduling can be reached at extension [phone] [facility] scheduling can be reached at ext [phone] EVA HINKLE [address] [place] [address], [phone] Dear , We have been unsuccessful at reaching you to discuss your Gastroenterology care recommended by your primary care provider. If you would like assistance, please contact Easton Coats RCI RN Tue-Tue, [phone] at [phone], ext [phone] and she will be happy to help you. Please note that this consult will automatically in Forteen days if we do not hear from you. Thank you for trusting the [place] of [facility] with your health care needs. 05/03/2024 ADDENDUM STATUS: COMPLETED LETTER MAILED TODAY 05/03/2024. GASTROConor /saida/ DENZEL LUNA Signed: 05/03/2024 09:27 Sincerely, Your Primary Care Team [facility] [address] [facility] [address] [place] [address] [place] [address] [phone] [facility] [address] [place] [address] [place] [address] [phone] [facility] [address] [facility],1st Floor [address] [place] [address] [place] [address] EASTON COATS [place] CNTRL WSTRN [facility]
--- OUTSIDE RECORDS SUMMARY | 2024-05-25 06:47 | XMS_ITS | Clinical Summary ---
Author Organization [facility] Address [address] [place] [address] Care Team Providers Care Garden Consultant Name Role Phone [facility] Primary Care Pr ovider Allergies No known active allergies Medications Medication Sig Dispensed Refills Start Date End Date Status acetaminophen (TYLENOL) 325 MG tabletIndications:I ntussusception intestine (HCC) Take 3 tablets (975 mg total) by mouth every 6 (six) hours around the clock. 360 tablet 02/11/2021 Active oxyCODONE (ROXICODONE) 5 MG immediate release tabletIndications:I ntussusception intestine (HCC) Take 1 tablet (5 mg total) by mouth 4 times daily (every 6 hours) as needed for severe pain (take on tablet as need every 6 hours). Max Daily Amount: 20 mg 10 tablet 02/11/2021 Active naproxen (NAPROSYN) 375 MG tabletIndications:I ntussusception intestine (HCC) Take 1 tablet (375 mg total) by mouth 2 (two) times a day with meals. Take with meals or food to reduce stomach upset. Take as needed using the directions on the bottle. 60 tablet 02/11/2021 Active FLUoxetine (PROzac) 20 MG capsule Take 60 mg by mouth. Active valACYclovir (VALTREX) 1000 MG tabletIndications:D isseminated herpes zoster Take 1 tablet (1,000 mg total) by mouth 3 (three) times a day. 30 tablet 01/08/2023 Active doxycycline (VIBRAMYCIN) 100 MG capsuleIndications: Bacterial skin infection Take 1 capsule (100 mg total) by mouth 2 (two) times a day. 14 capsule 01/08/2023 Active Active Problems No known active problems Resolved Problems Problem Noted Date Diagnosed Date Resolved Date Intussusception 02/09/2021 02/23/2021 Immunizations Name Administration Dates Next Due Influenza Inactivated/Split Preservative Free IM 02/11/2021() Social History Tobacco Use Types Packs/Day Years Used Date Smoking Tobacco: Never Smokeless Tobacco: Never Alcohol Use Standard Drinks/Week Comments Not Currently 0 (1 standard drink = 0.6 oz pur e alcohol) Sex and Gender Information Value Date Recorded Sex Assigned at Not on file Gender Identity Not on file Sexual Orientation Not on file Last Filed Vital Signs Vital Sign Reading Time Taken Comments Blood Pressure 113/77 01/08/2023 1:33 PM EDT Pulse 61 01/08/2023 1:33 PM EDT Temperature 36.9 ??C (98.5 ??F) 01/08/2023 1:33 PM ED T Respiratory Rate 16 02/11/2021 7:46 AM EDT Oxygen Saturation 98% 01/08/2023 1:33 PM EDT Inhaled Oxygen Concentration - - Weight 114 kg (252 lb) 02/23/2021 2:50 PM EST Height 188 cm (6' 2 ) 02/23/2021 2:50 PM EST Body Mass Index 32.35 02/23/2021 2:50 PM EST Plan of Treatment Health Maintenance Due Date Last Done Comments Hepatitis C Virus Screening 1968 HIV Screening 1981 DTaP/Tdap/Td Vaccines (1 - Tdap) 07/21/1987 Hepatitis B Vaccines (1 of 3 - 19+ 3-dose series) 07/21/1987 Colonoscopy 2013 Pneumococcal Vaccines 50+ (1 of 1 - PCV) 2018 Zoster (Shingles) Vaccine (1 of 2) 2018 Influenza Vaccine 11/17/2023 02/08/2022, , 03/09/2021, Additional history exists COVID-19 Vaccine ( - 2023- season) 2023 07/04/2021, 06/10/2021, 07/04/2020, Additional history exists Pneumococcal Vaccine: Pediatric (0-5 Years) and At-Risk Patients (6 to 49 Years) Aged Out No longer eligible based on patient's age to complete this topic Advance Directives * Full Code (Latest Code Status on File) Date Activated Date Inactivated Comments 02/09/2021 10:19 PM Care Teams Garden Consultant Relationship Specialty Start Date End Date Bairon Cotton'MD santi [address] [place] [address] PCP - General 02/09/21
--- OUTSIDE RECORDS SUMMARY | 2024-05-25 06:47 | XMS_ITS | Encounter Summary ---
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 Date/Time Encounter Type Encounter Description Reason Provider Source Apr 30, 2024 11:30 AM OFFICE O/P EST MOD 30 MIN PRIMARY CARE/MEDICINE ICD-10-CM R10.9 Unspecified abdominal pain Sammy GOTTI Encounter Template Text not used by OR Assessments - Encounter Diagnoses This section includes the primary and secondary diagnoses documented for the Encounter. Date/Time Primary/Secondary Diagnosis Diagnosis Name Provider Source Apr 30, 2024 12:59 PM PRIMARY Unspecified abdominal pain Sammy GOTTI [facility] [place] [facility] Apr 30, 2024 12:59 PM SECONDARY Anxiety disorder, unspecified Sammy GOTTI DASIA Ha [facility] Apr 30, 2024 12:59 PM SECONDARY Constipation, unspecified Sammy GOTTIDENVER Ha [facility] Apr 30, 2024 12:59 PM SECONDARY Other hemorrhoids Sammy GOTTI DASIA Ha [facility] Apr 30, 2024 12:59 PM SECONDARY Rash and other nonspecific skin eruption Sammy GOTTIDENVER Ha [facility] Plan of Treatment: Future Appointments (+ 6 months) and Future Tests (+/- 45 days) The Plan of Treatment section includes future care activities for the patient [facility]. This section includes future appointments and future [...] 01, 2024 11:00 AM AMBULATORY - [facility]ICINE [facility] May 04, 2024 08:45 AM AMBULATORY - NONE [facility] May 16, 2024 08:00 AM AMBULATORY - MEDICINE [facility] Aug 15, 2024 10:30 AM [facility] Active, Pending, and Scheduled Orders This section includes a listing of several types of active, pending, and scheduled orders, including clinic medications orders, diagnostic test orders, procedure orders and consult orders; where the start date of the order is 45 days before the date of the Encounter or 45 days after the date of theEncounter. The data comes from all [place] treatment [facility]. Test Date/Time Test Type Test Details Facility Name Apr 30, 2024 11:38 AM Consult Order [facility] Cons Phlebotomist Medical Lab [facility] [place] [facility] Apr 30, 2024 11:59 AM Consult Order [facility] Cons Phlebotomist Medical Lab Assistant's Choice [facility] [place] [facility] Lab Results: +/- 30 days of the encounter This section includes the Chemistry and Hematology Lab Results on record with [facility] for the patient. Radiology Reports and Pathology Reports are provided separately, in subsequent sections. Lab Results This section contains the Chemistry/Hematology Results that were resulted 30 days before or 30 daysafter the date of the Encounter. Date/Time Source Result Type Result - Unit Interpretation Reference Range Comment Apr 30, 2024 12:21 PM [facility] [place] [facility] IGE Specimen Type: SERUM No comment entered. Ordering Provider: Sammy GOTTI Report Released Date/Time: Apr 30, 2024 12:04 PM Reporting Lab: [place] [facility] [place] [facility] [address] [facility] [address] Performing Lab: [facility] [place] [facility] [address] [facility] [address] IGE 24 0-100 Apr 30, 2024 12:21 PM [facility] [place] [facility] THYROID T4 FREE(FT4) (WROX) Specimen Type: SERUM No comment entered. Ordering Provider: Sammy GOTTI Report Released Date/Time: Apr 30, 2024 11:59 AM Reporting Lab: [facility] [place] [facility] [address] [facility] [address] Performing Lab: [facility] [place] [facility] [address] [facility] [address] THYROID T4 FREE(FT4) (WROX) 0.91 ng/dL 0.6-1.6 Apr 30, 2024 12:21 PM [facility] [place] [facility] CALCIUM Specimen Type: SERUM No comment entered. Ordering Provider: Sammy GOTTI Report Released Date/Time: Apr 30, 2024 11:59 AM Reporting Lab: [facility] [place] [facility] [address] [facility] [address] Performing Lab: [facility] [place] [facility] [address] [facility] [address] CALCIUM 8.9 mg/dL 8.5-10.2 Apr 30, 2024 12:21 PM [facility] LIVER FUNCTION Specimen Type: SERUM No comment entered. Ordering Provider: Sammy GOTTI Report Released Date/Time: Apr 30, 2024 11:59 AM Reporting Lab: [facility] [address] [facility] [address] Performing Lab: [address] [address] PROTEIN,TOTAL 7.6 g/dL 6.0-8.3 ALBUMIN 4.3 g/dL 3.5-5.0 ALKALINE PHOSPHATASE 48 U/L 40-150 AST 17 U/L 5-34 ALT 13 U/L BILIRUBIN, TOTAL 0.2 mg/dL 0.2-1.2 Apr 30, 2024 12:21 PM [facility] HEMOGLOBIN A1C PANEL Specimen Type: [...] Apr 30, 2024 11:59 AM Reporting Lab: [address] [address] Performing Lab: [address] [address] HEMOGLOBIN A1C 5.6 4.0-5.6 Apr 30, 2024 12:21 PM [facility] TSH Specimen Type: SERUM No comment entered. Ordering Provider: Sammy GOTTI Report Released Date/Time: Apr 30, 2024 11:59 AM Reporting Lab: [address] [address] Performing Lab: [facility] [address] [facility] [address] TSH 1.60 u[IU]/mL 0.35-5.00 Apr 30, 2024 12:21 PM [facility] IRON & TIBC PANEL Specimen Type: SERUM No comment entered. Ordering Provider: Sammy GOTTI Report Released Date/Time: Apr 30, 2024 11:59 AM Reporting Lab: [facility] [address] [facility] [address] Performing Lab: [facility] [address] [facility] [address] TIBC 525 ug/dL H 204-475 IRON 20 ug/dL L 40-160 Transferrin Saturation 3.8 L 20.0-50.0 Transferrin (TRF) 398 mg/dL H 200-360 Apr 30, 2024 12:21 PM [facility] FERRITIN Specimen Type: SERUM No comment entered. Ordering Provider: Sammy GOTTI Report Released Date/Time: Apr 30, 2024 11:59 AM Reporting Lab: [address] [address] Performing Lab: [facility] [address] FERRITIN 6 ng/mL L 20-300 Apr 30, 2024 12:21 PM [facility] BASIC METABOLIC PANEL (non-fasting) Specimen Type: SERUM No comment entered. Ordering Provider: Sammy GOTTI Report Released Date/Time: Apr 30, 2024 11:59 AM Reporting Lab: [facility] [address] [facility] [address] Performing Lab: [facility] [address] UREA NITROGEN 18 mg/dL 7-25 GLUCOSE 83 mg/dL 65-100 SODIUM 139 mmol/L 135-145 POTASSIUM 4.0 mmol/L 3.5-5.0 CHLORIDE 105 mmol/L 100-110 CO2 25 meq/L 20-30 CREATININE, Serum 1.02 mg/dL 0.50-1.40 eGFR(CKD-EPI 2020) 86 mL/min >60 Apr 30, 2024 12:21 PM [facility] CBC AND DIFF (AUTO) Specimen Type: BLOOD No comment entered. Ordering Provider: Sammy GOTTI Report Released Date/Time: Apr 30, 2024 11:59 AM Reporting Lab: [facility] [address] [facility] [address] Performing Lab: [facility] [address] [facility] [address] WBC 7.85 10*3/uL 4.50-11.00 RBC 4.32 10*6/uL [...] 10*3/uL 0.00-0.00 Apr 30, 2024 12:21 PM [facility] LIPID PANEL, NON FASTING Specimen Type: SERUM No comment entered. Ordering Provider: Sammy GOTTI Report Released Date/Time: Apr 30, 2024 03:02 PM Reporting Lab: [facility] [address] [facility] [address] Performing Lab: [facility] [address] [facility] [address] CHOLESTEROL 246 mg/dL H TRIGLYCERIDE 91 mg/dL [...] 66 116/78 15 97 0 224 30 [facility] Social History: Smoking Status (Most [...] 11:30 AM VA-TOBACCO USE FOR DAMIÁN CIGARETTES [facility] Tobacco Use History This section includes a history of the smoking, or tobacco-related health factors, that were collected on or before the date of the Encounter. The data comes from the [place] facility where the Encounter took place. Date/Time Smoking Status/Tobacco Use Comment F acility Apr 30, 2024 11:30 AM VA-TOBACCO USE NOÉ E DAYS OTHER PRODUCT MARIJUANA [facility] Apr 30, 2024 11:30 AM VA-TOBACCO USE NOÉ E DAYS OTHER TYPE [facility] Jul 14, 2021 11:45 AM VA-TOBACCO FORMER USER [facility] Jul 14, 2021 11:45 AM VA-TOBACCO QUIT 15 YRS OR MORE [facility] Encounter Notes: All associated encounter notes This section contains the clinical notes associated to the Encounter. Date/Time Encounter Note(s) Provider Source May 22, 2024 07:50 AM LETTERS: LOCAL TITLE: PATIENT LETTER (T) STANDARD TITLE: LETTERS DATE OF NOTE: MAY 22, 2024@07:50 ENTRY DATE: MAY 22, 2024@07:50:12 AUTHOR: SAMMY GOTTI EXP COSIGNER: URGENCY: STATUS: COMPLETED DEPARTMENT OF [facility] Toll Free Number Primary Care Telephone Assistance can be reached at extension [phone] [facility] scheduling can be reached at extension [phone] [facility] scheduling can be reached at ext [phone] EVA HINKLE [address] [place] [address], [phone] Dear Joy Chavez, I wanted you to see the main impression from derm provider about your skin condition. The main message is that the sensation you have from skin itching is NOT a skin/dermatologic problem but anxiety and the effects of repeated scratching ( which by itself causes more itching sensation and damages skin). Recommendations are to use liberal amounts of moisturizer and have mental health treatment to control anxiety. SEE DERM COMMENTS: Skin Care recommendations: would recommend consult to mental health for addressing the anxiety. Other recommendations: I would express to the patient that he is certainly feeling an itch but that the primary cause of the itch is not within the skin. I see no sign of a primary dermatologic problem other than the secondary results of scratching. In the meantime I would use all sensitive skin products, mild soap, short warm shower, daily emollient to moisten. Sincerely, Your Primary Care Team [facility] [address] [facility] [address] [place] [address] [place] [address] [phone] [facility] [address] [place] [address] [place] [address] [phone] [facility] [address] [facility] [place] [phone] [place] [address] SAMMY GOTTI [place] [facility] Apr 30, 2024 02:55 PM LETTERS: LOCAL TITLE: PATIENT LETTER (T) STANDARD TITLE: LETTERS DATE OF NOTE: APR 30, 2024@14:55 ENTRY DATE: APR 30, 2024@14:56:03 AUTHOR: SAMMY GOTTI EXP COSIGNER: URGENCY: STATUS: COMPLETED [facility] Toll Free Number Primary Care Telephone Assistance can be reached at extension [phone] [facility] scheduling can be reached at extension [phone] [facility] scheduling can be reached at ext [phone] EVA HINKLE [address] [place] [address], [phone] Dear Joy Chavez, I wanted you to [...] colonoscopy needed. Sincerely, Your Primary Care Team [facility] [address] [facility] [address] [place] [address] [place] [address] [phone] [facility] [address] [place] [address] [place] [address] [phone] [facility] [address] [facility] [place] [phone] [place] [address] SAMMY GOTTI [place] [facility] [place] [facility] Apr 30, 2024 11:38 AM PREVENTIVE MEDICINE NURSING NOTE: LOCAL TITLE: CLINICAL REMINDERS/NURSING STANDARD TITLE: PREVENTIVE MEDICINE NURSING NOTE DATE OF NOTE: APR 30, 2024@11:38 ENTRY DATE: APR 30, 2024@11:38:44 AUTHOR: ASAEL SINGHIGNER: URGENCY: STATUS: COMPLETED Suicide Screen: C-SSRS Screening [place] Suicide Severity Rating Scale (C-SSRS) screener 1. [...] Not worried about housing near future The reports the following: Within the past 12 [...] SINGH LPN Signed: 04/30/2024 11:41 ASAEL SINGH [place] [facility] Apr 30, 2024 08:08 AM PHYSICIAN NOTE: LOCAL TITLE: MD NOTE STANDARD TITLE: PHYSICIAN NOTE DATE OF NOTE: APR 30, 2024@08:08 ENTRY DATE: APR 30, 2024@08:08:26 AUTHOR: SAMMY GOTTI EXP COSIGNER: URGENCY: STATUS: COMPLETED HISTORY OF PRESENT ILLNESS: = EVA HINKLE, is a 53 yo DECLINED TO ANSWER MALE who presents at the OR at [facility]. hemorrhoids and other problems HPI. this vet presents for first PCP appt w/ this provider. he had been living in [place] and had GI providers thru [facility]. he had surgery done for bowel obstruction [...] the followin. Internal bleeding hemorrhoids 2. Hyperlipidemia ([facility] [id number]) 3. Obesity ([facility] [id number]) 4. Ex-tobacco user 5. Admits alcohol use 6. Bowel obstruction 7. Pancreatitis HISTORY[facility] COMBAT SERVICE INDICATED: [...] treatment planning, education and counseling of the patient/family/healthcare project manager, placing orders, communicating with other health care providers, and documentation in the electronic health record. 2. vet will use metamucil and push fluids 3. return to [facility] for other options/ possible C scope 4. consult placed to [facility] for hemorrhoid tx 5. consider mental [...] of active outpatient prescriptions dispensed from this OR (local) and dispensed from another OR or [facility] facility (remote) as well as inpatient orders [...] MD PHYSICIAN Signed: 04/30/2024 13:00 SAMMY GOTTI [facility]
--- OUTSIDE RECORDS SUMMARY | 2024-05-25 06:47 | XMS_ITS | Encounter Summary ---
Author Name [facility] Address [address] [place] [address] Care Team Providers Care Human Resource Professional Name Role Phone CAMILLE GOTTI Primary Care [...] TITLE 19 Apr 18, 2020 MEDICAI D [id number] EVA LU PATIENT Selected Encounter This section includes the information on record at NH for the Encounter. Date/Time Encounter Type Encounter Description Reason Pro vider Source May 09, 2024 12:10 PM Outpatient Encounter TELEPHONE TRIAGE IHE Encounter Template [...] 20 appointments. The data comes from all [place] treatment facilities. Appointment Date/Time Appointment Type Appointme nt Facility Name May 16, 2024 08:00 AM [facility] Aug 15, 2024 10:30 AM AM[facility]ULATORY - MEDICINE [facility] Active, Pending, and Scheduled Orders This section includes a listing of several types of active, pending, and scheduled orders, including clinic medications orders, diagnostic test orders, procedure orders and consult orders; where the start date of the order is 45 days before the date of the Encounter or 45 days after the date of theEncounter. The data comes from all [facility] facilities. Test Date/Time Test Type Test Details Facility Name Apr 30, 2024 11:38 AM Consult Order [facility] Cons [facility] [facility] Apr 30, 2024 11:59 AM Consult Order [facility] [employer] [facility] Lab Results: +/- 30 days of the encounter This section includes the Chemistry and Hematology Lab Results on record with NH for the patient. Radiology Reports and Pathology Reports are provided separately, in subsequent sections. Lab Results This section contains the Chemistry/Hematology Results that were resulted 30 days before or 30 daysafter the date of the Encounter. Date/Time Source Result Type Result - Unit Interpretation Reference Range Comment Apr 30, 2024 12:21 PM [facility] IGE Specimen Type: SERUM No comment entered. Ordering Provider: Sammy GOTTI Report Released Date/Time: Apr 30, 2024 12:04 PM Reporting Lab: [facility] [address] [facility] [address] Performing Lab: [facility] [address] [facility] [address] IGE 24 0-100 Apr 30, 2024 12:21 PM [facility] THYROID T4 FREE(FT4) (WROX) Specimen Type: SERUM No comment entered. Ordering Provider: Sammy GOTTI Report Released Date/Time: Apr 30, 2024 11:59 AM Reporting Lab: [facility] [address] [facility] [address] Performing Lab: [facility] [address] [facility] [address] THYROID T4 FREE(FT4) (WROX) 0.91 ng/dL 0.6-1.6 Apr 30, 2024 12:21 PM [facility] CALCIUM Specimen Type: SERUM No comment entered. Ordering Provider: Sammy GOTTI Report Released Date/Time: Apr 30, 2024 11:59 AM Reporting Lab: [facility] [address] [facility] [address] Performing Lab: [address] [address] CALCIUM 8.9 mg/dL 8.5-10.2 Apr 30, 2024 12:21 PM [facility] LIVER FUNCTION Specimen Type: SERUM No comment entered. Ordering Provider: Sammy GOTTI Report Released Date/Time: Apr 30, 2024 11:59 AM Reporting Lab: [facility] [address] [facility] [address] Performing Lab: [address] [address] PROTEIN,TOTAL 7.6 g/dL 6.0-8.3 ALBUMIN 4.3 g/dL 3.5-5.0 ALKALINE PHOSPHATASE 48 U/L 40-150 AST 17 U/L 5-34 ALT 13 U/L BILIRUBIN, TOTAL 0.2 mg/dL 0.2-1.2 Apr 30, 2024 12:21 PM [facility] HEMOGLOBIN A1C PANEL Specimen Type: BLOOD Comment: Values obtained from A1C measurements can vary. For atypical A1C assays, a reported value of 7.0 could actually be between 6.72 and 7.28 if measured by a reference method. A reported value of 9.0 could actually be between 8.73 and 9.27. Ref: http://www.[employer] p.org/CAPdata. asp Ordering Provider: Sammy GOTTI Report Released Date/Time: Apr 30, 2024 11:59 AM Reporting Lab: [facility] [place] [facility] [address] [facility] [address] Performing Lab: [facility] [address] [address] HEMOGLOBIN A1C 5.6 4.0-5.6 Apr 30, 2024 12:21 PM [facility] TSH Specimen Type: SERUM No comment entered. Ordering Provider: Sammy GOTTI Report Released Date/Time: Apr 30, 2024 11:59 AM Reporting Lab: [facility] [address] [address] Performing Lab: [facility] [address] [address] TSH 1.60 u[IU]/mL 0.35-5.00 Apr 30, 2024 12:21 PM [facility] IRON & TIBC PANEL Specimen Type: SERUM No comment entered. Ordering Provider: Sammy GOTTI Report Released Date/Time: Apr 30, 2024 11:59 AM Reporting Lab: [facility] [address] [address] Performing Lab: [place] [facility] [address] [address] TIBC 525 ug/dL H 204-475 IRON 20 ug/dL L 40-160 Transferrin Saturation 3.8 L 20.0-50.0 Transferrin (TRF) 398 mg/dL H 200-360 Apr 30, 2024 12:21 PM [facility] FERRITIN Specimen Type: SERUM No comment entered. Ordering Provider: Sammy GOTTI Report Released Date/Time: Apr 30, 2024 11:59 AM Reporting Lab: [facility] [address] [address] Performing Lab: [facility] [address] [facility] [address] FERRITIN 6 ng/mL L 20-300 Apr 30, 2024 12:21 PM [facility] BASIC METABOLIC PANEL (non-fasting) Specimen Type: SERUM No comment entered. Ordering Provider: Sammy GOTTI Report Released Date/Time: Apr 30, 2024 11:59 AM Reporting Lab: [address] [address] Performing Lab: [address] [address] UREA NITROGEN 18 mg/dL 7-25 GLUCOSE 83 mg/dL 65-100 SODIUM 139 mmol/L 135-145 POTASSIUM 4.0 mmol/L 3.5-5.0 CHLORIDE 105 mmol/L 100-110 CO2 25 meq/L 20-30 CREATININE, Serum 1.02 mg/dL 0.50-1.40 eGFR(CKD-EPI 2020) 86 mL/min >60 Apr 30, 2024 12:21 PM [facility] CBC AND DIFF (AUTO) Specimen Type: BLOOD No comment entered. Ordering Provider: Sammy GOTTI Report Released Date/Time: Apr 30, 2024 11:59 AM Reporting Lab: [address] [address] Performing Lab: [address] [address] WBC 7.85 10*3/uL 4.50-11.00 RBC 4.32 10*6/uL [...] 10*3/uL 0.00-0.00 Apr 30, 2024 12:21 PM [facility] LIPID PANEL, NON FASTING Specimen Type: SERUM No comment entered. Ordering Provider: Sammy GOTTI Report Released Date/Time: Apr 30, 2024 03:02 PM Reporting Lab: [facility] [address] [facility] [address] Performing Lab: [address] [address] CHOLESTEROL 246 mg/dL H TRIGLYCERIDE 91 mg/dL 0-150 LDL calculated 178 mg/dL H 0-129 CHOL/HDL 4.9 HDL CHOLESTEROL 50 mg/dL 40-60 Social History: Smoking Status (Most current) and Tobacco Use (All prior to encounter date) This section includes the most current, and the historical, smoking and tobacco- related health factors from the [place] facility where the Encounter took place. Current Smoking Status This section includes the most current smoking, or tobacco-related health factor, from the [place] facility where the Encounter took place. Date/Time Current Smoking Status Comment [place] Apr 30, 2024 11:30 AM VA-TOBACCO USE FOR DAMIÁN CIGARETTES [facility] Tobacco Use History This section includes a history of the smoking, or tobacco-related health factors, that were collected on or before the date of the Encounter. The data comes from the [place] facility where the Encounter took place. Date/Time Smoking Status/Tobacco Use Comment F acility Apr 30, 2024 11:30 AM VA-TOBACCO USE NOÉ E DAYS OTHER PRODUCT [facility] Apr 30, 2024 11:30 AM VA-TOBACCO USE NOÉ E DAYS OTHER TYPE [facility] [place] [facility] Jul 14, 2021 11:45 AM VA-TOBACCO FORMER USER [facility] [place] [facility] Jul 14, 2021 11:45 AM VA-TOBACCO QUIT 15 YRS OR MORE [facility] Encounter Notes: All associated encounter notes This section contains the clinical notes associated to the Encounter. Date/Time Encounter Note(s) Provider Source May 10, 2024 09:25 AM ADDENDUM: LOCAL TITLE: Addendum STANDARD TITLE: ADDENDUM DATE OF NOTE: MAY 10, 2024@09:25:56 ENTRY DATE: MAY 10, 2024@09:25:57 AUTHOR: ELIF BENJAMIN EXP COSIGNER: URGENCY: STATUS: COMPLETED Vet returning call re: [facility] /saida/ Elif Benjamin RN Primary Care Staff Nurse Signed: 05/10/2024 09:26 Receipt Acknowledged By: 05/10/2024 10:34 /saida/ EASTON COATS RN REFERRAL COORDINATION TEAM === --- Original Document --- 05/09/24 CCC: CLINICAL TRIAGE: Patient Demographics Patient Name: EVA HINKLE Patient Primary Address: [address] [place] [id number] Patient Primary Phone: [phone] Patient : 1970 Patient Age: 53 Caller/Recipient Relation to Patient: Self Caller Name: EVA HINKLE Emergency Contact: FARHAD TANG Triage Summary Conducted triage/discussed symptoms Utilized the Triage Tool: No Patient Disposition Patient/Caregiver agrees to plan of care: Yes Patient WHERE: Clinic[facility] Other - Patient Where Disposition: GI per letter he received. Nursing Plan and Disposition Unable to assist patient Comments: Pt calling to schedule with GI clinic per letter he received. Other course(s) of action Generated msg to PACT/Provider Provided guidance for worsening symptoms: *Caller/Patient* advised to call facilities [place] Clinical Contact Center or seek immediate medical attention for new or worsening symptoms Nurse Summary Nurse Summary: Pt has colorectal surgery scheduled for 05/25, states he followed up with his PCP and was prescribed additional meds that he states are not working, to soften stool and I have aches in the upper GI and my hemorrhoids are going up in my groin. PT states he has scant bleeding with BM today, states he has been eating light. PT c/o constipation with eating. Pt states he is awaiting a call back from a [place] that is RCI RN and he is calling back to follow-up. He states he is calling in response to a letter he received to schedule a follow-up appt. Pt declines need for further triage, would like to update his PCP of continued symptoms and discuss further plan. Pt call transferred to the specialty call center for further attempt at scheduling in response to the letter he received. FYI to PACT for further follow-up. Non-Triage/Non-Symptom Call Provided patient w/ administrative Info Clinical Contact Center Codes Clinic/Location: V1 CWM PHONE [facility] RN IMPORTANT: This note was created by [facility] Clinical Contact Center staff. Please do not alert the staff member by adding them as a signer for future communications. Alerts are not monitored by this user. /saida/ RAFAELA WILLAMS RN,BSN VISN 1 CCC RN Signed: 05/09/2024 12:10 Receipt Acknowledged By: 05/10/2024 09:24 /saida/ YG CUBA REGISTERED NURSE 05/10/2024 09:25 /saida/ Elif Benjamin RN Primary Care Staff Nurse ELIF BENJAMIN [place] CNTCleopatraL [facility] NO [facility] May 09, 2024 12:10 PM RN PROGRESS NOTE: LOCAL TITLE: CCC: CLINICAL TRIAGE STANDARD TITLE: RN PROGRESS NOTE DATE OF NOTE: MAY 09, 2024@12:10:44 ENTRY DATE: MAY 09, 2024@12:10:44 AUTHOR: RAFAELA WILLAMS COSIGNER: URGENCY: STATUS: COMPLETED CCC: CLINICAL TRIAGE Has ADDENDA Patient Demographics Patient Name: EVA HINKLE Patient Primary Address: [address] [place] [id number] Patient Primary Phone: [phone] Patient : 1970 Patient Age: 53 Caller/Recipient Relation to Patient: Self Caller Name: EVA HINKLE Emergency Contact: FARHAD TANG Triage Summary Conducted triage/discussed symptoms Utilized the Triage Tool: No Patient Disposition Patient/Caregiver agrees to plan of care: Yes Patient WHERE: Clinic/[facility] Other - Patient Where Disposition: GI per letter he received. Nursing Plan and Disposition Unable to assist patient Comments: Pt calling to schedule with GI clinic per letter he received. Other course(s) of action Generated msg to PACT/Provider Provided guidance for worsening symptoms: *Caller/Patient* advised to call facilities [place] Clinical Contact Center or seek immediate medical attention for new or worsening symptoms Nurse Summary Nurse Summary: Pt has colorectal surgery scheduled for 05/25, states he followed up with his PCP and was prescribed additional meds that he states are not working, to soften stool and I have aches in the upper GI and my hemorrhoids are going up in my groin. PT states he has scant bleeding with BM today, states he has been eating light. PT c/o constipation with eating. Pt states he is awaiting a call back from a [place] that is RCI RN and he is calling back to follow-up. He states he is calling in response to a letter he received to schedule a follow-up appt. Pt declines need for further triage, would like to update his PCP of continued symptoms and discuss further plan. Pt call transferred to the specialty call center for further attempt at scheduling in response to the letter he received. FYI to PACT for further follow-up. Non-Triage/Non-Symptom Call Provided patient w/ administrative Info Clinical Contact Center Codes Clinic/Location: V1 CWM PHONE ART RN IMPORTANT: This note was created by [facility] Clinical Contact Center staff. Please do not alert the staff member by adding them as a signer for future communications. Alerts are not monitored by this user. /saida/ RAFAELA WILLAMS RN,BSN VISN 1 [facility] RN Signed: 05/09/2024 12:10 Receipt Acknowledged By: 05/10/2024 09:24 /es/ YG CUBA REGISTERED NURSE 05/10/2024 09:25 /saida/ Elif Benjamin RN Primary Care Staff Nurse 05/10/2024 ADDENDUM STATUS: COMPLETED Vet returning call re: [facility] [place] /saida/ Elif Benjamin, blueberry grower Staff Nurse Signed: 05/10/2024 09:26 Receipt Acknowledged By: * AWAITING SIGNATURE * EASTON COATS HEATHER E [facility]
--- OUTSIDE RECORDS SUMMARY | 2024-05-25 06:47 | XMS_ITS ---
Author Name [facility] [place] [facility] [place] [facility] [place] Address [address] [place] [address] Care Team Providers Care Solar Installation Foreman Name Role Phone CAMILLE GOTTI Primary Care Provider MAYO Byrd Primary Care Provider Unavailyo e Insurance Providers: All historical and current [...] Chaparro's Name Patient's Relationship to Policy Chaparro [facility] MEDICAID TITLE 19 Apr 18, 2020 MEDICAI D [id number] EVA LU PATIENT Selected Encounter This section includes the information on record at [place] for the Encounter. Date/Time Encounter Type Encounter Description Reason Provider Source May 04, 2024 08:45 AM UNLISTED SPEC DERM SVC/PX DERMATOLOGY ICD-10-CM Z13.89 Encounter for screening for other disorder JACQUIE SHAFER Encounter Template Text not used by [facility] Assessments - Encounter Diagnoses This section includes the primary and secondary diagnoses documented for the Encounter. Date/Time Primary/Secondary Diagnosis Diagnosis Name Provider Source May 04, 2024 09:31 AM PRIMARY Encounter for screening for other disorder JACQUIE SHAFER Kellen [facility] Plan of Treatment: Future Appointments (+ 6 months) and Future Tests (+/- 45 days) The Plan of Treatment section includes future care activities for the patient from all [place] treatmentfacilities. This section includes future appointments and future orders which are active, pending or scheduled. Future Appointments This section includes appointments that were scheduled to occur 6 months from the date of the Encounter, up to a maximum of 20 appointments. The data comes from all [place] treatment facilities. Appointment Date/Time Appointment Type Appointme nt Facility Name May 16, 2024 08:00 AM AMBULATORY - MEDICINE [facility] Aug 15, 2024 10:30 AM AMBULATORY - MEDICINE [facility] Active, Pending, and Scheduled Orders This section includes a listing of several types of active, pending, and scheduled orders, including clinic medications orders, diagnostic test orders, procedure orders and consult orders; where the start date of the order is 45 days before the date of the Encounter or 45 days after the date of theEncounter. The data comes from all [place] treatment facilities. Test Date/Time Test Type Test Details Facility Name Apr 30, 2024 11:38 AM Consult Order [facility] Cons [employer] [facility] Apr 30, 2024 11:59 AM Consult Order [facility]-GI GENERAL Cons [employer] [facility] Lab Results: +/- 30 days of the encounter This section includes the Chemistry and Hematology Lab Results on record with [place] for the patient. Radiology Reports and Pathology Reports are provided separately, in subsequent sections. Lab Results This section contains the Chemistry/Hematology Results that were resulted 30 days before or 30 daysafter the date of the Encounter. Date/Time Source Result Type Result - Unit Interpretation Reference Range Comment Apr 30, 2024 12:21 PM [facility] IGE Specimen Type: SERUM No comment entered. Ordering Provider: Sammy GOTTI Report Released Date/Time: Apr 30, 2024 12:04 PM Reporting Lab: [address] [place] [address] Performing Lab: [place] [facility] [place] [facility] [address] [facility] [address] IGE 24 0-100 Apr 30, 2024 12:21 PM [facility] [place] [facility] THYROID T4 FREE(FT4) (WROX) Specimen Type: SERUM No comment entered. Ordering Provider: Sammy GOTTI Report Released Date/Time: Apr 30, 2024 11:59 AM Reporting Lab: [facility] [place] [facility] [address] [facility] [address] Performing Lab: [place] [facility] [place] [facility] [address] [facility] [address] THYROID T4 FREE(FT4) (WROX) 0.91 ng/dL 0.6-1.6 Apr 30, 2024 12:21 [facility] CALCIUM Specimen Type: SERUM No comment entered. Ordering Provider: Sammy GOTTI Report Released Date/Time: Apr 30, 2024 11:59 AM Reporting [facility] [address] [facility] [address] Performing [facility]: [facility] [address] [facility] [address] CALCIUM 8.9 mg/dL 8.5-10.2 Apr 30, 2024 12:21 PM [facility] LIVER FUNCTION Specimen Type: SERUM No comment entered. Ordering Provider: Sammy GOTTI Report Released Date/Time: Apr 30, 2024 11:59 AM Reporting Lab: [facility] [address] [facility] [address] Performing Lab: [place] [facility] [address] [address] PROTEIN,TOTAL 7.6 g/dL 6.0-8.3 ALBUMIN 4.3 g/dL 3.5-5.0 ALKALINE PHOSPHATASE 48 U/L 40-150 AST 17 U/L 5-34 ALT 13 U/L BILIRUBIN, TOTAL 0.2 mg/dL 0.2-1.2 Apr 30, 2024 12:21 PM [facility] HEMOGLOBIN A1C PANEL Specimen Type: BLOOD Comment: [...] Apr 30, 2024 11:59 AM Reporting Lab: [address] [address] Performing Lab: [address] [address] HEMOGLOBIN A1C 5.6 4.0-5.6 Apr 30, 2024 12:21 PM [facility] TSH Specimen Type: SERUM No comment entered. Ordering Provider: Sammy GOTTI Report Released Date/Time: Apr 30, 2024 11:59 AM Reporting Lab: [facility] [address] Performing Lab: [facility] [address] TSH 1.60 u[IU]/mL 0.35-5.00 Apr 30, 2024 12:21 PM [facility] FERRITIN Specimen Type: SERUM No comment entered. Ordering Provider: Sammy GOTTI Report Released Date/Time: Apr 30, 2024 11:59 AM Reporting Lab: [facility] [address] Performing Lab: [facility] [address] FERRITIN 6 ng/mL L 20-300 Apr 30, 2024 12:21 PM [facility] IRON & TIBC PANEL Specimen Type: SERUM No comment entered. Ordering Provider: Sammy GOTTI Report Released Date/Time: Apr 30, 2024 11:59 AM Reporting Lab: [address] [address] Performing Lab: [facility] [address] [address] TIBC 525 ug/dL H 204-475 IRON 20 ug/dL L 40-160 Transferrin Saturation 3.8 L 20.0-50.0 Transferrin (TRF) 398 mg/dL H 200-360 Apr 30, 2024 12:21 PM [facility] BASIC METABOLIC PANEL (non-fasting) Specimen Type: SERUM No comment entered. Ordering Provider: Sammy GOTTI Report Released Date/Time: Apr 30, 2024 11:59 AM Reporting Lab: [address] [address] Performing Lab: [address] [address] UREA NITROGEN 18 mg/dL 7-25 GLUCOSE 83 mg/dL 65-100 SODIUM 139 mmol/L 135-145 POTASSIUM 4.0 mmol/L 3.5-5.0 CHLORIDE 105 mmol/L 100-110 CO2 25 meq/L 20-30 CREATININE, Serum 1.02 mg/dL 0.50-1.40 eGFR(CKD-EPI 2020) 86 mL/min >60 Apr 30, 2024 12:21 PM [facility] CBC AND DIFF (AUTO) Specimen Type: BLOOD No comment entered. Ordering Provider: Sammy GOTTI Report Released Date/Time: Apr 30, 2024 11:59 AM Reporting Lab: [address] [address] Performing Lab: [address] [address] WBC 7.85 10*3/uL 4.50-11.00 RBC 4.32 10*6/uL [...] 10*3/uL 0.00-0.00 Apr 30, 2024 12:21 PM [facility] LIPID PANEL, NON FASTING Specimen Type: SERUM No comment entered. Ordering Provider: Sammy GOTTI Report Released Date/Time: Apr 30, 2024 03:02 PM Reporting Lab: [facility] [address] [facility] [address] Performing Lab: [facility] [address] [facility] [address] CHOLESTEROL 246 mg/dL H TRIGLYCERIDE 91 mg/dL 0-150 LDL calculated 178 mg/dL H 0-129 CHOL/HDL 4.9 HDL CHOLESTEROL 50 mg/dL 40-60 Social History: Smoking Status (Most current) and Tobacco Use (All prior to encounter date) This section includes the most current, and the historical, smoking and tobacco- related health factors from the [place] facility where the Encounter took place. Current Smoking Status This section includes the most current smoking, or tobacco-related health factor, from the [place] facility where the Encounter took place. Date/Time Current Smoking Status Comment Andrew ity Apr 30, 2024 11:30 AM VA-TOBACCO USE FOR DAMIÁN CIGARETTES [facility] Tobacco Use History This section includes a history of the smoking, or tobacco-related health factors, that were collected on or before the date of the Encounter. The data comes from the [place] facility where the Encounter took place. Date/Time Smoking Status/Tobacco Use Comment F acility Apr 30, 2024 11:30 AM VA-TOBACCO USE NOÉ E DAYS OTHER PRODUCT MARIJUANA [facility] Apr 30, 2024 11:30 AM VA-TOBACCO USE NOÉ E DAYS OTHER TYPE [facility] Jul 14, 2021 11:45 AM VA-TOBACCO FORMER USER [facility] Jul 14, 2021 11:45 AM VA-TOBACCO QUIT 15 YRS OR MORE [facility] Encounter Notes: All associated encounter notes This section contains the clinical notes associated to the Encounter. Date/Time Encounter Note(s) Provider Source May 22, 2024 07:55 AM ADDENDUM: LOCAL TITLE: Addendum STANDARD TITLE: ADDENDUM DATE OF NOTE: MAY 22, 2024@07:55:20 ENTRY DATE: MAY 22, 2024@07:55:21 AUTHOR: SAMMY GOTTI EXP COSIGNER: URGENCY: STATUS: COMPLETED [place], taina see letter to be mailed to vet. /saida/ CAMILLE GOTTI MD PHYSICIAN Signed: 05/22/2024 07:55 Receipt Acknowledged By: 05/22/2024 09:32 /es/ JACQUIE SHAFER TELEHEALTH CLINICAL MAT MAKING MACHINE TENDER 05/22/2024 10:09 /es/ Elif Benjamin RN Primary Care Staff Nurse --- Original Document --- 05/04/24 PATIENT NOTIFICATION TELEHEALTH RESULTS: Provided below are the results from pts telederm imaging reading. Ordering Provider is responsible to give pt the results and prescribe any treatments, recommendations or consult to dermatology for a face to face etc. REMOTE RESULTS TEJAL Document from: [facility] Associated on: May 04, 2024@11:20:53 LOCAL TITLE: CONSULT-TELEDERMATOLOGY IMAGING REPORT STANDARD TITLE: TELEIMAGING REPORT DATE OF NOTE: MAY 04, 2024@11:14 ENTRY DATE: MAY 04, 2024@11:14:19 AUTHOR: DAVID BAUMAN COSIGNER: URGENCY: STATUS: COMPLETED HISTORY: This is a 53-year-old male with a history of anxiety who is consulted for rash on the arms upper chest and upper back. He states there are itchy spots that he is scratching it. OVERALL CONSULT/IMAGE QUALITY: Fully satisfactory EXAM: On examination the left anterior arm shows multiple irregular excoriations with broken hairs and white scars. Surrounding skin is not erythematous there are no signs of secondary infection. Some of the lesions are lichenified. There are scattered lesions which are excoriated on the upper back and chest 1 lesion on the right arm. Again surrounding skin is without primary dermatologic lesions. IMPRESSION BASED ON IMAGES AND INFORMATION REVIEWED: PROBLEM A: Diagnosis: Neurodermatitis RECOMMENDATIONS FOR REFERRING PROVIDER: PROBLEM A: Skin Care recommendations: would recommend consult to [...] short warm shower, daily emollient to moisten. You may also use hydrocolloid gel bandages to some of the larger excoriations as that will help them heal. TIME-SENSITIVITY: No time-sensitive, urgent, emergent or life-threatening results. RECOMMENDED FOLLOW-UP (Include Clinically Indicated Date (SANTIAGO)): Primary Care follow up Nature/Type of Follow-up: Consult to mental health SANTIAGO: Cumulative time of review and management: 5 minutes or more /saida/ DAVID BAUMAN PA-C DERMATOLOGY CLINIC Signed: 05/04/2024 11:20 * END OF REMOTE RESULTS * /marcelle SHAFER TELEHEALTH CLINICAL MAT MAKING MACHINE TENDER Signed: 05/04/2024 15:06 Receipt Acknowledged By: 05/04/2024 15:34 /saida/ CAMILLE GOTTI MD PHYSICIAN 05/21/2024 ADDENDUM STATUS: COMPLETED Pt called TCT asking for the results and recommendation from his Telederm visit please send letter, call or email pt his results thank you. /marcelle SHAFER TELEHEALTH CLINICAL MAT MAKING MACHINE TENDER Signed: 05/21/2024 15:14 Receipt Acknowledged By: 05/22/2024 07:54 /saida/ CAMILLE GOTTI MD PHYSICIAN * AWAITING SIGNATURE * GY CUBA 05/22/2024 09:53 /saida/ Elif Benjamin RN Primary Care Staff Nurse EZE GOTTI [facility] May 21, 2024 03:10 PM ADDENDUM: LOCAL TITLE: Addendum STANDARD TITLE: ADDENDUM DATE OF NOTE: MAY 21, 2024@15:10:18 ENTRY DATE: MAY 21, 2024@15:10:19 AUTHOR: JACQUIE SHAFER COSIGNER: URGENCY: STATUS: COMPLETED Pt called TCT asking for the results and recommendation from his Telederm visit please send letter, call or email pt his results thank you. /marcelle SHAFER TELEHEALTH CLINICAL MAT MAKING MACHINE TENDER Signed: 05/21/2024 15:14 Receipt Acknowledged By: 05/22/2024 07:54 /marcelle GOTTI MD PHYSICIAN 05/22/2024 11:41 /saida/ YG CUBA REGISTERED NURSE 05/22/2024 09:53 /saida/ Elif Benjamin RN Primary Care Staff Nurse --- Original Document --- 05/04/24 PATIENT NOTIFICATION TELEHEALTH RESULTS: Provided below are the results from pts telederm imaging reading. Ordering Provider is responsible to give pt the results and prescribe any treatments, recommendations or consult to dermatology for a face to face etc. REMOTE RESULTS TEJAL Document from: [facility] Associated on: May 04, 2024@11:20:53 LOCAL TITLE: CONSULT-TELEDERMATOLOGY IMAGING REPORT STANDARD TITLE: TELEIMAGING REPORT DATE OF NOTE: MAY 04, 2024@11:14 ENTRY DATE: MAY 04, 2024@11:14:19 AUTHOR: DAVID BAUMAN EXP COSIGNER: URGENCY: STATUS: COMPLETED HISTORY: This is a 53-year-old male with a history of anxiety who is consulted for rash on the arms upper chest and upper back. He states there are itchy spots that he is scratching it. OVERALL CONSULT/IMAGE QUALITY: Fully satisfactory EXAM: On examination the left anterior arm shows multiple irregular excoriations with broken hairs and white scars. Surrounding skin is not erythematous there are no signs of secondary infection. Some of the lesions are lichenified. There are scattered lesions which are excoriated on the upper back and chest 1 lesion on the right arm. Again surrounding skin is without primary dermatologic lesions. IMPRESSION BASED ON IMAGES AND INFORMATION REVIEWED: PROBLEM A: Diagnosis: Neurodermatitis RECOMMENDATIONS FOR REFERRING PROVIDER: PROBLEM A: Skin Care recommendations: would recommend consult to [...] short warm shower, daily emollient to moisten. You may also use hydrocolloid gel bandages to some of the larger excoriations as that will help them heal. TIME-SENSITIVITY: No time-sensitive, urgent, emergent or life-threatening results. RECOMMENDED FOLLOW-UP (Include Clinically Indicated Date (SANTIAGO)): Primary Care follow up Nature/Type of Follow-up: Consult to mental health SANTIAGO: Cumulative time of review and management: 5 minutes or more /saida/ DAVID BAUMAN PA-C DERMATOLOGY CLINIC Signed: 05/04/2024 11:20 * END OF REMOTE RESULTS * /saida/ JACQUIE SHAFER TELEHEALTH CLINICAL MAT MAKING MACHINE TENDER Signed: 05/04/2024 15:06 Receipt Acknowledged By: 05/04/2024 15:34 /saida/ CAMILLE GOTTI MD PHYSICIAN 05/22/2024 ADDENDUM STATUS: COMPLETED taina Quintanilla see letter to be mailed to vet. /saida/ CAMILLE GOTTI MD PHYSICIAN Signed: 05/22/2024 07:55 Receipt Acknowledged By: 05/22/2024 09:32 /saida/ JACQUIE SHAFER TELEHEALTH CLINICAL MAT MAKING MACHINE TENDER 05/22/2024 10:09 /saida/ Elif Benjamin RN Primary Care Staff Nurse JACQUIE SHAFER [facility] May 04, 2024 03:04 PM TELEHEALTH NOTE: LOCAL TITLE: PATIENT NOTIFICATION TELEHEALTH RESULTS STANDARD TITLE: TELEHEALTH NOTE DATE OF NOTE: MAY 04, 2024@15:04 ENTRY DATE: MAY 04, 2024@15:04:08 AUTHOR: JACQUIE SHAFER EXP COSIGNER: URGENCY: STATUS: COMPLETED PATIENT NOTIFICATION TELEHEALTH RESULTS Has ADDENDA Provided below are the results from pts telederm imaging reading. Ordering Provider is responsible to give pt the results and prescribe any treatments, recommendations or consult to dermatology for a face to face etc. REMOTE RESULTS TEJAL Document from: [facility] Associated on: May 04, 2024@11:20:53 LOCAL TITLE: CONSULT-TELEDERMATOLOGY IMAGING REPORT STANDARD TITLE: TELEIMAGING REPORT DATE OF NOTE: MAY 04, 2024@11:14 ENTRY DATE: MAY 04, 2024@11:14:19 AUTHOR: DAVID BAUMAN EXP COSIGNER: URGENCY: STATUS: COMPLETED HISTORY: This is a 53-year-old male with a history of anxiety who is consulted for rash on the arms upper chest and upper back. He states there are itchy spots that he is scratching it. OVERALL CONSULT/IMAGE QUALITY: Fully satisfactory EXAM: On examination the left anterior arm shows multiple irregular excoriations with broken hairs and white scars. Surrounding skin is not erythematous there are no signs of secondary infection. Some of the lesions are lichenified. There are scattered lesions which are excoriated on the upper back and chest 1 lesion on the right arm. Again surrounding skin is without primary dermatologic lesions. IMPRESSION BASED ON IMAGES AND INFORMATION REVIEWED: PROBLEM A: Diagnosis: Neurodermatitis RECOMMENDATIONS FOR REFERRING PROVIDER: PROBLEM A: Skin Care recommendations: would recommend consult to [...] short warm shower, daily emollient to moisten. You may also use hydrocolloid gel bandages to some of the larger excoriations as that will help them heal. TIME-SENSITIVITY: No time-sensitive, urgent, emergent or life-threatening results. RECOMMENDED FOLLOW-UP (Include Clinically Indicated Date (SANTIAGO)): Primary Care follow up Nature/Type of Follow-up: Consult to mental health SANTIAGO: Cumulative time of review and management: 5 minutes or more /saida/ GALE J MITUL PA-C DERMATOLOGY CLINIC Signed: 05/04/2024 11:20 * END OF REMOTE RESULTS * /marcelle SHAFER TELEHEALTH CLINICAL MAT MAKING MACHINE TENDER Signed: 05/04/2024 15:06 Receipt Acknowledged By: 05/04/2024 15:34 /saida/ CAMILLE GOTTI MD PHYSICIAN 05/21/2024 ADDENDUM STATUS: COMPLETED Pt called TCT asking for the results and recommendation from his Telederm visit please send letter, call or email pt his results thank you. /saida/ JACQUIE SHAFER TELEHEALTH CLINICAL MAT MAKING MACHINE TENDER Signed: 05/21/2024 15:14 Receipt Acknowledged By: 05/22/2024 07:54 /saida/ CAMILLE GOTTI MD PHYSICIAN * AWAITING SIGNATURE * YG CUBA * AWAITING SIGNATURE * ELIF BENJAMIN 05/22/2024 ADDENDUM STATUS: COMPLETED taina Quintanilla see letter to be mailed to vet. /saida/ CAMILLE GOTTI MD PHYSICIAN Signed: 05/22/2024 07:55 Receipt Acknowledged By: * AWAITING SIGNATURE * JACQUIE SHAFER * AWAITING SIGNATURE * ELIF BENJAMIN JESSICA A [facility] [place] [facility] May 04, 2024 09:04 AM TELEHEALTH CONSULT: LOCAL TITLE: CONSULT REPORT/TELEDERMATOLOGY IMAGING REQUEST STANDARD TITLE: TELEHEALTH CONSULT DATE OF NOTE: MAY 04, 2024@09:04 ENTRY DATE: MAY 04, 2024@09:04:16 AUTHOR: JACQUIE SHAFER EXP COSIGNER: URGENCY: STATUS: COMPLETED Teledermatology Consult Request The patient was educated regarding the Teledermatology process at this encounter. Comment: Patient educated on telederm process and verbalizes understanding Patient DOES consent to have images taken, viewed, and interpreted using the Teledermatology process. This consult addresses: A new condition Images were acquired: In clinic HISTORY: Prior skin history: None reported Have you had a skin cancer before? None Reported Patient reports no family history of melanoma. Taking new med/supplements: None reported Immunosuppression history: None reported Other significant history: Yes Going in for hemroid surgery and have low iron Chief Complaint: skin condition for past year of small folliculitis/itching/excor iations. PROBLEM A LOCATION(S): Trunk, Upper Extremity mostely R side and spreading to back neck DURATION: a bout 1 years SYMPTOMS: Bleeding History, Itch, Pain, Redness, Ulceration History CHANGES: Shape, Size TREATMENT: No BIOPSY: No Digital Photographic Printer's comments: Imaged per providers direction and facility protocol /saida/ JACQUIE SHAFER TELEHEALTH CLINICAL MAT MAKING MACHINE TENDER Signed: 05/04/2024 09:31 [facility]AC[facility]IE SHAFER [facility] [place] [facility]
--- OUTSIDE RECORDS SUMMARY | 2024-05-25 06:48 | XMS_ITS | Clinical Summary ---
Author Organization [facility] Address [address] [place] [address] Care Team Providers Care Chief Sustainability Officer Name Role Phone Pcp, No MD Primary Care Provider Unavailabl e Allergies No known active allergies Medications FLUoxetine (PROzac) 20 mg capsule Take 60 mg by mouth daily. Active Active Problems Problem Noted Date Diagnosed Date Abdominal pain 12/21/2018 Assessment & Plan (12/21/2018 11:26 AM EDT): Abdominal X-Ray to evaluate if you are constipated. Reduce coffee, improve your diet by eating more fiber (fresh fruits, vegetables, whole grains). Increase water, goal of 60 ounces daily. Fiber intake daily, goal 30 grams. Consider trial of daily digestive probiotic: Align or Florastor Consider IBGard OTC as reviewed. For heartburn/reflux: Gaviscon OTC You appear quite stressed, I would like you to call your PCP to discuss your symptoms. Labs today (ordered by Dr. Leon) History of rectal bleeding 12/21/2018 History of colon polyps 12/21/2018 Assessment & Plan (12/21/2018 11:27 AM EDT): Repeat colonoscopy due 2020 Family history of colon cancer in father 019 Assessment & Plan (12/21/2018 11:32 AM EDT): Repeat colonoscopy due 2020 Family History Medical History Relation Comments Colon cancer Father Colon cancer Father's Brother Dementia Father's Brother Esophageal cancer Neg Hx Stomach cancer Neg Hx Relation Status Comments Father Father's Brother Social History Tobacco Use Types Packs/Day Years Used Date Smoking Tobacco: Never Smokeless Tobacco: Never Sex and Gender Information Value Date Recorded Sex Assigned at Not on file Legal Sex Male 2:25 AM EST Gender Identity Not on file Sexual Orientation Not on file Last Filed Vital Signs Vital Sign Reading Time Taken Comments Blood Pressure 128/77 12/21/2018 10:45 AM EDT Pulse 63 12/21/2018 10:45 AM EDT Temperature - - Respiratory Rate - - Oxygen Saturation - - Inhaled Oxygen Concentration - - Weight 115 kg (253 lb 12.8 oz) 12/21/2018 10:45 AM EDT Height 188 cm (6' 2 ) 12/21/2018 10:45 AM EDT Body Mass Index 32.59 12/21/2018 10:45 AM EDT Plan of Treatment Health Maintenance Due Date Last Done Comments CT Colonography 1968 Colonoscopy 1968 Colorectal Cancer Screening 1968 FIT-DNA (Cologuard) 1968 FIT 1968 FOBT 1968 Flex Sigmoidoscopy - 5y 1968 HIV Screening 1968 DTaP,Tdap,and Td Vaccines (1 - Tdap) 1986 Hepatitis B Vaccines (1 of 3 - 19+ 3-dose series) 07/21/1987 Zoster Vaccines (1 of 2) 2018 COVID-19 Vaccine (2023-2 5 season) 2023 Influenza Vaccine (#1) 2023 HPV Vaccines Aged Out No longer eligi ble based on patient's age to complete this topic Hepatitis A Vaccines Aged Out No long er eligible based on patient's age to complete this topic MMR Vaccines Aged Out No longer eligi ble based on patient's age to complete this topic Meningococcal Vaccine Aged Out No lupe sincere eligible based on patient's age to complete this topic Pneumococcal Vaccine: Pediat rics (0 to 5 Years) and At-Risk Patients (6 to 64 Years) Aged Out No longer eligible b ased on patient's age to complete this topic Insurance MEDICAID [place] D Care Teams Chief Sustainability Officer Relationship Specialty Start Date End Date Anh Rodrigues MD [address] [place] [address] PCP - General 07/15/17
--- OUTSIDE RECORDS SUMMARY | 2024-05-25 06:48 | XMS_ITS | Encounter Summary ---
Author Name [facility] [place] Address [address] [place] [id number] Care Team Providers Care Cab Starter Name Role Phone CAMILLE GOTTI Primary Care [...] Chaparro's Name Patient's Relationship to Policy Chaparro [facility] MEDICAID TITLE 19 Apr 18, 2020 MEDICAI D [id number] EVA LU PATIENT Selected Encounter This section includes the information on record at [place] for the Encounter. Date/Time Encounter Type Encounter Description Reason Provider Source May 04, 2024 11:14 AM Outpatient Encounter DERMATOLOGY ICD-10-CM L20.81 Atopic neurodermatitis DAVID BAUMAN Gavin Encounter Template Text not used by [place] Assessments - Encounter Diagnoses This section includes the primary and secondary diagnoses documented for the Encounter. Date/Time Primary/Secondary Diagnosis Diagnosis Name Provider Source May 04, 2024 11:20 AM PRIMARY Atopic neurodermatitis DAVID BAUMAN [facility] Plan of Treatment: Future Appointments (+ 6 months) and Future Tests (+/- 45 days) The Plan of Treatment section includes future care activities for the patient from all [place] treatmentfacilities. This section includes future appointments and future orders which are active, pending or scheduled. Future Appointments This section includes appointments that were scheduled to occur 6 months from the date of the Encounter, up to a maximum of 20 appointments. The data comes from all [place] treatment facilities. Appointment Date/Time Appointment Type Appointme nt Facility Name May 16, 2024 08:00 AM [facility]BULAT[facility] Aug 15, 2024 10:30 AM [facility] Active, Pending, and Scheduled Orders This section includes a listing of several types of active, pending, and scheduled orders, including clinic medications orders, diagnostic test orders, procedure orders and consult orders; where the start date of the order is 45 days before the date of the Encounter or 45 days after the date of theEncounter. The data comes from all [facility] facilities. Test Date/Time Test Type Test Details Facility Name Apr 30, 2024 11:38 AM Consult Order [facility]ITY [facility]ARE-GEN SURGERY Cons Snuff Drier's Choice [facility] [place] [facility] Apr 30, 2024 11:59 AM Consult Order [facility] Cons Snuff Drier's Choice [facility] Lab Results: +/- 30 days of the encounter This section includes the Chemistry and Hematology Lab Results on record with [place] for the patient. Radiology Reports and Pathology Reports are provided separately, in subsequent sections. Lab Results This section contains the Chemistry/Hematology Results that were resulted 30 days before or 30 daysafter the date of the Encounter. Date/Time Source Result Type Result - Unit Interpretation Reference Range Comment Apr 30, 2024 12:21 PM [facility] IGE Specimen Type: SERUM No comment entered. Ordering Provider: Sammy GOTTI Report Released Date/Time: Apr 30, 2024 12:04 PM Reporting Lab: [facility] [address] [address] Performing Lab: [facility] [address] [facility] [address] IGE 24 0-100 Apr 30, 2024 12:21 PM [facility] [place] [facility] THYROID T4 FREE(FT4) (WROX) Specimen Type: SERUM No comment entered. Ordering Provider: Sammy GOTTI Report Released Date/Time: Apr 30, 2024 11:59 AM Reporting Lab: [place] [facility] [facility] [address] [address] Performing Lab: [place] [facility] [facility] [address] [facility] [address] THYROID T4 FREE(FT4) (WROX) 0.91 ng/dL 0.6-1.6 Apr 30, 2024 12:21 PM [facility] [place] [facility] CALCIUM Specimen Type: SERUM No comment entered. Ordering Provider: Sammy GOTTI Report Released Date/Time: Apr 30, 2024 11:59 AM Reporting Lab: [facility] [place] [facility] [address] [address] Performing Lab: [place] [facility] [place] [address] [address] CALCIUM 8.9 mg/dL 8.5-10.2 Apr 30, 2024 12:21 PM [facility] LIVER FUNCTION Specimen Type: SERUM No comment entered. Ordering Provider: Sammy GOTTI Report Released Date/Time: Apr 30, 2024 11:59 AM Reporting Lab: [facility] [place] [facility] [address] [address] Performing Lab: [facility] [place] [address] [address] PROTEIN,TOTAL 7.6 g/dL 6.0-8.3 ALBUMIN 4.3 g/dL 3.5-5.0 ALKALINE PHOSPHATASE 48 U/L 40-150 AST 17 U/L 5-34 ALT 13 U/L BILIRUBIN, TOTAL 0.2 mg/dL 0.2-1.2 Apr 30, 2024 12:21 PM [facility] HEMOGLOBIN A1C PANEL Specimen Type: [...] Apr 30, 2024 11:59 AM Reporting Lab: [facility] [place] [facility] [address] [address] Performing Lab: [facility] [address] [address] HEMOGLOBIN A1C 5.6 4.0-5.6 Apr 30, 2024 12:21 PM [facility] TSH Specimen Type: SERUM No comment entered. Ordering Provider: Sammy GOTTI Report Released Date/Time: Apr 30, 2024 11:59 AM Reporting Lab: [facility] [place] [facility] [address] [address] Performing Lab: [facility] [place] [address] [address] TSH 1.60 u[IU]/mL 0.35-5.00 Apr 30, 2024 12:21 PM [facility] IRON & TIBC PANEL Specimen Type: SERUM No comment entered. Ordering Provider: Sammy GOTTI Report Released Date/Time: Apr 30, 2024 11:59 AM Reporting Lab: [facility] [place] [facility] [address] [address] Performing Lab: [facility] [place] [address] [address] TIBC 525 ug/dL H 204-475 IRON 20 ug/dL L 40-160 Transferrin Saturation 3.8 L 20.0-50.0 Transferrin (TRF) 398 mg/dL H 200-360 Apr 30, 2024 12:21 PM [facility] FERRITIN Specimen Type: SERUM No comment entered. Ordering Provider: Sammy GOTTI Report Released Date/Time: Apr 30, 2024 11:59 AM Reporting Lab: [facility] [address] [address] Performing Lab: [address] [address] FERRITIN 6 ng/mL L 20-300 Apr 30, 2024 12:21 PM [facility] BASIC METABOLIC PANEL (non-fasting) Specimen Type: SERUM No comment entered. Ordering Provider: Sammy GOTTI Report Released Date/Time: Apr 30, 2024 11:59 AM Reporting Lab: [address] [address] Performing Lab: [address] [address] UREA NITROGEN 18 mg/dL 7-25 GLUCOSE 83 mg/dL 65-100 SODIUM 139 mmol/L 135-145 POTASSIUM 4.0 mmol/L 3.5-5.0 CHLORIDE 105 mmol/L 100-110 CO2 25 meq/L 20-30 CREATININE, Serum 1.02 mg/dL 0.50-1.40 eGFR(CKD-EPI 2020) 86 mL/min >60 Apr 30, 2024 12:21 PM [facility] CBC AND DIFF (AUTO) Specimen Type: BLOOD No comment entered. Ordering Provider: Sammy GOTTI Report Released Date/Time: Apr 30, 2024 11:59 AM Reporting Lab: [address] [address] Performing Lab: [address] [address] WBC 7.85 10*3/uL 4.50-11.00 RBC 4.32 10*6/uL [...] 10*3/uL 0.00-0.00 Apr 30, 2024 12:21 PM [facility] LIPID PANEL, NON FASTING Specimen Type: SERUM No comment entered. Ordering Provider: Sammy GOTTI Report Released Date/Time: Apr 30, 2024 03:02 PM Reporting Lab: [facility] [address] [address] Performing Lab: [address] [address] CHOLESTEROL 246 mg/dL H TRIGLYCERIDE 91 mg/dL 0-150 LDL calculated 178 mg/dL H 0-129 CHOL/HDL 4.9 HDL CHOLESTEROL 50 mg/dL 40-60 Encounter Notes: All associated encounter notes This section contains the clinical notes associated to the Encounter. Date/Time Encounter Note(s) Provider Source May 04, 2024 11:14 AM TELEIMAGING REPORT : LOCAL TITLE: CONSULT-TELEDERMATOLOGY IMAGING REPORT STANDARD TITLE: [...] BAUMAN PA-C D[facility]MATOLOGY CLINIC Signed: 05/04/2024 11:20 DAVID BAUMAN [facility]
--- OUTSIDE RECORDS SUMMARY | 2024-05-25 06:48 | XMS_ITS | Encounter Summary ---
Author Name [facility] [place] Organization [place] Address [address] [place] [address] Care Team Providers Care Art Glass Setter Name Role Phone CAMILLE GOTTI Primary Care [...] Chaparro's Name Patient's Relationship to Policy Chaparro [facility] MEDICAID TITLE 19 Apr 18, 2020 MEDICAI D [id number] EVA LU PATIENT Selected Encounter This section includes the information on record at [place] for the Encounter. Date/Time Encounter Type Encounter Description Reason Pro vider Source Apr 25, 2024 12:00 AM Outpatient Encounter EVENT (HISTORICAL) IHE [...] 30, 2024 11:30 AM AMBULATORY - MEDICINE [facility] N[facility] May 01, 2024 11:00 AM AMBULATORY - MEDICINE [facility] NTRL [facility] May 04, 2024 08:45 AM [facility] May 16, 2024 08:00 AM [facility]UL[facility] - [facility] Aug 15, 2024 10:30 AM AMBULATORY - MEDICINE [facility] Active, Pending, and Scheduled Orders This section includes a listing of several types of active, pending, and scheduled orders, including clinic medications orders, diagnostic test orders, procedure orders and consult orders; where the start date of the order is 45 days before the date of the Encounter or 45 days after the date of theEncounter. The data comes from all [facility]. Test Date/Time Test Type Test Details Facility Name Apr 30, 2024 11:38 AM Consult Order COMMUNITY CARE-GEN SURGERY Cons Set Designer's Choice [facility] Apr 30, 2024 11:59 AM Consult Order [facility]-GI GENERAL Cons Set Designer's Choice [facility] Lab Results: +/- 30 days of the encounter This section includes the Chemistry and Hematology Lab Results on record with [place] for the patient. Radiology Reports and Pathology Reports are provided separately, in subsequent sections. Lab Results This section contains the Chemistry/Hematology Results that were resulted 30 days before or 30 daysafter the date of the Encounter. Date/Time Source Result Type Result - Unit Interpretation Reference Range Comment Apr 30, 2024 12:21 PM [facility] IGE Specimen Type: SERUM No comment entered. Ordering Provider: Sammy GOTTI Report Released Date/Time: Apr 30, 2024 12:04 PM Reporting Lab: [address] [address] Performing Lab: [facility] [place] [place] [facility] [address] [facility] [address] IGE 24 0-100 Apr 30, 2024 12:21 PM [facility] [place] [facility] THYROID T4 FREE(FT4) (WROX) Specimen Type: SERUM No comment entered. Ordering Provider: Sammy GOTTI Report Released Date/Time: Apr 30, 2024 11:59 AM Reporting Lab: [facility] [place] [facility] [address] [address] Performing Lab: [facility] [place] [facility] [address] [facility] [address] THYROID T4 FREE(FT4) (WROX) 0.91 ng/dL 0.6-1.6 Apr 30, 2024 12:21 PM [facility] [place] [facility] CALCIUM Specimen Type: SERUM No comment entered. Ordering Provider: Sammy GOTTI Report Released Date/Time: Apr 30, 2024 11:59 AM Reporting Lab: [facility] [place] [facility] [address] [address] Performing Lab: [facility] [place] [facility] [address] [address] CALCIUM 8.9 mg/dL 8.5-10.2 Apr 30, 2024 12:21 PM [facility] [place] [facility] LIVER FUNCTION Specimen Type: SERUM No comment entered. Ordering Provider: Sammy GOTTI Report Released Date/Time: Apr 30, 2024 11:59 AM Reporting Lab: [facility] [place] [facility] [address] [address] Performing Lab: [place] [facility] [place] [address] [address] PROTEIN,TOTAL 7.6 g/dL 6.0-8.3 ALBUMIN 4.3 g/dL 3.5-5.0 ALKALINE PHOSPHATASE 48 U/L 40-150 AST 17 U/L 5-34 ALT 13 U/L BILIRUBIN, TOTAL 0.2 mg/dL 0.2-1.2 Apr 30, 2024 12:21 PM [facility] [place] [facility] HEMOGLOBIN A1C PANEL Specimen Type: BLOOD Comment: [...] 30, 2024 11:59 AM Reporting Lab: [facility] [address] [address] Performing Lab: [facility] [address] [address] HEMOGLOBIN A1C 5.6 4.0-5.6 Apr 30, 2024 12:21 PM [facility] TSH Specimen Type: SERUM No comment entered. Ordering Provider: Sammy GOTTI Report Released Date/Time: Apr 30, 2024 11:59 AM Reporting Lab: [facility] [address] [address] Performing Lab: [facility] [address] [address] TSH 1.60 u[IU]/mL 0.35-5.00 Apr 30, 2024 12:21 PM [facility] FERRITIN Specimen Type: SERUM No comment entered. Ordering Provider: Sammy GOTTI Report Released Date/Time: Apr 30, 2024 11:59 AM Reporting Lab: [facility] [address] [address] Performing Lab: [facility] [address] [address] FERRITIN 6 ng/mL L 20-300 Apr 30, 2024 12:21 PM [facility] IRON & TIBC PANEL Specimen Type: SERUM No comment entered. Ordering Provider: Sammy GOTTI Report Released Date/Time: Apr 30, 2024 11:59 AM Reporting Lab: [facility] [address] [address] Performing Lab: [address] [address] TIBC 525 ug/dL H 204-475 IRON 20 ug/dL L 40-160 Transferrin Saturation 3.8 L 20.0-50.0 Transferrin (TRF) 398 mg/dL H 200-360 Apr 30, 2024 12:21 PM [facility] BASIC METABOLIC PANEL (non-fasting) Specimen Type: SERUM No comment entered. Ordering Provider: Sammy GOTTI Report Released Date/Time: Apr 30, 2024 11:59 AM Reporting Lab: [address] [address] Performing Lab: [address] [address] UREA NITROGEN 18 mg/dL 7-25 GLUCOSE 83 mg/dL 65-100 SODIUM 139 mmol/L 135-145 POTASSIUM 4.0 mmol/L 3.5-5.0 CHLORIDE 105 mmol/L 100-110 CO2 25 meq/L 20-30 CREATININE, Serum 1.02 mg/dL 0.50-1.40 eGFR(CKD-EPI 2020) 86 mL/min >60 Apr 30, 2024 12:21 PM [facility] CBC AND DIFF (AUTO) Specimen Type: BLOOD No comment entered. Ordering Provider: Sammy GOTTI Report Released Date/Time: Apr 30, 2024 11:59 AM Reporting Lab: [address] [address] Performing Lab: [address] [address] WBC 7.85 10*3/uL 4.50-11.00 RBC 4.32 10*6/uL [...] 10*3/uL 0.00-0.00 Apr 30, 2024 12:21 PM [facility] LIPID PANEL, NON FASTING Specimen Type: SERUM No comment entered. Ordering Provider: Sammy GOTTI Report Released Date/Time: Apr 30, 2024 03:02 PM Reporting Lab: [facility] [address] [address] Performing Lab: [address] [address] CHOLESTEROL 246 mg/dL H TRIGLYCERIDE 91 mg/dL [...] 2021 11:45 AM VA-TOBACCO FORMER USER [facility] Tobacco Use History This section includes a history of the smoking, or tobacco-related health factors, that were collected on or before the date of the Encounter. The data comes from the [place] facility where the Encounter took place. Date/Time Smoking Status/Tobacco Use Comment F acility Jul 14, 2021 11:45 AM VA-TOBACCO QUIT 15 YRS OR MORE [facility] Encounter Notes: All associated encounter notes This section contains the clinical notes associated to the Encounter. Date/Time Encounter Note(s) Provider Source Apr 25, 2024 12:00 AM NONVA NOTE: LOCAL TITLE: NON-VA OUTPATIENT NOTES STANDARD TITLE: NONVA NOTE DATE OF NOTE: APR 25, 2024 ENTRY DATE: MAY 22, 2024@19:04:41 AUTHOR: DANE ABREU MA EXP COSIGNER: URGENCY: STATUS: COMPLETED VistA Imaging - Scanned Document SCANNED DOCUMENT SIGNATURE NOT REQUIRED Electronically Filed: 05/22/2024 by: DANE ABREU HOSPITAL CLERK DANE ABREU [facility]
--- OUTSIDE RECORDS SUMMARY | 2024-05-25 06:48 | XMS_ITS | Encounter Summary ---
Author Name [facility] [place] [facility] [place] Address [address] [place] [address] Care Team Providers Care Preschool Teacher'S Assistant Name Role Phone CAMILLE GOTTI Primary Care [...] Chaparro's Name Patient's Relationship to Policy Chaparro [facility] MEDICAID TITLE 19 Apr 18, 2020 MEDICAI D [id number] EVA LU PATIENT Selected Encounter This section includes the information on record at [place] for the Encounter. Date/Time Encounter Type Encounter Description Reason Pro vider Source May 04, 2024 11:20 AM Outpatient Encounter EVENT (HISTORICAL) IHE Encounter [...] 16, 2024 08:00 AM AMBULATORY - MEDICINE [facility] Aug 15, 2024 10:30 AM AMBULATORY - MEDICINE [facility] Active, Pending, and Scheduled Orders This section includes a listing of several types of active, pending, and scheduled orders, including clinic medications orders, diagnostic test orders, procedure orders and consult orders; where thestart date of the order is 45 days before the date of the Encounter or 45 days after the date of the Encounter. The data comes from all [facility]. Test Date/Time Test Type Test Details Facility Name Apr 30, 2024 11:38 AM Consult Order [facility]-GEN SURGERY [facility] Supervisor Hydrochloric Area's Choice [facility] Apr 30, 2024 11:59 AM [facility] Supervisor Hydrochloric Area's [facility] Lab Results: +/- 30 days of the encounter This section includes the Chemistry and Hematology Lab Results on record with [place] for the patient. Radiology Reports and Pathology Reports are provided separately, in subsequent sections. Lab Results This section contains the Chemistry/Hematology Results that were resulted 30 days before or 30 daysafter the date of the Encounter. Date/Time Source Result Type Result - Unit Interpretation Reference Range Comment Apr 30, 2024 12:21 PM [facility] IGE Specimen Type: SERUM No comment entered. Ordering Provider: Sammy GOTTI Report Released Date/Time: Apr 30, 2024 12:04 PM Reporting Lab: [facility] [address] [address] Performing Lab: [facility] [address] [address] IGE 24 0-100 Apr 30, 2024 12:21 PM [facility] THYROID T4 FREE(FT4) (WROX) Specimen Type: SERUM No comment entered. Ordering Provider: Sammy GOTTI Report Released Date/Time: Apr 30, 2024 11:59 AM Reporting Lab: [facility] [address] [address] Performing Lab: [facility] [address] [address] THYROID T4 FREE(FT4) (WROX) 0.91 ng/dL 0.6-1.6 Apr 30, 2024 12:21 PM [facility] CALCIUM Specimen Type: SERUM No comment entered. Ordering Provider: Sammy GOTTI Report Released Date/Time: Apr 30, 2024 11:59 AM Reporting Lab: [address] [address] Performing Lab: [address] [address] CALCIUM 8.9 mg/dL 8.5-10.2 Apr 30, 2024 12:21 PM [facility] LIVER FUNCTION Specimen Type: SERUM No comment entered. Ordering Provider: Sammy GOTTI Report Released Date/Time: Apr 30, 2024 11:59 AM Reporting Lab: [address] [address] Performing Lab: [address] [address] PROTEIN,TOTAL 7.6 g/dL 6.0-8.3 ALBUMIN 4.3 g/dL 3.5-5.0 ALKALINE PHOSPHATASE 48 U/L 40-150 AST 17 U/L 5-34 ALT 13 U/L BILIRUBIN, TOTAL 0.2 mg/dL 0.2-1.2 Apr 30, 2024 12:21 PM [facility] HEMOGLOBIN A1C PANEL Specimen Type: BLOOD [...] Apr 30, 2024 11:59 AM Reporting Lab: [facility] [address] [facility] [address] Performing Lab: [facility] [address] [address] HEMOGLOBIN A1C 5.6 4.0-5.6 Apr 30, 2024 12:21 PM [facility] TSH Specimen Type: SERUM No comment entered. Ordering Provider: Sammy GOTTI Report Released Date/Time: Apr 30, 2024 11:59 AM Reporting Lab[facility] [address] [facility] [address] Performing Lab: [facility] [address] TSH 1.60 u[IU]/mL 0.35-5.00 Apr 30, 2024 12:21 PM [facility] FERRITIN Specimen Type: SERUM No comment entered. Ordering Provider: Sammy GOTTI Report Released Date/Time: Apr 30, 2024 11:59 AM Reporting Lab: [facility] [address] [facility] [address] Performing Lab: [facility] [address] [address] FERRITIN 6 ng/mL L 20-300 Apr 30, 2024 12:21 PM [facility] IRON & TIBC PANEL Specimen Type: SERUM No comment entered. Ordering Provider: Sammy GOTTI Report Released Date/Time: Apr 30, 2024 11:59 AM Reporting Lab: [facility] [address] [address] Performing Lab: [facility] [address] [address] TIBC 525 ug/dL H 204-475 IRON 20 ug/dL L 40-160 Transferrin Saturation 3.8 L 20.0-50.0 Transferrin (TRF) 398 mg/dL H 200-360 Apr 30, 2024 12:21 PM [facility] BASIC METABOLIC PANEL (non-fasting) Specimen Type: SERUM No comment entered. Ordering Provider: Sammy GOTTI Report Released Date/Time: Apr 30, 2024 11:59 AM Reporting Lab: [address] [address] Performing Lab: [address] [address] UREA NITROGEN 18 mg/dL 7-25 GLUCOSE 83 mg/dL 65-100 SODIUM 139 mmol/L 135-145 POTASSIUM 4.0 mmol/L 3.5-5.0 CHLORIDE 105 mmol/L 100-110 CO2 25 meq/L 20-30 CREATININE, Serum 1.02 mg/dL 0.50-1.40 eGFR(CKD-EPI 2020) 86 mL/min >60 Apr 30, 2024 12:21 PM [facility] CBC AND DIFF (AUTO) Specimen Type: BLOOD No comment entered. Ordering Provider: Sammy GOTTI Report Released Date/Time: Apr 30, 2024 11:59 AM Reporting Lab: [facility] [address] [facility] [address] Performing Lab: [address] [address] WBC 7.85 10*3/uL 4.50-11.00 RBC 4.32 10*6/uL [...] 10*3/uL 0.00-0.00 Apr 30, 2024 12:21 PM [facility] LIPID PANEL, NON FASTING Specimen Type: SERUM No comment entered. Ordering Provider: Sammy GOTTI Report Released Date/Time: Apr 30, 2024 03:02 PM Reporting Lab: [address] [address] Performing Lab: [address] [address] CHOLESTEROL 246 mg/dL H TRIGLYCERIDE 91 mg/dL [...] 11:30 AM [place]-TOBACCO USE FOR [place] CIGARET[facility] Tobacco Use History This section includes a history of the smoking, or tobacco-related health factors, that were collected on or before the date of the Encounter. The data comes from the [place] facility where the Encounter took place. Date/Time Smoking Status/Tobacco Use Comment F acility Apr 30, 2024 11:30 AM VA-TOBACCO USE NOÉ E DAYS OTHER PRODUCT [facility] Apr 30, 2024 11:30 AM VA-TOBACCO USE NOÉ E DAYS OTHER TYPE [facility] Jul 14, 2021 11:45 AM VA-TOBACCO FORMER USER [facility] Jul 14, 2021 11:45 AM VA-TOBACCO QUIT 15 YRS OR MORE [facility] Encounter Notes: All associated encounter notes This section contains the clinical notes associated to the Encounter. Date/Time Encounter Note(s) Provider Source May 04, 2024 11:20 AM TELEHEALTH CONSULT : LOCAL TITLE: CONSULT REPORT/TELEDERMATOLOGY IMAGING REQUEST STANDARD TITLE: TELEHEALTH CONSULT DATE OF NOTE: MAY 04, 2024@11:20:53 ENTRY DATE: MAY 04, 2024@11:20:53 AUTHOR: DAVID BAUMAN EXP COSIGNER: URGENCY: STATUS: COMPLETED Please refer to Inter-facility Consult for results. Automatically generated note - signature not required. Electronically Filed: 05/04/2024 by: DAVID GIBBS [facility]
[2024-05-25] MEDS: Lactated Ringers 1,000 ML 100 ML IVCONT (07:18)
--- NOTE | 2024-05-25 07:20 | HO.ANESPROP2 ---
Documented by User: Carey Garrett NP 05/23/24 14:37 HPI - Anesthesia Eval Consult details Narrative: 53yo M for EUA, Possible Hemorrhoidectomy, Possible sphincterotomy PMF Active Problems Active Problems: All Active Problems Anal fissure (Acute) Hemorrhoids (Acute) GI bleed (Acute) Acute GI bleeding (Acute) Anal pain (Acute) Past Medical History Medical History (Updated 05/23/24 @ 11:22 by Haley Bustamante RN) Nicotine dependence Obesity Rash Hyperlipidemia Anemia Anxiety Anal pain Pancreatitis SBO (small bowel obstruction) Family History Family history of problems with anesthesia: No Surgical History Surgical History H/O colonoscopy Small intestine obstruction History of Problems with Anesthesia: No Social History Social History Household Members: Spouse Housing: Apartment Do you presently have visiting nurse or other home services: No Alcohol intake: current Alcohol intake frequency: does not drink Patient Tobacco Use Status: Never used Tobacco Substance Use Type: Marijuana Have you been hit, kicked, punched, or otherwise hurt by someone within the past year? If so, by whom?: No Are you DNR?: No Advance Directives: No Advance Directives Information Provided: Yes service: Yes Current occupational status: unemployed Meds Allergies Allergy/AdvReac Type Severity Reaction Status Date / Time No Known Allergies Allergy Verified 04/25/24 11:30 Home Medications ?Medication ?Instructions ?Recorded ?Confirmed ?Last Taken ?Type fluoxetine 20 mg capsule 20 mg PO DAILY 05/23/24 05/23/24 Unknown History Exam Height,Weight and Vital Signs: Height 6 ft 2 in Weight 104.326 kg Assessment and Plan Assessment Anesthesia Assessment: Chart Reviewed Final Anesthetic Review Family History of Problems with Anesthesia: No History of Problems with Anesthesia: No Documented by User: Iman Jimenez DO 05/25/24 07:51 HPI - Anesthesia Eval Consult details Narrative: 53yo M for EUA, Possible Hemorrhoidectomy, Possible sphincterotomy at bedside to sign consent because patient received anesthesia less than 24 hours ago [facility] Past Medical History Medical History (Updated 05/23/24 @ 11:22 by Haley Bustamante RN) Nicotine dependence Obesity Rash Hyperlipidemia Anemia Anxiety Anal pain Pancreatitis SBO (small bowel obstruction) Family History Family history of problems with anesthesia: No Surgical History Surgical History H/O colonoscopy Small intestine obstruction History of Problems with Anesthesia: No Social History Social History Household Members: Spouse Housing: Apartment Do you presently have visiting nurse or other home services: No Alcohol intake: current Alcohol intake frequency: does not drink Patient Tobacco Use Status: Never used Tobacco Substance Use Type: Marijuana Have you been hit, kicked, punched, or otherwise hurt by someone within the past year? If so, by whom?: No Are you DNR?: No Advance Directives: No Advance Directives Information Provided: Yes service: Yes Current occupational status: unemployed Meds Allergies Allergy/AdvReac Type Severity Reaction Status Date / Time No Known Allergies Allergy Verified 04/25/24 11:30 Home Medications ?Medication ?Instructions ?Recorded ?Confirmed ?Last Taken ?Type fluoxetine 20 mg capsule 20 mg PO DAILY 05/23/24 05/23/24 Unknown History Exam Exam Date and Time: 05/25/24 0720 Height,Weight and Vital Signs: Height 6 ft 2 in Weight 104.326 kg Vital Signs Temperature 98.5 F 05/25/24 07:06 Pulse Rate 62 05/25/24 07:06 Respiratory Rate 18 05/25/24 07:06 Blood Pressure 120/72 05/25/24 07:06 Pulse Oximetry 99 05/25/24 07:06 Oxygen Delivery Method Room Air 05/25/24 07:06 Temperature 98.5 F 05/25/24 07:06 Pulse Rate 62 05/25/24 07:06 Respiratory Rate 18 05/25/24 07:06 Blood Pressure 120/72 05/25/24 07:06 Pulse Oximetry 99 05/25/24 07:06 Oxygen Delivery Method Room Air 05/25/24 07:06 Airway Mallampati Class: II TM Dist: >3cm Neck ROM: Full Loose/Missing/Broken Teeth: No (patient denies any loose or broken teeth) Heart: S1S2 Lungs: CTAB Assessment and Plan Assessment Anesthesia Assessment: Anesthesia Plan Discussed and Chart Reviewed Final Anesthetic Review Family History of Problems with Anesthesia: No History of Problems with Anesthesia: No NPO: Yes ASA Class: II Final Preanesthetic Review: No Changes in Pt Med Stat, Meds/Allgs Chart Reviewed, Consent Obtained/Reviewed and Anes Risks/Benef Reviewed Patient Risk: Low Procedure Risk: Low Anesthetic Plan Anesthetic Plan: GA and Agree w/ Assess. and Plan Disposition: Standard PACU
--- NOTE | 2024-05-25 07:28 | MHC.SHP ---
Pre-Procedural Eval Section A - 24 Hr Update-Section A only Date of Service: 05/25/24 The patient is an INPATIENT: No Changes since office visit: No Cold of Flu in the past 2 weeks, No New Medical Problems, No Changes in Medication and No Patient answered all questions The patient has been examined within 24 hours of the surgical procedure. The History & Physical has been completed within 30 days and I have reviewed it.: Yes Section B - Complete if H&P > 30 days Chief Complaint: Other specified diseases of anus and rectum Allergies: Allergies Allergy/AdvReac Type Severity Reaction Status Date / Time No Known Allergies Allergy Verified 04/25/24 11:30 Plan I have reviewed the history and physical and performed a pertinent physical examination on my patient. No changes have occurred unless specified. Time Spent With Patient Time: Total time managing care of this patient today ____ minutes.
--- NOTE | 2024-05-25 09:30 | P.OP_ITS ---
Operative Note Operative Note Date of Service: 05/25/24 Narrative: Preop diagnosis: Internal external hemorrhoids with pain, bleeding and swelling Postop diagnosis: The same Procedure: Exam under anesthesia hemorrhoidectomy x2 columns Surgeon: Junior Tang MD The patient is a 53-year-old male he has had a long history of pain and bleeding with this hemorrhoids. He wanted to proceed with hemorrhoidectomy. He was brought to the operating room. He was placed in prone jemma-knife position under general anesthesia via laryngeal mask airway. The buttocks were retracted with wide tape laterally. The perianal area was prepped and draped usual sterile fashion. A surgical time-out was done. The patient received Cefotan 2 g IV preoperatively. I infiltrated the perianal area with lidocaine 1%. Examination of the anal orifice revealed 2 large hemorrhoidal columns, mostly external on the left and the right. I inserted the Lilibeth Mcintyre retractor. I examined the anal canal circumferentially. Again large mixed hemorrhoidal columns internal external there were seen on both the left and right side. There were no lesions. There was no fissure or ulceration I applied a Nagel grasper on the hemorrhoidal column on the left to retract this out in the field. I made a sjwtdw-yz-cwase stitch with a chromic 3-0 at its pedicle past the dentate line. I made an incision around this hemorrhoidal column to the perianal skin with a blade 15. I excised this hemorrhoidal column above the plane of the sphincters along this incision with fine scissors. I closed this incision with a running chromic 3-0 stitch. I applied htxwca-jc-snvsp chromic 3-0 sutures to oozing areas. Hemostasis was confirmed . I repeated the procedure on the hemorrhoidal column on the right side. Again this was a bulky internal and external hemorrhoidal column. I made a zeippm-lr-frnzn stitch at the pedicle with a chromic 3-0. I made an incision around this column to the perianal skin. I excised this above the plane of the sphincters with scissors along this incision and closed the incision with a running chromic 3-0 stitch. I again applied uywusi-bz-ietpz chromic 3-0 sutures for oozing areas. Once hemostasis was confirmed, I proceeded to infiltrate the perianal area gene rously with Marcaine 0.5% for postop analgesia. The procedure was completed. The patient tolerated the procedure well. There were no immediate complications. Initial and final counts of sponges and instruments were correct. Estimated blood loss about 75 cc. The patient was extubated without difficulty and transferred to the recovery room with stable vital signs.
[2024-05-25] MEDS: fentaNYL citrate/PF 100 MCG/2 ML VIAL 50 MCG IVPUSH ×3 (09:55→10:05)
== END 2024-05-25 11:32 | disposition home or self-care (01) ==
PROVIDERS: PCP Internal Medicine; Visit Provider Surgery
PROC: (CPT 46260; principal; 2024-05-25 08:50)
DX: K64.8 Other hemorrhoids (principal); K64.4 Residual hemorrhoidal skin tags; K85.90 Acute pancreatitis without necrosis or infection, unspecified; Z87.19 Personal history of other diseases of the digestive system; D64.9 Anemia, unspecified; E78.5 Hyperlipidemia, unspecified; Z79.899 Other long term (current) drug therapy; Z98.890 Other specified postprocedural states; Z56.0 Unemployment, unspecified
CPT/HCPCS: 46260; 88304; J1100; J1885; J2003; J2405; J2704; J3010

== ENCOUNTER → 2024-05-25 06:45 | Outpatient (BNV) | payer OTHER, SELFPAY | PROVIDERS: PCP Internal Medicine; Visit Provider Surgery | DX: K64.8 Other hemorrhoids (principal) | CPT/HCPCS: 46260 ==

== ENCOUNTER 2024-06-07 10:07 | Outpatient (AMB) | payer OTHER, SELFPAY ==
--- NOTE | 2024-06-07 10:13 | A.OFFVIS_ITS ---
Intake Visit Reasons: S/P hemorrhoidectomy, poss. sphincterotomy Intake Note: This patient presents for post-op assessment status post Exam under anesthesia hemorrhoidectomy x2 columns. Pt c/o; reports some pain. 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 sphincterotomy: Details: He is here for postop visit. He had undergone hemorrhoidectomy last 05/25/2024 for bleeding hemorrhoids. He says he is doing very well at home. He says he feels much better. He has minimal pain. He has good bowel movements now. [facility] Medical History Nicotine dependence Obesity Rash Hyperlipidemia Anemia Anxiety Anal pain Pancreatitis SBO (small bowel obstruction) Surgical History History of hemorrhoidectomy (~05/25/24) H/O colonoscopy Small intestine obstruction Social History Household Members: Spouse Housing: Apartment Do you presently have visiting nurse or other home services: No Alcohol intake: current Alcohol intake frequency: does not drink Patient Tobacco Use Status: Never used Tobacco Substance Use Type: Marijuana service: Yes Current occupational status: unemployed Review of Systems Const Denies chills and Denies fever(s) Card Denies chest pain Resp Denies cough GI Denies abdominal pain Physical Exam Const General: comfortable and no acute distress Resp Effort & Inspection: normal respiratory effort GI Other: Rectal exam shows the hemorrhoidectomy sites to be healing very well, not infected Assessment & Plan Assessment & Plan (1) Hemorrhoids: Code(s): K64.9 - Unspecified hemorrhoids Category: Surgical Plan: Status post hemorrhoidectomy. He is doing very well. His surgical sites are well healing He says he is happy with the outcome. His path report shows hemorrhoids. He can otherwise follow up on a p.r.n. basis. I advised him on avoiding straining and constipation. Coding Level of Care Code Global (83094) Diagnoses Hemorrhoids K64.9
--- OUTSIDE RECORDS SUMMARY | 2024-06-07 11:03 | XMS_ITS | Clinical Summary ---
Author Organization [facility] Address [address] [place] [address] Care Team Providers Care Fire Prevention Bureau Captain Name Role Phone [facility] Primary Care Pr ovider Allergies No known [...] Inactivated Comments 02/09/2021 10:19 PM Care Teams Fire Prevention Bureau Captain Relationship Specialty Start Date End Date Bairon Cotton'MD santi [address] [place] [address] PCP - General 02/09/21
--- OUTSIDE RECORDS SUMMARY | 2024-06-07 11:03 | XMS_ITS | Continuity of Care Document ---
Author Name [facility] Organization [facility] Care Team Providers Care Plastic Technician Name Role Phone [facility] Unavailable Unavailable Problems Combined list of problems [...] GOTTI Comment: former heavy etoh user per [employer] FI[employer] note-Feb 2022 [facility] Anxiety Active Condition [facility] Chronic folliculitis Active Condition [facility] Constipation Active Condition Apr 30, 2024 Entered By: Sammy GOTTI Comment: alternates with diarrhea. may have IBS or other GI illness [facility] Ex-tobacco user Active Condition [facility] Hyperlipidemia (SCT 92965117) Active Condition [facility] Internal bleeding hemorrhoids Active Condition [facility] Microcytic anaemia Active Condition [facility] Obesity (SCT [id number]) Active Condition [facility] Pancreatitis Active Condition Jul 14, 2021 Entered By: SAMANTHA OROURKE Comment: Remote historyJul 14, 2021 Entered By: SAMANTHA OROURKE Comment: Elev rowdy, lip 07/14 - tx to ERNov 2021 Entered By: ZAHIRA ROMERO Comment: seen by [facility] 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 [facility] Diagnosis: ICD-10-CM 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 Medication Details Route Status Patient Instructions Prescription Expires Prescription Number Last Dispense Date Ordering Provider Order Date Order Qty Source BISACODYL 5MG TAB,EC TAKE FOUR TABLETS BY MOUTH ONCE FOR BOWELS - LAXATIVE ORAL ACTIVE 06/15/2024 [id number] 5 Rod BREAUX JR 2024 4 [facility] DOCUSATE NA 100MG CAP TAKE ONE CAPSULE BY MOUTH TWICE DAILY NEEDED FOR CONSTIPA TION TO SOFTEN STOOL ORAL ACTIVE 04/25/2025 [id number] 5 EZE ARVIZU 2024 100 [facility] FERROUS GLUCONATE 324MG TAB TAKE ONE TABLET BY MOUTH ONCE DAILY TO SUPPLEME NT IRON ORAL ACTIVE 05/01/2025 [id number] 5 EZE ARVIZU 2024 100 [facility] FLUOXETINE HCL 20MG CAP TAKE ONE CAPSULE BY MOUTH ONCE DAILY FOR MAJOR DEPRESSI VE DISORDER ORAL DISCONT INUED (EDIT) 01/19/2024 [id number] 4 EZE ARVIZU 2023 90 [facility] FLUOXETINE HCL 20MG CAP TAKE ONE CAPSULE BY MOUTH ONCE DAILY FOR DEPRESSI ON AND ANXIETY ORAL 04/09/2024 [id number] 4 EZE ARVIZU 2023 [address] [facility] HYDROCORTIS ONE 2.5% CREAM,RTL W/APPLICATO R INSERT SMALL AMOUNT RECTAL AREA TWICE DAILY NEEDED FOR SKIN INFLAMMA TION RECTAL ACTIVE 04/25/2025 [id number] 5 [facility]U [facility] PEG-3350/EL ECTROLYTES PWDR TAKE CONTENTS OF BOTTLE BY MOUTH BEFORE PROCEDUR E KHOAIN G TO INSTRUCT IONS FROM PRESCRIB ER - DISSOLVE CONTENTS BEFORE DRINKING ORAL ACTIVE 06/15/2024 [id number] 5 Rod BREAUX P JR 2024 1 [facility] PSYLLIUM PWDR,ORAL TAKE 2 TEASPOON FULS BY MOUTH TWICE DAILY NEEDED FOR CONSTIPA TION (MIX WITH AT LEAST 8OZ. OF WATER OR OTHER FLUID) ORAL ACTIVE 05/01/2025 [id number] 5 EZE [facility]VIZU [facility] Immunizations Combined list of available immunizations from the Department of Defense and Veterans Affairs facilities. Immunization Series Date Given Administered By Site Reaction Lot Number CVX Code Drug Conference Manager Status Comments Source INFLUENZA, INJECTABLE, QUADRIVALENT, PRESERVATIVE FREE 2021 150 complet ed [facility] COVID-19 (PFIZER), MRNA, LNP-S, PF, 30 MCG/0.3 ML DOSE 2 2021 208 complet ed [facility] COVID-19 (PFIZER), MRNA, LNP-S, PF, 30 MCG/0.3 ML DOSE 1 2021 208 [facility] ZOSTER RECOMBINANT 1 2021 187 complet ed [place] INFLUENZA, INJECTABLE, QUADRIVALENT, PRESERVATIVE FREE 2020 150 complet ed [place] INFLUENZA, UNSPECIFIED FORMULATION 2020 88 complet ed [facility] TD (ADULT), 5 LF TETANUS TOXOID, PRESERVATIVE FREE, ADSORBED 2020 113 complet ed [place] TD(ADULT) UNSPECIFIED FORMULATION 2020 139 complet ed [facility] [place] [facility] COVID-19 (PFIZER), MRNA, LNP-S, PF, 30 MCG/0.3 ML DOSE 2 2020 208 complet ed PFR; [id number]; 1 [place] COVID-19 (PFIZER), MRNA, LNP-S, PF, 30 MCG/0.3 ML DOSE 1 2020 208 complet ed PFR; [id number]; 1 [place] INFLUENZA, INJECTABLE, QUADRIVALENT 2018 158 complet ed Site: Left Deltoid [place] Results Combined list of recent chemistry, hematology and other laboratory results from Department of Defense and Veterans Affairs, ranging from 15 months to all on record, depending upon the facility. Order Name Results Value Reference Range Date Interpretation Specimen Comments Source IGE IGE [UNITS/VOLU ME] IN SERUM OR PLASMA 24 0 - 100 04/30 Specimen Type: SERUM No comment entered. Ordering Provider: CAMILLE GREENE Report Released Date/Time: Apr 30, 2024 12:04 PM Reporting Lab: [facility] [address] [address] Performing [facility]: [facility] [place] [facility] [address] [address] [facility] THYROID T4 FREE(FT4) (WROX) THYROXINE (T4) FREE [MASS/VOLUM E] IN SERUM OR PLASMA 0.91 ng/dL 0.6 - 1.6 04/30 Specimen Type: SERUM No comment entered. Ordering Provider: CAMILLE GREENE Report Released Date/Time: Apr 30, 2024 11:59 AM Reporting Lab: [facility] [place] [facility] [address] [address] Performing Lab: [facility] [place] [facility] [address] [address] [facility] [facility] CALCIUM CALCIUM [MASS/VOLUM E] IN SERUM OR PLASMA 8.9 mg/dL 8.5 - 10.2 04/30 Specimen Type: SERUM No comment entered. Ordering Provider: CAMILLE GREENE Report Released Date/Time: Apr 30, 2024 11:59 AM Reporting Lab: [facility] [place] [facility] [address] [address] Performing Lab: [facility] [address] [address] [facility] LIVER FUNCTION PROTEIN [MASS/VOLUM E] IN SERUM OR PLASMA 7.6 g/dL 6.0 - 8.3 04/30 Specimen Type: SERUM No comment entered. Ordering Provider: CAMILLE GREENE Report Released Date/Time: Apr 30, 2024 11:59 AM Reporting Lab: [facility] [address] [address] Performing Lab: [facility] [address] [address] [facility] TRN [facility] LIVER FUNCTION ALBUMIN [MASS/VOLUM E] IN SERUM OR PLASMA 4.3 g/dL 3.5 - 5.0 04/30 Specimen Type: SERUM No comment entered. Ordering Provider: CAMILLE GREENE Report Released Date/Time: Apr 30, 2024 11:59 AM Reporting Lab: [facility] [address] [address] Performing Lab: [facility] [place] [address] [address] [facility] LIVER FUNCTION ALKALINE PHOSPHATASE [ENZYMATIC ACTIVITY/VO LUME] IN SERUM OR PLASMA 48 U/L 40 - 150 04/30 Specimen Type: SERUM No comment entered. Ordering Provider: CAMILLE GREENE Report Released Date/Time: Apr 30, 2024 11:59 AM Reporting Lab: [facility] [place] [address] [address] Performing Lab: [facility] [address] [address] [facility] LIVER FUNCTION ASPARTATE AMINOTRANSF ERASE [ENZYMATIC ACTIVITY/VO LUME] IN SERUM OR PLASMA 17 U/L 5 - 34 04/30 Specimen Type: SERUM No comment entered. Ordering Provider: CAMILLE GREENE Report Released Date/Time: Apr 30, 2024 11:59 AM Reporting Lab: [facility] [place] [facility] [address] [address] Performing Lab: [facility] [place] [facility] [address] [address] [facility] [place] [facility] LIVER FUNCTION ALANINE AMINOTRANSF ERASE [ENZYMATIC ACTIVITY/VO LUME] IN SERUM OR PLASMA 13 U/L 04/30 Specimen Type: SERUM No comment entered. Ordering Provider: CAMILLE GREENE Report Released Date/Time: Apr 30, 2024 11:59 AM Reporting Lab: [facility] [place] [address] [address] Performing Lab: [facility] [place] [address] [address] [facility] LIVER FUNCTION BILIRUBIN.T OTAL [MASS/VOLUM E] IN SERUM OR PLASMA 0.2 mg/dL 0.2 - 1.2 04/30 Specimen Type: SERUM No comment entered. Ordering Provider: CAMILLE GREENE Report Released Date/Time: Apr 30, 2024 11:59 AM Reporting Lab: [facility] [place] [address] [address] Performing Lab: [facility] [place] [address] [address] [facility] [place] [facility] HEMOGLOBI N A1C PANEL HEMOGLOBIN A1C/HEMOGLO BIN.TOTAL IN BLOOD BY HPLC 5.6 4.0 - 5.6 04/30 Specimen Type: BLOOD Comment: Values obtained from A1C measurement s can vary. For atypical A1C assays, a reported value of 7.0 could actually be between 6.72 and 7.28 if measured by a reference method. A reported value of 9.0 could actually be between 8.73 and 9.27. Ref: http://www. ngsp.org/[place] Pdata.asp Ordering Provider: CAMILLE GREENE Report Released Date/Time: Apr 30, 2024 11:59 AM Reporting Lab: [facility] [place] [address] [address] Performing Lab: [facility] [place] [facility] [address] [address] [facility] [facility] TSH THYROTROPIN [UNITS/VOLU ME] IN SERUM OR PLASMA 1.60 u[IU]/ mL 0.35 - 5.00 04/30 Specimen Type: SERUM No comment entered. Ordering Provider: CAMILLE GREENE Report Released Date/Time: Apr 30, 2024 11:59 AM Reporting Lab: [facility] [place] [address] [address] Performing Lab: [facility] [place] [address] [address] [facility] IRON & TIBC PANEL IRON BINDING CAPACITY [MASS/VOLUM E] IN SERUM OR PLASMA 525 ug/dL 204 - 475 04/30 H Specimen Type: SERUM No comment entered. Ordering Provider: CAMILLE GREENE Report Released Date/Time: Apr 30, 2024 11:59 AM Reporting Lab: [facility] [place] [address] [address] Performing Lab: [facility] [place] [address] [address] [facility] [place] [facility] IRON & TIBC PANEL IRON [MASS/VOLUM E] IN SERUM OR PLASMA 20 ug/dL 40 - 160 04/30 L Specimen Type: SERUM No comment entered. Ordering Provider: CAMILLE GREENE Report Released Date/Time: Apr 30, 2024 11:59 AM Reporting Lab: [facility] [place] [address] [address] Performing Lab: [facility] [place] [facility] [address] [address] [facility] [place] [facility] IRON & TIBC PANEL IRON/IRON BINDING CAPACITY.TO CHUY [MASS RATIO] IN SERUM OR PLASMA 3.8 20.0 - 50.0 04/30 L Specimen Type: SERUM No comment entered. Ordering Provider: CAMILLE GREENE Report Released Date/Time: Apr 30, 2024 11:59 AM Reporting Lab: [facility] [place] [facility] [address] [address] Performing Lab: [facility] [place] [facility] [address] [address] [facility]TR[facility] [place] [facility] IRON & TIBC PANEL TRANSFERRIN [MASS/VOLUM E] IN SERUM OR PLASMA 398 mg/dL 200 - 360 04/30 H Specimen Type: SERUM No comment entered. Ordering Provider: CAMILLE GREENE Report Released Date/Time: Apr 30, 2024 11:59 AM Reporting Lab: [facility] [place] [facility] [address] [address] Performing Lab: [facility] [address] [address] [facility]COMM[facility]ITALN [facility] FERRITIN FERRITIN [MASS/VOLUM E] IN SERUM OR PLASMA 6 ng/mL 20 - 300 04/30 L Specimen Type: SERUM No comment entered. Ordering Provider: CAMILLE GREENE Report Released Date/Time: Apr 30, 2024 11:59 AM Reporting Lab: [facility] [place] [facility] [address] [address] Performing Lab: [facility] [place] [facility] [address] [address] [facility]COMM[facility]OS[facility]ITALN [facility] BASIC METABOLIC PANEL (non-fast ing) UREA NITROGEN [MASS/VOLUM E] IN SERUM OR PLASMA 18 mg/dL 7 - 25 04/30 Specimen Type: SERUM No comment entered. Ordering Provider: CAMILLE GREENE Report Released Date/Time: Apr 30, 2024 11:59 AM Reporting Lab: [facility] [address] [address] Performing Lab: [facility] [address] [address] [facility] BASIC METABOLIC PANEL (non-fast ing) GLUCOSE [MASS/VOLUM E] IN SERUM OR PLASMA 83 mg/dL 65 - 100 04/30 Specimen Type: SERUM No comment entered. Ordering Provider: CAMILLE GREENE Report Released Date/Time: Apr 30, 2024 11:59 AM Reporting Lab: [facility] [address] [address] Performing Lab: [facility]N [facility] [address] [facility]COMM[facility]ITALN [facility] BASIC METABOLIC PANEL (non-fast ing) SODIUM [MOLES/VOLU ME] IN SERUM OR PLASMA 139 mmol/L 135 - 145 04/30 Specimen Type: SERUM No comment entered. Ordering Provider: CAMILLE GREENE Report Released Date/Time: Apr 30, 2024 11:59 AM Reporting Lab: [facility] [address] [address] Performing Lab: [facility] [address] [facility] BASIC METABOLIC PANEL (non-fast ing) POTASSIUM [MOLES/VOLU ME] IN SERUM OR PLASMA 4.0 mmol/L 3.5 - 5.0 04/30 Specimen Type: SERUM No comment entered. Ordering Provider: CAMILLE GREENE Report Released Date/Time: Apr 30, 2024 11:59 AM Reporting Lab: [facility] [address] [address] Performing Lab: [facility] [address] [facility] BASIC METABOLIC PANEL (non-fast ing) CHLORIDE [MOLES/VOLU ME] IN SERUM OR PLASMA 105 mmol/L 100 - 110 04/30 Specimen Type: SERUM No comment entered. Ordering Provider: CAMILLE GREENE Report Released Date/Time: Apr 30, 2024 11:59 AM Reporting Lab: [address] [address] Performing Lab: [address] [address] [facility] BASIC METABOLIC PANEL (non-fast ing) CARBON DIOXIDE, TOTAL [MOLES/VOLU ME] IN SERUM OR PLASMA 25 meq/L 20 - 30 04/30 Specimen Type: SERUM No comment entered. Ordering Provider: CAMILLE GREENE Report Released Date/Time: Apr 30, 2024 11:59 AM Reporting Lab: [address] [address] Performing Lab: [address] [address] [facility] BASIC METABOLIC PANEL (non-fast ing) CREATININE [MASS/VOLUM E] IN SERUM OR PLASMA 1.02 mg/dL 0.50 - 1.40 04/30 Specimen Type: SERUM No comment entered. Ordering Provider: CAMILLE GREENE Report Released Date/Time: Apr 30, 2024 11:59 AM Reporting Lab: [address] [address] Performing Lab: [address] [address] [facility] BASIC METABOLIC PANEL (non-fast ing) GLOMERULAR FILTRATION RATE/1.73 SQ M.PREDICTED [VOLUME RATE/AREA] IN SERUM, PLASMA OR BLOOD BY CREATININE- BASED FORMULA (CKD-EPI 2020) 86 mL/min 60 04/30 Specimen Type: SERUM No comment entered. Ordering Provider: CAMILLE GREENE Report Released Date/Time: Apr 30, 2024 11:59 AM Reporting Lab: [facility] [place] [facility] [address] [address] Performing Lab: [facility] [place] [facility] [address] [address] [facility] CBC AND DIFF (AUTO) LEUKOCYTES [#/VOLUME] IN BLOOD BY AUTOMATED COUNT 7.85 10*3/u L 4.50 - 11.00 04/30 Specimen Type: BLOOD No comment entered. Ordering Provider: CAMILLE GREENE Report Released Date/Time: Apr 30, 2024 11:59 AM Reporting Lab: [facility] [place] [facility] [address] [address] Performing Lab: [facility] [place] [facility] [address] [address] [facility] [place] [facility] CBC AND DIFF (AUTO) ERYTHROCYTE S [#/VOLUME] IN BLOOD BY AUTOMATED COUNT 4.32 10*6/u L 4.23 - 5.66 04/30 Specimen Type: BLOOD No comment entered. Ordering Provider: CAMILLE GREENE Report Released Date/Time: Apr 30, 2024 11:59 AM Reporting Lab: [facility] [place] [facility] [address] [address] Performing Lab: [facility] [place] [facility] [address] [address] [facility] [place] [facility] CBC AND DIFF (AUTO) HEMOGLOBIN [MASS/VOLUM E] IN BLOOD 10.7 g/dL 12.8 - 17 04/30 L Specimen Type: BLOOD No comment entered. Ordering Provider: CAMILLE GREENE Report Released Date/Time: Apr 30, 2024 11:59 AM Reporting Lab: [facility] [place] [facility] [address] [address] Performing Lab: [facility] [place] [address] [address] [facility] [place] [facility] CBC AND DIFF (AUTO) HEMATOCRIT [VOLUME FRACTION] OF BLOOD BY AUTOMATED COUNT 33.8 39.2 - 50.4 04/30 L Specimen Type: BLOOD No comment entered. Ordering Provider: CAMILLE GREENE Report Released Date/Time: Apr 30, 2024 11:59 AM Reporting Lab: [facility] [place] [facility] [address] [address] Performing Lab: [facility] [place] [address] [address] [facility] [place] [facility] CBC AND DIFF (AUTO) MCV [ENTITIC VOLUME] BY AUTOMATED COUNT 78.2 fL 82 - 99 04/30 L Specimen Type: BLOOD No comment entered. Ordering Provider: CAMILLE GREENE Report Released Date/Time: Apr 30, 2024 11:59 AM Reporting Lab: [facility] [place] [address] [address] Performing Lab: [facility] [place] [address] [address] [facility] [place] [facility] CBC AND DIFF (AUTO) MCHC [MASS/VOLUM E] BY AUTOMATED COUNT 31.7 g/dL 30.8 - 35.1 04/30 Specimen Type: BLOOD No comment entered. Ordering Provider: CAMILLE GREENE Report Released Date/Time: Apr 30, 2024 11:59 AM Reporting Lab: [facility] [place] [address] [address] Performing Lab: [facility] [place] [address] [address] [facility] [place] [facility] CBC AND DIFF (AUTO) PLATELETS [#/VOLUME] IN BLOOD BY AUTOMATED COUNT 456 10*3/u L 140 - 360 04/30 H Specimen Type: BLOOD No comment entered. Ordering Provider: CAMILLE GREENE Report Released Date/Time: Apr 30, 2024 11:59 AM Reporting Lab: [facility] [place] [address] [address] Performing Lab: [facility] [place] [facility] [address] [address] [facility] [place] [facility] CBC AND DIFF (AUTO) ERYTHROCYTE DISTRIBUTIO N WIDTH [RATIO] BY AUTOMATED COUNT 14.5 12.0 - 16.0 04/30 Specimen Type: BLOOD No comment entered. Ordering Provider: CAMILLE GREENE Report Released Date/Time: Apr 30, 2024 11:59 AM Reporting Lab: [facility] [place] [facility] [address] [address] Performing Lab: [facility] [place] [facility] [address] [address] [facility] [place] [facility] CBC AND DIFF (AUTO) MONOCYTES [#/VOLUME] IN BLOOD BY AUTOMATED COUNT 0.57 10*3/u L 0.30 - 1.10 04/30 Specimen Type: BLOOD No comment entered. Ordering Provider: CAMILLE GREENE Report Released Date/Time: Apr 30, 2024 11:59 AM Reporting Lab: [facility] [place] [facility] [address] [address] Performing Lab: [facility] [place] [facility] [address] [address] [facility] [place] [facility] CBC AND DIFF (AUTO) MCH [ENTITIC MASS] BY AUTOMATED COUNT 24.8 pg 26.2 - 32.6 04/30 L Specimen Type: BLOOD No comment entered. Ordering Provider: CAMILLE GREENE Report Released Date/Time: Apr 30, 2024 11:59 AM Reporting Lab: [facility] [place] [facility] [address] [address] Performing Lab: [facility] [place] [facility] [address] [address] [facility] [place] [facility] CBC AND DIFF (AUTO) NEUTROPHILS /100 LEUKOCYTES IN BLOOD BY AUTOMATED COUNT 60.9 43.7 - 75.8 04/30 Specimen Type: BLOOD No comment entered. Ordering Provider: CAMILLE GREENE Report Released Date/Time: Apr 30, 2024 11:59 AM Reporting Lab: [facility] [place] [facility] [address] [address] Performing Lab: [facility] [place] [facility] [address] [address] [facility] CBC AND DIFF (AUTO) LYMPHOCYTES /100 LEUKOCYTES IN BLOOD BY AUTOMATED COUNT 28.2 14.0 - 42.3 04/30 Specimen Type: BLOOD No comment entered. Ordering Provider: CAMILLE GREENE Report Released Date/Time: Apr 30, 2024 11:59 AM Reporting Lab: [facility] [place] [facility] [address] [address] Performing Lab: [facility] [address] [phone] [facility] CBC AND DIFF (AUTO) MONOCYTES/1 00 LEUKOCYTES IN BLOOD BY AUTOMATED COUNT 7.3 5.1 - 13.7 04/30 Specimen Type: BLOOD No comment entered. Ordering Provider: CAMILLE GREENE Report Released Date/Time: Apr 30, 2024 11:59 AM Reporting Lab: [facility] [address] [phone] Performing Lab: [facility] [address] [phone] [facility] CBC AND DIFF (AUTO) EOSINOPHILS /100 LEUKOCYTES IN BLOOD BY AUTOMATED COUNT 2.3 0.4 - 6.8 04/30 Specimen Type: BLOOD No comment entered. Ordering Provider: CAMILLE GREENE Report Released Date/Time: Apr 30, 2024 11:59 AM Reporting Lab: [facility] [address] [phone] Performing Lab: [facility] [address] [phone] [facility] CBC AND DIFF (AUTO) BASOPHILS/1 00 LEUKOCYTES IN BLOOD BY AUTOMATED COUNT 0.9 0.1 - 2.0 04/30 Specimen Type: BLOOD No comment entered. Ordering Provider: CAMILLE GREENE Report Released Date/Time: Apr 30, 2024 11:59 AM Reporting Lab: [facility] [address] [phone] Performing Lab: [facility] [address] [phone] [facility] CBC AND DIFF (AUTO) NEUTROPHILS [#/VOLUME] IN BLOOD BY AUTOMATED COUNT 4.79 10*3/u L 2.20 - 7.60 04/30 Specimen Type: BLOOD No comment entered. Ordering Provider: CAMILLE GREENE Report Released Date/Time: Apr 30, 2024 11:59 AM Reporting Lab: [facility] [address] [address] Performing Lab: [facility] [address] [address] [facility] CBC AND DIFF (AUTO) LYMPHOCYTES [#/VOLUME] IN BLOOD BY AUTOMATED COUNT 2.21 10*3/u L 1.00 - 3.20 04/30 Specimen Type: BLOOD No comment entered. Ordering Provider: CAMILLE GREENE Report Released Date/Time: Apr 30, 2024 11:59 AM Reporting Lab: [facility] [address] [address] Performing Lab: [facility] [address] [address] [facility] CBC AND DIFF (AUTO) EOSINOPHILS [#/VOLUME] IN BLOOD BY AUTOMATED COUNT 0.18 10*3/u L 0.03 - 0.44 04/30 Specimen Type: BLOOD No comment entered. Ordering Provider: CAMILLE GREENE Report Released Date/Time: Apr 30, 2024 11:59 AM Reporting Lab: [facility] [address] [address] Performing Lab: [facility] [address] [address] [facility] CBC AND DIFF (AUTO) BASOPHILS [#/VOLUME] IN BLOOD BY AUTOMATED COUNT 0.07 10*3/u L 0.01 - 0.13 04/30 Specimen Type: BLOOD No comment entered. Ordering Provider: CAMILLE GREENE Report Released Date/Time: Apr 30, 2024 11:59 AM Reporting Lab: [facility] [place] [facility] [address] [address] Performing Lab: [facility] [address] [address] [facility] CBC AND DIFF (AUTO) IMMATURE GRANULOCYTE S/100 LEUKOCYTES IN BLOOD BY AUTOMATED COUNT 0.4 0.0 - 0.7 04/30 Specimen Type: BLOOD No comment entered. Ordering Provider: CAMILLE GREENE Report Released Date/Time: Apr 30, 2024 11:59 AM Reporting Lab: [facility] [place] [address] [address] Performing Lab: [facility] [place] [facility] [address] [address] [facility] CBC AND DIFF (AUTO) IMMATURE GRANULOCYTE S [#/VOLUME] IN BLOOD 0.03 10*3/u L 0.00 - 0.06 04/30 Specimen Type: BLOOD No comment entered. Ordering Provider: CAMILLE GREENE Report Released Date/Time: Apr 30, 2024 11:59 AM Reporting Lab: [facility] [address] [address] Performing Lab: [facility] [address] [address] [facility] CBC AND DIFF (AUTO) NRBC % 0.0 0.0 - 0.0 04/30 Specimen Type: BLOOD No comment entered. Ordering Provider: CAMILLE GREENE Report Released Date/Time: Apr 30, 2024 11:59 AM Reporting Lab: [facility] [address] [address] Performing Lab: [facility] [address] [address] [facility] CBC AND DIFF (AUTO) NRBC, ABS 0.00 10*3/u L 0.00 - 0.00 04/30 Specimen Type: BLOOD No comment entered. Ordering Provider: CAMILLE GREENE Report Released Date/Time: Apr 30, 2024 11:59 AM Reporting Lab: [facility] [address] [address] Performing Lab[facility] [address] [address] [facility] Vital Signs Combined list of inpatient and outpatient Vital Signs from Department of Defense and Veterans Affairs, ranging from 12 months to all on record, depending upon the facility. Vital Sign Value Date Comments Source SYSTOLIC BLOOD PRESSURE 116 04/30/19 25 11:35:16 [facility] DIASTOLIC BLOOD PRESSURE 78 025 11:35:16 [facility] PULSE OXIMETRY 97 04/30/2024 11:35:16 [facility] WEIGHT 224 04/30/2024 11:35:16 [facility] BMI 30 kg/m2 04/30/2024 11:35:16 [facility] PAIN 0 04/30/2024 11:35:16 [facility] TEMPERATURE 98.3 04/30/2024 11:35:16 [facility] PULSE 66 04/30/2024 11[facility]35:16 [facility] RESPIRATION 15 04/30/2024 11:35:16 [facility] Encounters Combined list of: 1) Encounters from Department of Veterans Affairs facilities going backup to the last 18 months, not all VA inpatient encounters are included; 2) Encounters from the Department of Defense facilities going backup to 280 months. Location Location Details Encounter Type Encounter Number Reason For Visit Attending Provider ADM Date DC Date Status Disposition Source [facility] Outpatient Encounter [id number] Diagnos is: ICD-10- CM K92.1 Erika MAZARIEGOSSHELDONLUIS FERNANDO RISTOPHER 12/22 [facility] Encounter [id number] 12/25 [facility] En[facility] [id number] Sammy AN 01/27 [facility] Encounter [id number] 02/14 [facility] En[facility] [id number] 02/28 [facility] Encounter [id number] 07/26 [facility] Encounter [id number] 07/26 [facility] Encounter [id number] 07/28 [facility] Encounter [id number] 08/07 [facility] En[facility] [id number] 08/07 [facility] [id number] 08/30 [facility] Encounter [id number] 08/30 [facility] Encounter [id number] 09/26 [facility] Encounter [id number] 09/27 [facility] En[facility] [id number] 10/09 [facility] Encounter [id number] 10/20 [facility]counter [id number] [facility] Encounter [id number] 01/09 [facility] Encounter [id number] [facility] Encounter [id number] 02/05 [facility]counter [id number] 02/05 [facility]counter [id number] [facility] Encounter [id number] [facility] Encounter [id number] [facility] Encounter [id number] 04/25 [facility]counter [id number] 04/25 [facility] Encounter [id number] [facility] OFFICE O/P EST MOD 30 MIN [id number] Diagnos is: ICD-10- CM R10.9 Unspeci fied abdomin al pain CAMILLE LOVING 04/30 [facility] En[facility] [id number] 04/30 [facility] UNLISTED SPEC DERM SVC/PX [id number] Diagnos is: ICD-10- CM Z13.89 Encount er for screeni ng for other disorde r LUIS SHAFER A 05/04 [facility] Outpatient Encounter [id number] Diagnos is: ICD-10- CM 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 Outpatient Encounter [id number] 05/04 [facility] [place] Outpatient Encounter [id number] 05/09 [facility] [place] Outpatient Encounter [id number] 06/01 [facility] Social History Combined list of available smoking, tobacco, and other social history from Department of Defense and Veterans Affairs facilities. Social History Type Response Date Comment Sourc e Tobacco smoking status [facility] VA-TOBACCO USE FORMER CIGARETTES 04/30/20[address] [facility] [place] [facility] History of tobacco use VA-TOBACCO USE SOME DAYS OTHER TYPE 04/30/2024 [facility] [place] [facility] History of tobacco use VA-TOBACCO FORMER USER 07/14/2021 [facility] [place] [facility] History of tobacco use VA-TOBACCO NEVER USED 07/11/2020 [facility] History of tobacco use PA-TOBACCO QUIT 5 TO < 15 YRS 05/23/2019 [facility] History of tobacco use VA-TOBACCO FORMER USER 04/19/2018 [employer] History of tobacco use QUIT TOBACCO USE > 7 YEARS AGO 02/02/2016 Quit 1992. [employer] Plan of Care List of future care activities from Department of Veterans Affairs facilities. Additional future care activities may be listed in the Assessment and Plan section. Date/Time Care Activity Care Activity Detail Facili ty 08/15/2024 AMBULATORY - MEDICINE AMBULATORY - MEDICI NE [facility] [place] [facility] 04/30/2024 Consult Order COMMUNITY CARE-G EN SURGERY Cons Senior Mobile Application Developer's Choice [facility] [place] [facility] 04/30/2024 Consult Order COMMUNITY CARE-G I GENERAL Cons Senior [employer] Developer's Choice [facility] [place] [facility]
--- OUTSIDE RECORDS SUMMARY | 2024-06-07 11:04 | XMS_ITS | Clinical Summary ---
Author Organization [facility] Address [address] [place] [address] Care Team Providers Care Director Custom Name Role Phone Pcp, No MD Primary [...] topic Insurance MEDICAID [place] Care Teams Director Custom Relationship Specialty Start Date End Date Anh Rodrigues MD [address] [place] [address] PCP - General 07/15/17
--- OUTSIDE RECORDS SUMMARY | 2024-06-07 11:04 | XMS_ITS | Encounter Summary ---
Author Name [facility] [place] [facility] [place] Address [address] [place] [address] Care Team Providers Care Missile Inspector Preflight Name Role Phone CAMILLE GOTTI Primary Care [...] TITLE 19 Apr 18, 2020 MEDIC[facility] D [id number] EVA LU PATIENT Selected Encounter This section includes the information on record at [place] for the Encounter. Date/Time Encounter Type Encounter Description Reason Pro vider Source Jun 01, 2024 11:55 AM Outpatient Encounter PRIMARY CARE/MEDICINE IHE Encounter [...] 20 appointments. The data comes from all [facility]. Appointment Date/Time Appointment Type Appointme nt Facility Name Aug 15, 2024 10:30 AM AMBULATORY - MEDICINE [facility] Active, Pending, and Scheduled Orders This section includes a listing of several types of active, pending, and scheduled orders, including clinic medications orders, diagnostic test orders, procedure orders and consult orders; where the start date of the order is 45 days before the date of the Encounter or 45 days after the date of theEncounter. The data comes from all [facility]. Test Date/Time Test Type Test Details Facility Name Apr 30, 2024 11:38 AM Consult Order COMMUNITY CARE-GEN SURGERY [facility] Instrument Lens Inspector's Choice [facility] Apr 30, 2024 11:59 AM Consult Order COMMUNITY CARE-GI GENERAL [facility] Instrument Lens Inspector's [facility] Social History: Smoking Status (Most current) and [...] Date/Time Current Smoking Status Comment Andrew ity May 23, 2019 04:43 PM [place] QUIT 5 TO < 15 YRS [facility] Tobacco Use History This section includes a history of the smoking, or tobacco-related health factors, that were collected on or before the date of the Encounter. The data comes from the [place] facility where the Encounter took place. Date/Time Smoking Status/Tobacco Use Comment F acility May 23, 2019 04:43 PM [place]-TO[place] QUIT 5 TO < 15 YRS [facility] Encounter Notes: All associated encounter notes This section contains the clinical notes associated to the Encounter. Date/Time Encounter Note(s) Provider Source Jun 01, 2024 11:55 AM ADMINISTRATIVE NOT E: LOCAL TITLE: MAIL RECEIVED STANDARD TITLE: ADMINISTRATIVE NOTE DATE OF NOTE: JUN 01, 2024@11:55 ENTRY DATE: JUN 01, 2024@11:55:12 AUTHOR: PERALES,DAMIEN MONTREL EXP COSIGNER: URGENCY: STATUS: COMPLETED Mail received on 06/01/24 From:[employer] Subject:labs Given to: CURRENT PCP [facility] Recevied in [facility] old PCP mail box . Placed in outgoing mail to be delivered to NEW PROVIDER in [facility]. /saida/ DAMIEN PERALES LPN LICENSED PRACTICAL NURSE Signed: 06/01/2024 11:58 DAMIEN PERALES [place]
== END 2024-06-07 10:33 | disposition home or self-care (01) ==
PROVIDERS: PCP Internal Medicine; Visit Provider Surgery
DX: K64.9 Unspecified hemorrhoids (principal)
CPT/HCPCS: 99024

== ENCOUNTER → 2024-06-07 10:07 | Outpatient (BNVA) | payer OTHER, SELFPAY | PROVIDERS: PCP Internal Medicine; Visit Provider Surgery | DX: K64.9 Unspecified hemorrhoids (principal) | CPT/HCPCS: 99212 ==